=== PATIENT | female | born 1995 | race Caucasian/White ===

== ENCOUNTER 2023-06-06 19:43 | Outpatient (REF) | payer OTHER, SELFPAY ==
[2023-06-12 10:20] LABS: Age Gdln ACOG Testing Note (.); IGP, rfx Aptima HPV ASCU Note (.)
== END 2023-06-06 19:44 | disposition home or self-care (01) ==
LOC: LAB 19:43
PROVIDERS: Visit Provider Obstetrics & Gynecology
DX: Z12.4 Encounter for screening for malignant neoplasm of cervix (principal); Z11.51 Encounter for screening for human papillomavirus (HPV)
CPT/HCPCS: G0145

== ENCOUNTER 2023-11-27 07:38 | Outpatient (OUT) | payer OTHER, SELFPAY ==
--- NOTE | 2023-11-27 07:41 | US_ITS ---
The [address] [address] Patient Name: SELENE SHERMAN MRN: [id number] date: 1995 Sex: F Assigned Patient Location: US Current Patient Location: US Accession/Order Number: [id number] Exam Date: 11/27/2023 07:48 Report Date: 11/27/2023 08:25 At the request of: CLIFTON CHOE Procedure: US pelvis w/ transvaginal EXAM: Pelvic ultrasound HISTORY: . 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 COMPARISON: None. TECHNIQUE: Transabdominal and transvaginal scanning was performed FINDINGS: Scanning of the pelvis demonstrates an anteverted uterus measuring 8 x 4.9 x 3.8 cm. Endometrial complex measures 8 mm. Right ovary measures 4.6 x 2.1 x 3.1 cm. Color-flow is noted. There is a 1.9 x 1.5 cm simple cyst in the right ovary. Left ovary measures 2.7 x 2.8 x 2.9 cm. Color-flow is noted. There is a 1.9 x 1.4 cm simple cyst within the left ovary. No fluid is noted within the cul-de-sac. US/US pelvis w/ transvaginal IMPRESSION: 1. Normal-appearing uterus and endometrial complex. 2. 2 cm simple cyst in the right ovary. 3. 1.9 cm simple cyst in the left ovary. Electronically authenticated by: ISRAEL RODRIGUEZ Date: 11/27/2023 08:25
== END 2023-11-27 07:39 | disposition home or self-care (01) ==
LOC: US 07:38
PROVIDERS: Visit Provider Obstetrics & Gynecology
DX: E28.2 Polycystic ovarian syndrome (principal); N83.291 Other ovarian cyst, right side; N83.292 Other ovarian cyst, left side
CPT/HCPCS: 76830; 76856

== ENCOUNTER 2024-04-18 10:05 | Outpatient (OUT) | payer OTHER, SELFPAY ==
--- NOTE | 2024-04-18 | US_ITS ---
[address] [address] Patient Name: SELENE SHERMAN MRN: [id number] date: 1995 Sex: F Assigned Patient Location: [facility] Current Patient Location: [facility] Accession/Order Number: [id number] Exam Date: 04/18/2024 10:11 Report Date: 04/18/2024 12:03 At the request of: CLIFTON CHOE Procedure: US OB transvaginal EXAMINATION: US OB transvaginal HISTORY: MISSED MENSES COMPARISON: No relevant comparison available. FINDINGS: GESTATIONAL SAC: Present and normal appearing. YOLK SAC: Present and normal appearing. POLE: Present and normal appearing. CARDIAC: Present. UTERUS: Normal size and appearance. OVARIES: Right: Complex 3.5 cm cyst versus corpus lutein cyst. Left: Normal. CERVIX: 3.6 cm in length and closed. CUL-DE-SAC: Normal. OTHER: None. AGE BY LMP: 8 weeks 4 days EDGAR BY LMP: 11/24/2024 AGE BY US CRL: 8 weeks 5 days EDGAR BY US CRL: 11/23/2024 US/US OB transvaginal IMPRESSION: 1. Single live intrauterine . 2. Large septated cyst within right ovary; complex cyst versus corpus lutein cyst. Electronically authenticated by: VERENICE AYOUB Date: 04/18/2024 12:03
--- OUTSIDE RECORDS SUMMARY | 2024-04-18 10:22 | XMS_ITS ---
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 Name Role Phone VILLALOBOS, DINKAR Unavailable Unavailable VILLALOBOS, DINKAR Unavailable Unavailable PHYSICIAN, DEFAULT Admitting Unavailable PHYSICIAN, DEFAULT Attending Unavailable ROHITH, PA R Admitting Unavailable ROHITH, PA R Attending Unavailable SELF, REFERRED Referring Unavailable SELF, REFERRED Primary Care Unavailable DAIJA, DR LAZO Attending Unavailable DAIJA, DR LAZO Consulting Unavailable DAIJA, DR LAZO Admitting Unavailable Jesica Jamison Primary Care Physician NHUNG RIVERO Attending Unavailable DAIJA, CLIFTON Attending Unavailable Jeffery Doyle Attending Unavailable DAIJA, Clifton R Admitting Unavailable DAIJA, Clifton R Attending Unavailable DAIJA, Clifton R Admitting Unavailable DAIJA, Clifton R Attending Unavailable DAIJA, Clifton R Admitting Unavailable DAIJA, Clifton R Attending Unavailable DAIJA, Clifton R Admitting Unavailable DAIJA, Clifton R Attending Unavailable Encounters Encounter Date Encounter Type Care Provider Facility Start: 03-17-2024 End: 03-18-2024 ambulatory Clifton R DAIJA [place] Start: 03-17-2024 End: 03-17-2024 Patient encounter procedure Clifton R DAIJA [facility] Start: 12-19-2023 End: 12-19-2023 ambulatory NHUNG RIVERO Not Available Start: 12-07-2023 ambulatory Clifton R DAIJA Facility: [facility] Start: 11-13-2023 End: 11-14-2023 ambulatory Clifton R DAIJA Facility:[facility] Start: 11-13-2023 End: 11-13-2023 Patient encounter procedure Clifton R DAIJA [facility] Start: 10-24-2023 End: 10-24-2023 ambulatory CLIFTON CHOE Not Available Start: 08-14-2023 End: 11-13-2023 ambulatory Jeffery Doyle Facility:[facility] Start: 04-11-2023 ambulatory Clifton CHOE Facility: [facility] Start: 04-11-2023 End: 07-17-2023 Recurring Clifton Johnie CHOE [facility] Start: 01-25-2022 End: 01-25-[address] CLIFTON CHOE Facility: Start: 12-10-2018 End: 12-11-2018 Patient encounter procedure PA NEWBERRY Facility:[facility] Start: 12-05-2018 End: 12-06-2018 Patient encounter procedure DEFAULT PHYSICIAN Facility:[facility] Start: 03-25-2018 Ambulatory [facility] Immunizations Immunization Date Immunization Notes Care Provider Fa cility 09-06-2023 influenza virus vaccine, unspecified formulation Clifton DAIJA [facility] Comment on above: Reason for Medicatio n: Prophylaxis 09-12-2022 influenza virus vaccine, unspecified formulation Clifton DAIJA [facility] Comment on above: Reason for Medicatio n: Prophylaxis 09-12-2022 influenza, injectabl e, quadrivalent, preservative free Clifton DAIJA [facility] 04-28-2021 COVID-19, mRNA, LNP- S, PF, 30 mcg/0.3 mL dose Clifton DAIJA [facility] Comment on above: Reason for Medicatio n: Prophylaxis 04-06-2021 COVID-19, mRNA, LNP- S, PF, 30 mcg/0.3 mL dose Clifton DAIJA [facility] Comment on above: Reason for Medicatio n: Prophylaxis Payers Date Payer Category Payer Unknown 2022 Medicare [id number] 1995 Unknown [id number] 2.16.8 [id number] 1995 Unknown [id number] 2.16.8 [id number] 1995 Unknown [id number] 2.16.84 [id number] 1995 Unknown [id number] 2.16.84 [id number] 1995 Unknown [id number] 2.16.840 .[id number] 1995 Unknown [id number] 2.16.8 [id number] 1995 Unknown [id number] 2.16.8 [id number] 1995 Unknown [id number] 2.16.8 [id number] 1995 Unknown [id number] 2.16.8 [id number] 1995 Unknown [id number] 2.16.8 [id number] 1960 Unknown [id number] Unknown [id number] Problems Problem Classification Problem Date Documented Date Episodic/Chronic Immunizations and screening for infectious disease (1 source) Encounter for screening for human papillomavirus (HPV); Translations: [ENC SCREENING HUMAN PAPILLOMAVIRUS] Onset: 01-26-2022 Episodic Other screening for suspected conditions (not mental disorders or infectious disease) (4 sources) Encounter for screening for malignant neoplasm of cervix; Translations: [ENC SCREENING MALIG NEOPLASM CERV] Onset: 01-25-2022 Episodic Spontaneous (1 source) Complete inevitable miscarriage without complication; Translations: [Complete or unspecified spontaneous without complication] Episodic Unclassified (1 source) Unknown / UNK(Unknown) Onset: 03-25-2018 Unclassified (2 sources) DX Onset: 12-10-2018 Results Test Name Value Interpretation Reference Range Facility [facility] 03-19-2024 HCG.beta subunit Qn 488 m[IU]/mL [facility] 1-3 [facility] Comment on above: Result Comment: 'F N ON < 1 - 3' ' 0.2 - 1 WEEK = 5 TO 50' ' 1 - 2 WEEKS = 50 - 500' ' 2 - 3 WEEKS = 100 - 5000' ' 3 - 4 WEEKS = 500 - 67418' ' 4 - 5 WEEKS = 1000 - 20330' ' 5 - 6 WEEKS = 71435 - 457702' ' 6 - 8 WEEKS = 54320 - 599444' ' 8 - 12 WEEKS = 03077 - 955075' Performed By: #### 2 [id number] #### [facility] [address] [place] [address] Progesteroneon 03-19-2024 Progesterone Lvl 69.95 ng/mL Invalid Interpretation Code [facility] Comment on above: Result Comment: 'F N ON FOLLICULAR = 0.10 - 0.60' 'LUTEAL = 3.00 - 17.5' 'MIDLUTEAL = 3.30 - 18.6' 'POST-MENOPAUSE = 0.10 - 0.40' '-FIRST TRIMESTER = 8.30 - 66.5' 'SECOND TRIMESTER = 18.9 - 66.1' 'THIRD TRIMESTER = 35.8 - 312.4' 'MALES = 0.14 - 2.06' Result Verified by Dilution Performed By: #### 2 [id number] #### [facility] [address] [place] [address] [facility] Quant 03-17-2024 HCG.beta subunit Qn 185 m[IU]/mL High 1-3 [facility] Comment on above: Result Comment: 'F N ON < 1 - 3' ' 0.2 - 1 WEEK = 5 TO 50' ' 1 - 2 WEEKS = 50 - 500' ' 2 - 3 WEEKS = 100 - 5000' ' 3 - 4 WEEKS = 500 - 71205' ' 4 - 5 WEEKS = 1000 - 85497' ' 5 - 6 WEEKS = 87236 - 581097' ' 6 - 8 WEEKS = 36522 - 858261' ' 8 - 12 WEEKS = 29364 - 850626' Performed By: #### 2 [id number] #### [facility] [address] [place] [address] CHEMISTRYOrdered By: SYSTEM SYSTEM on 03-17-2024 HCG.beta subunit Qn 185 m[IU]/mL High 1 - 3 mIU/mL R emisol Chem Comment on above: Result Comment: 'F N ON < 1 - 3' ' 0.2 - 1 WEEK = 5 TO 50' ' 1 - 2 WEEKS = 50 - 500' ' 2 - 3 WEEKS = 100 - 5000' ' 3 - 4 WEEKS = 500 - 74360' ' 4 - 5 WEEKS = 1000 - 17269' ' 5 - 6 WEEKS = 72689 - 567333' ' 6 - 8 WEEKS = 52096 - 659311' ' 8 - 12 WEEKS = 98068 - 697260' Consent for Treatmenton 02-18 Consent for Treatment [id number]#1.00TIF F Normal [facility] Physician Orderon 03-17-2024 Physician Order [id number]#1.00TI FF Normal [facility] Progesteroneon 03-17-2024 Progesterone Lvl 51.75 ng/mL Invalid Interpretation Code [facility] Comment on above: Result Comment: 'F N ON FOLLICULAR = 0.10 - 0.60' 'LUTEAL = 3.00 - 17.5' 'MIDLUTEAL = 3.30 - 18.6' 'POST-MENOPAUSE = 0.10 - 0.40' '-FIRST TRIMESTER = 8.30 - 66.5' 'SECOND TRIMESTER = 18.9 - 66.1' 'THIRD TRIMESTER = 35.8 - 312.4' 'MALES = 0.14 - 2.06' Performed By: #### 2 [id number] #### [facility] [address] [place] [address] Physician Orderon 03-12-2024 Physician Order [id number]#1.00T IFF Normal [facility] Progesteroneon 03-07-2024 Progesterone Lvl 20.59 ng/mL Invalid Interpretation Code [facility] Comment on above: Result Comment: 'F N ON FOLLICULAR = 0.10 - 0.60' 'LUTEAL = 3.00 - 17.5' 'MIDLUTEAL = 3.30 - 18.6' 'POST-MENOPAUSE = 0.10 - 0.40' '-FIRST TRIMESTER = 8.30 - 66.5' 'SECOND TRIMESTER = 18.9 - 66.1' 'THIRD TRIMESTER = 35.8 - 312.4' 'MALES = 0.14 - 2.06' Performed By: #### 2 [id number] #### [facility] [address] [place] [address] Progesteroneon 02-05-2024 Progesterone Lvl 20.64 ng/mL Invalid Interpretation Code [facility] Comment on above: Result Comment: 'F N ON FOLLICULAR = 0.10 - 0.60' 'LUTEAL = 3.00 - 17.5' 'MIDLUTEAL = 3.30 - 18.6' 'POST-MENOPAUSE = 0.10 - 0.40' '-FIRST TRIMESTER = 8.30 - 66.5' 'SECOND TRIMESTER = 18.9 - 66.1' 'THIRD TRIMESTER = 35.8 - 312.4' 'MALES = 0.14 - 2.06' Performed By: #### 2 [id number] #### [facility] [address] [place] [address] Progesteroneon 01-08-2024 Progesterone Lvl 18.23 ng/mL Invalid Interpretation Code [facility] Comment on above: Result Comment: 'F N ON FOLLICULAR = 0.10 - 0.60' 'LUTEAL = 3.00 - 17.5' 'MIDLUTEAL = 3.30 - 18.6' 'POST-MENOPAUSE = 0.10 - 0.40' '-FIRST TRIMESTER = 8.30 - 66.5' 'SECOND TRIMESTER = 18.9 - 66.1' 'THIRD TRIMESTER = 35.8 - 312.4' 'MALES = 0.14 - 2.06' Performed By: #### 2 [id number] #### [facility] [address] [place] [address] Consent for Treatmenton 11-19 Consent for Treatment [id number]#1.00TIF F Normal [facility] Physician Orderon 12-07-2023 Physician Order [id number]#1.00TI FF Normal [facility] Progesteroneon 12-07-2023 Progesterone Lvl 13.36 ng/mL Invalid Interpretation Code [facility] Comment on above: Result Comment: 'F N ON FOLLICULAR = 0.10 - 0.60' 'LUTEAL = 3.00 - 17.5' 'MIDLUTEAL = 3.30 - 18.6' 'POST-MENOPAUSE = 0.10 - 0.40' '-FIRST TRIMESTER = 8.30 - 66.5' 'SECOND TRIMESTER = 18.9 - 66.1' 'THIRD TRIMESTER = 35.8 - 312.4' 'MALES = 0.14 - 2.06' Performed By: #### 2 [id number] #### [facility] [address] [place] [address] DHEASon 11-14-2023 DHEA-S [Mass/Vol] 281.0 microgram/dL Invalid Interpretation Code 84.8-378.0 [facility] Comment on above: Result Comment: Perf ormed at: [facility] [id number] PhD Padma Gleason Performed By: #### 2 [id number] #### [facility] [address] [place] [address] [facility] 11-14-2023 Follitropin Qn 2.8 m[IU]/mL Invalid Interpretation Code [facility] Comment on above: Result Comment: Adul t Female Range Follicular phase 3.5 - 12.5 Ovulation phase 4.7 - 21.5 Luteal phase 1.7 - 7.7 Postmenopausal 25.8 - 134.8 Performed at: [facility] [id number] PhD Padma Gleason Performed By: #### 2 [id number] #### [facility] [address] [place] [address] Lutropin Qn 2.9 m[IU]/mL Invalid Interpretation Code [facility] Comment on above: Result Comment: Adul t Female Range Follicular phase 2.4 - 12.6 Ovulation phase 14.0 - 95.6 Luteal phase 1.0 - 11.4 Postmenopausal 7.7 - 58.5 Performed By: #### 2 [id number] #### [facility] [address] [place] [address] Auto Diffon 11-13-2023 Basophils/100 WBC (Bld) 0.2 % Normal 0.0-2.0 [facility] Comment on above: Order Comment: Order Added by Discern Expert. Performed By: #### 2 [id number] #### [facility] [address] [place] [address] Basophils/Leukocytes Auto (Bld) [Pure # fraction] 0.0 E9/L Normal 0.0-0.2 [facility] Comment on above: Order Comment: Order Added by Discern Expert. Performed By: #### 2 [id number] #### [facility] [address] [place] [address]2019 Eosinophils/100 WBC (Bld) 1.0 % Normal 0.0-8.0 [facility] Comment on above: Order Comment: Order Added by Discern Expert. Performed By: #### 2 [id number] #### [facility] [address] [place] [address] Eosinophils/Leukocyt es Auto (Bld) [Pure # fraction] 0.1 E9/L Normal 0.0-0.5 [facility] Comment on above: Order Comment: Order Added by Discern Expert. Performed By: #### 2 [id number] #### [facility] [address] [place] [address]35[address] Lymphocytes/100 WBC (Bld) 24.1 % Normal 14.0-50.0 [facility] Comment on above: Order Comment: Order Added by Discern Expert. Performed By: #### 2 [id number] #### [facility] [address] [place] [address] 02251 Lymphocytes/Leukocyt es Auto (Bld) [Pure # fraction] 1.7 E9/L Normal 1.0-4.0 [facility] Comment on above: Order Comment: Order Added by Discern Expert. Performed By: #### 2 [id number] #### [facility] [address] [place] [address]9795 Monocytes/100 WBC (Bld) 8.6 % Normal 4.0-14.0 [facility] Comment on above: Order Comment: Order Added by Discern Expert. Performed By: #### 2 [id number] #### [facility] [address] [place] [address] Monocytes/Leukocytes Auto (Bld) [Pure # fraction] 0.6 E9/L Normal 0.2-1.0 [facility] Comment on above: Order Comment: Order Added by Farhan Expert. Performed By: #### 2 [id number] #### [facility] [address] [place] [address] 84018 Neutrophils/100 WBC (Bld) 66.1 % Normal 36.0-75.0 [facility] Comment on above: Order Comment: Order Added by Farhan Expert. Performed By: #### 2 485134 #### [facility] [address] [place] [address]252 Neutrophils/Leukocyt es Auto (Bld) [Pure # fraction] 4.5 E9/L Normal 2.0-7.5 [facility] Comment on above: Order Comment: Order Added by Discern Expert. Performed By: #### 2 [id number] #### [facility] [address] [place] [address] 6[address] BhCG Quanton 11-13-2023 Beta hCG Qnt <1 Normal 1-3 [facility] Comment on above: Result Comment: 'F N ON < 1 - 3' ' 0.2 - 1 WEEK = 5 TO 50' ' 1 - 2 WEEKS = 50 - 500' ' 2 - 3 WEEKS = 100 - 5000' ' 3 - 4 WEEKS = 500 - 56820' ' 4 - 5 WEEKS = 1000 - 06495' ' 5 - 6 WEEKS = 52937 - 306724' ' 6 - 8 WEEKS = 34970 - 360009' ' 8 - 12 WEEKS = 29640 - 092297' Performed By: #### 2 [id number] #### [facility] [address] [place] [address] CBC w/ Auto Diffon Erythrocyte distribution width (RBC) [Ratio] 13.8 % Normal 10.9-14.2 [facility] Comment on above: Performed By: #### 2 [id number] #### [facility] [address] [place] [address] Hematocrit (Bld) [Volume fraction] 39.9 % Normal 34.0-46.0 [facility] Comment on above: Performed By: #### 2 [id number] #### [facility] [address] [place] [address] Hemoglobin (Bld) [Mass/Vol] 13.1 g/dL Normal 12.0-16.0 [facility] Comment on above: Performed By: #### 2 [id number] #### [facility] [address] [place] [address] MCH (RBC) [Entitic mass] 27.5 pg Normal 27.0-34.0 [facility] Comment on above: Performed By: #### 2 [id number] #### [facility] [address] [place] [address] MCHC (RBC) [Mass/Vol] 32.9 g/dL Normal 31.4-36.0 [facility] Comment on above: Performed By: #### 2 839058 #### [facility] [address] [place] [address] MCV (RBC) [Entitic vol] 83.5 fL Normal 80.0-100.0 [facility] Comment on above: Performed By: #### 2 [id number] #### [facility] [address] [place] [address] Platelet mean volume (Bld) [Entitic vol] 9.3 fL Normal 6.4-10.8 [facility] Comment on above: Performed By: #### 2 [id number] #### [facility] [address] [place] [address] Platelets (Bld) [#/Vol] 249.0 E9/L Normal 150.0-500.0 [facility] Comment on above: Performed By: #### 2 [id number] #### [facility] [address] [place] [address] RBC (Bld) [#/Vol] 4.8 E12/L Normal 4.3-5.9 [facility] Comment on above: Performed By: #### 2 350287 #### [facility] [address] [place] [address] WBC corrected for nucl RBC Auto (Bld) [#/Vol] 6.8 E9/L Normal 4.0-11.0 [facility] Comment on above: Performed By: #### 2 [id number] #### [facility] [address] [place] [address] CHEMISTRYOrdered By: SYSTEM SYSTEM on 11-13-2023 Beta hCG Qnt mIU/mL Normal 1 - 3 mIU/mL [facility] Comment on above: Result Comment: 'F N ON < 1 - 3' ' 0.2 - 1 WEEK = 5 TO 50' ' 1 - 2 WEEKS = 50 - 500' ' 2 - 3 WEEKS = 100 - 5000' ' 3 - 4 WEEKS = 500 - 08030' ' 4 - 5 WEEKS = 1000 - 40214' ' 5 - 6 WEEKS = 59115 - 324465' ' 6 - 8 WEEKS = 60322 - 148977' ' 8 - 12 WEEKS = 09932 - 278911' Free T4 [Mass/Vol] 0.96 ng/dL Normal 0.58 - 1. 64 ng/dL Remisol Chem TSH Qn 1.38 m[IU]/L Normal 0.34 - 5.60 mcIU/mL Remisol Chem CHEMISTRYOrdered By: Adolph Mcnair on 11-13-2023 HbA1c (Bld) [Mass fraction] 5.0 % Normal <=5.9% [facility] ChemAutoSS Consent for Treatmenton 10-20 Consent for Treatment [id number]#1.00TIF F Normal [facility] Free T4on 11-13-2023 Free T4 [Mass/Vol] 0.96 ng/dL Normal 0.58-1.64 [facility] Comment on above: Performed By: #### 2 [id number] #### [facility] [address] [place] [address] HEMATOLOGYOrdered By: SYSTEM SYSTEM on 11-13-2023 Basophils/100 WBC (Bld) 0.2 % Normal 0.0 - 2.0 % [facility] Basophils/Leukocytes Auto (Bld) [Pure # fraction] 0.0 E9/L Normal 0.0 - 0.2 E9/L [facility] Eosinophils/100 WBC (Bld) 1.0 % Normal 0.0 - 8.0 % [facility] Eosinophils/Leukocyt es Auto (Bld) [Pure # fraction] 0.1 E9/L Normal 0.0 - 0.5 E9/L [facility] Lymphocytes/100 WBC (Bld) 24.1 % Normal 14.0 - 50.0 % [facility] Lymphocytes/Leukocyt es Auto (Bld) [Pure # fraction] 1.7 E9/L Normal 1.0 - 4.0 E9/L [facility] Monocytes/100 WBC (Bld) 8.6 % Normal 4.0 - 14.0 % [facility] Monocytes/Leukocytes Auto (Bld) [Pure # fraction] 0.6 E9/L Normal 0.2 - 1.0 E9/L [facility] Neutrophils/100 WBC (Bld) 66.1 % Normal 36.0 - 75.0 % [facility] Neutrophils/Leukocyt es Auto (Bld) [Pure # fraction] 4.5 E9/L Normal 2.0 - 7.5 E9/L [facility] HEMATOLOGYOrdered By: Nena Amor on 11-13-2023 Erythrocyte distribution width (RBC) [Ratio] 13.8 % Normal 10.9 - 14.2 % [facility] Hematocrit (Bld) [Volume fraction] 39.9 % Normal 34.0 - 46.0 % [facility] Hemoglobin (Bld) [Mass/Vol] 13.1 g/dL Normal 12.0 - 16.0 gm/dL [facility] MCH (RBC) [Entitic mass] 27.5 pg Normal 27.0 - 34.0 pg [facility] MCHC (RBC) [Mass/Vol] 32.9 g/dL Normal 31.4 - 36.0 gm/dL [facility] MCV (RBC) [Entitic vol] 83.5 fL Normal 80.0 - 100.0 fL [facility] Platelet mean volume (Bld) [Entitic vol] 9.3 fL Normal 6.4 - 10.8 fL [facility] Platelets (Bld) [#/Vol] 249.0 E9/L Normal 150.0 - 500.0 E9/L [facility] RBC (Bld) [#/Vol] 4.8 E12/L Normal 4.3 - 5.9 E12/L [facility] WBC corrected for nucl RBC Auto (Bld) [#/Vol] 6.8 E9/L Normal 4.0 - 11.0 E9/L [facility] OtwE0kta 11-13-2023 HbA1c (Bld) [Mass fraction] 5.0 % Normal <=5.9 [facility] Comment on above: Performed By: #### 2 [id number] #### [facility] [address] [place] [address] TSHon 11-13-2023 TSH Qn 1.38 m[IU]/L Normal 0.34-5.60 [facility] Comment on above: Performed By: #### 2 [id number] #### [facility] [address] [place] [address] BhCG Quanton 04-18-2023 HCG.beta subunit Qn 1 m[IU]/mL Normal 1-3 [facility] Comment on above: Result Comment: GEST ATIONAL AGE HCG RANGE (mIU/mL) NON- <1-3 0.2-1 WEEKS 5-50 1-2 WEEKS 50-500 2-3 WEEKS 100-5,000 3-4 WEEKS 500-10,000 4-5 WEEKS 1,000-50,000 5-6 WEEKS 10,000-100,000 6-8 WEEKS 15,000-200,000 8-12 WEEKS 10,000-100,000 Performed By: #### 2 [id number] #### [facility] [address] [place] [address] CHEMISTRYOrdered By: SYSTEM SYSTEM on 04-18-2023 HCG.beta subunit Qn 1 m[IU]/mL Normal 1 - 3 mIU/mL FTM C Remisol BhCG Quanton 04-11-2023 HCG.beta subunit Qn 9 m[IU]/mL High 1-3 [facility] Comment on above: Result Comment: GEST ATIONAL AGE HCG RANGE (mIU/mL) NON- <1-3 0.2-1 WEEKS 5-50 1-2 WEEKS 50-500 2-3 WEEKS 100-5,000 3-4 WEEKS 500-10,000 4-5 WEEKS 1,000-50,000 5-6 WEEKS 10,000-100,000 6-8 WEEKS 15,000-200,000 8-12 WEEKS 10,000-100,000 Performed By: #### 2 [id number] #### [facility] [address] [place] [address] CHEMISTRYOrdered By: SYSTEM SYSTEM on 04-11-2023 HCG.beta subunit Qn 9 m[IU]/mL High 1 - 3 mIU/mL FTM C Remisol Consent for Treatmenton 03-20 Consent for Treatment [id number]#1.00CD: 127 Normal [facility] Physician Orderon 04-11-2023 Physician Order [id number]#1.00CD :127 Normal [facility] PAP ACOG PANEL 2: 20 to 28on 01-31-[address] [facility] Comment on above: Performed By: #### 4 [id number] #### [facility] [address] [place] [address] Dr. Tobi Phelps Age Gdln ACOG Testing [address] [facility] Comment on above: Performed By: #### 4 [id number] #### [facility] [address] [place] [address] Dr. Tobi Phelps DIAGNOSIS: Comment Normal [facility] Comment on above: Result Comment: NEGA TIVE FOR INTRAEPITHELIAL LESION OR MALIGNANCY. Performed By: #### 4 [id number] #### [facility] [address] [place] [address] Dr. Tobi Phelps Methodology: Comment Normal [facility] Comment on above: Result Comment: This liquid based ThinPrep(R) pap test was screened with the use of an image guided system. Performed By: #### 4 [id number] #### [facility] [address] [place] [address] Dr. Tobi Phelps Note: Comment Normal [facility] Comment on above: Result Comment: The Pap smear is a screening test designed to aid in the detection of premalignant and malignant conditions of the uterine cervix. It is not a diagnostic procedure and should not be used as the sole means of detecting cervical cancer. Both false-positive and false-negative reports do occur. . Performed By: #### 4 [id number] #### [facility] [address] [place] [address] Dr. Tobi Phelps Performed by: Comment Normal [facility] Comment on above: Result Comment: Elvis Gutierrez, Board Finisher (ASCP) Performed By: #### 4 [id number] #### [facility] [address] [place] [address] Dr. Tobi Phelps Reflex Criteria: Comment Normal [facility] Comment on above: Result Comment: The HPV DNA reflex criteria were not met with this specimen result therefore, no HPV testing was performed. . Performed By: #### 4 [id number] #### [facility] [address] [place] [address] Dr. Tobi Phelps Specimen adequacy: Comment Normal [facility] Comment on above: Result Comment: Sati sfactory for evaluation. Endocervical and/or squamous metaplastic cells (endocervical component) are present. Performed By: #### 4 [id number] #### [facility] [address] [place] [address] Dr. Tobi Phelps Release of Informationon Release of Information [id number] TIFF [facility] Coding Summaryon 08-04-2021 Coding Summary HTMLBase 64 OpttmkoiPIl0wDn+PGhlYWQ+ PY8XQLLxN57rqICjvX4SH0iO SB5GYBKWDVJGCI0IND7sdWS2 WKdrC7RirnIk JyyyfNRxKK19JEv3IHB7iQny ATkvfG0inXEoP4d2IxOrYP34 lY91DTboHVWvTqE7DkPhtpwz bWFy V9wzVbMweZSkLwz+PHRhYmxl IHdpZHRoPScxMDAlJyBzdHls VF2xWu3lIRVyJWWwvVjriGBm OiBj t4tjMSPdRGsgYM0exMfhH3Kh mIT0WULig1i7Mx26xVP+PHRk XCJ0mUszDXhde155XgXla8fc IDM3 vFHtYTzmTIW5F35zf5G7RVNr DJDeJFF9aYF0hX0epHojvpfx Z2ZevWGlRiH6IPE6jECovS9a bGln mccuvK7vZxj+Q30GBO9JLNSQ HG7AOix7N6QxRcsjpLU+PC90 TYJePH90iSNkzWUtn6idjTg6 JzEw UTAjKBF8kNhtTInnh3PcJARq K32pmSAfa7F7KPVnoJdgtLTp OkLjtYH6uM8mKQrrmpelx7nw dzsn Hfbko0mhou83yZ59W60qZQcb RQGyTGY7MISsCNFnvTexep0y aL6rLg2+AKqrc4klk8dcrJo7 IjIw USKbyqOojNurIVC2v9VoKe22 H7ZlvBbeq5MfEql3ak86oAUo n4P8aYJ7ESvfWEKmeN8tDOxd ZnQ6 QZRoHnFzzG16nNJuNAfmLz6h nEndeWocZD1zYTXyqocrWESi qB1vBRFcxXLkkCnoPF2vXWSj bjtm t903DdJxHGB0QYLpcQCxD9Cu lF3tQqKwAGPsXSKaH8BklGNe AIepY030LDhmZwI7QIZtekYa Y2Fs QYApiAdqVrL3u0V4Ml0Ii2Io pufvSUP4JEtaYMS8NgY3DeMx PaE6T4UfHxw9WXEwnYpzKL7b J3Bh JVGsvaubngyilSF3XAUdXQUm kK23qMHeODcdJn2yi5Q2l219 WIXkLFSvkO25Uq4tnQzdLPKu dCBU gF2lmkwem0vvzyaoDnJnYEBp RSp0SEc4GKYzjKyzMpJbDAI0 AoQ7GYH6aEFlkD0pnWkptoxm dG9w Oyc+X26ecU6cKBY8LVF4veue YORnjuLrFC84RK39U8UkNpjs dGFibGU+NPUxypPxuKlkSU3x YmFj s5drj2YkDThnB4PaOZFnLRek Adj5FVZsKRS5kVP0fQ3lAVJd GVgjz8E2lNX5Q7CiltRksc6d b2xs PYGhQHrvP55aiLByy9T1ADIn qXB8HSHteJbsZxTbfB53Svb+ IIRrdXzfe0BpIwlyg4wny3dm dGg9 GoIvHIQshuTmlXmyMGW9z1Ce Vs41Q91vQTzkZVJkHDVnXCBb AUYikFsksh4enL9sVr6+PGNv bCB3 yQD8iB6rWXVeSyB5VMpuB637 WmKdjYQxBpblx1ufm5opaKw1 ZiXaRKRvsuYchFryTPR1z0Px Lz48 H32oYDynUUSbWGEtNFMhBSZl xOdljr7mhJ6oWa6+NQ7lc0ry yt88vN73iOQ+SRAqBQV3qPox PSdw OIWyqR7fZOorTqI0RCJiMnSf dH78aBUaSVsrMj9onTojjOpz TN3jCYWgsuraq156VfSip1ps IDEw nCAbMPbiTJG7T70zr5H8UFIt ZEFiXTZ0yHC6xD8tbDikbcsa bGVmdDsgdmVydGljYWwtYWxp Z246 IHRvcDsnPlBhdGllbnQgTmFt BCu8G0MwTei3EPRinMxgJS8t oTXfECbsXh8atHlxwTewKA3a NTBp zrsrx685TrZab0bdIGWdrKPa NSrvHSW5O37fk0Z4ZYYiUOAi VJL0gNA3fP7rxWwibucxhLSe dDsg hzWpsCbiCQbnEKtiR650BSEo oOkrZfCfiaAoOCVkvFJ8MP03 PF43fYLib4R6yUL2N2MzKFGx bmct eaxmdPZ6BAKpIWNqkR62Gt7d qXrsQb6xVTGmBCV7VGTgdLNv Z6CeiN4eAbClBVBjZQWiN6Dl eHQt HFhnO563DQhgMeZ4GJRelrRp L6BsLLRfhWpgGkD1b5D5Zm5J H4I7OR83KE23eGOck4L2iGF3 J3Bh SVDwtggqlpayaUN6ZLNyYNFo tY55Tq7fnEzgSe0vHKDzLGW6 BFBpyQDxD8QedE2nXxDtUGCm MDAw X5NghSAvJFznL468SQmbRaN9 GLWyhvVhX5UbEVRllSyqPhP9 o6A1Hd5GRXw9IW17EI72fNCt c3R5 hOS3Y3XkVDMqxuonnybwhFZ8 AWMhPVPmsY81Vg2mvJixIk7v JDMcCNX6JBFptSRkC9OsqA0r OiAj ANNcZFRwY4LvlINmOVfxI318 TUglHxN7YYNstnWbF1KgNRXp sKtaBxN7f9C5Kc1RJBYfEK16 IFR5 fVA6EY09OO46Z6QrIsqfoOXb bGU+PHRhYmxlIHdpZHRoPScx GELqCfYqoIwiPZ2lAj8eENRk LWNv zKensTOsYeRvg2nyQBLqIAqc NI9iiSqhZ8SpqBT3VXGip8j4 Jy27G45uP8YfiUW+PGNvbCB3 aWR0 vL6jGhVkDfV3SUccP345EiGr eXKkBbohb7rwu2lmiEh9RqK1 SKHvxcXsjCkrGBW5h8XpGv40 Y29s IHdpZHRoPSIxNSUiIHZhbGln eg0ahZ9kVc8+EEIaoJK3uNQ7 gB7iSrNhRmC1CDgpS018ZpXc cCIv Cnmin1xym9wivDr1GjWgBYOa tcDduWciISV9c8VoWh57E7Pz yXpju7DvUov5yo98iDNtz6I7 bGU9 H3UvIEEifvhjiYUxdLkfZJ5i JLJrduydUDWfjW7gLILrX7y1 RpOzBfU6IZxsQ8PaasT4CDBs cHQg XVuyMBJ9O31la9G6ZUDqSVYd IAH4zDU9tC5dhYehrtmbzUKm uMraveBddJfeQDwrQGijU003 IHRv kZcxSTSqdV7fTXIoaYQcqNdk QC3lROUrevtzIjrBZG7OMUYY YZKWM7GFTTGRYQO0O7YmTvr4 ZCBz pZhrDM5oiCWeVCthMg2khSwl dZhqZY6jMCUohnyyMBBxfK2u RWUlqODlwUqmQO3rFFYhfrrk b250 MeEaHBQ6YTEefLPtJ9ItwB2r SkEeRMGbYZNxL0LnrGAbUNbw Y489YKctOfE7NNDkcePaR1Rg LWFs bQdrLfZ6u4W1Mi3hZV4sXS9m ZXx3PY25EQ26sCKig2A7fHL1 G6MvJQVpozozgcnxdCN6MPMe MDUw tQ69fXMaGVxhQm9sv7R8d967 UXPjKHZrlQ02Ta3cmXcfUTTs uSMYzR1wjxfkt5dojtmzXmNq MDAw YMu9UZm1DMXpdTccCiEiKLP3 SbC4CPZ4nDSefY4qvAmxyxlh tO9mKfw+VrPmDZHcagP7Y5Nj Pjx0 QODfdFawFH1hqHPsTKxzYr2v vPzgbVnrFE0xGHXxzvfwILCk bR3fOPXmaECngJexII9gKUOg bjtm r237ZtIeQWA5AKBtsAGsP0Jf nN8qGvVeBLIrSGPoI7ZcoAVw EScfE392ERmnGiT7IOJltwSp Y2Fs QPVbyDxzQcF5h4Y1Jt8BZG4B HPL2G7UaGfq1NOVhdPxuYN7k uJVxMPwuTr8wlHzejUbqPR3l NTBp yennPJDowQ9mNQLrqCIgtZjv CQ5xZUBrbmopo697SpAqHIN8 ZVYcgJWqS5AfgP1lSuPoKDUs MDAw O7TbeAXbCKohB555IHqkEaB6 RMQkckOiR0HvGUSgdNsnFxC3 c8J0Hr0KOBxekOM+NY29iu12 L3Rh DpdbAby6ZJTxUJB6jUV9zC4r JMJuVEgwr1W7tQC0I0OgbsBr po4gj2teOGQqSZcfD18oqIOk c2U7 ZBUgxRE2GVWveQlmTkFldS58 Oyc+FXKcnKurt2CsLkgtz0oi b2owcRt0XeWuLSCybqNxhPsu PSJ0 o3LeDa25K01iXJngYCRiDXCm FSIcHEKpoMaviw8mwL7fGa9+ NSZtrTM6vJG4kQ5cZkNdSmM2 YWxp V125VdRqxUZmFfsbn1lzy1zm vLl9LgVqITGhtgAqyFigDYW3 t7DwCg73A7XsiZkfx0KbWfj1 cj48 oGFmm7J7vNU1D9TtSZDvrwde oMClyXdtCX0hCTGoswxyCTQm kT9cTWUyE0k4GnPdQwF8ZZyg O2Zv xuP3ERHljHUfITMwxGAUqR5x mmvpf9aqwxvhIhHjEFIdISk0 QIz0AZAyhFvoAoWzSJZ5ZsF6 ZXJ0 qFUvsU9uxKfntuyuwI9mXan+ GCr8t7lroVEeCA9gvDV8WM57 VM80rPGbn2P9xBL6L5PgDQZk bmct iautkPQ5FYFpSTXfjW93Ho9f pYcmXm8tGELrKQG6YOJjsZQs J7WonL0zFxDjRTYlCBXcP7Kn eHQt LLvzR061FZdrLtM8MOBpysJi W8BfMPVkeJhvWaR6m3S7So5W VD80DB99RW95jJDhf4U0lCI6 J3Bh XFBhojgbexjwuYW5BVQzKMRz uL86Wu1lmMxiDf5yUSMrXGI0 ZUPktEHcW9MazZ4fHsWdZGGf MDAw W3RowPHaYRipE820NOxgYbQ5 VUAupkGhU7BjVOAdoWczHnV9 o6R8Cu2KTv16BS85IU44oZIn c3R5 lME6D0UaMQVpbbikvmxuxVF4 CICnHVEfrB10Sz7dqVndEj1h MUJqFKB4TTXamOLoU4EfkO9x OiAj XOUpDHVhB6EdkJMiSQjzX091 SWzzRrY5VSKqsqVkU8VxAKKh qSsrGvQ3o1R5Mx5MSSjtiqr1 L3Rk PjwvdHI+TT51GBYdCB54aFYb mQWlk6wrrEj1TvPaVORpNAC6 aIaoHMuwc7VoXOJiH47xlNHm c2U6 IGN (more content not included)... [facility] Consent Formson 08-03-2021 Consent Forms [id number] TIFF [facility] ED Clinical Summaryon 2020 ED Clinical Summary [facility] ? Urgent Care [address] [place] [address] Clinical Summary PERSON INFORMATION Name: SELENE PERSAUD Age: 25 Years Sex: FEMALE : 1995 MRN: Acct#: Visit Reason: UC - Skin Problem: simple; BODY RASH Arrival: 08/02/2021 10:14:21 Discharge: 08/02/2021 10:44:00 LOS: 000 00:30 Check In: 08/02/2021 10:14:21 Checkout: 08/02/2021 10:44:00 Address: [address] [place] [address] PCP: Provider, None PROVIDER INFORMATION Provider Role Assigned Unassigned Lance Thakkar ED PA 08/02/2021 10:18:20 08/02/2021 10:24:26 Rachael David RN ED Nurse 08/02/2021 10:18:38 Yayo Salas PA-C ED PA 08/02/2021 10:19:17 VITALS INFORMATION Vital Sign Triage Latest Temperature Tympanic Temperature Temporal Artery Pulse Rate O2 Sat 99 % 99 % Respiratory Rate Blood Pressure /94 mmHg /94 mmHg MEDICAL INFORMATION Medications Given: Allergy Information: No Known Medication Allergies PHYSICIAN DOCUMENTATION DISCHARGE INFORMATION: Discharge Disposition: Home Discharge Location: Home PATIENT EDUCATION INFORMATION Instructions: Poison Claudia Dermatitis, Jvyo-yd-Qsgq Follow-Up: With: Address: When: Follow up with primary care provider Within 3 to 5 days Comments: OR see DERMATOLOGY as needed DIAGNOSIS: Contact dermatitis Patient Understands: Yes - Patient/family/caregiver verbalizes understanding of instructions given Comment: Normal [facility] ED Patient Summaryon 021 ED Patient Summary [facility] ? Urgent Care [address] [id number] PATIENT DISCHARGE INSTRUCTIONS Patient Information Name: SELENE PERSAUD Age: 25 Years Date of : 1995 Reason For Visit: UC - Skin Problem: simple; BODY RASH Arrival Time: 08/02/2021 10:14:21 Primary Care Physician: Provider, None Attending Physician: Lance Thakkar Comment: Patient Education With: Address: When: Follow up with primary care provider Within 3 to 5 days Comments: OR see DERMATOLOGY as needed Poison Claudia Dermatitis Poison claudia dermatitis is redness and soreness of the skin caused by chemicals in the leaves of the poison claudia plant. You may have very bad itching, swelling, a rash, and blisters. What are the causes? ? Touching a poison claudia plant. ? Touching something that has the chemical on it. This may include animals or objects that have come in contact with the plant. What increases the risk? ? Going outdoors often in wooded or marshy areas. ? Going outdoors without wearing protective clothing, such as closed shoes, long pants, and a long-sleeved shirt. What are the signs or symptoms? ? Skin redness. ? Very bad itching. ? A rash that often includes bumps and blisters. ? The rash usually appears 48 hours after exposure, if you have been exposed before. ? If this is the first time you have been exposed, the rash may not appear until a week after exposure. ? Swelling. This may occur if the reaction is very bad. Symptoms usually last for 1?2 weeks. The first time you develop this condition, symptoms may last 3?4 weeks. How is this treated? This condition may be treated with: ? Hydrocortisone cream or calamine lotion to relieve itching. ? Oatmeal baths to soothe the skin. ? Medicines, such as lpul-qjo-otojymd antihistamine tablets. ? Oral steroid medicine for more severe reactions. Follow these instructions at home: Medicines ? Take or apply sged-jds-djtgblm and prescription medicines only as told by your doctor. ? Use hydrocortisone cream or calamine lotion as needed to help with itching. General instructions ? Do not scratch or rub your skin. ? Put a cold, wet cloth (cold compress) on the affected areas or take baths in cool water. This will help with itching. ? Avoid hot baths and showers. ? Take oatmeal baths as needed. Use colloidal oatmeal. You can get this at a pharmacy or grocery store. Follow the instructions on the package. ? While you have the rash, wash your clothes right after you wear them. ? Keep all follow-up visits as told by your health care provider. This is important. How is this prevented? ? Know what poison claudia looks like, so you can avoid it. ? This plant has three leaves with flowering branches on a single stem. ? The leaves are glossy. ? The leaves have uneven edges that come to a point at the front. ? If you touch poison claudia, wash your skin with soap and water right away. Be sure to wash under your fingernails. ? When hiking or camping, wear long pants, a long-sleeved shirt, tall socks, and hiking boots. You can also use a lotion on your skin that helps to prevent contact with poison claudia. ? If you think that your clothes or outdoor gear came in contact with poison claudia, rinse them off with a garden hose before you bring them inside your house. ? When doing yard work or gardening, wear gloves, long sleeves, long pants, and boots. Wash your garden tools and gloves if they come in contact with poison claudia. ? If you think that your pet has come into contact with poison claudia, wash him or her with pet shampoo and water. Make sure to wear gloves while washing your pet. Contact a doctor if: ? You have open sores in the rash area. ? You have more redness, swelling, or pain in the rash area. ? You have redness that spreads beyond the rash area. ? You have fluid, blood, or pus coming from the rash area. ? You have a fever. ? You have a rash over a large area of your body. ? You have a rash on your eyes, mouth, or genitals. ? Your rash does not get better after a few weeks. Get help right away if: ? Your face swells or your eyes swell shut. ? You have trouble breathing. ? You have trouble swallowing. These symptoms may be an emergency. Do not wait to see if the symptoms will go away. Get medical help right away. Call your local emergency services (911 in the [place] Do not drive yourself to the hospital. Summary ? Poison claudia dermatitis is redness and soreness of the skin caused by chemicals in the leaves of the poison claudia plant. ? You may have skin redness, very bad itching, swelling, and a rash. ? Do not scratch or rub your skin. ? Take or apply redv-nry-tdpmjvf and prescription medicines only as told by your doctor. This information is not intended to replace advice given to you by your health care pr (more content not included)... Normal [facility] Urgent Care Note- Provideron 08-02-2021 Urgent Care Note- Provider Patient: SELENE PERSAUD Age: 25 years Sex: FEMALE : 1995 Associated Diagnoses: Contact dermatitis Author: Yayo Salas PA-C History of Present Illness This is a 25 year old here today with concerns of an itchy, red rash to both legs since working out by a [employer] where they were clearing brush. Her has something similar, but his improved and hers has not. She has been using an old Rx of triamcinolone without good relief. No fevers, chills or malaise. No facial swelling or difficulty breathing. No chest pains, SOB or cough. No other skin rashes or lesions. There are no other associated symptoms. Nothing else makes the symptoms better or worse. Symptoms are described as gradual onset, moderate in nature and persisting. Exposure was 3 weeks ago. Health Status Allergies: Allergic Reactions (Selected) No Known Medication Allergies. Medications: (Selected) Documented Medications Documented Nexplanon 68 mg subcutaneous implant: 68 mg = 1 EA, SubQ, Once, 0 Refill(s) estradiol 0.5 mg oral tablet: 0.5 mg = 1 tab(s), PO, Daily, 30 tab(s), 0 Refill(s) sulfacetamide sodium-sulfur 9%-4.5% topical liquid: 1 nader, TOP, BID, 454 gm, 0 Refill(s). Past Medical/ Family/ Social History Medical history: No active or resolved past medical history items have been selected or recorded.. Surgical history: Tooth extraction ([id number]) on 02/27/2012 at 16 Years. Comments: 04/25/2019 9:32 EDT - March Christal SÁNCHEZ wisdom teeth. Family history: Dementia Grandparent Thyroid disease Grandparent High blood pressure Mother Arthritis Mother Grandparent Cancer Grandparent High cholesterol Mother Father . 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 Problem list: No qualifying data available . Physical Examination Vital Signs Vital Signs 08/02/2021 10:20 EDT Peripheral Pulse Rate 76 bpm Respiratory Rate 18 br/min Systolic Blood Pressure 144 mmHg HI Diastolic Blood Pressure 94 mmHg HI SpO2 99 % Oxygen Therapy Room air . GENERAL: Awake, alert and oriented to person, place and situation. Well nourished, well developed, non toxic, NAD. EXTREMITIES: No cyanosis, clubbing or edema. Good muscle tone, moves all extremities. SKIN: Erythematous maculopapular rash to the left lower leg and down the back of the right leg, with otherwise normal inspection, no visualized rash. NEUROLOGIC: Normal mentation. No focal neurological deficits appreciated. PSYCHIATRIC: Mood and affect appropriate. Medical Decision Making Contact dermatitis likely due to poison claudia based on history. Steroid taper, start Lidex steroid cream as directed. Return with new, or worsening symptoms, or symptoms failing to improve as expected and the patient voiced their understanding. Questions answered. Follow-up with their family doctor as directed, return here sooner as needed. See derm as needed. Impression and Plan Diagnosis Contact dermatitis ([id number] L25.9, Discharge, Medical) Plan Condition: Stable. Disposition: Discharged: Time 08/02/2021 10:34:00, to home. Prescriptions: [facility] prescriptions Pharmacy: Lidex 0.05% topical cream (Prescribe): 1 nader, TOP, TID, for 7 day(s), 30 gm, 0 Refill(s) predniSONE 10 mg oral tablet (Prescribe): See Instructions, Take 6 tabs PO daily for 3 days, 4 tabs PO daily for 3 days, 2 tabs daily for 3 days, 1 tab daily for 3 days, 39 tab(s), 0 Refill(s). Patient was given the following educational materials: Poison Claudia Dermatitis, Ykwf-pa-Talf, Poison Claudia Dermatitis, Jkxk-wq-Pcdt. Follow up with: ; Follow up with primary care provider Within 3 to 5 days OR see DERMATOLOGY as needed. Counseled: Patient, Regarding diagnosis, Regarding treatment plan, Regarding prescription, Patient indicated understanding of instructions. Normal [facility] Recordon 021 Urgent Care Record [facility] ? Urgent Care [address] [place] [address] PATIENT DISCHARGE INSTRUCTIONS Patient Information Name: SELENE PERSAUD Age: 25 Years Date of : 1995 Reason For Visit: BODY RASH Arrival Time: 08/02/2021 10:14:21 Primary Care Physician: Provider, None Attending Physician: Lance Thakkar Comment: Visit Diagnosis: Diagnoses This Visit Contact dermatitis (L25.9) If you received any narcotics, sedation, or any other medication that causes drowsiness for the next 24 hours, unless otherwise directed: ? Do not drive a car. ? Do not operate machinery such as power tools, lawn mowers, drills, sewing machines, or stoves ? Avoid alcoholic beverages and drugs for allergies, nerves, or sleep ? Do not make important personal or business decisions or sign any legal documents With: Address: When: Follow up with primary care provider Within 3 to 5 days Comments: OR see DERMATOLOGY as needed Medication Information: The exam and treatment you received today in the [facility] were for an urgent problem and are not intended as complete care. It is important for you to follow up with a doctor, nurse practitioner, or physician?s assistant press operator offset for ongoing care. If your symptoms become worse or you do not improve as expected and you are unable to reach your usual health care provider, you should return to the Emergency Department, we are available 24 hours a day. For those patients who have received Radiology results, the interpretation of your X-ray as given to you by our Urgent Care physician is only a preliminary report. The Radiologist will review your films and if there is a change in the diagnosis you will be notified by phone. Please make sure you have provided a working phone number so we can reach you if necessary. In the event that you had a lab culture while you were a patient in the Urgent Care, you will be notified by phone if there is a need to change your antibiotic. Please make sure you have provided a working phone number so we can reach you if necessary. [facility] has provided you with a complete list of medications post discharge. Please inform your central supply tech/provider of your visit and for further instruction on these medications. Any specific questions regarding your chronic medications and dosages should be discussed with your primary care physician(s) and/or pharmacist. New Medications [id number], [address], [place] [id number], [phone] fluocinonide topical (Lidex 0.05% topical cream) 1 nader Topical 3 times a day for 7 Days. Refills: 0. predniSONE (predniSONE 10 mg oral tablet) Take 6 tabs PO daily for 3 days, 4 tabs PO daily for 3 days, 2 tabs daily for 3 days, 1 tab daily for 3 days. Refills: 0. Medications to Continue That Have Not Changed Other Medications estradiol (estradiol 0.5 mg oral tablet) 1 tab(s) Oral every day. etonogestrel (Nexplanon 68 mg subcutaneous implant) 1 Each Subcutaneous once. sulfacetamide sodium-sulfur topical (sulfacetamide sodium-sulfur 9%-4.5% topical liquid) 1 nader Topical 2 times a day. Visit Information Allergies: Substance Reaction Symptoms Type Comments No Known Medication Allergies Drug Vital Signs: Vitals and Measurements this Visit (last charted value for your 08/02/2021 visit) No vitals and measurements documented Problems List: Problem Onset Comments No Problems found Patient Education Poison Claudia Dermatitis Poison claudia dermatitis is redness and soreness of the skin caused by chemicals in the leaves of the poison claudia plant. You may have very bad itching, swelling, a rash, and blisters. What are the causes? ? Touching a poison claudia plant. ? Touching something that has the chemical on it. This may include animals or objects that have come in contact with the plant. What increases the risk? ? Going outdoors often in wooded or marshy areas. ? Going outdoors without wearing protective clothing, such as closed shoes, long pants, and a long-sleeved shirt. What are the signs or symptoms? ? Skin redness. ? Very bad itching. ? A rash that often includes bumps and blisters. ? The rash usually appears 48 hours after exposure, if you have been exposed before. ? If this is the first time you have been exposed, the rash may not appear until a week after exposure. ? Swelling. This may occur if the reaction is very bad. Symptoms usually last for 1?2 weeks. The first time you develop this condition, symptoms may last 3?4 weeks. How is this treated? This condition may be treated with: ? Hydrocortisone cream or calamine lotion to relieve itching. ? Oatmeal baths to soothe the skin. ? Medicines, such as fwod-jhk-wonsfrj antihistamine tablets. ? Oral steroid medicine for more severe reactions. Follow these instructions at home: Medicines ? Take or nader (more content not included)... Normal [facility] [email or web address] LTon 03-25 [email or web address] * * *Final Report* * *DATE OF EXAM: Mar 25 2018 2:21PM HCW 0593 - [email or web address] LT / REASON: Benign breast lumps * * * * Physician Interpretation * * * *RESULT: #[id number] - [email or web address] LTULTRASOUND OF LEFT BREAST: 03/25/2018HISTORY: Benign Breast LumpsPatient presented with a lump in her left breast in 2012 at which time short interval follow up was recommended for a possible fibroadenoma. Patient did not have any further imaging. SHe presents today for reevaluation of the lump.Per Dr. Villalobos's order, there is a palpable lump at the 2:00 position. Patient identified the lump today in the 1:00 position, and states it has not changed from 2013.RESULT:Comparison is made to exam dated: 10/29/2013 ultrasound - [facility].Real-time ultrasound of the left breast was performed.There is a benign 1.1 cm x 0.7 cm x 0.8 cm lobulated mass in the left breast at 1 o'clock middle depth 3 cm from the nipple. This lobulated mass is hypoechoic. This correlates as palpated. This is similar in appearance to the probable fibroadenoma previously identified at the 2:00 position, 4 cmfn on the 2013 ultrasound. There is no suspicious finding at the 2:00 position on today's imaging.IMPRESSION: BENIGN FINDINGThere is no sonographic evidence of malignancy.The 1.1 cm x 0.7 cm x 0.8 cm lobulated mass in the left breast resembles a fibroadenoma and is benign. Considering the patient states there has been no change in the palpable finding in the upper outer left breast, and the finding is sonographically stable since 2012, no further imaging is necessary. I did advise the patient to follow up with Dr. Villalobos should she notice any change in the future.Patient also had a right ultrasound today which will be dictated separately.Follow-up with ACR/NCCN guidelines.Kj Winkler/crispin:03/25/2018 14:31:28Imaging Technologist: Mirta MERAZ (R)), [facility] Center[facility] BI[facility]ADS: 2 Benign findingTranscribed Using Voice RecognitionTranscribe Date/Time: Mar 25 2018 2:21PDictated by: KJ LANCASTER MDThis examination was interpreted and the report reviewed and electronically signed by: KJ LANCASTER MD on Mar 25 2018 2:31PM [id number] Normal [facility] [employer] [facility] [employer] RTon 03-25 [facility] [employer] [facility] * * *Final Report* * *DATE OF EXAM: Mar 25 2018 2:21PM HCW 0594 - [facility] [employer] [facility] / REASON: Benign breast lumps * * * * Physician Interpretation * * * *RESULT: #[id number] - [facility] US BREAST LTD RTULTRASOUND OF RIGHT BREAST: 03/25/2018HISTORY: Benign Breast LumpsPer Dr. Villalobos's order, palpable lump at the 9:00 position. Patient cannot identify today.RESULT:No prior exams were available for comparison.Real-time ultrasound of the right breast was performed.IMPRESSION: NEGATIVEThere is no sonographic evidence of malignancy.There is no abnormality seen in the right breast to correspond with the area of clinical concern in the outer aspect which is consistent with normal fibroglandular tissue.Follow-up with ACR/NCCN guidelines.SUMMARY:Opal mckeon also had a left ultrasound today. Please see that report for full detail.Kj Lancaster M.D.ls/penrad:03/25/2018 14:34:44Imaging Technologist: Mirat MERAZ (R)), [facility] CenterUl[facility] BI-RADS: 1 NegativeTranscribed Using Voice RecognitionTranscribe Date/Time: Mar 25 2018 2:21PDictated by: KJ LANCASTER MDThis examination was interpreted and the report reviewed and electronically signed by: KJ LANCASTER MD on Mar 25 2018 2:34PM [id number] N Normal [facility] Social History Date Type Detail Facility Start: 07-21-2021 Tobacco smoking status Never s moked tobacco (finding) [facility] Tobacco smoking status Never [facility] [facility] Evaluation + Plan note 11-13-2023 Note Date & Type Note Facility 11-13-2023 [facility] + [facility] 11[facility] [facility] Clinical Note 08-02-2021 Note Date & Type Note Facility 08-02-2021 Note Patient Education Ma terials Follows: Poison Claudia Dermatitis Poison claudia dermatitis is redness and soreness of the skin caused by chemicals in the leaves of the poison claudia plant. You may have very bad itching, swelling, a rash, and blisters. What are the causes? ? Touching a poison claudia plant. ? Touching something that has the chemical on it. This may include animals or objects that have come in contact with the plant. What increases the risk? ? Going outdoors often in wooded or marshy areas. ? Going outdoors without wearing protective clothing, such as closed shoes, long pants, and a long-sleeved shirt. What are the signs or symptoms? ? Skin redness. ? Very bad itching. ? A rash that often includes bumps and blisters. ? The rash usually appears 48 hours after exposure, if you have been exposed before. ? If this is the first time you have been exposed, the rash may not appear until a week after exposure. ? Swelling. This may occur if the reaction is very bad. Symptoms usually last for 1?2 weeks. The first time you develop this condition, symptoms may last 3?4 weeks. How is this treated? This condition may be treated with: ? Hydrocortisone cream or calamine lotion to relieve itching. ? Oatmeal baths to soothe the skin. ? Medicines, such as jtbu-kog-bahtqsr antihistamine tablets. ? Oral steroid medicine for more severe reactions. Follow these instructions at home: Medicines ? Take or apply [id number]-[id number] and prescription medicines only as told by your doctor. ? Use hydrocortisone cream or calamine lotion as needed to help with itching. General instructions ? Do not scratch or rub your skin. ? Put a cold, wet cloth (cold compress) on the affected areas or take baths in cool water. This will help with itching. ? Avoid hot baths and showers. ? Take oatmeal baths as needed. Use colloidal oatmeal. You can get this at a pharmacy or grocery store. Follow the instructions on the package. ? While you have the rash, wash your clothes right after you wear them. ? Keep all follow-up visits as told by your health care provider. This is important. How is this prevented? ? Know what poison claudia looks like, so you can avoid it. ? This plant has three leaves with flowering branches on a single stem. ? The leaves are glossy. ? The leaves have uneven edges that come to a point at the front. ? If you touch poison claudia, wash your skin with soap and water right away. Be sure to wash under your fingernails. ? When hiking or camping, wear long pants, a long-sleeved shirt, tall socks, and hiking boots. You can also use a lotion on your skin that helps to prevent contact with poison claudia. ? If you think that your clothes or outdoor gear came in contact with poison claudia, rinse them off with a garden hose before you bring them inside your house. ? When doing yard work or gardening, wear gloves, long sleeves, long pants, and boots. Wash your garden tools and gloves if they come in contact with poison claudia. ? If you think that your pet has come into contact with poison claudia, wash him or her with pet shampoo and water. Make sure to wear gloves while washing your pet. Contact a doctor if: ? You have open sores in the rash area. ? You have more redness, swelling, or pain in the rash area. ? You have redness that spreads beyond the rash area. ? You have fluid, blood, or pus coming from the rash area. ? You have a fever. ? You have a rash over a large area of your body. ? You have a rash on your eyes, mouth, or genitals. ? Your rash does not get better after a few weeks. Get help right away if: ? Your face swells or your eyes swell shut. ? You have trouble breathing. ? You have trouble swallowing. These symptoms may be an emergency. Do not wait to see if the symptoms will go away. Get medical help right away. Call your local emergency services (911 in the [place] Do not drive yourself to the hospital. Summary ? Poison claudia dermatitis is redness and soreness of the skin caused by chemicals in the leaves of the poison caludia plant. ? You may have skin redness, very bad itching, swelling, and a rash. ? Do not scratch or rub your skin. ? Take or apply ygfv-nhm-zilljov and prescription medicines only as told by your doctor. This information is not intended to replace advice given to you by your health care provider. Make sure you discuss any questions you have with your health care provider. Document Revised: 02/27/2020 Document Reviewed: 10/31/2019 [employer] Patient Education ? 2019 [employer]. [facility] Evaluation + Plan note Note Date & Type Note Facility Evaluation + Plan note No data available for this section [facility] Hospital Discharge instructions Note Date & Type Note Facility Hospital Discharge instructions No data available for this section [facility] Progress note Note Date & Type Note Facility Progress note No data available for this section [facility] Summary Purpose Family History No Family History Records FoundNo Family History Records FoundNo Family History Records FoundNo Family History Records Found No data available for this section No Family History Records Found No data available for this section No Family History Records Found Advance Directives No Advanced Directives Records FoundNo Advanced Directives Records FoundNo Advanced Directives Records FoundNo Advanced Directives Records FoundNo Advanced Directives Records FoundNo Advanced Directives Records Found Additional Source Comments INFORMATION SOURCE (unrecogn ized section and content) DATE CREATED AUTHOR 05/09/2018 [facility] DATE CREATED AUTHOR AUTHOR'S ORGANIZ ATION 12/13/2018 [facility] DATE CREATED AUTHOR AUTHOR'S ORGANIZ ATION 09/17/2021 [facility] DATE CREATED AUTHOR AUTHOR'S ORGANIZ ATION 02/01/2022 [facility] DATE CREATED AUTHOR AUTHOR'S ORGANIZ ATION 12/20/2023 [facility] EPIC DATE CREATED AUTHOR AUTHOR'S ORGANIZ ATION 03/20/2024 [facility] Patient Care team informatio n (unrecognized section and content) Personnel Name: Jesica Jamison CNP Address: Address: [address] [place] [address] Personnel Name: Jesica Jamison CNP Address: Address: [address] [place] [address] Personnel Name: Jesica Jamison CNP Address: Address: [address] [place] [address] FOR RECORDS PERTAINING TO PATIENTS WHO ARE OR HAVE BEEN ENROLLED IN A CHEMICAL DEPENDENCY/SUBSTANCEABUSE PROGRAM, SOME INFORMATION MAY BE OMITTED. This clinical summary was aggregated from multiple sources. Caution should be exercised in using it in the provision of clinical care. This summary normalizes information from multiple sources, and as a consequence, information in this document may materially change the coding, format and clinical context of patient data. In addition, data may be omitted in some cases. CLINICAL DECISIONS SHOULD BE BASED ON THE PRIMARY CLINICAL RECORDS. [facility] [email or web address] [facility]. provides no warranty or guarantee of the accuracy or completeness of information in this document.
== END 2024-04-18 10:06 | disposition home or self-care (01) ==
LOC: NOMS 10:05
PROVIDERS: Visit Provider Obstetrics & Gynecology
DX: Z34.91 Encounter for supervision of normal pregnancy, unspecified, first trimester (principal); Z3A.08 8 weeks gestation of pregnancy; N92.6 Irregular menstruation, unspecified
CPT/HCPCS: 76817

== ENCOUNTER 2024-04-29 08:13 | Outpatient (OUT) | payer OTHER, SELFPAY ==
--- OUTSIDE RECORDS SUMMARY | 2024-04-29 08:22 | XMS_ITS | CCD ---
Author Organization [facility] Care Team Providers Care Algorithm Developer Name Role Phone VILLALOBOS, DINKAR Unavailable Unavailable VILLALOBOS, DINKAR Unavailable Unavailable PHYSICIAN, DEFAULT Admitting Unavailable PHYSICIAN, DEFAULT Attending Unavailable ROHITH, PA R Admitting Unavailable ROHITH, PA Jett Attending Unavailable SELF, REFERRED Referring Unavailable SELF, REFERRED Primary Care Unavailable DAIJA, DR LAZO Attending Unavailable DAIJA, DR LAZO Consulting Unavailable DAIJA, DR LAZO Admitting Unavailable Jesica Jamison Primary Care Physician Jeffery Doyle Attending Unavailable DAIJA, Clifton R Admitting Unavailable DAIJA, Clifton R Attending Unavailable DAIJA, Clifton R Admitting Unavailable DAIJA, Clifton R Attending Unavailable DAIJA, Clifton R Admitting Unavailable DAIJA, Clifton R Attending Unavailable DAIJA, Clifton R Admitting Unavailable DAIJA, Clifton R Attending Unavailable NHUNG RIVERO Attending Unavailable DAIJA, CLIFTON Attending Unavailable Problems Problem Classification Problem Date Documented Date [...] Test Name Value Interpretation Reference Range Facility [facility] 03-19-2024 HCG.beta subunit Qn 488 m[IU]/mL High 1-3 [facility] Comment on above: Result Comment: 'F N ON < 1 - 3' ' 0.2 - 1 WEEK = 5 TO 50' ' 1 - 2 WEEKS = 50 - 500' ' 2 - 3 WEEKS = 100 - 5000' ' 3 - 4 WEEKS = 500 - 55359' ' 4 - 5 WEEKS = 1000 - 35025' ' 5 - 6 WEEKS = 54078 - 517591' ' 6 - 8 WEEKS = 63000 - 952592' ' 8 - 12 WEEKS = 76773 - 114712' Performed By: #### 2 [id number] #### [facility] [address] [place] [address] Progesteroneon 03-19-2024 Progesterone Lvl 69.95 ng/mL Invalid Interpretation Code [facility] Comment on above: Result Comment: 'F N ON FOLLICULAR = 0.10 - 0.60' 'LUTEAL = 3.00 - 17.5' 'MIDLUTEAL = 3.30 - 18.6' 'POST-MENOPAUSE = 0.10 - 0.40' '-FIRST TRIMESTER = 8.30 - 66.5' 'SECOND TRIMESTER = 18.9 - 66.1' 'THIRD TRIMESTER = 35.8 - 312.4' 'MALES = 0.14 - 2.06' Result Verified by Dilution Performed By: #### 2 [id number] #### [facility] [address] [place] [address] BhCG Quanton 03-17-2024 HCG.beta subunit Qn 185 m[IU]/mL [facility] 1-3 [facility] Comment on above: Result Comment: 'F N ON < 1 - 3' ' 0.2 - 1 WEEK = 5 TO 50' ' 1 - 2 WEEKS = 50 - 500' ' 2 - 3 WEEKS = 100 - 5000' ' 3 - 4 WEEKS = 500 - 38301' ' 4 - 5 WEEKS = 1000 - 97280' ' 5 - 6 WEEKS = 98245 - 675329' ' 6 - 8 WEEKS = 05242 - 655615' ' 8 - 12 WEEKS = 80796 - 937874' Performed By: #### 2 [id number] #### [facility] [address] [place] [address] CHEMISTRYOrdered By: SYSTEM SYSTEM on 03-17-2024 HCG.beta [...] 3 - 4 WEEKS = 500 - 79142' ' 4 - 5 WEEKS = 1000 - 14723' ' 5 - 6 WEEKS = 60082 - 532944' ' 6 - 8 WEEKS = 25615 - 851554' ' 8 - 12 WEEKS = 69966 - 171094' Consent for Treatmenton 02-18 Consent for Treatment [id number]#1.00TIF F Normal [facility] Physician Orderon 03-17-2024 Physician Order [id number]#1.00TI FF [facility] Progesteroneon 03-17-2024 Progesterone Lvl 51.75 ng/mL Invalid Interpretation Code [facility] Comment on above: Result Comment: 'F N ON FOLLICULAR = 0.10 - 0.60' 'LUTEAL = 3.00 - 17.5' 'MIDLUTEAL = 3.30 - 18.6' 'POST-MENOPAUSE = 0.10 - 0.40' '-FIRST TRIMESTER = 8.30 - 66.5' 'SECOND TRIMESTER = 18.9 - 66.1' 'THIRD TRIMESTER = 35.8 - 312.4' 'MALES = 0.14 - 2.06' Performed By: #### 2 [id number] #### [facility] [address] [place] [address] Physician Orderon 03-12-2024 Physician Order [id number]#1.00T IFF Normal [facility] Progesteroneon 03-07-2024 Progesterone Lvl 20.59 ng/mL Invalid Interpretation Code [facility] Comment on above: Result Comment: 'F N ON FOLLICULAR = 0.10 - 0.60' 'LUTEAL = 3.00 - 17.5' 'MIDLUTEAL = 3.30 - 18.6' 'POST-MENOPAUSE = 0.10 - 0.40' '-FIRST TRIMESTER = 8.30 - 66.5' 'SECOND TRIMESTER = 18.9 - 66.1' 'THIRD TRIMESTER = 35.8 - 312.4' 'MALES = 0.14 - 2.06' Performed By: #### 2 [id number] #### [facility] [address] [place] [address] Progesteroneon 02-05-2024 Progesterone Lvl 20.64 ng/mL Invalid Interpretation Code [facility] Comment on above: Result Comment: 'F N ON FOLLICULAR = 0.10 - 0.60' 'LUTEAL = 3.00 - 17.5' 'MIDLUTEAL = 3.30 - 18.6' 'POST-MENOPAUSE = 0.10 - 0.40' '-FIRST TRIMESTER = 8.30 - 66.5' 'SECOND TRIMESTER = 18.9 - 66.1' 'THIRD TRIMESTER = 35.8 - 312.4' 'MALES = 0.14 - 2.06' Performed By: #### 2 [id number] #### [facility] [address] [place] [address] Progesteroneon 01-08-2024 Progesterone Lvl 18.23 ng/mL Invalid Interpretation Code [facility] Comment on above: Result Comment: 'F N ON FOLLICULAR = 0.10 - 0.60' 'LUTEAL = 3.00 - 17.5' 'MIDLUTEAL = 3.30 - 18.6' 'POST-MENOPAUSE = 0.10 - 0.40' '-FIRST TRIMESTER = 8.30 - 66.5' 'SECOND TRIMESTER = 18.9 - 66.1' 'THIRD TRIMESTER = 35.8 - 312.4' 'MALES = 0.14 - 2.06' Performed By: #### 2 [id number] #### [facility] [address] [place] [address] Consent for Treatmenton 11-19 Consent for Treatment [id number]#1.00TIF F Normal [facility] Physician Orderon 12-07-2023 Physician Order [id number]#1.00TI FF Normal [facility] Progesteroneon 12-07-2023 Progesterone Lvl 13.36 ng/mL Invalid Interpretation Code [facility] Comment on above: Result Comment: 'F N ON FOLLICULAR = 0.10 - 0.60' 'LUTEAL = 3.00 - 17.5' 'MIDLUTEAL = 3.30 - 18.6' 'POST-MENOPAUSE = 0.10 - 0.40' '-FIRST TRIMESTER = 8.30 - 66.5' 'SECOND TRIMESTER = 18.9 - 66.1' 'THIRD TRIMESTER = 35.8 - 312.4' 'MALES = 0.14 - 2.06' Performed By: #### 2 725459 #### [facility] [address] [place] [address] DHEASon 11-14-2023 DHEA-S [Mass/Vol] 281.0 microgram/dL Invalid Interpretation Code 84.8-378.0 [facility] Comment on above: Result Comment: Perf ormed at: [facility] [address] [id number] PhD Padma Gleason Performed By: #### 2 [id number] #### [facility] [address] [place] [address] [facility] 11-14-2023 Follitropin Qn 2.8 m[IU]/mL Invalid Interpretation Code [facility] Comment on above: Result Comment: Adul t Female Range Follicular phase 3.5 - 12.5 Ovulation phase 4.7 - 21.5 Luteal phase 1.7 - 7.7 Postmenopausal 25.8 - 134.8 Performed at: [facility] [address] [id number] PhD Padma Gleason Performed By: #### 2 [id number] #### [facility] [address] [place] [address] Lutropin Qn 2.9 m[IU]/mL Invalid Interpretation Code [facility] Comment on above: Result Comment: Adul t Female Range Follicular phase 2.4 - 12.6 Ovulation phase 14.0 - 95.6 Luteal phase 1.0 - 11.4 Postmenopausal 7.7 - 58.5 Performed By: #### 2 [id number] #### [facility] [address] [place] [address] Auto Diffon 11-13-2023 Basophils/100 WBC (Bld) 0.2 % Normal 0.0-2.0 [facility] Comment on above: Order Comment: Order Added by Discern Expert. Performed By: #### 2 [id number] #### [facility] [address] [place] [address] Basophils/Leukocytes Auto (Bld) [Pure # fraction] 0.0 E9/L Normal 0.0-0.2 [facility] Comment on above: Order Comment: Order Added by Discern Expert. Performed By: #### 2 [id number] #### [facility] [address] [place] [address] Eosinophils/100 WBC (Bld) 1.0 % Normal 0.0-8.0 [facility] Comment on above: Order Comment: Order Added by Discern Expert. Performed By: #### 2 679894 #### [facility] [address] [place] [address] Eosinophils/Leukocyt es Auto (Bld) [Pure # fraction] 0.1 E9/L Normal 0.0-0.5 [facility] Comment on above: Order Comment: Order Added by Discern Expert. Performed By: #### 2 490678 #### [facility] [address] [place] [address] Lymphocytes/100 WBC (Bld) 24.1 % Normal 14.0-50.0 [facility] Comment on above: Order Comment: Order Added by Discern Expert. Performed By: #### 2 961197 #### [facility] [address] [place] [address] Lymphocytes/Leukocyt es Auto (Bld) [Pure # fraction] 1.7 E9/L Normal 1.0-4.0 [facility] Comment on above: Order Comment: Order Added by Discern Expert. Performed By: #### 2 157324 #### [facility] [address] [place] [address] Monocytes/100 WBC (Bld) 8.6 % Normal 4.0-14.0 [facility] Comment on above: Order Comment: Order Added by Discern Expert. Performed By: #### 2 473648 #### [facility] [address] [place] [address] Monocytes/Leukocytes Auto (Bld) [Pure # fraction] 0.6 E9/L Normal 0.2-1.0 [facility] Comment on above: Order Comment: Order Added by Discern Expert. Performed By: #### 2 [id number] #### [facility] [address] [place] [address] Neutrophils/100 WBC (Bld) 66.1 % Normal 36.0-75.0 [facility] Comment on above: Order Comment: Order Added by Discern Expert. Performed By: #### 2 474381 #### [facility] [address] [place] [address] Neutrophils/Leukocyt es Auto (Bld) [Pure # fraction] 4.5 E9/L Normal 2.0-7.5 [facility] Comment on above: Order Comment: Order Added by Discern Expert. Performed By: #### 2 872354 #### [facility] [address] [place] [address] BhCG Quanton 11-13-2023 Beta hCG Qnt <1 Normal 1-3 [facility] Comment on above: Result Comment: 'F N ON < 1 - 3' ' 0.2 - 1 WEEK = 5 TO 50' ' 1 - 2 WEEKS = 50 - 500' ' 2 - 3 WEEKS = 100 - 5000' ' 3 - 4 WEEKS = 500 - 16612' ' 4 - 5 WEEKS = 1000 - 46301' ' 5 - 6 WEEKS = 67998 - 562024' ' 6 - 8 WEEKS = 69191 - 132654' ' 8 - 12 WEEKS = 45495 - 975618' Performed By: #### 2 497653 #### [facility] [address] [place] [address] CBC w/ Auto Diffon Erythrocyte distribution width (RBC) [Ratio] 13.8 % Normal 10.9-14.2 [facility] Comment on above: Performed By: #### 2 649513 #### [facility] [address] [place] [address] Hematocrit (Bld) [Volume fraction] 39.9 % Normal 34.0-46.0 [facility] Comment on above: Performed By: #### 2 061801 #### [facility] [address] [place] [address]52 Hemoglobin (Bld) [Mass/Vol] 13.1 g/dL Normal 12.0-16.0 [facility] Comment on above: Performed By: #### 2 339285 #### [facility] [address] [place] [address] 64819 MCH (RBC) [Entitic mass] 27.5 pg Normal 27.0-34.0 [facility] Comment on above: Performed By: #### 2 251382 #### [facility] [address] [place] [address]89[address] MCHC (RBC) [Mass/Vol] 32.9 g/dL Normal 31.4-36.0 [facility] Comment on above: Performed By: #### 2 800488 #### [facility] [address] [place] [address]871 MCV (RBC) [Entitic vol] 83.5 fL Normal 80.0-100.0 [facility] Comment on above: Performed By: #### 2 821931 #### [facility] [address] [place] [address] Platelet mean volume (Bld) [Entitic vol] 9.3 fL Normal 6.4-10.8 [facility] Comment on above: Performed By: #### 2 869832 #### [facility] [address] [place] [address] Platelets (Bld) [#/Vol] 249.0 E9/L Normal 150.0-500.0 [facility] Comment on above: Performed By: #### 2 486158 #### [facility] [address] [place] [address] RBC (Bld) [#/Vol] 4.8 E12/L Normal 4.3-5.9 [facility] Comment on above: Performed By: #### 2 774505 #### [facility] [address] [place] [address] WBC corrected for nucl RBC Auto (Bld) [#/Vol] 6.8 E9/L Normal 4.0-11.0 [facility] Comment on above: Performed By: #### 2 876816 #### [facility] [address] [place] [address] CHEMISTRYOrdered By: SYSTEM SYSTEM on 11-13-2023 Beta [...] 3 - 4 WEEKS = 500 - 51984' ' 4 - 5 WEEKS = 1000 - 16589' ' 5 - 6 WEEKS = 25820 - 094351' ' 6 - 8 WEEKS = 15589 - 602208' ' 8 - 12 WEEKS = 16394 - 865447' Free T4 [Mass/Vol] 0.96 ng/dL Normal 0.58 - 1. 64 ng/dL Remisol Chem TSH Qn 1.38 m[IU]/L Normal 0.34 - 5.60 mcIU/mL Remisol Chem CHEMISTRYOrdered By: Adolph Mcnair on 11-13-2023 HbA1c (Bld) [Mass fraction] 5.0 % Normal <=5.9% [facility] ChemAutoSS Consent for Treatmenton 10-20 Consent for Treatment [id number]#1.00TIF F Normal [facility] Free T4on 11-13-2023 Free T4 [Mass/Vol] 0.96 ng/dL Normal 0.58-1.64 [facility] Comment on above: Performed By: #### 2 [id number] #### [facility] [address] [place] [address] HEMATOLOGYOrdered By: SYSTEM SYSTEM on 11-13-2023 Basophils/100 [...] Normal 4.0 - 11.0 E9/L [facility] HemeAutoSS MfsY1sdy 11-13-2023 HbA1c (Bld) [Mass fraction] 5.0 % Normal <=5.9 [facility] Comment on above: Performed By: #### 2 [id number] #### [facility] [address] [place] [address] TSHon 11-13-2023 TSH Qn 1.38 m[IU]/L Normal 0.34-5.60 [facility] Comment on above: Performed By: #### 2 373765 #### [facility] [address] [place] [address] BhCG Quanton 04-18-2023 HCG.beta subunit Qn 1 m[IU]/mL Normal 1-3 [facility] Comment on above: Result Comment: GEST ATIONAL AGE HCG RANGE (mIU/mL) NON- <1-3 0.2-1 WEEKS 5-50 1-2 WEEKS 50-500 2-3 WEEKS 100-5,000 3-4 WEEKS 500-10,000 4-5 WEEKS 1,000-50,000 5-6 WEEKS 10,000-100,000 6-8 WEEKS 15,000-200,000 8-12 WEEKS 10,000-100,000 Performed By: #### 2 751007 #### [facility] [address] [place] [address] CHEMISTRYOrdered By: SYSTEM SYSTEM on 04-18-2023 HCG.beta subunit Qn 1 m[IU]/mL Normal 1 - 3 mIU/mL FTM C Remisol BhCG Quanton 04-11-2023 HCG.beta subunit Qn 9 m[IU]/mL High 1-3 [facility] Comment on above: Result Comment: GEST ATIONAL AGE HCG RANGE (mIU/mL) NON- <1-3 0.2-1 WEEKS 5-50 1-2 WEEKS 50-500 2-3 WEEKS 100-5,000 3-4 WEEKS 500-10,000 4-5 WEEKS 1,000-50,000 5-6 WEEKS 10,000-100,000 6-8 WEEKS 15,000-200,000 8-12 WEEKS 10,000-100,000 Performed By: #### 2 254154 #### [facility] [address] [place] [address] CHEMISTRYOrdered By: SYSTEM SYSTEM on 04-11-2023 HCG.beta subunit Qn 9 m[IU]/mL High 1 - 3 mIU/mL FTM C Remisol Consent for Treatmenton 03-20 Consent for Treatment [id number]#1.00CD: 127 Normal [facility] Physician Orderon 04-11-2023 Physician Order [id number]#1.00CD :127 Normal [facility] PAP ACOG PANEL 2: 21 to 28on 01-31-2022 . . [facility] Comment on above: Performed By: #### 4 [id number] #### [facility] [address] [place] [address] Dr. Tobi Phelps Age Gdln ACOG Testing 21-29 [facility] Comment on above: Performed By: #### 4 [id number] #### [facility] [address] [place] [address] Dr. Tobi Phelps DIAGNOSIS: Comment Normal [facility] Comment on above: Result Comment: NEGA TIVE FOR INTRAEPITHELIAL LESION OR MALIGNANCY. Performed By: #### 4 [id number] #### [facility] [address] [place] [address] Dr. Tobi Phelps Methodology: Comment Normal [facility] Comment on above: Result Comment: This liquid based ThinPrep(R) pap test was screened with the use of an image guided system. Performed By: #### 4 [id number] #### [facility] [address] [place] [address] Dr. Tobi Phelps Note: Comment Normal [facility] Comment on above: Result Comment: The Pap smear is a screening test designed to aid in the detection of premalignant and malignant conditions of the uterine cervix. It is not a diagnostic procedure and should not be used as the sole means of detecting cervical cancer. Both false-positive and false-negative reports do occur. . Performed By: #### 4 [id number] #### [facility] [address] [place] [address] Dr. Tobi Phelps Performed by: Comment Normal [facility] Comment on above: Result Comment: Elvis Gutierrez, High School Science Teacher (ASCP) Performed By: #### 4 [id number] #### [facility] [address] [place] [address] Dr. Tobi Phelps Reflex Criteria: Comment Normal [facility] Comment on above: Result Comment: The HPV DNA reflex criteria were not met with this specimen result therefore, no HPV testing was performed. . Performed By: #### 4 [id number] #### [facility] [address] [place] [address] Dr. Tobi Phelps Specimen adequacy: Comment Normal [facility] Comment on above: Result Comment: Sati sfactory for evaluation. Endocervical and/or squamous metaplastic cells (endocervical component) are present. Performed By: #### 4 [id number] #### [facility] [address] [place] [address] Dr. Tobi Phelps Release of Informationon Release of Information [id number]#1.00OTG TIFF [facility] Coding Summaryon 08-04-2021 Coding Summary HTMLBase 64 MnhphsvqKPo1gJl+PGhlYWQ+ XL0ENVAeM44pxIMohV1LE8uJ JB2ZMGAAQYLHVQ2TJR5zyDB9 BPkgH4GcnaKu FrrozBPoHA14HMi1OMF7vBma LJxbuA2rrYOcY0z6JkEzBW83 mS03UEcnHXZgHhC0NzOhiwgo bWFy D5fdLdJybUApPzt+PHRhYmxl IHdpZHRoPScxMDAlJyBzdHls YG9fHe4uVCTeXTXgrUgpcUGo OiBj r5ebMZTnJKryOZ6nvAelW6Qf fRP2UPWwg2d1Hk17jWX+PHRk FVV2zPcdWDspz898MyChh8sc IDM3 uKEtGGwkDKH4K10tt3F4ICWx TGSlWVF3xIC7hO8khDxuixft T3MveGUgBnB5ODO7pDVvtE7f bGln dnchrH5cEvy+C02UTY8BLYEZ BN6OOuv1Z2LpJkvigTL+PC90 VRUrMU40gIGoiCIab6layZn5 JzEw KUZjMNZ5mAjrQSsbb7VcUBFo J91szJMov8Q9NLQbkZpwuPVn BcIwoXJ0uX8sLQvlokhlz5pg dzsn Frcoi1clyo60qY13S35iEYsa WVVfMQX9GLUkNUYgzYwuwh2r pA7vDa6+INfiz5cfz2preGx4 IjIw AUNctvSdcTlxPRR1k7XfMr42 M0VqwDuek0TiJeu0gp97wNMr a2X2tHW5DDpzZGDkdD9qYDqe ZnQ6 ZLOqVgOsrQ79eUMqWLtrDp1e rWeapBihWB0wLLHkqpebMREv yJ9aUCNlfIJgsMacXB8bOLRx bjtm l821PxVyTZU3ZZHjfKTbQ0Xu iZ4hAxDsHIMtFYHeO4RhxIJn URpaZ208GNdxCuU2ESJnwqFn Y2Fs GQBidRpoWnA3r5F4Qa7Lo1Oc huuiKKA2ICsnJKT9EgP7CdHs RgI0U8MjSpu5INFghCbnNZ5k J3Bh TOEtbgnzwcanqZE5JRAkCJMk iQ68iVLsSQjfUm2fp9F4z525 VRNmMQYteV51Ay4kdIhjYIFf dCBU fU5tcdkxa1dqkwfrNmPyYSZl OLq3WEe9GWVktVehFwTiHFM4 LqS5NLL0mQRzjL6zeGwyapqa dG9w Oyc+Z57ouW4qXIS4UOK5mjrf CGOcviHeBZ87DL89Q7StUseq dGFibGU+OQRrzfInxNxzJL4m YmFj d7jht3FhLElmZ3OxLTXtREfc Ghw7MQStGFI3xZK9aV8kQUUx JRmty9Y2jJN5L8RddcVsvl5x b2xs EBSjKXlpE71ywHHnw7R6XYSi zJF6PGStjTioEcQxeQ12Ifj+ BOUsqSltr5BzChlft2iho0bd dGg9 EhWpUCUdvsJebFafCHK1j5Jj Qk47D26hNUxsXTTzRMYuQXUz XJKqdDmcvg0ryW1dBg6+PGNv bCB3 jNA4tG0aCMWeXnB8NJtnE221 RfHswTOeBmtvx3vrz4jvuXd6 XhVvDZVjgcQgbDziNEX0d7Xs Lz48 T96nEFweUATgVPPnKBJkPPEs tKdreu4rpY5uSd9+FJ9uj8cn ms87gS36mHH+KOEdRJL5gLys PSdw NVExuY3tVEnjCeI9ZYLbNxIw sO51bPQkKBbpDm3wqLvstByw IE3iSRXvtgyqi963QkVxh6as IDEw oWCsATgmTOL9L20zr6A0ZMOn CMHnANT1bXJ4jK8iyXzsvuqp bGVmdDsgdmVydGljYWwtYWxp Z246 IHRvcDsnPlBhdGllbnQgTmFt NLu1F3RxThj4ITEufRogWB8g wTNfAHukHb1amMbwwWxeTM8x NTBp miybm280GwVfa5qyQAZxnRUg JHigQLC7V60ed3G8ZIVlJHVa KTI2pBF3tL5ssJqyhypcrCKe dDsg mtCmeFdcPHmiSEjvP206NICs lTjcPsFzmuEpMNBfkCI2RL07 EA16uIXnq2C0fLY3D0SiLXGs bmct cazhaAP9IPTqIALkcJ29Um6e uRbaHo9oUSKyLKB2BYQghXQs Q9YxiX9hPvTjOFEqBGRoO1Wj eHQt IHveN834GBuuSeP0DDWxidRc V6FwDLUhfYwqTeS8s7M7Kc4W D6I7LS49UL75aMHzf5B1nJO2 J3Bh UXPnctmsxzlqpCM0FDZyUBJe xV16Gv1kqZctCv4fBHLmLDH9 MPKavLVaT6DqzN9oOjYyOUYe MDAw J2GtzRFvPWnkC825FBgrGdD5 MKMeawCkT1PlUMOssEmhHkH4 p0J5Wp0PLJx0CD86DW54oELx c3R5 sDC4M3CqCDOisujshxitsIF8 NJUdGAKhoZ39Il7gkHhlLb8w SCQbWWT5WYRrbDJwE4ZmgK7k OiAj DKIlYQQqW7GxnVPcFXfzK604 QHzaPdT9NWAonoNuM2AdJQXx aCsgGwZ1e5Q6Vj1KLWTuYP27 IFR5 rPO8RZ36EM30X7PjQajeiBFl bGU+PHRhYmxlIHdpZHRoPScx YGRzEyKohYpoXZ1mAm5tWBHo LWNv xPtbxICeKqKrx5kyOZArLXzc EG3ooOhbN8MroQY5DZOvn5v3 Xd67F84eU7ExmGI+PGNvbCB3 aWR0 wT2pDyNrBhH4NCxlU766GtZx bIWzQrxcg9rho3ezkRm4CoF8 CADvyaXwjFdcESX1r2IoXx28 Y29s IHdpZHRoPSIxNSUiIHZhbGln ed6hjB3eNw7+OJQduOI1tSH9 gW6zYpLbZbK3DGkfD726DlEv cCIv Lzhxn7cwd4jkvUh6HlYuDXQf ipZzqBmcGHF3m2IcNv28Z7Cl uXohm4PlYkt1ez68iILbe4O2 bGU9 Q2DtRIJzrhkthTQsjVemYN6h MJWztbsuUEFsnN2lDACxT3s7 GgGbJcV0JOgtS2PayfZ5YCHt cHQg UVqeAEO4X50za5G3IDEvUUPf VQQ2jAT0iX1sgMkpnyoutTVf lChchmDbqXsuAGwuCYlfT084 IHRv dFqbCALilP6rKZHpoGNeqNvh IZ6oDKPtegsoHliXMH9FJXHA IISHA3GKIJSBIWV5Z3CaAbz5 ZCBz uLbvQM6dyIPqXUbgRj8bdYsv kQkkJT6nOCKlhewzIGAowN7l DVFxdXUlsBxfKL6nWGQavsxh b250 NuEyJRC6HKYarKMiC4RvrT1h OyTcUQMgBRRtB5WzwZQrCHyv N450FEhvUvE1KFPeayCtY6Xo LWFs oTwmUjK6x1Q2Cn2jUP1eOT1m XYk0MZ25YY31cOFvf9V1hEW2 O3LiYXLgbvkzbqczhJF9HHEp MDUw hV38nLBiJMljTd1us4O8t215 SPOiZRRsyK43Pk4aiGfqIKCo zSQHsF3svmvkc3otizaxWqEm MDAw VRz8DMd3JHFlwYxwDeTdRZJ7 JsL7SFH4kRYhxP5ikIawyujg mY8nHor+VtUjDCAllzT8L1Tb Pjx0 SVGlnHrtHO5jtAKkDLdvAz9a aWgdmLbdQI2mRMJewhftOKBi iH0gRXBciPXkmQyhRJ2wBIOr bjtm q494QjLuTSV4VPRvhARuZ4Rj hY5vMpTlIXSlLLMpS9JpyBQa IWzbU832HZajYaI1ZETltuXf Y2Fs ADLviIusCnM5u4T4Wp4JND0F GTC1L0RmCky6QZDrfCitCD7j tZOxAMxzYx5jqDvwvNrfHG3y NTBp vvhcHYLccE6xYJBksBUyiBxx HQ4lDWCdazhpi621UrCjXFY8 KHPdhKAwB0FjgP0yAsInOLNx MDAw G0QusXVqLKiwR392BJjlNsN1 KHUmpqOkV1IhFZPllVytKlO5 c7E2Vw6AHWkbiTU+SB61tc96 L3Rh OfgqUtu7TGTkXOC9nQH7xN6n QTWrCLezf5L3rQL0J7EgkaMr yk7xq2omZJFlTGrpT48kiGSa c2U7 BFBolMV9GTWctUqtJqAgdD02 Oyc+DAPlqGvdb1YcXzncd0if l6fozFc4HxTqWMKqssZmhFtz PSJ0 r4XiTw02A49bDOjzQVLwYSCt GTPvCVLfsLwdkc9xeC8uAc9+ GQXkwRB3dUK1nK1oIoOtXqP7 YWxp H860KrImfOUrPupys4tbc7xl rPy6JaHxHCNfnhFuxStsJBA6 t6CvUy85X0QkmJijz6OtEyu0 cj48 hGBtf5L1xDE7K5VnXDIjobxd hRLpoQhgNZ7zAQNllbsyOAGn tZ7xAUEcG7g0EfNpYsX8VZpd O2Zv ymR9AWSwsTVuRULoaZOSlH1f eyvmu7ljekujUiAsBQDgCBw5 WGb3XAAjiOzbDfDtVDT5ZbF4 ZXJ0 aGWlwD7wkJcdrzupvW2xMzd+ WJt9n2vmfZLkPN1msEU6SB15 ZK52eJTvl0G6mZD7B3IuCHEs bmct ccsgwFW3OBXpWSVspZ50Ft0x zCngVx6gZEVlVAF1CIFkuWOh O1CxkS0kIlVzHYJjJHKwJ8Yr eHQt SMxnD917WHsrIfN8EOFxmkGm D2VuAEWaeYvwLyO8y7C7Pp6C NZ04BF08RB18gMBfo8S5fEP8 J3Bh KHXwwykdlueesGO9HZWaWKDi yF66Mb1ryYpwGf1zJRWcYSZ3 RWCqwQKnX0NgmH0zHmBwEZKp MDAw C3WbdSIzUXacW727ERlsIrI8 RSXpayZtH3ZwYMUnqFueVbK1 s4Z3Nf8SKf30BC87OK15eCVm c3R5 vWH7H6HoCYCqclrfjkjrjSN1 WADwFMWkwJ22Ug9dyOgpPt5i MJJaMTN9CIOyxAYdC0GsfH8r OiAj GAQnZTQfC6KfhWRkXFihL666 NPjhXpL1SVNukrGmI2BvQAHv hDxhQcX1v7Z4Yk3CXRahrgp2 L3Rk PjwvdHI+MV98GDXoFJ11lWOl pHBiq8whjGu8GfVsNXEtTZW2 fRwgPYktj1MtFJSxY12jdIUc c2U6 IGN (more content not included)... [facility] Consent Formson 08-03-2021 Consent Forms [id number] TIFF [facility] ED Clinical Summaryon 2020 ED Clinical Summary [facility] ? Urgent Care [address] [place] [address] Clinical Summary PERSON INFORMATION Name: SELENE PERSAUD Age: 25 Years Sex: FEMALE : 1995 MRN: Acct#: Visit Reason: UC - Skin Problem: simple; BODY RASH Arrival: 08/02/2021 10:14:21 Discharge: 08/02/2021 10:44:00 LOS: 000 00:30 Check In: 08/02/2021 10:14:21 Checkout: 08/02/2021 10:44:00 Address: [address] [place], [place] [id number] PCP: Provider, None PROVIDER INFORMATION Provider Role [...] PATIENT EDUCATION INFORMATION Instructions: Poison Claudia Dermatitis, Ulav-ef-Srob Follow-Up: With: Address: When: Follow up with primary care provider Within 3 to 5 days Comments: OR see DERMATOLOGY as needed DIAGNOSIS: Contact dermatitis Patient Understands: Yes - Patient/family/caregiver verbalizes understanding of instructions given Comment: Normal [facility] ED Patient Summaryon 021 ED Patient Summary [facility] ? Urgent Care [address] [place] [address] PATIENT DISCHARGE INSTRUCTIONS Patient Information Name: SELENE [...] soothe the skin. ? Medicines, such as yuee-wlo-kzogohi antihistamine tablets. ? Oral steroid medicine for more severe reactions. Follow these instructions at home: Medicines ? Take or apply qdbc-pix-rcfddrf and prescription medicines only as told by [...] rub your skin. ? Take or apply jhag-kzu-cxylobr and prescription medicines only as told by your doctor. This information is not intended to replace advice given to you by your health care pr (more content not included)... Normal [facility] Urgent Care Note- Provideron 08-02-2021 Urgent Care Note- Provider Patient: SELENE PERSAUD Age: 25 years Sex: FEMALE : 1995 Associated Diagnoses: Contact dermatitis Author: Yayo Salas PA-C History of Present Illness This is a 25 year old here today with concerns of an itchy, red rash to both legs since working out by a [employer] stand where they were clearing brush. Her has [...] selected or recorded.. Surgical history: Tooth extraction ([id number]) on 02/27/2012 at 16 Years. Comments: 04/25/2019 9:32 EDT - March Christal SÁNCHEZ wisdom teeth. Family history: Dementia Grandparent Thyroid disease Grandparent High blood pressure Mother Arthritis Mother Grandparent Cancer Grandparent High cholesterol Mother Father . 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 Impression and Plan Diagnosis Contact dermatitis ([id number] L25.9, Discharge, Medical) Plan Condition: Stable. Disposition: [...] the following educational materials: Poison Claudia Dermatitis, Npiy-wn-Kznf, Poison Claudia Dermatitis, Jnqy-ue-Dhyb. Follow up with: ; Follow up with primary care provider Within 3 to 5 days OR see DERMATOLOGY as needed. Counseled: Patient, Regarding diagnosis, Regarding treatment plan, Regarding prescription, Patient indicated understanding of instructions. Normal [facility] Recordon 021 Urgent Care Record [facility] ? Urgent Care [address] [place], [place] [id number] PATIENT DISCHARGE INSTRUCTIONS Patient Information Name: SELENE PERSAUD Age: 25 Years Date of : 1995 Reason For Visit: BODY RASH Arrival Time: 08/02/2021 10:14:21 Primary Care Physician: Provider, Marianela Attending Physician: Lance Thakkar Comment: Visit Diagnosis: [...] and treatment you received today in the [facility] were for an urgent problem and are not intended as complete care. It is important for you to follow up with a doctor, nurse practitioner, or physician?s assistant professor nurse education for ongoing care. If your symptoms become [...] so we can reach you if necessary. [facility] has provided you with a complete list of medications post discharge. Please inform your rabies inspector/provider of your visit and for further instruction on these medications. Any specific questions regarding your chronic medications and dosages should be discussed with your primary care physician(s) and/or pharmacist. New Medications [id number], [address] [place], [place] [id number], [phone] fluocinonide topical (Lidex 0.05% topical cream) 1 [...] soothe the skin. ? Medicines, such as nvzc-lzq-vqevzof antihistamine tablets. ? Oral steroid medicine for more severe reactions. Follow these instructions at home: Medicines ? Take or nader (more content not included)... Normal [facility] Tiger Pistol LTon 03-25 [facility] Tiger Pistol LT * * *Final Report* * *DATE OF EXAM: Mar 25 2018 2:21PM HCW 0593 - [employer] LT / REASON: Benign breast lumps * * * * Physician Interpretation * * * *RESULT: #[id number] - [employer] LTULTRASOUND OF LEFT BREAST: 03/25/2018HISTORY: Benign Breast [...] made to exam dated: 10/29/2013 ultrasound - [facility].Real-time ultrasound of the left breast [...] the 2:00 position, 4 cmfn on the 2012 ultrasound. There is no suspicious finding at [...] guidelines.Kj Winkler/crispin:03/25/2018 14:31:28Imaging Technologist: Mirta MERAZ (R)), [facility] BI[facility]ADS: 2 Benign findingTranscribed Using Voice RecognitionTranscribe Date/Time: Mar 25 2018 2:21PDictated by: KJ LANCASTER MDThis examination was interpreted and the report reviewed and electronically signed by: KJ LANCASTER MD on Mar 25 2018 2:31PM [id number] Normal [facility] US BREAST LTD RTon 03-25 [facility] US BREAST LTD RT * * *Final Report* * *DATE OF EXAM: Mar 25 2018 2:21PM HCW 0594 - [facility] [employer] BREAST [employer] RT / REASON: Benign breast lumps * * * * Physician Interpretation * * * *RESULT: #[id number] - [facility] [employer] BREAST [employer] RTULTRASOUND OF RIGHT BREAST: 03/25/2018HISTORY: Benign Breast [...] Please see that report for full detail.Kj Winkler/crispin:03/25/2018 14:34:44Imaging Technologist: Mirta MERAZ (R)), [facility] CenterUl[facility] BI-RADS: 1 NegativeTranscribed Using Voice RecognitionTranscribe Date/Time: Mar 25 2018 2:21PDictated by: KJ LANCASTER MDThinicole examination was interpreted and the report reviewed and electronically signed by: KJ LANCASTER MD on Mar 25 2018 2:34PM [id number] Normal [facility] Encounters Encounter Date Encounter Type Care Provider Facility Start: 04-18-2024 End: 04-18-2024 ambulatory NHUNG RIVERO Not Available Start: 03-17-2024 End: 03-18-2024 ambulatory Clifton R DAIJA Facility:[facility] Start: 03-17-2024 End: 03-17-2024 Patient encounter procedure Clifton R DAIJA [facility] Start: 12-19-2023 End: 12-19-2023 ambulatory NHUNG RIVERO Not Available Start: 12-07-2023 ambulatory Clifton R DAIJA Facility: [facility] Start: 11-13-2023 End: 11-14-2023 ambulatory Clifton R DAIJA Facility:[facility] Start: 11-13-2023 End: 11-13-2023 Patient encounter procedure Clifton R DAIJA [facility] Start: 10-24-2023 End: 10-24-2023 ambulatory CLIFTON DAIJA Not Available Start: 08-14-2023 End: 11-13-2023 ambulatory Jeffery Doyle Facility:[facility] Start: 04-11-2023 ambulatory Clifton CHOE Facility: [facility] Start: 04-11-2023 End: 07-17-2023 Recurring Clifton Jett DAIJA [facility] Start: 01-25-2022 End: 01-25-[address] CLIFTON CHOE Facility: Start: 12-10-2018 End: 12-11-2018 Patient encounter procedure PA NEWBERRY Facility:[facility] Start: 12-05-2018 End: 12-06-2018 Patient encounter procedure DEFAULT PHYSICIAN Facility:[facility] Start: 03-25-2018 Ambulatory [facility] Immunizations Immunization Date Immunization Notes Care Provider Fa cility 09-06-2023 influenza virus vaccine, unspecified formulation Clifton DAIJA [facility] Comment on above: Reason for Medicatio n: Prophylaxis 09-12-2022 influenza virus vaccine, unspecified formulation Clifton DAIJA [facility] Comment on above: Reason for Medicatio n: Prophylaxis 09-12-2022 influenza, injectabl e, quadrivalent, preservative free Clifton DAIJA [facility] 04-28-2021 COVID-19, mRNA, LNP- S, PF, 30 mcg/0.3 mL dose Clifton DAIJA [facility] Comment on above: Reason for Medicatio n: Prophylaxis 04-06-2021 COVID-19, mRNA, LNP- S, PF, 30 mcg/0.3 mL dose Clifton DAIJA [facility] Comment on above: Reason for Medicatio n: Prophylaxis Payers Date Payer Category Payer Unknown 2022 Unknown [id number] 1995 Unknown [id number] 2.16.8 [id number] 1995 Unknown [id number] 2.16.8 [id number] 1995 Unknown [id number] 2.16.84 [id number] 1995 Unknown [id number] 2.16.8 [id number] 1995 Unknown [id number] 2.16.8 [id number] 1995 Unknown [id number] 2.16.8 [id number] 1994 Unknown [id number] 2.16.8 [id number] 1994 Unknown [id number] 2.16.8 [id number] 1994 Unknown [id number] 2.16.84 [id number] 1994 Unknown [id number] 2.16.84 [id number] 1994 Unknown [id number] 2.16.840 .[id number] 1959 Unknown [id number] Unknown [id number] Social History Date Type Detail Facility Start: 07-21-2021 Tobacco smoking status Never s moked tobacco (finding) [facility] Tobacco smoking status [facility] Sex Assigned At Female [facility] Evaluation + Plan note 11-13-2023 Note Date & Type Note Facility 11-13-2023 Evaluation + Plan note [facility] 11/13/23[facility] 11/13/23 [facility] Clinical Note 08-02-2021 Note Date & [...] soothe the skin. ? Medicines, such as wuyq-bds-bgukwld antihistamine tablets. ? Oral steroid medicine for more severe reactions. Follow these instructions at home: Medicines ? Take or apply xqxa-pfu-ogxsdrv and prescription medicines only as told by [...] rub your skin. ? Take or apply rmbe-yty-fkxxdlr and prescription medicines only as told by your doctor. This information is not intended to replace advice given to you by your health care provider. Make sure you discuss any questions you have with your health care provider. Document Revised: 02/27/2020 Document Reviewed: 10/31/2019 Elsevier Patient Education ? 2019 [employer] [facility] Evaluation + Plan note Note Date & Type Note Facility Evaluation + Plan note No data available for this section [facility] Hospital Discharge instructions Note Date & Type Note Facility Hospital Discharge instructions No data available for this section [facility] Progress note Note Date & Type Note Facility Progress note No data available for this section [facility] Summary Purpose Family History No Family History Records FoundNo Family History Records FoundNo Family History Records FoundNo Family History Records Found No data available for this section No data available for this section No Family History Records FoundNo Family History Records Found Advance Directives No Advanced Directives Records FoundNo Advanced Directives Records FoundNo Advanced Directives Records FoundNo Advanced Directives Records FoundNo Advanced Directives Records FoundNo Advanced Directives Records Found Additional Source Comments INFORMATION SOURCE (unrecogn ized section and content) DATE CREATED AUTHOR 05/09/2018 [facility] DATE CREATED AUTHOR AUTHOR'S ORGANIZ ATION 12/13/2018 [facility] DATE CREATED AUTHOR AUTHOR'S ORGANIZ ATION 09/17/2021 [facility] DATE CREATED AUTHOR AUTHOR'S ORGANIZ ATION 02/01/2022 [facility] DATE CREATED AUTHOR AUTHOR'S ORGANIZ ATION 03/20/2024 [facility] DATE CREATED AUTHOR AUTHOR'S ORGANIZ ATION 04/19/2024 [facility] EPIC Patient Care team informatio n (unrecognized section and content) Personnel Name: Jesica Jamison CNP Address: Address: [address] [place] [address] Personnel Name: Jesica Jamison CNP Address: Address: [address] [place] [address] Personnel Name: Jesica Jamison CNP Address: Address: [address] [place] [address] FOR RECORDS PERTAINING TO PATIENTS WHO ARE [...] BE BASED ON THE PRIMARY CLINICAL RECORDS. [facility]. provides no warranty or guarantee of the accuracy or completeness of information in this document.
[2024-04-29 08:55] LABS: Basophils Percent Auto 0.3 % (0.2-2.0); Eosinophils Absolute Auto 0.1 10^3/uL (0.0-0.7); Eosinophils Percent Auto 0.8 % (0.9-7.0); Hematocrit 33.9 % (36.0-48.0); Hemoglobin 11.4 g/dL (12.0-16.0); Immature Granulocytes Abs Auto 0.05 10^3/uL (0.00-0.03); Immature Granulocytes Pct Auto 0.4 % (0.0-0.5); Lymphocytes Absolute Auto 1.6 10^3/uL (1.2-3.8); Lymphocytes Percent Auto 14.4 % (20.5-60.0); Mean Corpuscular HGB Conc 33.6 g/dL (29.9-35.2); Mean Corpuscular Hemoglobin 27.7 pg (26.7-34.0); Mean Corpuscular Volume 82.5 fL (81.0-99.0); Mean Platelet Volume 10.5 fL (9.5-13.5); Monocytes Absolute Auto 0.9 10^3/uL (0.3-0.8); Monocytes Percent Auto 7.6 % (1.7-12.0); Neutrophils Absolute Auto 8.6 10^3/uL (1.4-6.5); Neutrophils Percent Auto 76.5 % (43.0-75.0); Platelet Count 285 10^3/uL (150-450); Red Blood Count 4.11 10^6/uL (4.20-5.40); Red Cell Distribution Width 12.9 % (11.0-15.0); White Blood Count 11.3 10^3/uL (4.0-11.0)
[2024-04-29 12:28] LABS: Estimated Average Glucose 105 mg/dL; Glycohemoglobin A1C 5.3 % (4.5-6.2)
[2024-04-30 08:12] LABS: HBsAg Screen Negative (Negative); HCV Ab Non Reactive (Non Reactive); HIV Ab/p24 Ag Screen Non Reactive (Non Reactive); Rubella Antibodies, IgG 1.23 index (Immune >0.99)
[2024-04-30 11:09] LABS: Rapid Plasma Reagin, Quant Non Reactive titer (NonRea<1:1)
== END 2024-04-29 08:14 | disposition home or self-care (01) ==
LOC: LAB 08:13
PROVIDERS: Visit Provider Obstetrics & Gynecology
DX: N92.6 Irregular menstruation, unspecified (principal); Z36.0 Encounter for antenatal screening for chromosomal anomalies
CPT/HCPCS: 36415; 83036; 85025; 86592; 86762; 86803; 86850; 86900; 86901; 87086; 87340; 87389

== ENCOUNTER 2024-07-02 13:20 | Outpatient (OUT) | payer OTHER, SELFPAY ==
--- OUTSIDE RECORDS SUMMARY | 2024-07-02 13:37 | XMS_ITS | CCD ---
Author Organization [facility] Care Team Providers Care Linux Kernel Engineer Name Role Phone VILLALOBOS, DINKAR Unavailable Unavailable VILLALOBOS, DINKAR Unavailable Unavailable PHYSICIAN, DEFAULT Admitting Unavailable PHYSICIAN, DEFAULT Attending Unavailable ROHITH, PA R Admitting Unavailable ROHITH, PA Jett Attending Unavailable SELF, REFERRED Referring Unavailable SELF, REFERRED Primary Care Unavailable DAIJA, DR LAZO Attending Unavailable DAIJA, DR LAZO Consulting Unavailable DAIJA, DR LAZO Admitting Unavailable Jesica Jamison Primary Care Physician Clifton CHOE R Attending Unavailable DAIJA, Clifton R Admitting Unavailable DAIJA, Clifton R Admitting Unavailable DAIJAClifton CHOI R Attending Unavailable DAIJA, Clifton R Attending Unavailable DAIJA, Clifton R Admitting Unavailable DO Jeffery Doyle Attending Unavailable NHUNG RIVERO Attending Unavailable CLIFTON CHOE Attending Unavailable DAIJA, CLIFTON Attending Unavailable KASSIDY PERALES Attending Unavailable Problems Problem Classification Problem Date Documented Date Episodic/Chronic Female infertility (1 source) Female infertility; Translations: [Female infertility, unspecified] Chronic Immunizations and screening for infectious disease (1 source) Encounter for screening for human papillomavirus (HPV); Translations: [ENC SCREENING HUMAN PAPILLOMAVIRUS] Onset: 01-26-2022 Episodic Other screening for suspected conditions (not mental disorders or infectious disease) (4 sources) Encounter for screening for malignant neoplasm of cervix; Translations: [ENC SCREENING MALIG NEOPLASM CERV] Onset: 01-25-2022 Episodic Spontaneous (2 sources) 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 Comment on above: Result Comment: 'F N ON < 1 - 3' ' 0.2 - 1 WEEK = 5 TO 50' ' 1 - 2 WEEKS = 50 - 500' ' 2 - 3 WEEKS = 100 - 5000' ' 3 - 4 WEEKS = 500 - 33767' ' 4 - 5 WEEKS = 1000 - 78435' ' 5 - 6 WEEKS = 53095 - 122088' ' 6 - 8 WEEKS = 21092 - 857229' ' 8 - 12 WEEKS = 89802 - 044438' Performed By: #### 2 [id number] #### [facility] [address] [place] [address] CHEMISTRYOrdered By: SYSTEM SYSTEM on 03-19-2024 HCG.beta subunit Qn 488 m[IU]/mL High 1 - 3 mIU/mL R emisol Chem Comment on above: Result Comment: 'F N ON < 1 - 3' ' 0.2 - 1 WEEK = 5 TO 50' ' 1 - 2 WEEKS = 50 - 500' ' 2 - 3 WEEKS = 100 - 5000' ' 3 - 4 WEEKS = 500 - 81839' ' 4 - 5 WEEKS = 1000 - 10983' ' 5 - 6 WEEKS = 91156 - 893899' ' 6 - 8 WEEKS = 51997 - 361738' ' 8 - 12 WEEKS = 13926 - 555141' Progesterone Lvl 69.95 ng/mL Invalid Interpretation Code Remisol Chem Comment on above: Result Comment: 'F N ON FOLLICULAR = 0.10 - 0.60' 'LUTEAL = 3.00 - 17.5' 'MIDLUTEAL = 3.30 - 18.6' 'POST-MENOPAUSE = 0.10 - 0.40' '-FIRST TRIMESTER = 8.30 - 66.5' 'SECOND TRIMESTER = 18.9 - 66.1' 'THIRD TRIMESTER = 35.8 - 312.4' 'MALES = 0.14 - 2.06' Result Verified by Dilution Progesteroneon 03-19-2024 Progesterone Lvl 69.95 ng/mL Invalid Interpretation Code [facility] Comment on above: Result Comment: 'F N ON FOLLICULAR = 0.10 - 0.60' 'LUTEAL = 3.00 - 17.5' 'MIDLUTEAL = 3.30 - 18.6' 'POST-MENOPAUSE = 0.10 - 0.40' '-FIRST TRIMESTER = 8.30 - 66.5' 'SECOND TRIMESTER = 18.9 - 66.1' 'THIRD TRIMESTER = 35.8 - 312.4' 'MALES = 0.14 - 2.06' Result Verified by Dilution Performed By: #### 2 [id number] #### [facility] [address] [place] [address] [facility] 03-17-2024 HCG.beta subunit Qn 185 m[IU]/mL High 1-3 Fis her [facility] Comment on above: Result Comment: 'F N ON < 1 - 3' ' 0.2 - 1 WEEK = 5 TO 50' ' 1 - 2 WEEKS = 50 - 500' ' 2 - 3 WEEKS = 100 - 5000' ' 3 - 4 WEEKS = 500 - 81036' ' 4 - 5 WEEKS = 1000 - 28791' ' 5 - 6 WEEKS = 23535 - 129481' ' 6 - 8 WEEKS = 91381 - 769877' ' 8 - 12 WEEKS = 32506 - 276541' Performed By: #### 2 [id number] #### [facility] [address] [place] [address] CHEMISTRYOrdered By: SYSTEM SYSTEM on 03-17-2024 HCG.beta [...] 3 - 4 WEEKS = 500 - 16149' ' 4 - 5 WEEKS = 1000 - 83422' ' 5 - 6 WEEKS = 45641 - 306846' ' 6 - 8 WEEKS = 06803 - 532467' ' 8 - 12 WEEKS = 43738 - 806011' Progesterone Lvl 51.75 ng/mL Invalid Interpretation Code Remisol Chem Comment on above: Result Comment: 'F N ON FOLLICULAR = 0.10 - 0.60' 'LUTEAL = 3.00 - 17.5' 'MIDLUTEAL = 3.30 - 18.6' 'POST-MENOPAUSE = 0.10 - 0.40' '-FIRST TRIMESTER = 8.30 - 66.5' 'SECOND TRIMESTER = 18.9 - 66.1' 'THIRD TRIMESTER = 35.8 - 312.4' 'MALES = 0.14 - 2.06' Consent for Treatmenton 02-18 Consent for Treatment [id number]#1.00TIF F Normal [facility] Physician Orderon 03-17-2024 Physician Order [id number]#1.00TI FF Normal [facility] Progesteroneon 03-17-2024 Progesterone Lvl 51.75 ng/mL Invalid Interpretation Code [facility] Comment on above: Result Comment: 'F N ON FOLLICULAR = 0.10 - 0.60' 'LUTEAL = 3.00 - 17.5' 'MIDLUTEAL = 3.30 - 18.6' 'POST-MENOPAUSE = 0.10 - 0.40' '-FIRST TRIMESTER = 8.30 - 66.5' 'SECOND TRIMESTER = 18.9 - 66.1' 'THIRD TRIMESTER = 35.8 - 312.4' 'MALES = 0.14 - 2.06' Performed By: #### 2 [id number] #### [facility] [address] [place] [address] Physician Orderon 03-12-2024 Physician Order [id number]#1.00T IFF Normal [facility] CHEMISTRYOrdered By: SYSTEM SYSTEM on 03-07-2024 Progesterone Lvl 20.59 ng/mL Invalid Interpretation Code Remisol Chem Comment on above: Result Comment: 'F N ON FOLLICULAR = 0.10 - 0.60' 'LUTEAL = 3.00 - 17.5' 'MIDLUTEAL = 3.30 - 18.6' 'POST-MENOPAUSE = 0.10 - 0.40' '-FIRST TRIMESTER = 8.30 - 66.5' 'SECOND TRIMESTER = 18.9 - 66.1' 'THIRD TRIMESTER = 35.8 - 312.4' 'MALES = 0.14 - 2.06' Progesteroneon 03-07-2024 Progesterone Lvl 20.59 ng/mL Invalid Interpretation Code [facility] Comment on above: Result Comment: 'F N ON FOLLICULAR = 0.10 - 0.60' 'LUTEAL = 3.00 - 17.5' 'MIDLUTEAL = 3.30 - 18.6' 'POST-MENOPAUSE = 0.10 - 0.40' '-FIRST TRIMESTER = 8.30 - 66.5' 'SECOND TRIMESTER = 18.9 - 66.1' 'THIRD TRIMESTER = 35.8 - 312.4' 'MALES = 0.14 - 2.06' Performed By: #### 2 [id number] #### [facility] [address] [place] [address] Progesteroneon 02-05-2024 Progesterone Lvl 20.64 ng/mL Invalid Interpretation Code [facility] Comment on above: Result Comment: 'F N ON FOLLICULAR = 0.10 - 0.60' 'LUTEAL = 3.00 - 17.5' 'MIDLUTEAL = 3.30 - 18.6' 'POST-MENOPAUSE = 0.10 - 0.40' '-FIRST TRIMESTER = 8.30 - 66.5' 'SECOND TRIMESTER = 18.9 - 66.1' 'THIRD TRIMESTER = 35.8 - 312.4' 'MALES = 0.14 - 2.06' Performed By: #### 2 [id number] #### [facility] [address] [place] [address] Progesteroneon 01-08-2024 Progesterone Lvl 18.23 ng/mL Invalid Interpretation Code [facility] Comment on above: Result Comment: 'F N ON FOLLICULAR = 0.10 - 0.60' 'LUTEAL = 3.00 - 17.5' 'MIDLUTEAL = 3.30 - 18.6' 'POST-MENOPAUSE = 0.10 - 0.40' '-FIRST TRIMESTER = 8.30 - 66.5' 'SECOND TRIMESTER = 18.9 - 66.1' 'THIRD TRIMESTER = 35.8 - 312.4' 'MALES = 0.14 - 2.06' Performed By: #### 2 [id number] #### [facility] [address] [place] [address] Consent for Treatmenton 11-19 Consent for Treatment [id number]#1.00TIF F Normal [facility] Physician Orderon 12-07-2023 Physician Order [id number]#1.00TI FF Normal [facility] Progesteroneon 12-07-2023 Progesterone Lvl 13.36 ng/mL Invalid Interpretation Code [facility] Comment on above: Result Comment: 'F N ON FOLLICULAR = 0.10 - 0.60' 'LUTEAL = 3.00 - 17.5' 'MIDLUTEAL = 3.30 - 18.6' 'POST-MENOPAUSE = 0.10 - 0.40' '-FIRST TRIMESTER = 8.30 - 66.5' 'SECOND TRIMESTER = 18.9 - 66.1' 'THIRD TRIMESTER = 35.8 - 312.4' 'MALES = 0.14 - 2.06' Performed By: #### 2 [id number] #### [facility] [address] [place] [address] DHEASon 11-14-2023 DHEA-S [Mass/Vol] 281.0 microgram/dL Invalid Interpretation Code 84.8-378.0 [facility] Comment on above: Result Comment: Perf ormed at: [facility] [address] [id number] PhD Padma Gleason Performed By: #### 2 [id number] #### [facility] [address] [place] [address] [facility] 11-14-2023 Follitropin Qn 2.8 m[IU]/mL Invalid Interpretation Code [facility] Comment on above: Result Comment: Adul t Female Range Follicular phase 3.5 - 12.5 Ovulation phase 4.7 - 21.5 Luteal phase 1.7 - 7.7 Postmenopausal 25.8 - 134.8 Performed at: [employer] [address] [id number] PhD Padma Gleason Performed By: #### 2 [id number] #### [facility] [address] [place] [address] Lutropin Qn 2.9 m[IU]/mL Invalid Interpretation Code [facility] Comment on above: Result Comment: Adul t Female Range Follicular phase 2.4 - 12.6 Ovulation phase 14.0 - 95.6 Luteal phase 1.0 - 11.4 Postmenopausal 7.7 - 58.5 Performed By: #### 2 [id number] #### [facility] [address] [place] [address] Auto Diffon 11-13-2023 Basophils/100 WBC (Bld) 0.2 % Normal 0.0-2.0 [facility] Comment on above: Order Comment: Order Added by Discern Expert. Performed By: #### 7 [id number], 93201144, 8327523, 0673637, 04907098, 2009114, 8057629 #### [facility] [address] [place] [address] Basophils/Leukocytes Auto (Bld) [Pure # fraction] 0.0 E9/L Normal 0.0-0.2 [facility] Comment on above: Order Comment: Order Added by Discern Expert. Performed By: #### 7 [id number], 35562120, 5041488, 3749719, 31252476, 9590100, 7434482 #### [facility] [address] [place] [address] Eosinophils/100 WBC (Bld) 1.0 % Normal 0.0-8.0 [facility] Comment on above: Order Comment: Order Added by Discern Expert. Performed By: #### 7 [id number], 76220430, 1715185, 4579301, 66939828, 2118630, 1703701 #### [facility] [address] [place] [address] Eosinophils/Leukocyt es Auto (Bld) [Pure # fraction] 0.1 E9/L Normal 0.0-0.5 [facility] Comment on above: Order Comment: Order Added by Discern Expert. Performed By: #### 7 [id number], 58836482, 1021437, 4432310, 13257934, 5767049, 5991817 #### [facility] [address] [place] [address] Lymphocytes/100 WBC (Bld) 24.1 % Normal 14.0-50.0 [facility] Comment on above: Order Comment: Order Added by Discern Expert. Performed By: #### 7 [id number], 37921603, 7627315, 2368493, 38963617, 5560397, 8628012 #### [facility] [address] [place] [address] Lymphocytes/Leukocyt es Auto (Bld) [Pure # fraction] 1.7 E9/L Normal 1.0-4.0 [facility] Comment on above: Order Comment: Order Added by Farhan Expert. Performed By: #### 7 [id number], 45865655, 1072706, 0525456, 54826845, 4898922, 2576905 #### [facility] [address] [place] [address] Monocytes/100 WBC (Bld) 8.6 % Normal 4.0-14.0 [facility] Comment on above: Order Comment: Order Added by Farhan Expert. Performed By: #### 7 [id number], 97437595, 3216469, 3154517, 56434676, 3876137, 4493007 #### [facility] [address] [place] [address] Monocytes/Leukocytes Auto (Bld) [Pure # fraction] 0.6 E9/L Normal 0.2-1.0 [facility] Comment on above: Order Comment: Order Added by Farhan Expert. Performed By: #### 7 [id number], 35814131, 7311664, 4351164, 58778672, 4424276, 3467613 #### [facility] [address] [place] [address] Neutrophils/100 WBC (Bld) 66.1 % Normal 36.0-75.0 [facility] Comment on above: Order Comment: Order Added by Discern Expert. Performed By: #### 7 [id number], 86991795, 6480565, 5027980, 58141873, 7161025, 8118843 #### [facility] [address] [place] [address] Neutrophils/Leukocyt es Auto (Bld) [Pure # fraction] 4.5 E9/L Normal 2.0-7.5 [facility] Comment on above: Order Comment: Order Added by Discern Expert. Performed By: #### 7 [id number], 19947675, 0796515, 2465620, 77177240, 2247845, 3193529 #### [facility] [address] [place] [address] BhCG Quanton 11-13-2023 Beta hCG Qnt <1 Normal 1-3 [facility] Comment on above: Result Comment: 'F N ON < 1 - 3' ' 0.2 - 1 WEEK = 5 TO 50' ' 1 - 2 WEEKS = 50 - 500' ' 2 - 3 WEEKS = 100 - 5000' ' 3 - 4 WEEKS = 500 - 10633' ' 4 - 5 WEEKS = 1000 - 84794' ' 5 - 6 WEEKS = 87369 - 252381' ' 6 - 8 WEEKS = 16876 - 322197' ' 8 - 12 WEEKS = 35917 - 963428' Performed By: #### 2 692592 #### [facility] [address] [place] [address] CBC w/ Auto Diffon Erythrocyte distribution width (RBC) [Ratio] 13.8 % Normal 10.9-14.2 [facility] Comment on above: Performed By: #### 7 [id number], 44661777, 2775015, 5330892, 05379657, 5819040, 8985215 #### [facility] [address] [place] [address] Hematocrit (Bld) [Volume fraction] 39.9 % Normal 34.0-46.0 [facility] Comment on above: Performed By: #### 7 20271377, 84448597, 2083388, 2212869, 29304037, 5532784, 1298613 #### [facility] [address] [place] [address] Hemoglobin (Bld) [Mass/Vol] 13.1 g/dL Normal 12.0-16.0 [facility] Comment on above: Performed By: #### 7 72067524, 66039080, 8308298, 0509254, 37701880, 7466404, 1193929 #### [facility] [address] [place] [address] MCH (RBC) [Entitic mass] 27.5 pg Normal 27.0-34.0 [facility] Comment on above: Performed By: #### 7 54363295, 17918200, 6632544, 2491524, 51972522, 4699582, 6663036 #### [facility] [address] [place] [address] MCHC (RBC) [Mass/Vol] 32.9 g/dL Normal 31.4-36.0 [facility] Comment on above: Performed By: #### 7 68936511, 25837955, 8258324, 9607547, 51524041, 6221664, 8871934 #### [facility] [address] [place] [address] MCV (RBC) [Entitic vol] 83.5 fL Normal 80.0-100.0 [facility] Comment on above: Performed By: #### 7 10604947, 43801103, 9379683, 7934891, 02608066, 8825422, 5977036 #### [facility] [address] [place] [address] Platelet mean volume (Bld) [Entitic vol] 9.3 fL Normal 6.4-10.8 [facility] Comment on above: Performed By: #### 7 13523180, 36615900, 2135755, 2967829, 02808541, 9615633, 7930331 #### [facility] [address] [place] [address] Platelets (Bld) [#/Vol] 249.0 E9/L Normal 150.0-500.0 [facility] Comment on above: Performed By: #### 7 18885376, 84172018, 6690853, 3278326, 40492577, 8632127, 8613931 #### [facility] [address] [place] [address] RBC (Bld) [#/Vol] 4.8 E12/L Normal 4.3-5.9 [facility] Comment on above: Performed By: #### 7 57670805, 03978999, 2608372, 8308776, 01143084, 6551808, 6896054 #### [facility] [address] [place] [address] WBC corrected for nucl RBC Auto (Bld) [#/Vol] 6.8 E9/L Normal 4.0-11.0 [facility] Comment on above: Performed By: #### 7 43473915, 79677678, 2301153, 5016176, 07559522, 2461981, 3231589 #### [facility] [address] [place] [address] CHEMISTRYOrdered By: SYSTEM SYSTEM on 11-13-2023 Beta [...] 3 - 4 WEEKS = 500 - 21031' ' 4 - 5 WEEKS = 1000 - 26206' ' 5 - 6 WEEKS = 90314 - 887017' ' 6 - 8 WEEKS = 43862 - 498843' ' 8 - 12 WEEKS = 77081 - 637887' Free T4 [Mass/Vol] 0.96 ng/dL Normal 0.58 - 1. 64 ng/dL Remisol Chem TSH Qn 1.38 m[IU]/L Normal 0.34 - 5.60 mcIU/mL Remisol Chem CHEMISTRYOrdered By: Adolph Mcnair on 11-13-2023 HbA1c (Bld) [Mass fraction] 5.0 % Normal <=5.9% [facility] ChemAutoSS Consent for Treatmenton 10-20 Consent for Treatment [id number]#1.00TIF F Normal [facility] Free T4on 11-13-2023 Free T4 [Mass/Vol] 0.96 ng/dL Normal 0.58-1.64 [facility] Comment on above: Performed By: #### 7 [id number], 81692697, 9734240, 5595369, 79444344, 6487514, 3400093 #### [facility] [address] [place] [address] HEMATOLOGYOrdered By: SYSTEM SYSTEM on 11-13-2023 Basophils/100 [...] Normal 4.0 - 11.0 E9/L [facility] HemeAutoSS GcjW9rjh 11-13-2023 HbA1c (Bld) [Mass fraction] 5.0 % Normal <=5.9 [facility] Comment on above: Performed By: #### 7 [id number], 76121676, 1983030, 5755645, 19434215, 3294088, 3235044 #### [facility] [address] [place] [address] TSHon 11-13-2023 TSH Qn 1.38 m[IU]/L Normal 0.34-5.60 [facility] Comment on above: Performed By: #### 7 59297866, 25366895, 8326989, 5371786, 19927453, 8209300, 4846108 #### [facility] [address] [place] [address] Laboratory - Chemistry and C hemistry - challengeOrdered By: SYSTEM SYSTEM on 04-18-2023 HCG.beta subunit Qn 1 m[IU]/mL Normal 1 - 3 mIU/mL F[facility] C Remisol Comment on above: Interpretive Data: G ESTATIONAL AGE HCG RANGE (mIU/mL) NON- <1-3 0.2-1 WEEKS 5-50 1-2 WEEKS 50-500 2-3 WEEKS 100-5,000 3-4 WEEKS 500-10,000 4-5 WEEKS 1,000-50,000 5-6 WEEKS 10,000-100,000 6-8 WEEKS 15,000-200,000 8-12 WEEKS 10,000-100,000 Laboratory - Chemistry and C hemistry - challengeOrdered By: SYSTEM SYSTEM on 04-11-2023 HCG.beta subunit Qn 9 m[IU]/mL High 1 - 3 mIU/mL FTM C Remisol Comment on above: Interpretive Data: G ESTATIONAL AGE HCG RANGE (mIU/mL) NON- <1-3 0.2-1 WEEKS 5-50 1-2 WEEKS 50-500 2-3 WEEKS 100-5,000 3-4 WEEKS 500-10,000 4-5 WEEKS 1,000-50,000 5-6 WEEKS 10,000-100,000 6-8 WEEKS 15,000-200,000 8-12 WEEKS 10,000-100,000 PAP ACOG PANEL 2: 21 to 28on 01-31-2022 . . Normal [facility] Comment on above: Performed By: #### 4 [id number] #### [facility] [address] [address] [address] Tobi Phelps Age Gdln ACOG Testing - Normal [facility] Comment on above: Performed By: #### 4 [id number] #### [facility] [address] [address] [address] Tobi Phelps DIAGNOSIS: Comment [facility] Comment on above: Result Comment: NEGA TIVE FOR INTRAEPITHELIAL LESION OR MALIGNANCY. Performed By: #### 4 358826 #### [facility] [address] [place] [address] Dr. Tobi Phelps Methodology: Comment Normal [facility] Comment on above: Result Comment: This liquid based ThinPrep(R) pap test was screened with the use of an image guided system. Performed By: #### 4 [id number] #### [facility] [address] [place] [address] Dr. Tobi Phelps Note: Comment Normal [facility] Comment on above: Result Comment: The Pap smear is a screening test designed to aid in the detection of premalignant and malignant conditions of the uterine cervix. It is not a diagnostic procedure and should not be used as the sole means of detecting cervical cancer. Both false-positive and false-negative reports do occur. . Performed By: #### 4 [id number] #### [facility] [address] [place] [address] Dr. Tobi Phelps Performed by: Comment Normal [facility] Comment on above: Result Comment: Elvis Gutierrez, Mud Plant Operator (ASCP) Performed By: #### 4 657915 #### [facility] [address] [place] [address] Dr. Tobi Phelps Reflex Criteria: Comment Normal [facility] Comment on above: Result Comment: The HPV DNA reflex criteria were not met with this specimen result therefore, no HPV testing was performed. . Performed By: #### 4 [id number] #### [facility] [address] [place] [address] Dr. Tobi Phelps Specimen adequacy: Comment Normal [facility] Comment on above: Result Comment: Sati sfactory for evaluation. Endocervical and/or squamous metaplastic cells (endocervical component) are present. Performed By: #### 4 362578 #### [facility] [address] [place] [address] Dr. Tobi Phelps Release of Informationon Release of Information [id number]#1.00OTG TIFF [facility] Coding Summaryon 08-04-2021 Coding Summary HTMLBase 64 IdnsbhcaQVx0cBn+PGhlYWQ+ RD5JLCJnF21tjXQipK3VP2wD KW9ZIXYMWUWDIT6UYI5piWH2 PXuhD4GoodYy WomkgPXrIH96IIl8KJF6dTeg NGxisA5txSQrE0f6PhHoNI36 mG66LEgxPGRwPpN5MrMnnwtc bWFy W5uyAuGjlBNxMiz+PHRhYmxl IHdpZHRoPScxMDAlJyBzdHls IY7gHa8uHYInRSRjyBnnoSPq OiBj l8hqOXLrAZakGX8nrDtpM6Rr uOO0CWEru1n6Ho68pPT+PHRk OFH4oTypQSfka967FpBuv0hr IDM3 wUTiLLcwPRL9M34oe0S0SWZf SVZdJUV8pCZ0sK4ygKfiiuxq L0AtpKYjIpX0BZV3nJLyyA6l bGln voxpvN1jWvq+F77SDI2DZOLM ER5BHlz1B3BrImoxkEW+PC90 TJYnXP28mGOhrPOdy3vnwIf3 JzEw GSPuKOP1dRwqCLghq8ImQLJk D17rmIOky5T1ZUWjdXyabSOg JqUloOK2vU6iHLibspaoo7tt dzsn Mexeh0ckad14nT07Z46xYYii VBAwLLU4NRLySRKcrBelwm7s eV0hGl8+PJgnd6jrw9ahiQl1 IjIw OYRlmlMnbXgnEBX5i9IaFg38 H4JepJarg7JsKyy3oz98kXOi w4Q0pIP8YMgkFMSjgK5pWAhv ZnQ6 DOUuPzOrmY33oEUzCXonRj8c dIjchBezDE2gUSHvpangBYCl fX7gFYTmaPFylGdyCH6eFJLp bjtm s271OcYrIXN1RUDifXBcC6Cb rO8bSgEmALGoWWHrU3TbnGId UYfwZ545PLieRnA9LGMvseYo Y2Fs FWRtsKsuFcU0b0K5Rs7Ey6Md hrdySOZ1OJdcWBJ3JiL7RyUv XdL1H8JiYmw8AAVriGwgIP6a J3Bh OSDdzdmlgaiedVI7TCWcDWJp fJ24zMZuBMktFd3rf9F1b684 QBIbKMAsbK22Im4xjFgaUFJx dCBU wC5qyyosq0afcwcjRzRlOFFz HJx8HZv8BXEbtTodSuJmVTO5 HzY3SMB5uYDebE6wjXjjmdqn dG9w Oyc+Q99fsH0jNBA7UEI6fyqm IGRcccWbQR91CN71U0FyBmke dGFibGU+OGLjvtCakNruFS0d YmFj n9zxu1KeLBsvL1NhOVLzUKej Wjo5SZEtTOU3fFJ8eJ0cIMTm SPgxn6M4zTY9X7RtosWecw9e b2xs VMKzVGqfY73cwLJzt9Q2UEQh jRQ7RMYjzJojEaJtiQ76Pmx+ IWPoeMzmf2SlYmehd5rad4xv dGg9 RaVuREFtacPyuEncNAH3a3Gb Le27N53lZFvhNBPhDDBoFFNe LXOfxXfvfq2ijU1eRs4+PGNv bCB3 qKS3nR1uKJIcRhM3HMjsC985 QhUvdLYdXvyse8ule9emnPm1 VtCxSCCtzsRpfMzhFKM8u1Uu Lz48 V32yMXhmRSAvKOHtXGViMJXc uMgvxl6gpO7rIu6+MD1xc2bv iu94nI05uQK+KOXcJIN4mCic PSdw GQWstQ6hHOafMzA9MIMoYbMe gJ90jMYvKKhjKv2blKumgZzq DA9lDIUjovpsk472TwTvc2mq IDEw uPAoSYaeFEE2U30yi6O1LZTx RYIoYWB0wRL3rS6nlZwkiwiz bGVmdDsgdmVydGljYWwtYWxp Z246 IHRvcDsnPlBhdGllbnQgTmFt BXe6M9MqSza6RCLyvNhaHM5n kRNmEOpoMw1hwTqjyLaiOG2p NTBp mjztv985CzInx0pgMNRxiBWk DVcvCAF4H58al2H5UUSqINXl QZY5iZQ3mE4zjMfptwohgKTg dDsg vcMseJqvBUgtRIsxO310MHVv oRndEcFhvpIhWBMwqAX8TQ51 WC24eDQat1I6jLQ8P9HyQCTi bmct wofdpSK5SQPnYYPiqG82Hf0g nZgtNp0qVRJpZMI4HFTjxZGu T6KdsM3uQuYcQGXjENEfC3Us eHQt CQfyH243MWhwQmD9QDYtayMr B0XgTGBfnSnlGvA1p0V4Hd6T L0F3PU85JX27gAAgl0E8dRF8 J3Bh FFEopvtzvokqtTH2KYOkXHGo xR90Cq9esNwdQi9uSKKjWVS0 XNMwtSYmF7XdnZ2fTmSsPUWv MDAw T6BmlTNbBXsiO026IRfcVpS3 RGBdygJmT2QkNTZcoYpwHiS4 q6L0Ej4IOGb4SA60OJ23oMKu c3R5 nGR8R6ZaPJXcymwfgzfizEU3 DGFrOKRenJ33Wt0jpRgwOq7r FOZmYYU8PBCerXZkU8GnaS0c OiAj JQZkAYWrE2UlmPCzXDjiV640 DPwmDgG7CTGzzrMtI8HeRTPe bQozEwW5y0H2Uk1KQZCcRK23 IFR5 nYL7LV75OQ73M7FyRcffaZQg bGU+PHRhYmxlIHdpZHRoPScx WQAhVxDhgWqrUC6gYr1rOKZe LWNv oRadzVHjLrVnj4jzCFApDJrh ZV6keLiyI1BtfFA0LPGwa2a1 Mz71S27xE5MseCG+PGNvbCB3 aWR0 tD0rNxOnTmJ2JNwnA568MtEg fUOhCxelu7nvo9nskOw7EzA9 VLUyhnQcrNhcXCZ3o9WwQf96 Y29s IHdpZHRoPSIxNSUiIHZhbGln hv7mnO1sSz2+NOGhrTM4tZZ4 cQ0hTdUuYsK9ZNfpP457JcPt cCIv Kqbko7lgt2kmzEb7VrUfDMPu ddTnyYqsFQX3t7IfQp16V5Gy nFonr7VjAmb0jn75bZYma8S1 bGU9 W4JcREXvjwkawFSbbLvgAY8o LEHroorbKTZxuP2wTIRxL2z1 KxCfNwW1GSaaP8BgrrF9LTEk cHQg JOdzIZO1J03en1X0RTBrWUOw MVD5jUT7vM9fvFcltzedyZHv iWeizbEskVyiMRikGGpoY632 IHRv iXduZXKcyJ5kXWEmxSMmrDlr IV6yCXUfjfkwXngZQR5IAMJA LVCJL4HYVOKHOMQ4P6PiCtk0 ZCBz cRzmYL9okKKvAWbdHk3mzYpl eHkoSY4qUILvzpwpOHUlcW7x TEOcaGOteFecTB0kHPBhltca b250 XeEqUDZ8CPPpfJSsT0DkxY3g CzXoXWLrCNIzY1YkpYHqJJqk Y319EPulThJ1JEVjhiFwY0Oh LWFs hPivUmL9m3W9Rc0wLF4fRC3q QJt8EJ40IY43bMRbh5I8pUC4 W5RaTUWhzyewyxfmiLT9HBXv MDUw yV99mLAtWXvyHm9vs4W7h138 UISqNKEauQ10Ur9jgSnlBYIz qJYEcP5vmxekg7bwcqqjAtDt MDAw WPf5XLy3PKHjwOrqPvRpKSV9 AiI2RLH3qAZmvW7nwFjyipee iC6nXgl+MeLbEQBgckG1E8Fk Pjx0 FHHesByeWO8fvFKxQErdXt7v xZxzeQzzKW5hIZWkzqtkBVBd eM3lOSLvnXBszEpzBE0sJXKe bjtm i887CcVsNDS4AVJykBRmZ7Lc uZ1tYdFgNMTgWLRtU5IaxTHt FHzwC741FLlkFvA8BYAalqPh Y2Fs WRQuiXsdMfM0f7I5Qi3STW9U CXQ9A9OeJha3WKHjyVeuOY5y fOTmGBorSd3vkVqpkZzxJM3z NTBp rksnEUVqbT5uELFrcYWqkQok AX6oUHRqdkhci921XeDzMUE5 QJNkvXOkZ8HweL3oDrCxISLe MDAw R2VcvCFnOCjfQ646VCjdZwK6 QCYlenOkI0PpEDEmpGbkEaG2 q5B8Bc9BEIrrcQX+CT00sr68 L3Rh LordDgt7ANPhEND7lZT2gL9j LKJfCIjvu2D7bRB4S0WnjtYi yg4lf0ppCCJoXHekJ01xkQUp c2U7 BEBptFI8MDDbhBqfMfSjcY46 Oyc+YFIjsHruo4BkXgnyo0rk d7vxnEy2CtEsPUTgvgHzuUyp PSJ0 l6SyTw86E21mZCywLNOeTNHh QWZvWWFuwTfyne6nqQ7fIj8+ RJMwdSO2iWV6vW0gAjMpNgQ5 YWxp U194VfBifRPnDkire5kkd3ln vXd2CgJrIVDqrxDtdQpdYOD6 d9FbGl04H7YxyIazg8SqKqr2 cj48 iDItu4H0qIH4L3NzPHPtdaah zEOzbVpcAX4sKXIwqgbnCHSl xH0oKNOnU1d1NeSqFmB1MFpd O2Zv uwB7XELkkHLpZYPjkPAZjJ3t luopk5noxpnwEyLiRQOpYQq5 CMi3HLHtcPcwYkReHPJ5QiQ6 ZXJ0 fPJbxL1tyWzdfqqucI7xYgk+ ETb7s7afkZXwTU4mjRB8BQ45 RB14yAQhj6G3dCM0B8WpPSUd bmct wcwefPV3CLFeDLIxoV92Ne5r yTxeFa5nRQFgGHW4OMOvhRVb U6NyrP6vEvNfJHJqKVIpZ5Sy eHQt TXmxF158EEetWcC2LGGypeCp W3HlSCQdtGodXaL8w2A0Jh3D KS23PT14GJ41wTWrt4R9fXN7 J3Bh KXEiylbdfanuzYK6IODyNFFt tE60Fb5aiMysJt8uNHWuCKC0 RFZukRYsY4RvjB8jInUlLPUc MDAw J6PshQDkXJmmB153SIlbAgR0 XLVgnbHxF8IvVHHhiYjzBiS1 y7Z4Zl8JFq17AB79CL22uSYj c3R5 vON9S9PeEBKstdlbzaavlWF1 RDWtGXSdwP53Ll2tsMuaWw1e KWTrKYA3QMEpgQRrP0YvvF5h OiAj HOLvESBvN2IhiEOiPZgjE832 MHgxMpN6JOMfjdZhI2KqLTUv hXleRmZ3c5I2Uk5YGLzcyli6 L3Rk PjwvdHI+ZJ05EGUuUR18lZAq tMVru7yytHh9MwTtXLQqNRB8 iFqsEOewc2SfIXRvX39pqVVc c2U6 IGN (more content not included)... [facility] Consent Formson 08-03-2021 Consent Forms [id number] TIFF [facility] ED Clinical Summaryon 2020 ED Clinical Summary [facility] ? Urgent Care [address] [place], [place] [id number] Clinical Summary PERSON INFORMATION Name: SELENE PERSAUD Age: 25 Years Sex: FEMALE : 1995 MRN: Acct#: Visit Reason: UC - Skin Problem: simple; BODY RASH Arrival: 08/02/2021 10:14:21 Discharge: 08/02/2021 10:44:00 LOS: 000 00:30 Check In: 08/02/2021 10:14:21 Checkout: 08/02/2021 10:44:00 Address: [address] [place] [address] PCP: Provider, None PROVIDER INFORMATION Provider Role Assigned Unassigned Lance Thakkar ED PA 08/02/2021 10:18:20 08/02/2021 10:24:26 Joann LEON, aRchael Thrasher ED Nurse 08/02/2021 10:18:38 Yayo Salas PA-C [...] PATIENT EDUCATION INFORMATION Instructions: Poison Claudia Dermatitis, Vcoy-zr-Czpt Follow-Up: With: Address: When: Follow up with primary care provider Within 3 to 5 days Comments: OR see DERMATOLOGY as needed DIAGNOSIS: Contact dermatitis Patient Understands: Yes - Patient/family/caregiver verbalizes understanding of instructions given Comment: [facility] ED Patient Summaryon 021 ED Patient Summary [facility] ? Urgent Care [address] [place] [address] PATIENT DISCHARGE INSTRUCTIONS Patient Information Name: SELENE [...] soothe the skin. ? Medicines, such as ynlo-crg-brvkjvp antihistamine tablets. ? Oral steroid medicine for more severe reactions. Follow these instructions at home: Medicines ? Take or apply avan-pyb-jekvoin and prescription medicines only as told by [...] rub your skin. ? Take or apply zfjs-gko-itablqc and prescription medicines only as told by your doctor. This information is not intended to replace advice given to you by your health care pr (more content not included)... [facility] Urgent Care Note- Provideron 08-02-2021 Urgent Care Note- Provider Patient: SELENE PERSAUD Age: 25 years Sex: FEMALE : 1995 Associated Diagnoses: Contact dermatitis Author: Yayo Salas PA-C History of Present Illness This is a 25 year old here today with concerns of an itchy, red rash to both legs since working out by a [employer] stand where they were clearing brush. Her [...] selected or recorded.. Surgical history: Tooth extraction ([id number]) on 02/27/2012 at 16 Years. Comments: 04/25/2019 9:32 EDT - March PRINCESSChristal wisdom teeth. Family history: Dementia Grandparent Thyroid disease Grandparent High blood pressure Mother Arthritis Mother Grandparent Cancer Grandparent High cholesterol Mother Father . 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 Impression and Plan Diagnosis Contact dermatitis ([id number]-RG L25.9, Discharge, Medical) Plan Condition: Stable. Disposition: [...] the following educational materials: Poison Claudia Dermatitis, Kevt-vp-Cnmz, Poison Claudia Dermatitis, Wzye-yt-Jumw. Follow up with: ; Follow up with primary care provider Within 3 to 5 days OR see DERMATOLOGY as needed. Counseled: Patient, Regarding diagnosis, Regarding treatment plan, Regarding prescription, Patient indicated understanding of instructions. Normal [facility] Recordon 021 Urgent Care Record [facility] ? Urgent Care [address] [place] [address] PATIENT DISCHARGE INSTRUCTIONS Patient Information Name: SELENE [...] and treatment you received today in the [facility] were for an urgent problem and are not intended as complete care. It is important for you to follow up with a doctor, nurse practitioner, or physician?s compliance assistant for ongoing care. If your symptoms become [...] so we can reach you if necessary. [facility] has provided you with a complete list of medications post discharge. Please inform your box maker/provider of your visit and for further instruction on these medications. Any specific questions regarding your chronic medications and dosages should be discussed with your primary care physician(s) and/or pharmacist. New Medications [facility], [address] [place] [address], [place] [id number], [phone] fluocinonide topical (Lidex 0.05% topical cream) 1 [...] soothe the skin. ? Medicines, such as tzoq-qfk-olfzdvn antihistamine tablets. ? Oral steroid medicine for more severe reactions. Follow these instructions at home: Medicines ? Take or nader (more content not included)... Normal [facility] [employer] LTon 03-25 [facility] [employer] * * *Final Report* * *DATE OF EXAM: Mar 25 2018 2:21PM HCW 0593 - [facility] LT / REASON: Benign breast lumps * * * * Physician Interpretation * * * *RESULT: #[id number] - Reward[facility] LTULTRASOUND OF LEFT BREAST: 03/25/2018HISTORY: Benign Breast [...] made to exam dated: 10/29/2013 ultrasound - [facility].Real-time ultrasound of the left breast was performed.There [...] and the finding is sonographically stable since 2013, no further imaging is necessary. I did advise the patient to follow up with Dr. Villalobos should she notice any change in the future.Patient also had a right ultrasound today which will be dictated separately.Follow-up with ACR/NCCN guidelines.Kj Lancaster M.D.ls/penrad:03/25/2018 14:31:28Imaging Technologist: Mirta SCHRADER)(Cris), [facility]ADS: 2 Benign findingTranscribed Using Voice RecognitionTranscribe Date/Time: Mar 25 2018 2:21PDictated by: KJ LANCASTER MDThis examination was interpreted and the report reviewed and electronically signed by: KJ LANCASTER MD on Mar 25 2018 2:31PM [id number] Normal [facility] [employer] RTon 03-25 [facility] [employer] RT * * *Final Report* * *DATE OF EXAM: Mar 25 2018 2:21PM HCW 0594 - [facility] [employer] RT / REASON: Benign breast lumps * * * * Physician Interpretation * * * *RESULT: #[id number] - [facility] [employer] RTULTRASOUND OF RIGHT BREAST: 03/25/2018HISTORY: Benign Breast [...] Please see that report for full detail.Kj Winkler/penrad:03/25/2018 14:34:44Imaging Technologist: Mirta SCHRADER)Jennifer), [facility] BI-RADS: 1 NegativeTranscribed Using Voice RecognitionTranscribe Date/Time: Mar 25 2018 2:21PDictated by: KJ LANCASTER MDThis examination was interpreted and the report reviewed and electronically signed by: KJ LANCASTER MD on Mar 25 2018 2:34PM [id number] Normal [facility] Encounters Encounter Date Encounter Type Care Provider Facility Start: 06-18-2024 End: 06-18-2024 ambulatory KASSIDY PERALES Not Available Start: 05-21-2024 End: 05-21-2024 ambulatory CLIFTON DAIJA Not Available Start: 04-18-2024 End: 04-18-2024 ambulatory NHUNG RIVERO Not Available Start: 03-17-2024 End: 03-17-2024 ambulatory Clifton R DAIJA Facility:[facility] Start: 03-17-2024 End: 03-17-2024 Patient encounter procedure Clifton R DAIJA [facility] Start: 12-19-2023 End: 12-19-2023 ambulatory NHUNG RIVERO Not Available Start: 12-07-2023 End: 06-17-2024 ambulatory Clifton R DAIJA Facility:[facility] Start: 12-07-2023 End: 06-17-2024 Recurring Clifton R DAIJA [facility] Start: 11-13-2023 End: 11-13-2023 ambulatory Clifton R DAIJA Facility:[facility] Start: 11-13-2023 End: 11-13-2023 Patient encounter procedure Clifton R DAIJA [facility] Start: 10-24-2023 End: 10-24-2023 ambulatory CLIFTON DAIJA Not Available Start: 08-14-2023 End: 11-12-2023 ambulatory DO Jeffery Doyle Facility:[facility] Start: 04-11-2023 End: 06-17-2024 Recurring Clifton MALINO [facility] Start: 01-25-2022 End: 01-25-[address] CLIFTON CHOE Facility: Start: 12-10-2018 End: 12-11-2018 Patient encounter procedure PA NEWBERRY Facility:[facility] Start: 12-05-2018 End: 12-06-2018 Patient encounter procedure DEFAULT PHYSICIAN Facility:[facility] Start: 03-25-2018 Ambulatory [facility] Immunizations Immunization Date Immunization Notes Care Provider Fa cility 09-06-2023 influenza virus vaccine, unspecified formulation Clifton DAIJA [facility] Comment on above: Reason for Medicatio n: Prophylaxis 09-12-2022 influenza virus vaccine, unspecified formulation Clifton DAIJA [facility] Comment on above: Reason for Medicatio n: Prophylaxis 09-12-2022 influenza, injectabl e, quadrivalent, preservative free Clifton DAIJA [facility] 04-28-2021 COVID-19, mRNA, LNP- S, PF, 30 mcg/0.3 mL dose Clifton DAIJA [facility] Comment on above: Reason for Medicatio n: Prophylaxis 04-06-2021 COVID-19, mRNA, LNP- S, PF, 30 mcg/0.3 mL dose Clifton DAIJA [facility] Comment on above: Reason for Medicatio n: Prophylaxis Payers Date Payer Category Payer Unknown 2022 Unknown [id number] 1995 Unknown [id number] 2.16.8 [id number] 1995 Unknown [id number] 2.16.8 [id number] 1995 Unknown [id number] 2.16.84 [id number] 1995 Unknown [id number] 2.16.8 [id number] 1995 Unknown [id number] 2.16.8 [id number] 1995 Unknown [id number] 2.16.8 [id number] 1995 Unknown [id number] 2.16.8 [id number] 1995 Unknown [id number] 2.16.84 0.1.256466.3.579.2.1259 1995 Unknown [id number] 2.16.84 [id number] 1995 Unknown [id number] 2.16.84 0.1.042924.3.579.2.1259 1995 Unknown [id number] 2.16.84 0.1.931288.3.579.2.1259 1995 Unknown [id number] 2.16.840 .[id number] 1960 Unknown [id number] Unknown [id number] Social History Date Type Detail Facility Start: 07-21-2021 Tobacco smoking status Never s moked tobacco (finding) [facility] Tobacco smoking status Never [facility] Sex Assigned At Female [facility] Evaluation + Plan note 11-13-2023 Note Date & Type Note Facility 11-13-2023 Evaluation + [facility] 11/13/23[facility] 11/13/23 [facility] Clinical Note 08-02-2021 Note Date & Type Note Facility 08-02-2021 Note Patient Education Ma kelly Follows: Poison Claudia Dermatitis Poison claudia dermatitis [...] soothe the skin. ? Medicines, such as nnyk-oor-ebixmeu antihistamine tablets. ? Oral steroid medicine for more severe reactions. Follow these instructions at home: Medicines ? Take or apply bscq-ohf-fnvhzjm and prescription medicines only as told by [...] rub your skin. ? Take or apply foae-nyh-emaexgh and prescription medicines only as told by your doctor. This information is not intended to replace advice given to you by your health care provider. Make sure you discuss any questions you have with your health care provider. Document Revised: 02/27/2020 Document Reviewed: 10/31/2019 [employer] Patient Education ? 2019 [employer] [facility]. [facility] Evaluation + Plan note Note Date & Type Note Facility Evaluation + Plan note No data available for this section [facility] Hospital Discharge instructions Note Date & Type Note Facility Hospital Discharge instructions No data available for this section [facility] Progress note Note Date & Type Note Facility Progress note No data available for this section [facility] Summary Purpose Family History No Family [...] section and content) DATE CREATED AUTHOR 05/09/2018 [facility] DATE CREATED AUTHOR AUTHOR'S ORGANIZ ATION 12/13/2018 [facility] DATE CREATED AUTHOR AUTHOR'S ORGANIZ ATION 09/17/2021 [facility] DATE CREATED AUTHOR AUTHOR'S ORGANIZ ATION 02/01/2022 [facility] DATE CREATED AUTHOR AUTHOR'S ORGANIZ ATION 06/20/2024 [facility] DATE CREATED AUTHOR AUTHOR'S ORGANIZ ATION 06/20/2024 [facility] EPIC Patient Care team informatio n (unrecognized section and content) Personnel Name: Jesica Jamiosn CNP Address: Address: [address] [place] [address], [address] Personnel Name: Jesica Jamison CNP Address: Address: [address] [place] [address], [address] Personnel Name: Jesica Jamison CNP Address: Address: [address] [place] [address], [address] Personnel Name: Jesica Jamison CNP Address: Address: [address] [place] [address], [address] Personnel Name: Jesica Jamison CNP Address: Address: [address] [place] [address], [address] FOR RECORDS PERTAINING TO PATIENTS WHO ARE [...] BE BASED ON THE PRIMARY CLINICAL RECORDS. [facility] [employer] [facility]. provides no warranty or guarantee of the accuracy or completeness of information in this document.
[2024-07-04 01:07] LABS: AFP Value 57.7 ng/mL (.); Gest. Age on Collection Date 19.3 weeks (.); Insulin Dep Diabetes No (.); Maternal Age At EDD 30.3 yr (.); OSBR Risk 1 IN 7850 (.); Results Report (.)
== END 2024-07-02 13:21 | disposition home or self-care (01) ==
LOC: LAB 13:20
PROVIDERS: Visit Provider Obstetrics & Gynecology
DX: Z34.92 Encounter for supervision of normal pregnancy, unspecified, second trimester (principal)
CPT/HCPCS: 36415; 82105

== ENCOUNTER 2024-07-09 14:40 | Outpatient (OUT) | payer OTHER, SELFPAY ==
--- NOTE | 2024-07-09 14:44 | US_ITS ---
[address] [address] Patient Name: SELENE SHERMAN MRN: [id number] date: 1995 Sex: F Assigned Patient Location: [facility] Current Patient Location: Accession/Order Number: [id number] Exam Date: 07/09/2024 14:44 Report Date: 07/10/2024 05:28 At the request of: CLIFTON CHOE Procedure: US OB anatomy EXAMINATION: US OB anatomy, US OB cervical length HISTORY: ANATOMY COMPARISON: Ultrasound OB transvaginal 06/18/2024 TECHNIQUE: Transabdominal sonographic examination was performed for obstetrical and evaluation. FINDINGS: Number: 1 Heart Rate: 147 bpm H.B. /min Amniotic Fluid Volume: Subjectively normal Placental Location: ANTERIOR with lower margin 2.4 cm from os. Cervix Length: 3.89 cm , closed. ANATOMY: Normal Structures -cerebellum, choroid plexus, cisterna magna, lateral cerebral ventricles, orbits, midline falx, hard palate, four-chamber heart, RVOT, LVOT, stomach, kidneys, bladder, umbilical cord insertion into abdomen, three-vessel cord, cervical spine, thoracic spine, lumbar spine, sacral spine, right upper extremity, left upper extremity, right lower extremity, left lower extremity. SUBOPTIMALLY SEEN: None ABNORMALITIES: None BIOMETRY: BPD: 4.91 cm; 20 weeks 6 days; 72.80 % HC: 18.01 cm; 20 weeks 3 days; 48.90 % AC: 15.78 cm; 20 weeks 6 days 65.30 % FL: 3.63 cm; 21 weeks 4 days; 82.20 % EFW:386.13 g; 87.10 % FL/AC: 23 FL/BPD: 73.93 HC/AC: 1.14 GESTATIONAL AGE: Age by EDC: 20 weeks 2 days Age by current US: 21 weeks 0 days EDGAR by current US: 2024-11-19 EDGAR by EDC: 2024-11-24 US/US OB anatomy IMPRESSION: 1. Single live intrauterine with growth detailed above. 2. Low-lying anterior placenta. Electronically authenticated by: VERENICE AYOUB Date: 07/10/2024 05:28
--- NOTE | 2024-07-09 14:44 | US_ITS ---
[address] [address] Patient Name: SELENE SHERMAN MRN: [id number] date: 1995 Sex: F Assigned Patient Location: [facility] Current Patient Location: Accession/Order Number: [id number] Exam Date: 07/09/2024 14:44 Report Date: 07/10/2024 05:28 At the request of: CLIFTON CHOE Procedure: US OB cervical length EXAMINATION: US OB anatomy, US OB cervical length HISTORY: ANATOMY COMPARISON: Ultrasound OB transvaginal 06/18/2024 TECHNIQUE: Transabdominal sonographic examination was performed for obstetrical and evaluation. FINDINGS: Number: 1 Heart Rate: 147 bpm H.B. /min Amniotic Fluid Volume: Subjectively normal Placental Location: ANTERIOR with lower margin 2.4 cm from os. Cervix Length: 3.89 cm , closed. ANATOMY: Normal Structures -cerebellum, choroid plexus, cisterna magna, lateral cerebral ventricles, orbits, midline falx, hard palate, four-chamber heart, RVOT, LVOT, stomach, kidneys, bladder, umbilical cord insertion into abdomen, three-vessel cord, cervical spine, thoracic spine, lumbar spine, sacral spine, right upper extremity, left upper extremity, right lower extremity, left lower extremity. SUBOPTIMALLY SEEN: None ABNORMALITIES: None BIOMETRY: BPD: 4.91 cm; 20 weeks 6 days; 72.80 % HC: 18.01 cm; 20 weeks 3 days; 48.90 % AC: 15.78 cm; 20 weeks 6 days 65.30 % FL: 3.63 cm; 21 weeks 4 days; 82.20 % EFW:386.13 g; 87.10 % FL/AC: 23 FL/BPD: 73.93 HC/AC: 1.14 GESTATIONAL AGE: Age by EDC: 20 weeks 2 days Age by current US: 21 weeks 0 days EDGAR by current US: 2024-11-19 EDGAR by EDC: 2024-11-24 US/US OB cervical length IMPRESSION: 1. Single live intrauterine with growth detailed above. 2. Low-lying anterior placenta. Electronically authenticated by: VERENICE AYOUB Date: 07/10/2024 05:28
--- OUTSIDE RECORDS SUMMARY | 2024-07-09 14:56 | XMS_ITS | CCD ---
Author Organization [facility] Care Team Providers Care Muck Farmer Name Role Phone VILLALOBOS, DINKAR Unavailable Unavailable [...] Test Name Value Interpretation Reference Range Facility [facility] 03-19-2024 HCG.beta subunit Qn 488 m[IU]/mL High 1-3 Fis her [facility] Comment on above: Result Comment: 'F N ON < 1 - 3' ' 0.2 - 1 WEEK = 5 TO 50' ' 1 - 2 WEEKS = 50 - 500' ' 2 - 3 WEEKS = 100 - 5000' ' 3 - 4 WEEKS = 500 - 63726' ' 4 - 5 WEEKS = 1000 - 79681' ' 5 - 6 WEEKS = 61155 - 761627' ' 6 - 8 WEEKS = 30425 - 792123' ' 8 - 12 WEEKS = 80085 - 655899' Performed By: #### 2 [id number] #### [facility] [address] [place] [address] CHEMISTRYOrdered By: SYSTEM SYSTEM on 03-19-2024 HCG.beta [...] 3 - 4 WEEKS = 500 - 74239' ' 4 - 5 WEEKS = 1000 - 12329' ' 5 - 6 WEEKS = 47093 - 055513' ' 6 - 8 WEEKS = 76947 - 392851' ' 8 - 12 WEEKS = 86763 - 022517' Progesterone Lvl 69.95 ng/mL Invalid Interpretation Code [...] Progesterone Lvl 69.95 ng/mL Invalid Interpretation Code [facility] Comment on above: Result Comment: 'F N ON FOLLICULAR = 0.10 - 0.60' 'LUTEAL = 3.00 - 17.5' 'MIDLUTEAL = 3.30 - 18.6' 'POST-MENOPAUSE = 0.10 - 0.40' '-FIRST TRIMESTER = 8.30 - 66.5' 'SECOND TRIMESTER = 18.9 - 66.1' 'THIRD TRIMESTER = 35.8 - 312.4' 'MALES = 0.14 - 2.06' Result Verified by Dilution Performed By: #### 2 [id number] #### Pete [facility] [address] [place] [address] [facility] Quanton 03-17-2024 HCG.beta subunit Qn 185 m[IU]/mL High 1-3 Fis her [facility] Comment on above: Result Comment: 'F N ON < 1 - 3' ' 0.2 - 1 WEEK = 5 TO 50' ' 1 - 2 WEEKS = 50 - 500' ' 2 - 3 WEEKS = 100 - 5000' ' 3 - 4 WEEKS = 500 - 06733' ' 4 - 5 WEEKS = 1000 - 55026' ' 5 - 6 WEEKS = 92646 - 555314' ' 6 - 8 WEEKS = 06335 - 971521' ' 8 - 12 WEEKS = 72343 - 458440' Performed By: #### 2 [id number] #### Pete [facility] [address] [place] [address] CHEMISTRYOrdered By: SYSTEM SYSTEM on 03-17-2024 HCG.beta [...] 3 - 4 WEEKS = 500 - 06960' ' 4 - 5 WEEKS = 1000 - 03367' ' 5 - 6 WEEKS = 81876 - 902926' ' 6 - 8 WEEKS = 19481 - 285563' ' 8 - 12 WEEKS = 30499 - 631505' Progesterone Lvl 51.75 ng/mL Invalid Interpretation Code [...] Consent for Treatmenton 02-18 Consent for Treatment [id number]#1.00TIF F Normal [facility] Physician Orderon 03-17-2024 Physician Order [id number]#1.00TI FF Normal [facility] Progesteroneon 03-17-2024 Progesterone Lvl 51.75 ng/mL Invalid Interpretation Code [facility] Comment on above: Result Comment: 'F N ON FOLLICULAR = 0.10 - 0.60' 'LUTEAL = 3.00 - 17.5' 'MIDLUTEAL = 3.30 - 18.6' 'POST-MENOPAUSE = 0.10 - 0.40' '-FIRST TRIMESTER = 8.30 - 66.5' 'SECOND TRIMESTER = 18.9 - 66.1' 'THIRD TRIMESTER = 35.8 - 312.4' 'MALES = 0.14 - 2.06' Performed By: #### 2 [id number] #### [facility] [address] [place] [address] Physician Orderon 03-12-2024 Physician Order [id number]#1.00T IFF Normal [facility] CHEMISTRYOrdered By: SYSTEM SYSTEM on 03-07-2024 Progesterone [...] Progesterone Lvl 20.59 ng/mL Invalid Interpretation Code [facility] Comment on above: Result Comment: 'F N ON FOLLICULAR = 0.10 - 0.60' 'LUTEAL = 3.00 - 17.5' 'MIDLUTEAL = 3.30 - 18.6' 'POST-MENOPAUSE = 0.10 - 0.40' '-FIRST TRIMESTER = 8.30 - 66.5' 'SECOND TRIMESTER = 18.9 - 66.1' 'THIRD TRIMESTER = 35.8 - 312.4' 'MALES = 0.14 - 2.06' Performed By: #### 2 [id number] #### [facility] [address] [place] [address] Progesteroneon 02-05-2024 Progesterone Lvl 20.64 ng/mL Invalid Interpretation Code [facility] Comment on above: Result Comment: 'F N ON FOLLICULAR = 0.10 - 0.60' 'LUTEAL = 3.00 - 17.5' 'MIDLUTEAL = 3.30 - 18.6' 'POST-MENOPAUSE = 0.10 - 0.40' '-FIRST TRIMESTER = 8.30 - 66.5' 'SECOND TRIMESTER = 18.9 - 66.1' 'THIRD TRIMESTER = 35.8 - 312.4' 'MALES = 0.14 - 2.06' Performed By: #### 2 [id number] #### [facility] [address] [place] [address] Progesteroneon 01-08-2024 Progesterone Lvl 18.23 ng/mL Invalid Interpretation Code [facility] Comment on above: Result Comment: 'F N ON FOLLICULAR = 0.10 - 0.60' 'LUTEAL = 3.00 - 17.5' 'MIDLUTEAL = 3.30 - 18.6' 'POST-MENOPAUSE = 0.10 - 0.40' '-FIRST TRIMESTER = 8.30 - 66.5' 'SECOND TRIMESTER = 18.9 - 66.1' 'THIRD TRIMESTER = 35.8 - 312.4' 'MALES = 0.14 - 2.06' Performed By: #### 2 [id number] #### [facility] [address] [place] [address] Consent for Treatmenton 11-19 Consent for Treatment [id number]#1.00TIF F Normal [facility] Physician Orderon 12-07-2023 Physician Order [id number]#1.00TI FF Normal [facility] Progesteroneon 12-07-2023 Progesterone Lvl 13.36 ng/mL Invalid Interpretation Code [facility] Comment on above: Result Comment: 'F N ON FOLLICULAR = 0.10 - 0.60' 'LUTEAL = 3.00 - 17.5' 'MIDLUTEAL = 3.30 - 18.6' 'POST-MENOPAUSE = 0.10 - 0.40' '-FIRST TRIMESTER = 8.30 - 66.5' 'SECOND TRIMESTER = 18.9 - 66.1' 'THIRD TRIMESTER = 35.8 - 312.4' 'MALES = 0.14 - 2.06' Performed By: #### 2 [id number] #### [facility] [address] [place] [address] DHEASon 11-14-2023 DHEA-S [Mass/Vol] 281.0 microgram/dL Invalid Interpretation Code 84.8-378.0 [facility] Comment on above: Result Comment: Perf ormed at: [employer] [address] [id number] PhD Padma Gleason Performed By: #### 2 [id number] #### [facility] [address] [place] [address] FSH and LHon 11-14-2023 Follitropin Qn 2.8 m[IU]/mL Invalid Interpretation Code [facility] Comment on above: Result Comment: Adul t Female Range Follicular phase 3.5 - 12.5 Ovulation phase 4.7 - 21.5 Luteal phase 1.7 - 7.7 Postmenopausal 25.8 - 134.8 Performed at: [facility] [address] [id number] PhD Padma Gleason Performed By: #### 2 [id number] #### [facility] [address] [place] [address] Lutropin Qn 2.9 m[IU]/mL Invalid Interpretation Code [facility] Comment on above: Result Comment: Adul t Female Range Follicular phase 2.4 - 12.6 Ovulation phase 14.0 - 95.6 Luteal phase 1.0 - 11.4 Postmenopausal 7.7 - 58.5 Performed By: #### 2 [id number] #### [facility] [address] [place] [address] Auto Diffon 11-13-2023 Basophils/100 WBC (Bld) 0.2 % Normal 0.0-2.0 [facility] Comment on above: Order Comment: Order Added by Discern Expert. Performed By: #### 7 [id number], 35227071, 2441433, 8098268, 27724368, 5671788, 9184349 #### [facility] [address] [place] [address] Basophils/Leukocytes Auto (Bld) [Pure # fraction] 0.0 E9/L Normal 0.0-0.2 [facility] Comment on above: Order Comment: Order Added by Discern Expert. Performed By: #### 7 [id number], 97250018, 8219890, 9792127, 54750169, 4591053, 9880114 #### [facility] [address] [place] [address] Eosinophils/100 WBC (Bld) 1.0 % Normal 0.0-8.0 [facility] Comment on above: Order Comment: Order Added by Discern Expert. Performed By: #### 7 [id number], 10917822, 3126537, 4858520, 58065581, 6059464, 1330016 #### [facility] [address] [place] [address] Eosinophils/Leukocyt es Auto (Bld) [Pure # fraction] 0.1 E9/L Normal 0.0-0.5 [facility] Comment on above: Order Comment: Order Added by Discern Expert. Performed By: #### 7 [id number], 74689999, 6180369, 8143663, 46223371, 9013063, 1046756 #### [facility] [address] [place] [address] Lymphocytes/100 WBC (Bld) 24.1 % Normal 14.0-50.0 [facility] Comment on above: Order Comment: Order Added by Discern Expert. Performed By: #### 7 [id number], 98814799, 1700817, 8984234, 77417599, 3061345, 8502944 #### [facility] [address] [place] [address] Lymphocytes/Leukocyt es Auto (Bld) [Pure # fraction] 1.7 E9/L Normal 1.0-4.0 [facility] Comment on above: Order Comment: Order Added by Farhan Expert. Performed By: #### 7 [id number], 19164914, 1584148, 4687765, 86550131, 1974559, 1191171 #### [facility] [address] [place] [address] Monocytes/100 WBC (Bld) 8.6 % Normal 4.0-14.0 [facility] Comment on above: Order Comment: Order Added by Farhan Expert. Performed By: #### 7 [id number], 11466553, 2552459, 9644219, 24090352, 3086288, 1114538 #### [facility] [address] [place] [address] Monocytes/Leukocytes Auto (Bld) [Pure # fraction] 0.6 E9/L Normal 0.2-1.0 [facility] Comment on above: Order Comment: Order Added by Farhan Expert. Performed By: #### 7 [id number], 35414856, 6308750, 5527518, 80711329, 7061143, 7099472 #### [facility] [address] [place] [address] Neutrophils/100 WBC (Bld) 66.1 % Normal 36.0-75.0 [facility] Comment on above: Order Comment: Order Added by Discern Expert. Performed By: #### 7 [id number], 57633885, 6805388, 3907244, 60224919, 9817687, 9138826 #### [facility] [address] [place] [address] Neutrophils/Leukocyt es Auto (Bld) [Pure # fraction] 4.5 E9/L Normal 2.0-7.5 [facility] Comment on above: Order Comment: Order Added by Discern Expert. Performed By: #### 7 [id number], 36868462, 9056281, 5803381, 05217519, 8765565, 4743412 #### [facility] [address] [place] [address] BhCG Quanton 11-13-2023 Beta hCG Qnt <1 Normal 1-3 [facility] Comment on above: Result Comment: 'F N ON < 1 - 3' ' 0.2 - 1 WEEK = 5 TO 50' ' 1 - 2 WEEKS = 50 - 500' ' 2 - 3 WEEKS = 100 - 5000' ' 3 - 4 WEEKS = 500 - 38199' ' 4 - 5 WEEKS = 1000 - 52109' ' 5 - 6 WEEKS = 40110 - 992172' ' 6 - 8 WEEKS = 48484 - 426502' ' 8 - 12 WEEKS = 46638 - 614295' Performed By: #### 2 [id number] #### [facility] [address] [place] [address] CBC w/ Auto Diffon Erythrocyte distribution width (RBC) [Ratio] 13.8 % Normal 10.9-14.2 [facility] Comment on above: Performed By: #### 7 [id number], 01124191, 0292987, 6438007, 07374029, 9758218, 0637717 #### [facility] [address] [place] [address] Hematocrit (Bld) [Volume fraction] 39.9 % Normal 34.0-46.0 [facility] Comment on above: Performed By: #### 7 59414856, 39966077, 2450983, 3244064, 31419106, 0025522, 6211841 #### [facility] [address] [place] [address] Hemoglobin (Bld) [Mass/Vol] 13.1 g/dL Normal 12.0-16.0 [facility] Comment on above: Performed By: #### 7 75652259, 95523609, 9397008, 4536745, 54512825, 5874699, 2164653 #### [facility] [address] [place] [address] MCH (RBC) [Entitic mass] 27.5 pg Normal 27.0-34.0 [facility] Comment on above: Performed By: #### 7 [id number], 47173385, 7923757, 5913837, 02590438, 2798179, 0797896 #### [facility] [address] [place] [address] MCHC (RBC) [Mass/Vol] 32.9 g/dL Normal 31.4-36.0 [facility] Comment on above: Performed By: #### 7 40322325, 44002180, 5042836, 8747191, 49645569, 9639913, 7722669 #### [facility] [address] [place] [address] MCV (RBC) [Entitic vol] 83.5 fL Normal 80.0-100.0 [facility] Comment on above: Performed By: #### 7 48260532, 46110183, 0969073, 1388260, 49430033, 3294674, 5997009 #### [facility] [address] [place] [address] Platelet mean volume (Bld) [Entitic vol] 9.3 fL Normal 6.4-10.8 [facility] Comment on above: Performed By: #### 7 64069901, 97718818, 7530109, 6984451, 76689133, 0822353, 4054789 #### [facility] [address] [place] [address] Platelets (Bld) [#/Vol] 249.0 E9/L Normal 150.0-500.0 [facility] Comment on above: Performed By: #### 7 57943652, 36724343, 7258702, 4589612, 31309254, 7061917, 0676690 #### [facility] [address] [place] [address] RBC (Bld) [#/Vol] 4.8 E12/L Normal 4.3-5.9 [facility] Comment on above: Performed By: #### 7 90282776, 38009166, 8045281, 8066095, 28299128, 1720890, 1258728 #### [facility] [address] [place] [address] WBC corrected for nucl RBC Auto (Bld) [#/Vol] 6.8 E9/L Normal 4.0-11.0 [facility] Comment on above: Performed By: #### 7 [id number], 88602676, 4834740, 2426521, 60499100, 3988096, 4842756 #### [facility] [address] [place] [address] CHEMISTRYOrdered By: SYSTEM SYSTEM on 11-13-2023 Beta [...] 3 - 4 WEEKS = 500 - 28170' ' 4 - 5 WEEKS = 1000 - 05045' ' 5 - 6 WEEKS = 12432 - 260889' ' 6 - 8 WEEKS = 25218 - 625229' ' 8 - 12 WEEKS = 49605 - 185847' Free T4 [Mass/Vol] 0.96 ng/dL Normal 0.58 - 1. 64 ng/dL Remisol Chem TSH Qn 1.38 m[IU]/L Normal 0.34 - 5.60 mcIU/mL Remisol Chem CHEMISTRYOrdered By: Adolph Mcnair on 11-13-2023 HbA1c (Bld) [Mass fraction] 5.0 % Normal <=5.9% [facility] ChemAutoSS Consent for Treatmenton 10-20 Consent for Treatment [id number]#1.00TIF F Normal [facility] Free T4on 11-13-2023 Free T4 [Mass/Vol] 0.96 ng/dL Normal 0.58-1.64 [facility] Comment on above: Performed By: #### 7 [id number], 98960876, 4949388, 6941753, 08298350, 8903619, 0912100 #### [facility] [address] [place] [address] HEMATOLOGYOrdered By: SYSTEM SYSTEM on 11-13-2023 Basophils/100 [...] Normal 4.0 - 11.0 E9/L [facility] HemeAutoSS [id number] 11-13-2023 HbA1c (Bld) [Mass fraction] 5.0 % Normal <=5.9 [facility] Comment on above: Performed By: #### 7 [id number], 75230896, 0833288, 9501220, 24161620, 9011582, 2313293 #### [facility] [address] [place] [address] TSHon 11-13-2023 TSH Qn 1.38 m[IU]/L Normal 0.34-5.60 [facility] Comment on above: Performed By: #### 7 [id number], 17922243, 0979891, 4074370, 52843307, 5323892, 0368331 #### [facility] [address] [place] [address] Laboratory - Chemistry and C hemistry - [...] 21 to 28on 01-31-2022 . . Normal [facility] Comment on above: Performed By: #### 4 611001 #### [facility] [address] [address] [address] Tobi Phelps Age Gdln ACOG Testing - Normal [facility] Comment on above: Performed By: #### 4 640039 #### [facility] [address] [address] [address] Tobi Phelps DIAGNOSIS: Comment [facility] Comment on above: Result Comment: NEGA TIVE FOR INTRAEPITHELIAL LESION OR MALIGNANCY. Performed By: #### 4 045461 #### [facility] [address] [place] [address] Dr. Tobi Phelps Methodology: Comment Normal [facility] Comment on above: Result Comment: This liquid based ThinPrep(R) pap test was screened with the use of an image guided system. Performed By: #### 4 813445 #### [facility] [address] [place] [address] Dr. Tobi Phelps Note: Comment Normal [facility] Comment on above: Result Comment: The Pap smear is a screening test designed to aid in the detection of premalignant and malignant conditions of the uterine cervix. It is not a diagnostic procedure and should not be used as the sole means of detecting cervical cancer. Both false-positive and false-negative reports do occur. . Performed By: #### 4 [id number] #### [facility] [address] [place] [address] Dr. Tobi Phelps Performed by: Comment Normal [facility] Comment on above: Result Comment: Elvis Gutierrez, Marketing Traffic Coordinator (ASCP) Performed By: #### 4 714995 #### [facility] [address] [place] [address] Dr. Tobi Phelps Reflex Criteria: Comment Normal [facility] Comment on above: Result Comment: The HPV DNA reflex criteria were not met with this specimen result therefore, no HPV testing was performed. . Performed By: #### 4 161595 #### [facility] [address] [place] [address] Dr. Tobi Phelps Specimen adequacy: Comment Normal [facility] Comment on above: Result Comment: Sati sfactory for evaluation. Endocervical and/or squamous metaplastic cells (endocervical component) are present. Performed By: #### 4 151442 #### [facility] [address] [place] [address] Dr. Tobi Phelps Release of Informationon Release of Information [id number] TIFF [facility] Coding Summaryon 08-04-2021 Coding Summary HTMLBase 64 StnpvrotEHl7mXf+PGhlYWQ+ IB4MREOcC43znTAprI3II7pJ LQ0ELXWTXXXCPL6BXM8zgOU6 QXiuP1SporYo KxnprTWqST90YNe4SQL3jZsf SNztdE5ksNGlF1q7ZpQrTR49 qR16DYklYIVuWsM7RtJczmwx bWFy L2yuEnKikUPdNug+PHRhYmxl IHdpZHRoPScxMDAlJyBzdHls XJ3aPd1gPYPwBQRnnXoyqJPu OiBj o0rdPOTqMJszUY1dzTdwV1Sg ySA1OCStz8x9Ee76wUT+PHRk LBX7cAgxVGsld973IfMss2vg IDM3 sSHrLIpcLWE4G77dn1L2NGNt CWFwVYM9cYQ1eM4sbKzfzoqa Q9DraKNvXeV4GQS2dBNldD1w bGln flruaP6xEud+V60DFU9BRMTS GE8KOlu8N1PmDgpexJZ+PC90 JDLpHH48mOPltWZfc0adzJo3 JzEw CVXrFRN3wQlcTFgud7FhTIDi G20xcWWee9C7QOFvsCuxlLTn MgTkdAR3hJ1fZQkposqkf4wo dzsn Jcvyg8fbxq93tC11V58oUDry EDOvNUA3YUIsMKTgxKjvmq7z gE9fEq7+MKlvz4ljp4qshTh9 IjIw PBTkubRivKklRGH9a3GyXi51 F3LlcQysf7PmTro3dy86wZVu f5U0tII1GIijMVLpsQ2hPWhi ZnQ6 ZZCqSxWjeZ17jJAxOCfmVz5g tYpsiWssFV2zGLWyxyhzHZHc lM2rXCByjHJtzZnqYC2tAUHp bjtm t410NnHsJSD2SPFpsITqL8Vs tZ1hSmYuYXIeYMNlZ2GceUEw VZcwH875JTofZvV5WEXnsyTo Y2Fs IARwgLxeKjZ4q5S2Yx8Ku7Pw unxvHKL9DSkfUZE3GwY6RwEz JoS2E1ZbXqg9XVVawJihGB5f J3Bh SQKjibgjcnfxjSE4FDMdEOMl uA91xCQfXGroXg6ik6K3z785 MRJsRDDakT08Tk4wfEwrZBVl dCBU fL4dxpgvg5dtcgzwIrQlHWVj QKt7LJl3SPHbhWwzOvLgPQW2 UeJ3VRD1bFWxpE0ugOstaoem dG9w Oyc+C76giW2wIZC6KHO5zqxa COBxypEfEG61RV54G4LoQzqd dGFibGU+YJRqgqXdoMmqQG6h YmFj q3for6CpNOocY2HqXSYuUBhv Jyx3FELwMMZ8fSC1nQ7oGRWx ABnyw3T8iFP6S4DmbsAblb1n b2xs EZKdAUhgF19bvPSwn7F0ZFJq eCN8YZSdzMktCrXhqK95Gar+ SIUvkXhmu7HkBsddh8asj2at dGg9 PwLjNXSkgcBcpRegZUW6k2Qu Xb60S20jPKmhCRCsEEAiJSOv MPQowYgxpn6qsE0eCi7+PGNv bCB3 oGH7bP3tKVMeIoN4TKeuG627 BgYnoBXoBnukk7jby6rljOs1 BkNkJTXvehYeaRanLZM8f7Mz Lz48 X68eANowOTXwPHSeRMXrKUVi xNxyqu8qpE0iJx9+VL3lt0rb ne18jX16qWA+GYUaCQL9fGlj PSdw MYPghU8gSHegCoZ8AXYrEaXr sZ22kCJzTYawEa9kzIrtlEvc ZZ2aYGKiqxxgw806JxFku7gb IDEw hVTaWAfoVKA3R24kr1S1ZWLz CQQgSVC4nRV4xJ4ofLqzgzqc bGVmdDsgdmVydGljYWwtYWxp Z246 IHRvcDsnPlBhdGllbnQgTmFt IFh7F6RdRgd2NTKmkMsdBO1q dSMnSQqvXl4lyVgqjOrbMQ5y NTBp usyqs974OjSyv6gwLFAicAKd JQahMUB8P53we0A0CTQoKKOn AKT7oAY3qJ6ctKlfkoqvyABh dDsg cgUebMgnEWcaLRgeC449WYRr hXziHyByusLpNLFwwWI8BI31 ST79mEFfi7T7bIK1Y2NnJPRn bmct cxyesOE6LPIfCXCgiA05Uk2a wEtkIg7fCKOmCKG1SZHggPLf U8KjbB3eGhFaZUJiQDRyO6Lg eHQt GBohX307ZSrrAhW8COFbbhFp N6SxPGVlvXjoObN2r5A9Rg5I H6Z7HS60EJ35nYIcs4L6aCZ0 J3Bh EJYrqwvjmmkbcGA0RWTsMYDm dK05En0qgRleLk4eMRZnRUH0 DJGefDQiS7OgoZ9pFmFqMEDc MDAw Q3DayIGyYTizW258YAroOzQ2 LYKmfsQbO8EaRAIekFrnPzP0 l5B5Mr2VQEl5LX90KJ06hVTx c3R5 tIK1X2ZmEGNyailqwmiejFH6 DCGrJRSjvM80Jl3ahAvsJd9p FNAtTPY4QJMjaLDpT1JhaG2d OiAj GWLbRXLyH6FedTLkFGisT050 KVyyVeU5FRAvexKeI9BwWVTh kPlqRwG7p3D1Ql4LUJOyRM45 IFR5 xRK6JN48AI83Y4QkQmzyqIUn bGU+PHRhYmxlIHdpZHRoPScx ZHWmIdXvlSunHY5rYd2vKWQw LWNv iQomnVYuZsEqt1djJZZkJAxu FE9ttYlgQ8MjoCM8FWHho2g0 Qa60J34hF8MmhDV+PGNvbCB3 aWR0 bJ4bHnUdMhV6MGqaJ004QaOg xTLkQmcox2vvt6jutFr6YaT7 MCZtwaDrhBotHHI0x0YoEr96 Y29s IHdpZHRoPSIxNSUiIHZhbGln tg9jvQ9mZa8+RZDrsYN9dTE6 cO9bGqBgEuH5EYbzF928CvQl cCIv Lgnbc6ktj3kikWd2DiYqGOCl fkGzeEnyIXQ3w5GeVq81N6Nl jBhxy4HzCax8rz76pWSin2Y6 bGU9 B1FiBJBpzievmFTqwIacMS3u WJPgodslMYOyiS1dQXRjN2m4 LxAlFdR1MAjbK4FnigZ9XABj cHQg ZLgqINH8L45hd5I3BMPoBXSf XJI0rFC7eL3qpPfpimwqaFGw pHvwzkFfpJoyAWrbFJvaW238 IHRv eWxhDXSmmT3eGNCvmIIxfPzr DG1yLEOwewogBeuFCH5DDASV KNHWN2ZBYAEYSMG4N1HwJed2 ZCBz sVpfDG3opMXsNEcsPx5qgOks fLvqLW0oKWPkpvbzFHHldP9j IJZtbYNciHyjIY1hBPUmatdx b250 SyDvTNQ3ZECkmDHwA4LanR0v ZgShIWRyIOPlR3EbzXYfHJlk W905MJouCfO0GWBtzbOhZ5Uv LWFs qZvoZhY3t9N9Hm6hOS6qRW3f QIx8XG84UB73vMIlf2K2qUV0 T9XfVPOpbggjwxbvaVB9DWTk MDUw pV82mKGmHLrtFt6iu7B9g145 OKZvEEZntC37Df0rdVxkXZUs bFPHlG0fownle8ngmafsKhPu MDAw TJy7XSg8FJQccYihRyNpVQA2 RkZ2BAI1fNQrnF6zjRztgyhi mN2lYuv+CsQdTUCbvyG2M1Ev Pjx0 SQYatShzUD3osYDfBHknJk7z pXwylBrwAE8aSHHascvyTNMr wV9cGIZwnOHvbSshAA0mBEJg bjtm b108DjCsICL4YYBzmTBsU1Hd sE0aCkIxAADxWSQmN8YyuINo UYhmQ941TBuaCkL4MTTsrcAp Y2Fs MEViiGsdOyV6l9Z3El5GTB0S NQI0Y4LlOkd2MKWenZslRN1x fUFrUBuaVj5mmDzubIhmGZ6x NTBp grdpTWUtyE9hDHNviPLgzAvw ET0aUGOyjvisc947MmKmHOC1 JDLkyFZaS3OihA8kEcHgVIKp MDAw C5HabTDqZGclS380PXarHiG2 XCRrsxTuO5UeHUAteDfaNcO3 w2C4Oa5GPGquzTO+XJ77sc30 L3Rh FsmjWrj7WNQcXIS6bNG3wV0s LLWrLAcqu6Z9sLE5I5ZaxkIn rh3qz1jaSFSzRDihC31omLFz c2U7 SJImkGU8QJNdnEyrZmYcyC89 Oyc+PLXibPuql4JeMmysl6mx s0pudVf8YjAuRINcycDkiInx PSJ0 r1JdPb63M30aIOvkRGIlFNFr ZHSyQPNojQsrpu8okR2wIe9+ NDVodWP4tXT2eU3rClJtRdF7 YWxp F298VvTqcQFaWijbn1fed9rj pId7BaQiZMRqrsKcnObwNSM3 q1OqPn54N8DsiXtcy6QdMmg5 cj48 kWCxh5R5tXV6N7EeDECjeetc sKXthQfmEK6oHLEfqzzjNMNs mD9zKBExH8b7NnCjEaG4JXrn O2Zv vxG4RVCwmTDvPERmsMZRyZ6u quawh7ywsvivLgCyPPOwGMe8 JCo8CAIwmXnnCmJjCSP0UuK2 ZXJ0 gDCzpX8ehExfjnpfkG7jVel+ GPn6b5eluSPbMX6tdGS5MD16 MD59jIMqz8U2fZD3M9SvAEGk bmct tgpuvLB1PKZpSSHdxM44Md7l fUpnEp9aWMLkGIK9TAJuxKGy A6SpdU2sNlAtXLCxCQUkJ0Ru eHQt BAnjE852UUkcFkN7DQYrbgXy D4JxWGVwsYgqEqP3v8H7Nf4S BQ17LX43WO06fGStq0Z6kUG4 J3Bh YPFovbwiqjocfDA8WZZoFIOy hD07Qg5mdYubQp8qWEBcLKC8 VIIkkGObG9AjqY2aZeUyTGMr MDAw M4TrkVScXVtbD101MBymAnS4 BTUqibYnV3EbZRAwxIopVjY3 v6W6Xn7HEj90YE90PK91kKKx c3R5 hTS7B9BsUPXszmxhwcmdlJE9 LALlGLDfuO68Dq6pzMyhYd2h AMBgWII1NNHtmUAeQ5RdfM5r OiAj CZDcSRFyR9UypMKrTHgtO485 XMkgMgJ0DLRbalYgM3WsPKYx xQwjYlQ7x2I7Ue8LOZaicca9 L3Rk PjwvdHI+VI09XEQtMV68nNRk wPJij7lzwXf5UbDyXKFnBFJ5 dAthNDvfn8XjRTGyR51peGRa c2U6 IGN (more content not included)... [facility] Consent Formson 08-03-2021 Consent Forms [id number] TIFF [facility] ED Clinical Summaryon 2020 ED Clinical Summary [facility] ? [facility] [address] [place], [place] [id number] Clinical Summary PERSON INFORMATION Name: SELENE PERSAUD Age: 25 Years Sex: FEMALE : 1995 MRN: Acct#: Visit Reason: UC - Skin Problem: simple; BODY RASH Arrival: 08/02/2021 10:14:21 Discharge: 08/02/2021 10:44:00 LOS: 000 00:30 Check In: 08/02/2021 10:14:21 Checkout: 08/02/2021 10:44:00 Address: [address] [place] [address] PCP: Provider, None PROVIDER INFORMATION Provider Role Assigned Unassigned Lance Thakkar ED PA 08/02/2021 10:18:20 08/02/2021 10:24:26 Joann LEON, Rachael Thrasher ED Nurse 08/02/2021 10:18:38 Yayo Salas [...] PATIENT EDUCATION INFORMATION Instructions: Poison Claudia Dermatitis, Boaj-js-Ueab Follow-Up: With: Address: When: Follow up with primary care provider Within 3 to 5 days Comments: OR see DERMATOLOGY as needed DIAGNOSIS: Contact dermatitis Patient Understands: Yes - Patient/family/caregiver verbalizes understanding of instructions given Comment: [facility] ED Patient Summaryon 021 ED Patient Summary [facility] ? Urgent Care [address] [place] [address] PATIENT DISCHARGE INSTRUCTIONS Patient Information Name: SELENE [...] soothe the skin. ? Medicines, such as ecgw-mnx-naihtag antihistamine tablets. ? Oral steroid medicine for more severe reactions. Follow these instructions at home: Medicines ? Take or apply hnts-imo-xwowtth and prescription medicines only as told by [...] rub your skin. ? Take or apply tjwc-ovd-ukaztcn and prescription medicines only as told by your doctor. This information is not intended to replace advice given to you by your health care pr (more content not included)... [facility] Urgent Care Note- Provideron 08-02-2021 Urgent Care Note- Provider Patient: SELENE PERSAUD Age: 25 years Sex: FEMALE : 1995 Associated Diagnoses: Contact dermatitis Author: Yayo Salas PA-C History of Present Illness This is a 25 year old here today with concerns of an itchy, red rash to both legs since working out by a [employer] stand where they were clearing brush. Her [...] selected or recorded.. Surgical history: Tooth extraction ([id number]) on 02/27/2012 at 16 Years. Comments: 04/25/2019 9:32 EDT - March PRINCESSChristal wisdom teeth. Family history: Dementia Grandparent Thyroid disease Grandparent High blood pressure Mother Arthritis Mother Grandparent Cancer Grandparent High cholesterol Mother Father . 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 Impression and Plan Diagnosis Contact dermatitis ([id number] L25.9, Discharge, Medical) Plan Condition: Stable. Disposition: [...] was given the following educational materials: Poison Claudai Dermatitis, Itaf-iv-Gmop, Poison Claudia Dermatitis, Nssz-th-Nybk. Follow up with: ; Follow up with primary care provider Within 3 to 5 days OR see DERMATOLOGY as needed. Counseled: Patient, Regarding diagnosis, Regarding treatment plan, Regarding prescription, Patient indicated understanding of instructions. Normal [facility] 021 Urgent Care Record [facility] ? Urgent Care [address] [place] [address] PATIENT DISCHARGE INSTRUCTIONS Patient Information Name: SELENE [...] and treatment you received today in the [facility] were for an urgent problem and are not intended as complete care. It is important for you to follow up with a doctor, nurse practitioner, or physician?s engineer first assistant for ongoing care. If your symptoms [...] so we can reach you if necessary. [facility] has provided you with a complete list of medications post discharge. Please inform your glory hole tender/provider of your visit and for further instruction on these medications. Any specific questions regarding your chronic medications and dosages should be discussed with your primary care physician(s) and/or pharmacist. New Medications [facility], [address], [place] [id number], [phone] fluocinonide topical (Lidex 0.05% topical cream) 1 [...] soothe the skin. ? Medicines, such as byhq-bmv-acshvtk antihistamine tablets. ? Oral steroid medicine for more severe reactions. Follow these instructions at home: Medicines ? Take or nader (more content not included)... Normal [facility] [employer] LTon 03-25 [facility] [employer] [facility] * * *Final Report* * *DATE OF EXAM: Mar 25 2018 2:21PM HCW 0593 - [employer] LT / REASON: Benign breast lumps * * * * Physician Interpretation * * * *RESULT: #[id number] - [employer] LTULTRASOUND OF LEFT BREAST: 03/25/2018HISTORY: Benign Breast LumpsPatient presented with a lump in her left breast in 2012 at which time short interval follow up was recommended for a possible fibroadenoma. Patient did not have any further imaging. SHe presents today for reevaluation of the lump.Per Dr. Villalobso's order, there is a palpable lump at the 2:00 position. Patient identified the lump today in the 1:00 position, and states it has not changed from 2013.RESULT:Comparison is made to exam dated: 10/29/2013 ultrasound - [facility].Real-time ultrasound of the left breast was [...] guidelines.Kj Lancaster M.D.ls/penrad:03/25/2018 14:31:28Imaging Technologist: Mirta SCHRADER)(Cris), [facility]: 2 Benign findingTranscribed Using Voice RecognitionTranscribe Date/Time: Mar 25 2018 2:21PDictated by: KJ LANCASTER MDThis examination was interpreted and the report reviewed and electronically signed by: KJ LANCASTER MD on Mar 25 2018 2:31PM [id number] N Normal [facility] [employer] BREAST US [employer] RTon 03-25 [facility] [employer] BREAST US [employer] RT * * *Final Report* * *DATE OF EXAM: Mar 25 2018 2:21PM HCW 0594 - [facility] [employer] BREAST US [employer] RT / REASON: Benign breast lumps * * * * Physician Interpretation * * * *RESULT: #[id number] - [facility] [employer] RTULTRASOUND OF RIGHT BREAST: 03/25/2018HISTORY: Benign Breast [...] full detail.Kj Winkler/penrad:03/25/2018 14:34:44Imaging Technologist: Mirta SCHRADER)Jennifer), [facility] BI-RADS: 1 NegativeTranscribed Using Voice RecognitionTranscribe Date/Time: Mar 25 2018 2:21PDictated by: KJ LANCASTER MDThis examination was interpreted and the report reviewed and electronically signed by: KJ LANCASTER MD on Mar 25 2018 2:34PM [id number] N Normal [facility] Encounters Encounter Date Encounter Type Care Provider Facility Start: 06-18-2024 End: 06-18-2024 ambulatory KASSIDY PERALES Not Available Start: 05-21-2024 End: 05-21-2024 ambulatory CLIFTON DAIJA Not Available Start: 04-18-2024 End: 04-18-2024 ambulatory NHUNG RIVERO Not Available Start: 03-17-2024 End: 03-17-2024 ambulatory Clifton R DAIJA Facility:[facility] Start: 03-17-2024 End: 03-17-2024 Patient encounter procedure Clifton R DAIJA [facility] Start: 12-19-2023 End: 12-19-2023 ambulatory NHUNG RIVERO Not Available Start: 12-07-2023 End: 06-17-2024 ambulatory Clifton R DAIJA Facility:[facility] Start: 12-07-2023 End: 06-17-2024 Recurring Clifton R DAIJA [facility] Start: 11-13-2023 End: 11-13-2023 ambulatory Clifton R DAIJA Facility:[facility] Start: 11-13-2023 End: 11-13-2023 Patient encounter procedure Clifton R DAIJA [facility] Start: 10-24-2023 End: 10-24-2023 ambulatory CLIFTON DAIJA Not Available Start: 08-14-2023 End: 11-12-2023 ambulatory DO Jeffery Doyle Facility:[facility] Start: 04-11-2023 End: 06-17-2024 Recurring Clifton MALINO [facility] Start: 01-25-2022 End: 01-25-[address] CLIFTON CHOE Facility: Start: 12-10-2018 End: 12-11-2018 Patient encounter procedure PA NEWBERRY Facility:[facility] Start: 12-05-2018 End: 12-06-2018 Patient encounter procedure DEFAULT PHYSICIAN Facility:[facility] Start: 03-25-2018 Ambulatory [facility] Immunizations Immunization Date Immunization Notes Care Provider Fa cility 09-06-2023 influenza virus vaccine, unspecified formulation Clifton DAIJA [facility] Comment on above: Reason for Medicatio n: Prophylaxis 09-12-2022 influenza virus vaccine, unspecified formulation Clifton DAIJA [facility] Comment on above: Reason for Medicatio n: Prophylaxis 09-12-2022 influenza, injectabl e, quadrivalent, preservative free Clifton DAIJA [facility] 04-28-2021 COVID-19, mRNA, LNP- S, PF, 30 mcg/0.3 mL dose Clifton DAIJA [facility] Comment on above: Reason for Medicatio n: Prophylaxis 04-06-2021 COVID-19, mRNA, LNP- S, PF, 30 mcg/0.3 mL dose Clifton DAIJA [facility] Comment on above: Reason for Medicatio n: Prophylaxis Payers Date Payer Category Payer Unknown 2022 Unknown [id number] 1995 Unknown [id number] 2.16.8 [id number] 1995 Unknown [id number] 2.16.8 [id number] 1995 Unknown [id number] 2.16.84 [id number] 1995 Unknown [id number] 2.16.8 [id number] 1995 Unknown [id number] 2.16.8 [id number] 1995 Unknown [id number] 2.16.8 [id number] 1995 Unknown [id number] 2.16.8 [id number] 1995 Unknown [id number] 2.16.84 [id number] 1995 Unknown [id number] 2.16.84 [id number] 1995 Unknown [id number] 2.16.84 [id number] 1995 Unknown [id number] 2.16.84 [id number] 1994 Unknown [id number] 2.16.840 .[id number] 1959 Unknown [id number] Unknown [id number] Social History Date Type Detail Facility Start: 07-21-2021 Tobacco smoking status Never s moked tobacco (finding) [facility] Tobacco smoking status Never [facility] Sex Assigned At Female [facility] Evaluation + Plan note 11-13-2023 Note Date & Type Note Facility 11-13-2023 Evaluation + Plan note [facility] 11/13/23D[facility] 11/13/23 [facility] Clinical Note 08-02-2021 Note Date & Type [...] soothe the skin. ? Medicines, such as uhzz-kvk-rcetmhy antihistamine tablets. ? Oral steroid medicine for more severe reactions. Follow these instructions at home: Medicines ? Take or apply iizw-wgr-ylukgdw and prescription medicines only as told by [...] rub your skin. ? Take or apply cqaq-stz-pgcolws and prescription medicines only as told by your doctor. This information is not intended to replace advice given to you by your health care provider. Make sure you discuss any questions you have with your health care provider. Document Revised: 02/27/2020 Document Reviewed: 10/31/2019 [employer] Private Patient Education ? 2019 [facility]. [facility] Evaluation + Plan note Note Date & Type Note Facility Evaluation + Plan note No data available for this section [facility] Hospital Discharge instructions Note Date & Type Note Facility Hospital Discharge instructions No data available for this section [facility] Progress note Note Date & Type Note Facility Progress note No data available for this section [facility] Summary Purpose Family History No Family History [...] section and content) DATE CREATED AUTHOR 05/09/2018 [facility] DATE CREATED AUTHOR AUTHOR'S ORGANIZ ATION 12/13/2018 [facility] DATE CREATED AUTHOR AUTHOR'S ORGANIZ ATION 09/17/2021 [facility] DATE CREATED AUTHOR AUTHOR'S ORGANIZ ATION 02/01/2022 [facility] DATE CREATED AUTHOR AUTHOR'S ORGANIZ ATION 06/20/2024 [facility] DATE CREATED AUTHOR AUTHOR'S ORGANIZ ATION 06/20/2024 [facility] EPIC Patient Care team informatio n (unrecognized section and content) Personnel Name: Jesica Jamison CNP Address: Address: [address] [place] [address], [address] Personnel Name: Jesica Jamison CNP Address: Address: [address] [place] [address], [address] Personnel Name: Jesica Jamison CNP Address: Address: [address] [place] [address], [address] Personnel Name: Jesica Jamison CNP Address: Address: [address] [place] [address], [address] Personnel Name: Jesica Jamison CNP Address: Address: [address] [place] [address], [address] FOR RECORDS PERTAINING TO PATIENTS WHO [...] BE BASED ON THE PRIMARY CLINICAL RECORDS. [facility]. provides no warranty or guarantee of the accuracy or completeness of information in this document.
== END 2024-07-09 14:41 | disposition home or self-care (01) ==
LOC: NOMS 14:41
PROVIDERS: Visit Provider Obstetrics & Gynecology
DX: Z36.89 Encounter for other specified antenatal screening (principal); Z3A.21 21 weeks gestation of pregnancy; O44.42 Low lying placenta NOS or without hemorrhage, second trimester
CPT/HCPCS: 76805; 76817

== ENCOUNTER 2024-08-06 08:28 | Outpatient (OUT) | payer OTHER, SELFPAY ==
--- NOTE | 2024-08-06 08:31 | US_ITS ---
The [address] [address] Patient Name: SELENE SHERMAN MRN: [id number] date: 1995 Sex: F Assigned Patient Location: [facility] Current Patient Location: [facility] Accession/Order Number: [id number] Exam Date: 08/06/2024 08:32 Report Date: 08/06/2024 10:32 At the request of: CLIFTON CHOE Procedure: US OB placenta EXAM: US OB placenta, US OB cervical length HISTORY: LOW LYING PLACENTA COMPARISON: None. TECHNIQUE: Transabdominal and transvaginal images FINDINGS: The cervix measures 4.2 cm in length. Small amount of fluid identified within the endocervical canal up to 1.3 mm. Cephalic presentation, longitudinal lie Placenta: Anterior. The placental edge is 6.2 cm from the internal cervical os. No intraplacental or retroplacental echogenic abnormality. Heart rate: 161 bpm US/US OB placenta IMPRESSION: The placental edge is 6.2 cm from the internal os Cervix measures 4.2 cm in length with a small amount of fluid in the endocervical canal Electronically authenticated by: ISRAEL HERNANDEZ Date: 08/06/2024 10:32
--- NOTE | 2024-08-06 08:31 | US_ITS ---
The [address] [address] Patient Name: SELENE SHERMAN MRN: [id number] date: 1995 Sex: F Assigned Patient Location: [facility] Current Patient Location: [facility] Accession/Order Number: [id number] Exam Date: 08/06/2024 08:32 Report Date: 08/06/2024 10:32 At the request of: CLIFTON CHOE Procedure: US OB cervical length EXAM: US OB placenta, US OB cervical length HISTORY: LOW LYING PLACENTA COMPARISON: None. TECHNIQUE: Transabdominal and transvaginal images FINDINGS: The cervix measures 4.2 cm in length. Small amount of fluid identified within the endocervical canal up to 1.3 mm. Cephalic presentation, longitudinal lie Placenta: Anterior. The placental edge is 6.2 cm from the internal cervical os. No intraplacental or retroplacental echogenic abnormality. Heart rate: 161 bpm US/US OB cervical length IMPRESSION: The placental edge is 6.2 cm from the internal os Cervix measures 4.2 cm in length with a small amount of fluid in the endocervical canal Electronically authenticated by: ISRAEL HERNANDEZ Date: 08/06/2024 10:32
--- OUTSIDE RECORDS SUMMARY | 2024-08-06 08:45 | XMS_ITS | CCD ---
Author Organization [facility] Care Team Providers Care Clinical Documentation Developer Name Role Phone VILLALOBOS, DINKAR Unavailable Unavailable VILLALOBOS, DINKAR Unavailable Unavailable PHYSICIAN, DEFAULT Admitting Unavailable PHYSICIAN, DEFAULT Attending Unavailable ROHITH, PA R Admitting Unavailable ROHITH, PA R Attending Unavailable SELF, REFERRED Referring Unavailable SELF, REFERRED Primary Care Unavailable DAIJA, DR LAZO Attending Unavailable DAIJA, DR LAZO Consulting Unavailable DAIJA, DR LAZO Admitting Unavailable Jesica Jamison Primary Care Physician DAIAJ, Clifton R Attending Unavailable DAIJA, Clifton R Admitting Unavailable DAIJA, Clifton R Admitting Unavailable DAIJA, Clifton R Attending Unavailable DAIJA, Clifton R Attending Unavailable DAIJA, Clifton R Admitting Unavailable DO Jeffery Doyle Attending Unavailable NHUNG RIVERO Attending Unavailable DAIJA, CLIFTON Attending Unavailable DAIJA, CLIFTON Attending Unavailable KASSIDY PERALES Attending Unavailable DAIJA, CLIFTON Attending Unavailable DAIJA, CLIFTON Attending Unavailable Problems [...] Test Name Value Interpretation Reference Range Facility [facility] 03-19-2024 HCG.beta subunit Qn 488 m[IU]/mL High 1-3 Fis her [facility] Comment on above: Result Comment: 'F N ON < 1 - 3' ' 0.2 - 1 WEEK = 5 TO 50' ' 1 - 2 WEEKS = 50 - 500' ' 2 - 3 WEEKS = 100 - 5000' ' 3 - 4 WEEKS = 500 - 71653' ' 4 - 5 WEEKS = 1000 - 74584' ' 5 - 6 WEEKS = 18733 - 341807' ' 6 - 8 WEEKS = 76901 - 560042' ' 8 - 12 WEEKS = 21966 - 465787' Performed By: #### 2 [id number] #### [facility] [address] [place] [address] CHEMISTRYOrdered By: SYSTEM SYSTEM on 03-19-2024 HCG.beta [...] 3 - 4 WEEKS = 500 - 69558' ' 4 - 5 WEEKS = 1000 - 78379' ' 5 - 6 WEEKS = 58924 - 183055' ' 6 - 8 WEEKS = 39969 - 636173' ' 8 - 12 WEEKS = 66981 - 743516' Progesterone Lvl 69.95 ng/mL Invalid Interpretation Code [...] Progesterone Lvl 69.95 ng/mL Invalid Interpretation Code [facility] Comment on above: Result Comment: 'F N ON FOLLICULAR = 0.10 - 0.60' 'LUTEAL = 3.00 - 17.5' 'MIDLUTEAL = 3.30 - 18.6' 'POST-MENOPAUSE = 0.10 - 0.40' '-FIRST TRIMESTER = 8.30 - 66.5' 'SECOND TRIMESTER = 18.9 - 66.1' 'THIRD TRIMESTER = 35.8 - 312.4' 'MALES = 0.14 - 2.06' Result Verified by Dilution Performed By: #### 2 [id number] #### [facility] [address] [place] [address] [facility] 03-17-2024 HCG.beta subunit Qn 185 m[IU]/mL High 1-3 Fis her [facility] Comment on above: Result Comment: 'F N ON < 1 - 3' ' 0.2 - 1 WEEK = 5 TO 50' ' 1 - 2 WEEKS = 50 - 500' ' 2 - 3 WEEKS = 100 - 5000' ' 3 - 4 WEEKS = 500 - 74022' ' 4 - 5 WEEKS = 1000 - 86549' ' 5 - 6 WEEKS = 58856 - 650431' ' 6 - 8 WEEKS = 28727 - 077385' ' 8 - 12 WEEKS = 79992 - 515377' Performed By: #### 2 [id number] #### [facility] [address] [place] [address] CHEMISTRYOrdered By: SYSTEM SYSTEM on 03-17-2024 HCG.beta [...] 3 - 4 WEEKS = 500 - 02838' ' 4 - 5 WEEKS = 1000 - 27057' ' 5 - 6 WEEKS = 26703 - 802865' ' 6 - 8 WEEKS = 31327 - 858132' ' 8 - 12 WEEKS = 33489 - 807203' Progesterone Lvl 51.75 ng/mL Invalid Interpretation Code [...] Consent for Treatmenton 02-18 Consent for Treatment [id number]#1.00TIF F Normal [facility] Physician Orderon 03-17-2024 Physician Order [id number]#1.00TI FF [facility] Progesteroneon 03-17-2024 Progesterone Lvl 51.75 ng/mL Invalid Interpretation Code [facility] Comment on above: Result Comment: 'F N ON FOLLICULAR = 0.10 - 0.60' 'LUTEAL = 3.00 - 17.5' 'MIDLUTEAL = 3.30 - 18.6' 'POST-MENOPAUSE = 0.10 - 0.40' '-FIRST TRIMESTER = 8.30 - 66.5' 'SECOND TRIMESTER = 18.9 - 66.1' 'THIRD TRIMESTER = 35.8 - 312.4' 'MALES = 0.14 - 2.06' Performed By: #### 2 [id number] #### [facility] [address] [place] [address] Physician Orderon 03-12-2024 Physician Order [id number]#1.00T IFF [facility] CHEMISTRYOrdered By: SYSTEM SYSTEM on 03-07-2024 [...] Progesterone Lvl 20.59 ng/mL Invalid Interpretation Code [facility] Comment on above: Result Comment: 'F N ON FOLLICULAR = 0.10 - 0.60' 'LUTEAL = 3.00 - 17.5' 'MIDLUTEAL = 3.30 - 18.6' 'POST-MENOPAUSE = 0.10 - 0.40' '-FIRST TRIMESTER = 8.30 - 66.5' 'SECOND TRIMESTER = 18.9 - 66.1' 'THIRD TRIMESTER = 35.8 - 312.4' 'MALES = 0.14 - 2.06' Performed By: #### 2 [id number] #### [facility] [address] [place] [address] Progesteroneon 02-05-2024 Progesterone Lvl 20.64 ng/mL Invalid Interpretation Code [facility] Comment on above: Result Comment: 'F N ON FOLLICULAR = 0.10 - 0.60' 'LUTEAL = 3.00 - 17.5' 'MIDLUTEAL = 3.30 - 18.6' 'POST-MENOPAUSE = 0.10 - 0.40' '-FIRST TRIMESTER = 8.30 - 66.5' 'SECOND TRIMESTER = 18.9 - 66.1' 'THIRD TRIMESTER = 35.8 - 312.4' 'MALES = 0.14 - 2.06' Performed By: #### 2 [id number] #### [facility] [address] [place] [address] Progesteroneon 01-08-2024 Progesterone Lvl 18.23 ng/mL Invalid Interpretation Code [facility] Comment on above: Result Comment: 'F N ON FOLLICULAR = 0.10 - 0.60' 'LUTEAL = 3.00 - 17.5' 'MIDLUTEAL = 3.30 - 18.6' 'POST-MENOPAUSE = 0.10 - 0.40' '-FIRST TRIMESTER = 8.30 - 66.5' 'SECOND TRIMESTER = 18.9 - 66.1' 'THIRD TRIMESTER = 35.8 - 312.4' 'MALES = 0.14 - 2.06' Performed By: #### 2 168500 #### [facility] [address] [place] [address] Consent for Treatmenton 11-19 Consent for Treatment [id number]#1.00TIF F Normal [facility] Physician Orderon 12-07-2023 Physician Order [id number]#1.00TI FF Normal [facility] Progesteroneon 12-07-2023 Progesterone Lvl 13.36 ng/mL Invalid Interpretation Code [facility] Comment on above: Result Comment: 'F N ON FOLLICULAR = 0.10 - 0.60' 'LUTEAL = 3.00 - 17.5' 'MIDLUTEAL = 3.30 - 18.6' 'POST-MENOPAUSE = 0.10 - 0.40' '-FIRST TRIMESTER = 8.30 - 66.5' 'SECOND TRIMESTER = 18.9 - 66.1' 'THIRD TRIMESTER = 35.8 - 312.4' 'MALES = 0.14 - 2.06' Performed By: #### 2 [id number] #### [facility] [address] [place] [address] DHEASon 11-14-2023 DHEA-S [Mass/Vol] 281.0 microgram/dL Invalid Interpretation Code 84.8-378.0 [facility] Comment on above: Result Comment: Perf ormed at: [facility] [id number] PhD Padma Gleason Performed By: #### 2 [id number] #### [facility] [address] [place] [address] FSH and LHon 11-14-2023 Follitropin Qn 2.8 m[IU]/mL Invalid Interpretation Code [facility] Comment on above: Result Comment: Adul t Female Range Follicular phase 3.5 - 12.5 Ovulation phase 4.7 - 21.5 Luteal phase 1.7 - 7.7 Postmenopausal 25.8 - 134.8 Performed at: [facility] [address] [place], [place] [id number] PhD Padma Gleason Performed By: #### 2 [id number] #### [facility] [address] [place] [address] Lutropin Qn 2.9 m[IU]/mL Invalid Interpretation Code [facility] Comment on above: Result Comment: Adul t Female Range Follicular phase 2.4 - 12.6 Ovulation phase 14.0 - 95.6 Luteal phase 1.0 - 11.4 Postmenopausal 7.7 - 58.5 Performed By: #### 2 [id number] #### [facility] [address] [place] [address] Auto Diffon 11-13-2023 Basophils/100 WBC (Bld) 0.2 % Normal 0.0-2.0 [facility] Comment on above: Order Comment: Order Added by Discern Expert. Performed By: #### 7 [id number], 04576742, 6602288, 9925226, 04488102, 2130452, 6338691 #### [facility] [address] [place] [address] Basophils/Leukocytes Auto (Bld) [Pure # fraction] 0.0 E9/L Normal 0.0-0.2 [facility] Comment on above: Order Comment: Order Added by Discern Expert. Performed By: #### 7 [id number], 08661645, 5388965, 1868762, 46580535, 1546278, 5422355 #### [facility] [address] [place] [address] Eosinophils/100 WBC (Bld) 1.0 % Normal 0.0-8.0 [facility] Comment on above: Order Comment: Order Added by Discern Expert. Performed By: #### 7 [id number], 84835193, 7433960, 9101226, 98345351, 4848884, 8832169 #### [facility] [address] [place] [address] Eosinophils/Leukocyt es Auto (Bld) [Pure # fraction] 0.1 E9/L Normal 0.0-0.5 [facility] Comment on above: Order Comment: Order Added by Farhan Expert. Performed By: #### 7 [id number], 06314951, 4122033, 0814789, 06445815, 3995536, 6920050 #### [facility] [address] [place] [address] Lymphocytes/100 WBC (Bld) 24.1 % Normal 14.0-50.0 [facility] Comment on above: Order Comment: Order Added by Discern Expert. Performed By: #### 7 [id number], 11785266, 8596897, 3424456, 27869398, 5356973, 1589332 #### [facility] [address] [place] [address] Lymphocytes/Leukocyt es Auto (Bld) [Pure # fraction] 1.7 E9/L Normal 1.0-4.0 [facility] Comment on above: Order Comment: Order Added by Farhan Expert. Performed By: #### 7 [id number], 70290056, 2750213, 9172784, 72898042, 7321724, 9527211 #### [facility] [address] [place] [address] Monocytes/100 WBC (Bld) 8.6 % Normal 4.0-14.0 [facility] Comment on above: Order Comment: Order Added by Farhan Expert. Performed By: #### 7 [id number], 98604815, 3366630, 1762039, 44652608, 0025767, 4016650 #### [facility] [address] [place] [address] Monocytes/Leukocytes Auto (Bld) [Pure # fraction] 0.6 E9/L Normal 0.2-1.0 [facility] Comment on above: Order Comment: Order Added by Farhan Expert. Performed By: #### 7 21046708, 16728648, 1425042, 3444886, 62485778, 9372841, 6602831 #### [facility] [address] [place] [address] Neutrophils/100 WBC (Bld) 66.1 % Normal 36.0-75.0 [facility] Comment on above: Order Comment: Order Added by Discern Expert. Performed By: #### 7 48519601, 96972681, 0172700, 9786839, 38800798, 4784701, 8421360 #### [facility] [address] [place] [address] Neutrophils/Leukocyt es Auto (Bld) [Pure # fraction] 4.5 E9/L Normal 2.0-7.5 [facility] Comment on above: Order Comment: Order Added by Discern Expert. Performed By: #### 7 [id number], 57804201, 6038190, 6024807, 93372371, 4979717, 1536362 #### [facility] [address] [place] [address] BhCG Quanton 11-13-2023 Beta hCG Qnt <1 Normal 1-3 [facility] Comment on above: Result Comment: 'F N ON < 1 - 3' ' 0.2 - 1 WEEK = 5 TO 50' ' 1 - 2 WEEKS = 50 - 500' ' 2 - 3 WEEKS = 100 - 5000' ' 3 - 4 WEEKS = 500 - 67897' ' 4 - 5 WEEKS = 1000 - 59697' ' 5 - 6 WEEKS = 17935 - 767646' ' 6 - 8 WEEKS = 00035 - 013106' ' 8 - 12 WEEKS = 47449 - 950040' Performed By: #### 2 128120 #### [facility] [address] [place] [address] CBC w/ Auto Diffon Erythrocyte distribution width (RBC) [Ratio] 13.8 % Normal 10.9-14.2 [facility] Comment on above: Performed By: #### 7 [id number], 61420013, 3294476, 1463801, 82607640, 4455112, 9208231 #### [facility] [address] [place] [address] Hematocrit (Bld) [Volume fraction] 39.9 % Normal 34.0-46.0 [facility] Comment on above: Performed By: #### 7 89828472, 45029875, 5173048, 6303063, 29351714, 0592348, 2634706 #### [facility] [address] [place] [address] Hemoglobin (Bld) [Mass/Vol] 13.1 g/dL Normal 12.0-16.0 [facility] Comment on above: Performed By: #### 7 73730816, 11585897, 5746903, 1392510, 69796570, 9903749, 4979404 #### [facility] [address] [place] [address] MCH (RBC) [Entitic mass] 27.5 pg Normal 27.0-34.0 [facility] Comment on above: Performed By: #### 7 75516794, 71890375, 2493693, 6664699, 13101189, 5992280, 7035652 #### [facility] [address] [place] [address] MCHC (RBC) [Mass/Vol] 32.9 g/dL Normal 31.4-36.0 [facility] Comment on above: Performed By: #### 7 87580919, 56451805, 5297553, 4605737, 79595460, 5515717, 6870431 #### [facility] [address] [place] [address] MCV (RBC) [Entitic vol] 83.5 fL Normal 80.0-100.0 [facility] Comment on above: Performed By: #### 7 47111757, 12849533, 1895277, 7096507, 44907078, 8868185, 4350648 #### [facility] [address] [place] [address] Platelet mean volume (Bld) [Entitic vol] 9.3 fL Normal 6.4-10.8 [facility] Comment on above: Performed By: #### 7 50774755, 27966208, 7403721, 4198233, 18886660, 2361811, 8729628 #### [facility] [address] [place] [address] Platelets (Bld) [#/Vol] 249.0 E9/L Normal 150.0-500.0 [facility] Comment on above: Performed By: #### 7 16284506, 61044688, 1964620, 7811320, 48270434, 9159289, 9485304 #### [facility] [address] [place] [address] RBC (Bld) [#/Vol] 4.8 E12/L Normal 4.3-5.9 [facility] Comment on above: Performed By: #### 7 16606810, 18501828, 7261038, 7614141, 50301953, 8305738, 1444718 #### [facility] [address] [place] [address] WBC corrected for nucl RBC Auto (Bld) [#/Vol] 6.8 E9/L Normal 4.0-11.0 [facility] Comment on above: Performed By: #### 7 41896259, 08876458, 0765273, 2313978, 09375849, 5578249, 6513005 #### [facility] [address] [place] [address] CHEMISTRYOrdered By: SYSTEM SYSTEM on 11-13-2023 Beta [...] 3 - 4 WEEKS = 500 - 09896' ' 4 - 5 WEEKS = 1000 - 96708' ' 5 - 6 WEEKS = 29775 - 415512' ' 6 - 8 WEEKS = 61214 - 146824' ' 8 - 12 WEEKS = 63446 - 168855' Free T4 [Mass/Vol] 0.96 ng/dL Normal 0.58 - 1. 64 ng/dL Remisol Chem TSH Qn 1.38 m[IU]/L Normal 0.34 - 5.60 mcIU/mL Remisol Chem CHEMISTRYOrdered By: Adolph Mcnair on 11-13-2023 HbA1c (Bld) [Mass fraction] 5.0 % Normal <=5.9% [facility] ChemAutoSS Consent for Treatmenton 10-20 Consent for Treatment [id number]#1.00TIF F Normal [facility] Free T4on 11-13-2023 Free T4 [Mass/Vol] 0.96 ng/dL Normal 0.58-1.64 [facility] Comment on above: Performed By: #### 7 [id number], 12958830, 9235161, 0785620, 47830851, 6427162, 4191927 #### [facility] [address] [place] [address] HEMATOLOGYOrdered By: SYSTEM SYSTEM on 11-13-2023 Basophils/100 [...] Normal 4.0 - 11.0 E9/L [facility] HemeAutoSS GosF5tsz 11-13-2023 HbA1c (Bld) [Mass fraction] 5.0 % Normal <=5.9 [facility] Comment on above: Performed By: #### 7 44585970, 21696975, 1179899, 2100408, 82021883, 6376653, 7103942 #### [facility] [address] [place] [address] TSHon 11-13-2023 TSH Qn 1.38 m[IU]/L Normal 0.34-5.60 [facility] Comment on above: Performed By: #### 7 87761666, 71482424, 6697017, 4845103, 93620820, 8000926, 3381671 #### [facility] [address] [place] [address] Laboratory - Chemistry and C hemistry - [...] 21 to 28on 01-31-2022 . . Normal [facility] Comment on above: Performed By: #### 4 382134 #### [facility] [address] [address] [address] Tobi Phelps Age Gdln ACOG Testing - Normal [facility] Comment on above: Performed By: #### 4 358781 #### [facility] [address] [place], [place] [address] Dr. Tobi Phelps DIAGNOSIS: Comment Normal [facility] Comment on above: Result Comment: NEGA TIVE FOR INTRAEPITHELIAL LESION OR MALIGNANCY. Performed By: #### 4 [id number] #### [facility] [address] [place] [address] Dr. Tobi Phelps Methodology: Comment [facility] Comment on above: Result Comment: This liquid based ThinPrep(R) pap test was screened with the use of an image guided system. Performed By: #### 4 289290 #### [facility] [address] [place] [address] Dr. Tobi Phelps Note: Comment [facility] Comment on above: Result Comment: The Pap smear is a screening test designed to aid in the detection of premalignant and malignant conditions of the uterine cervix. It is not a diagnostic procedure and should not be used as the sole means of detecting cervical cancer. Both false-positive and false-negative reports do occur. . Performed By: #### 4 543407 #### [facility] [address] [place] [address] Dr. Tobi Phelps Performed by: Comment Normal [facility] Comment on above: Result Comment: Elvis Gutierrez, Patient Advocate (ASCP) Performed By: #### 4 131036 #### [facility] [address] [place] [address] Dr. Tobi Phelps Reflex Criteria: Comment [facility] Comment on above: Result Comment: The HPV DNA reflex criteria were not met with this specimen result therefore, no HPV testing was performed. . Performed By: #### 4 763705 #### [facility] [address] [place] [address] Dr. Tobi Phelps Specimen adequacy: Comment Normal [facility] Comment on above: Result Comment: Sati sfactory for evaluation. Endocervical and/or squamous metaplastic cells (endocervical component) are present. Performed By: #### 4 854272 #### [facility] [address] [place] [address] Dr. Tobi Phelps Release of Informationon Release of Information [id number]#1.00OTG TIFF [facility] Coding Summaryon 08-04-2021 Coding Summary HTMLBase 64 IzhkgjokGSw2vDk+PGhlYWQ+ BA4CTOGsP73czEBayN6FW5bB JT7QGBBFFYFUUM4YJZ1hyZM1 NInbX3SdgvKc GnyzeOBmUR65CTt3AGL6eXsw UEroyG4shHLlB7k8AjUzFT32 lK05VCxtXHRoZgY4EaNvvyzj bWFy O7ueLzEidQHpGre+PHRhYmxl IHdpZHRoPScxMDAlJyBzdHls ZE1eCs9dAPGjSTAzbHryzSYg OiBj i5uhYXTyTRaaVC4xvXdtO5Lb jYZ4ZZPcm6c1Ut64gVD+PHRk ORR3nOoeQHkyy820WyJqk4ck IDM3 tIXkHBoaYML0X74ui5W9LAUb PLEpIXX2rWQ8sL0ceNsucovy W3XnuXUsSnW8PTI0mCCgjS4k bGln lflefF3iKsj+S09BVR2KIUUK FN3WZnp3M3GiFrcuuZD+PC90 SHYbRE79oMRohIRvt3xwtId3 JzEw JUErAIO5hXmpHVggu2BuOGQc J63fnHYws8J5ABEnaCuhtBQr DvBnvRC0pZ6uLVjmikero1uf dzsn Hnybj6pljr12fG33D94iOXse FSSmGCS5PPKcRMButDdtzj3o fK9vQw3+ZVgpt8upi4qkcJw1 IjIw BSZpunKryXzvVTY2k4ZiWe03 V6UpiThnp3KeFfn9py05gJIt d7K6kNV6TYvxNWHxgV2rYPas ZnQ6 FLCjBmBhhN91fVNwYYewIk7l zEcdqUhdQE9tORYhtlzhHMNb oM7yWGXauBZxwZaaCZ3qURGt bjtm p800WdDqWCO5LWAmmLVyL0Ve jT6uVuXmCRCtHPIfD5EliVEf RIcbE896NRvcKxT2FGSgqwCl Y2Fs XOZnhCerDwY1a0B5Vg6Ty9Lm tsveJQG9GPsvGHT4ZwS8YbEo GzT4M1IfMvw7FHLlzEenDN0l J3Bh QZJlruhpabujiTU2QKBeNEUr aI24zWPbLAaiXr7is1K6r790 JRWtDUIbhJ17Qp8tmGxeODSk dCBU tK9nlhovw0hsatocPsJjMWBp SWx0UZf5XSOcpAkpElFtMKC8 UyN3OCV6cZGfyK4nwLwxpwvh dG9w Oyc+B93khL3mDNW6NYQ2bdtd KZLlosXeJK08JB47T8KyErvx dGFibGU+NXJschSzsZmvXY0l YmFj f8doh3VbCMybE7GmHKPoNPuf Ylp9MCZjDGE3lII6lU5pFYXd HIedw0K1wUJ9X2XtlxTvuu7h b2xs FQYqVBfjB06paHNyu3Z8EIEf tBQ5KAGrqTbvOzBamW86Fkt+ BTNhfBpeo6TzCorei2gkk8wm dGg9 LzCqBVOefhQhuXftQPR4s8Pg Vd60U57aOMnxLIEjSKVcRFJp QZDfxBmrms2qzB0eEu9+PGNv bCB3 aAM0uE5sBFPeDsB8ELijH462 XfZnjIPkNjdfs5vbh3vzgJs3 FeRpBMPhuwKkyRjeXHM1r0Dw Lz48 T25hJNqqVZUnPBGrSGFiFWHz bOakwi2thN6cXp9+KE9ha0yk ih48jV57aDK+ECAdXGV9qZny PSdw HWVthE3aNIoiZsE7OQDkUaAr mR56iYPeHWkcLy5xfEebiRia MU8pLCKywslev227ZfEha9yt IDEw oJTmASqcLNR7M21ll5Y7HBPp BYSzGQU6vDZ8bY2hoQlxqaen bGVmdDsgdmVydGljYWwtYWxp Z246 IHRvcDsnPlBhdGllbnQgTmFt IUi9S4DsCbt2GNGzfYlyKL2o vSIgRYfiXv5rqXqhwHgvFO7e NTBp huprg691EjZth0roUDCsyTLj UDabXFC8X54bw0X1YKJuSCDf AIB5uYV3mO6fhRozvmomwOHg dDsg kyVkhQdnHYsuYOcaT698WBOp rTzvZyQmefWqDERbwWH2HO92 AS15oTHmb6T8pIT1Z6FpNKHn bmct vvnduYH2MVBxASGmzX09Uw4f bEfhBe9cUVZrUYX4RJLfgQSu U0VnvR4gAzNeNEKvAVLuA4Dz eHQt ZPovV354SWyeYxB7YYGrwgHd U7XxETHacXaxFwC3q4P9Po0B G6N8ZD00DX88yCXjl0N0yTU8 J3Bh NSRbzuiyyzzmdIX3QBRbOWHc yT85Ba6snHzkKq2eLUIxGGV8 GHJqdLCsC0WyxG5bSpGqCALl MDAw I6BtgGXyLCyoG847PXewUfH3 JPKukjRbN6ZdQZVykNnhLyR1 a1Z8Qm2RBEx3OB37ZY99kYGw c3R5 nEV9O1UfOBBkyzqfgsatrFJ1 RJXhNLEvgZ61Lr4wjFcrAq9z PQNxGWK4AIQsyWYbX9EimN3k OiAj UHOcHBUiZ7LhlZJeFSocG519 WGxyNsN1AFSnrxUoJ8MtCYKh rHaaUvK5p3V7Nf7PSTSeHN75 IFR5 vZY3XT69AS66C8RuXifkrGDh bGU+PHRhYmxlIHdpZHRoPScx UFHiOfKeaWiyOK1yGg9mLWMm LWNv lFdriGEiOdJhj4yoASOnUAmj RW6fjHeoL0GwrFT4DNXhb5d6 Hp57R52fX3IwjUO+PGNvbCB3 aWR0 uO8hNiQnJuW7AIdoB815KmPd hKZgHqalk7qjk5arpOj0WaS7 FAKhfbLegOfyHOH9n9WcFn18 Y29s IHdpZHRoPSIxNSUiIHZhbGln kb2smK3oWg0+UOGkzRS6yHR2 kF9nJlDfJkY0DGznC869UaVi cCIv Xmjht9zpx0dwgJm9LbCjQPSb gfVszFngIHN1b0TpGu87L7Kw mYtgs2SwKcy6qd57rCWsx8J8 bGU9 K7RaKNMvpeeqeXXcwXpoZM7f ARIkicpvAZIqiL8mFUVtG3n5 SiMkLfY7NWuwQ6NjloZ6MFZp cHQg CGqwQDU7T60ml0B0YACpOHCp YKM0cML9wM4lqQeuieexwNBc fWjzkkAbgGtbCYeuVSzkO792 IHRv fIbmFPHiwK6bKUGrsPBzxRcg EE4nCYZvbrxiBugNFQ6PEHKY PWTGY8RTCYCJJWZ6T4UrQwv0 ZCBz pKzzXV7ecLCdARylYn0zkSfi vNefAE3bROEmvtwdACAudY6e VCQiaUTmtQjfDF2fKRRhipbs b250 YyPyKYD7NTKyhRQkW5XduD6g NmCnUXMkDSWhA4NgjEHtUOyq J917AQnyYrN1YTExhsHuI2Ho LWFs xOslAwU4g2A5Si3sJY7lTF9s BEt0BU05BI85uSNlq8W7jGP3 E8FfQAOrvhdnnrrdqDQ8NTBc MDUw wV46yUVpBMzmYd9dx3I7d402 KYXyNTWenL08Es0shVxxPWQx lGGWiE6zyukki6saaserIyZm MDAw SFw9VSn5YEYajWtqUaSbMGC0 JwJ2VMS0yCAicK0zrOrhvpli qA2pAcc+ElCoYPQfslP6D2Bc Pjx0 LXOogQaiEN6vtAAlKSzgKc7i cXdhoYgtRY5vCIQllnllKQBd dO1eCWMjrMMppRttLR2jBNTs bjtm n246GiMkLDF8DDUwyFGkY2Mc oJ6cWbOiMWVoEWRsX0KbsIGh VFopR091COygNlA5CVHaeqBb Y2Fs UQIsmNcpKkM1g4W4Fs3BJW7D LPP6L6HbPkr3KLXmuZluSW4s wJRnCRdySy6ulCqkxIjxPN7k NTBp bjtqKMJdqL4dGDXgeAGwkSvh SL3vBICjpukrt384RdVrKPP8 AUHoeBDbL3WgjS0jYsZoAAZo MDAw W6LwlIQsPVxxZ475ZRtrFvC2 FWPxelSoW6DgZAQbeEvhLmS2 h3O9Ll7BTIflrBO+DO43rz42 L3Rh XfmxWhk0HQKtBYJ9kJN0oI8t RNSiBUqpr4T5iMM4S9ZlmoDa tw4nh7mnZGUcQNxuU83joWGf c2U7 LIYluEH6IKDmmFowMbHkiQ59 Oyc+IJRgmHdba2DkBvuhc6db y9tzrBn2VhQrPKFsueXzuBgc PSJ0 w2AsFc68S11mEOmzEAQgNJWm TGDcIQPvsPolmn8heO7iCv6+ AMPuoAV8vWS3uK0gMoEcLhF7 YWxp N257YwDpcFNcCmgoy3vom1wr tKr7IdMqVFGomjSrwJagQTB4 y5DlKm72K7RldLmmy7RdXkc5 cj48 dTWrb3F8rLP6Z2JqKIXkanfq wVKppGdkMQ4nSQTmavphVGTg rE1xKZAoK7m5SbAxSpZ2OWsk O2Zv qqZ9LMNfeRUpIIWlnTOUaD3l oaofj2bmbcqvOuStHZYjZWd4 BFj3EZHsoNtkBrLrUTR0BiP2 ZXJ0 hUOtsA6arEasjfpbtU8bOkc+ MCw1c3legLZzVU3lcDX8WR94 UC35oUDpu5R8aTX3H9OgFWKk bmct xshxsUJ4GUUwSZCpyQ99Wi9u tGnqFi5uRLBhUJK1IZKioPOw B1ZpaX5rGqNlRSVjRBRyV3Vy eHQt FZurB003TVizGiM5EYVkexDu F6TpPZLfbKgpRtH7r4Z7Eo7D QA39XH98PV13kFGkz6R5yRX8 J3Bh IIKlqragswfkoNI2ZUVlCODq iZ33Dh9qhHdhUr5rNJYbFBX1 JSTnuJLbL1DslM4eNgPuNWOz MDAw M5SsgRFlJYezL860QMtxDqN9 JUPweeEdF7FeVZHqjTvwUxH1 t0B1Iq7PNg03XR66LF77wQWe c3R5 jWS3K8EqCQPlcqbcrrmyjCT9 TSAiNWEyxS68Kd8qhTvjPu1l XIPhASQ5YLYzrZGaE9MyqC7g OiAj EJUzCVXvM4ThkZXzFUwgM900 YBspDvZ0OEUcsqYfX6PaDHTz tRrnDzN0s5Q0Eg0JRYjoqzh8 L3Rk PjwvdHI+GF37ZIDrHR54nQHu cFMqf4dcbCm0JpUcYMLoHPL8 eCoqYHuos0FsTNOuM93aaQNk c2U6 IGN (more content not included)... [facility] Consent Formson 08-03-2021 Consent Forms [id number] TIFF [facility] ED Clinical Summaryon 2020 ED Clinical Summary [facility] ? Urgent Care [address] [place] [address] Clinical Summary PERSON INFORMATION Name: SELENE PERSAUD Age: 25 Years Sex: FEMALE : 1995 MRN: Acct#: Visit Reason: UC - Skin Problem: simple; BODY RASH Arrival: 08/02/2021 10:14:21 Discharge: 08/02/2021 10:44:00 LOS: 000 00:30 Check In: 08/02/2021 10:14:21 Checkout: 08/02/2021 10:44:00 Address: [address] [place] [address] PCP: Provider, None PROVIDER INFORMATION Provider Role [...] PATIENT EDUCATION INFORMATION Instructions: Poison Claudia Dermatitis, [id number] Follow-Up: With: Address: When: Follow up with primary care provider Within 3 to 5 days Comments: OR see DERMATOLOGY as needed DIAGNOSIS: Contact dermatitis Patient Understands: Yes - Patient/family/caregiver verbalizes understanding of instructions given Comment: [facility] ED Patient Summaryon 021 ED Patient Summary [facility] ? Urgent Care [address] [place] [address] PATIENT DISCHARGE INSTRUCTIONS Patient Information Name: SELENE [...] soothe the skin. ? Medicines, such as sjcw-mfh-vmuoyob antihistamine tablets. ? Oral steroid medicine for more severe reactions. Follow these instructions at home: Medicines ? Take or apply crju-ykc-jotoriv and prescription medicines only as told by [...] rub your skin. ? Take or apply sbmt-bjq-sqccmdm and prescription medicines only as told by your doctor. This information is not intended to replace advice given to you by your health care pr (more content not included)... [facility] Ur[facility] Care Note- Provideron 08-02-2021 Urgent Care Note- Provider Patient: SELENE PERSAUD Age: 25 years Sex: FEMALE : 1995 Associated Diagnoses: Contact dermatitis Author: Yayo Salas PA-C History of Present Illness This is a 25 year old here today with concerns of an itchy, red rash to both legs since working out by a [employer] where they were clearing brush. Her has [...] selected or recorded.. Surgical history: Tooth extraction ([id number]) on 02/27/2012 at 16 Years. Comments: 04/25/2019 9:32 EDT - March Christal SÁNCHEZ wisdom teeth. Family history: Dementia Grandparent Thyroid disease Grandparent High blood pressure Mother Arthritis Mother Grandparent Cancer Grandparent High cholesterol Mother Father . 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 Impression and Plan Diagnosis Contact dermatitis (RDF06-HO L25.9, Discharge, Medical) Plan Condition: Stable. Disposition: [...] the following educational materials: Poison Claudia Dermatitis, Eqhz-cc-Csqi, Poison Claudia Dermatitis, Dshj-ze-Jaje. Follow up with: ; Follow up with primary care provider Within 3 to 5 days OR see DERMATOLOGY as needed. Counseled: Patient, Regarding diagnosis, Regarding treatment plan, Regarding prescription, Patient indicated understanding of instructions. Normal [facility] [address]21 Urgent Care Record [facility] ? Urgent Care [address] [place] [address] PATIENT DISCHARGE INSTRUCTIONS Patient Information Name: SELENE [...] and treatment you received today in the [facility] were for an urgent problem and are not intended as complete care. It is important for you to follow up with a doctor, nurse practitioner, or physician?s product safety technical assistant for ongoing care. If your symptoms [...] so we can reach you if necessary. [facility] has provided you with a complete list of medications post discharge. Please inform your eligibility specialist/provider of your visit and for further instruction on these medications. Any specific questions regarding your chronic medications and dosages should be discussed with your primary care physician(s) and/or pharmacist. New Medications [id number], [address], [place] [id number], [phone] fluocinonide topical (Lidex 0.05% topical cream) 1 [...] soothe the skin. ? Medicines, such as tlqy-osx-lsicwsr antihistamine tablets. ? Oral steroid medicine for more severe reactions. Follow these instructions at home: Medicines ? Take or nader (more content not included)... Normal [facility] [email or web address] LTon 03-25 [facility] [email or web address] LT * * *Final Report* * *DATE OF EXAM: Mar 25 2018 2:21PM HCW 0593 - [facility] / REASON: Benign breast lumps * * * * Physician Interpretation * * * *RESULT: #[id number] - [facility] LTULTRASOUND OF LEFT BREAST: 03/25/2018HISTORY: Benign Breast [...] made to exam dated: 10/29/2013 ultrasound - [facility].Real-time ultrasound of the left breast was [...] will be dictated separately.Follow-up with ACR/NCCN guidelines.Kj Winkler/penyifan:03/25/2018 14:31:28Imaging Technologist: Mirta SCHRADER)(Cris), [facility] 2 Benign findingTranscribed Using Voice RecognitionTranscribe Date/Time: Mar 25 2018 2:21PDictated by: KJ LANCASTER MDThis examination was interpreted and the report reviewed and electronically signed by: KJ LACNASTER MD on Mar 25 2018 2:31PM [id number] Normal [facility] [employer]AST [employer] RTon 03-25 [facility] [employer] BREAST [employer] RT * * *Final Report* * *DATE OF EXAM: Mar 25 2018 2:21PM HCW 0594 - [facility] [employer] BREAST [employer] RT / REASON: Benign breast lumps * * * * Physician Interpretation * * * *RESULT: #[id number] - [facility] [employer] BREAST [employer] RTULTRASOUND OF RIGHT BREAST: 03/25/2018HISTORY: Benign Breast [...] for full detail.Kj Lancaster M.D.ls/penrad:03/25/2018 14:34:44Imaging Technologist: Mirta MERAZ (R)), [facility]: 1 NegativeTranscribed Using Voice RecognitionTranscribe Date/Time: Mar 25 2018 2:21PDictated by: KJ LANCASTER MDThis examination was interpreted and the report reviewed and electronically signed by: KJ LANCASTER MD on Mar 25 2018 2:34PM [id number] Normal [facility] Encounters Encounter Date Encounter Type Care Provider Facility Start: 07-30-2024 End: 07-30-2024 ambulatory CLIFTON DAIJA Not Available Start: 07-02-2024 End: 07-02-2024 ambulatory CLIFTON DAIJA Not Available Start: 06-18-2024 End: 06-18-2024 ambulatory KASSIDY PERALES Not Available Start: 05-21-2024 End: 05-21-2024 ambulatory CLIFTON DAIJA Not Available Start: 04-18-2024 End: 04-18-2024 ambulatory NHUNG RIVERO Not Available Start: 03-17-2024 End: 03-17-2024 ambulatory Clifton R DAIJA Facility:[facility] Start: 03-17-2024 End: 03-17-2024 Patient encounter procedure Clifton R DAIJA [facility] Start: 12-19-2023 End: 12-19-2023 ambulatory NHUNG RIVERO Not Available Start: 12-07-2023 End: 06-17-2024 ambulatory Clifton R DAIJA Facility:[facility] Start: 12-07-2023 End: 06-17-2024 Recurring Clifton R DAIJA [facility] Start: 11-13-2023 End: 11-13-2023 ambulatory Clifton R DAIJA Facility:[facility] Start: 11-13-2023 End: 11-13-2023 Patient encounter procedure Clifton R DAIJA [facility] Start: 10-24-2023 End: 10-24-2023 ambulatory CLIFTON DAIJA Not Available Start: 08-14-2023 End: 11-12-2023 ambulatory DO Jeffery Doyle Facility:[facility] Start: 04-11-2023 End: 06-17-2024 Recurring Clifton R DAIJA [facility] Start: 01-25-2022 End: 01-25-[address] CLIFTON CHOE Facility: Start: 12-10-2018 End: 12-11-2018 Patient encounter procedure AP NEWBERRY Facility:[facility] Start: 12-05-2018 End: 12-06-2018 Patient encounter procedure DEFAULT PHYSICIAN Facility:[facility] Start: 03-25-2018 Ambulatory [facility] Immunizations Immunization Date Immunization Notes Care Provider Fa cility 09-06-2023 influenza virus vaccine, unspecified formulation Clifton DAIJA [facility] Comment on above: Reason for Medicatio n: Prophylaxis 09-12-2022 influenza virus vaccine, unspecified formulation Clifton DAIJA [facility] Comment on above: Reason for Medicatio n: Prophylaxis 09-12-2022 influenza, injectabl e, quadrivalent, preservative free Clifton DAIJA [facility] 04-28-2021 COVID-19, mRNA, LNP- S, PF, 30 mcg/0.3 mL dose Clifton DAIJA [facility] Comment on above: Reason for Medicatio n: Prophylaxis 04-06-2021 COVID-19, mRNA, LNP- S, PF, 30 mcg/0.3 mL dose Clifton CHOE [facility] Comment on above: Reason for Medicatio n: Prophylaxis Payers Date Payer Category Payer Unknown 2023 Unknown [id number] 2022 Unknown [id number] 1995 Unknown [id number] 2.16.8 [id number] 1995 Unknown [id number] 2.16.8 40.1.893895.3.579.2.647 1995 Unknown [id number] 2.16.84 0.1.324608.3.579.2.593 1995 Unknown [id number] 2.16.8 40.1.848374.3.579.2.727 1995 Unknown [id number] 2.16.8 40.1.531630.3.579.2.727 1995 Unknown [id number] 2.16.8 40.1.325662.3.579.2.727 1995 Unknown [id number] 2.16.8 40.1.839547.3.579.2.727 1995 Unknown [id number] 2.16.84 0.1.382248.3.579.2.1259 1995 Unknown [id number] 2.16.84 0.1.412632.3.579.2.1259 1995 Unknown [id number] 2.16.84 0.1.233035.3.579.2.1259 1995 Unknown [id number] 2.16.84 0.1.279734.3.579.2.1259 1995 Unknown [id number] 2.16.84 0.1.037613.3.579.2.1259 1995 Unknown [id number] 2.16.84 0.1.929060.3.579.2.1259 1995 Unknown [id number] 2.16.840 .1.861476.3.579.2.1259 1960 Unknown [id number] Unknown [id number] Social History Date Type Detail Facility Start: 07-21-2021 Tobacco smoking status Never s moked tobacco (finding) [facility] Tobacco smoking status Never [facility] Sex Assigned At Female [facility] Evaluation + Plan note 11-13-2023 Note Date & Type Note Facility 11-13-2023 Evaluation + Plan note [facility] 11/13/23[facility] 11/13/23 [facility] Clinical Note 08-02-2021 Note Date & [...] soothe the skin. ? Medicines, such as bhqn-fba-pqawjez antihistamine tablets. ? Oral steroid medicine for more severe reactions. Follow these instructions at home: Medicines ? Take or apply gowc-avp-eoeaasx and prescription medicines only as told by [...] if they come in contact with poison claudai. ? If you think that your pet [...] rub your skin. ? Take or apply oauy-rmq-xzkeddm and prescription medicines only as told by your doctor. This information is not intended to replace advice given to you by your health care provider. Make sure you discuss any questions you have with your health care provider. Document Revised: 02/27/2020 Document Reviewed: 10/31/2019 [employer] Patient Education ? 2019 [employer]. [facility] Evaluation + Plan note Note Date & Type Note Facility Evaluation + Plan note No data available for this section [facility] Hospital Discharge instructions Note Date & Type Note Facility Hospital Discharge instructions No data available for this section [facility] Progress note Note Date & Type Note Facility Progress note No data available for this section [facility] Summary Purpose Family History No Family [...] section and content) DATE CREATED AUTHOR 05/09/2018 [facility] DATE CREATED AUTHOR AUTHOR'S ORGANIZ ATION 12/13/2018 [facility] DATE CREATED AUTHOR AUTHOR'S ORGANIZ ATION 09/17/2021 [facility] DATE CREATED AUTHOR AUTHOR'S ORGANIZ ATION 02/01/2022 [facility] DATE CREATED AUTHOR AUTHOR'S ORGANIZ ATION 06/20/2024 Pete Mishra [facility] DATE CREATED AUTHOR AUTHOR'S ORGANIZ ATION 08/01/2024 [facility] Patient Care team informatio n (unrecognized section and content) Personnel Name: Jesica Jamison CNP Address: Address: [address] [place] [address] Personnel Name: Jesica Jamison CNP Address: Address: [address] [place] [address] Personnel Name: Jesica Jamison CNP Address: Address: [address] [place] [address] Personnel Name: Jesica Jamison CNP Address: Address: [address] [place] [address], [address] Personnel Name: Jesica Jamison CNP Address: Address: [address] [place] [address] FOR RECORDS PERTAINING TO PATIENTS WHO ARE [...] BE BASED ON THE PRIMARY CLINICAL RECORDS. [employer] provides no warranty or guarantee of the accuracy or completeness of information in this document.
== END 2024-08-06 08:29 | disposition home or self-care (01) ==
LOC: NOMS 08:28
PROVIDERS: Visit Provider Obstetrics & Gynecology
DX: O44.40 Low lying placenta NOS or without hemorrhage, unspecified trimester (principal); Z13.1 Encounter for screening for diabetes mellitus; Z3A.00 Weeks of gestation of pregnancy not specified
CPT/HCPCS: 36415; 76815; 76817; 82950; 85025

== ENCOUNTER 2024-08-06 09:14 | Outpatient (OUT) | payer OTHER, SELFPAY ==
--- OUTSIDE RECORDS SUMMARY | 2024-08-06 09:21 | XMS_ITS | CCD ---
Author Organization [facility] Care Team Providers Care Product Marketing Coordinator Name Role Phone VILLALOBOS, DINKAR Unavailable Unavailable VILLALOBOS, DINKAR Unavailable Unavailable PHYSICIAN, DEFAULT Admitting Unavailable PHYSICIAN, DEFAULT Attending Unavailable ROHITH, PA R Admitting Unavailable ROHITH, PA R Attending Unavailable SELF, REFERRED Referring Unavailable SELF, REFERRED Primary Care Unavailable DAIJA, DR LAZO Attending Unavailable DAIJA, DR LAZO Consulting Unavailable DAIJA, DR LAZO Admitting Unavailable Jesica Jamison Primary Care Physician DAIJA, Clifton R Attending Unavailable DAIJA, Clifton [...] Test Name Value Interpretation Reference Range [place] [facility] 03-19-2024 HCG.beta subunit Qn 488 m[IU]/mL High 1-3 Fis her [facility] Comment on above: Result Comment: 'F N ON < 1 - 3' ' 0.2 - 1 WEEK = 5 TO 50' ' 1 - 2 WEEKS = 50 - 500' ' 2 - 3 WEEKS = 100 - 5000' ' 3 - 4 WEEKS = 500 - 18370' ' 4 - 5 WEEKS = 1000 - 50613' ' 5 - 6 WEEKS = 18661 - 950305' ' 6 - 8 WEEKS = 03663 - 108832' ' 8 - 12 WEEKS = 98735 - 679833' Performed By: #### 2 [id number] #### [facility] [address] [place] [address] CHEMISTRYOrdered By: SYSTEM SYSTEM on 03-19-2024 HCG.beta [...] 3 - 4 WEEKS = 500 - 67876' ' 4 - 5 WEEKS = 1000 - 46691' ' 5 - 6 WEEKS = 21258 - 445818' ' 6 - 8 WEEKS = 78602 - 244134' ' 8 - 12 WEEKS = 26480 - 004178' Progesterone Lvl 69.95 ng/mL Invalid Interpretation Code [...] Progesterone Lvl 69.95 ng/mL Invalid Interpretation Code [facility] Comment on above: Result Comment: 'F N ON FOLLICULAR = 0.10 - 0.60' 'LUTEAL = 3.00 - 17.5' 'MIDLUTEAL = 3.30 - 18.6' 'POST-MENOPAUSE = 0.10 - 0.40' '-FIRST TRIMESTER = 8.30 - 66.5' 'SECOND TRIMESTER = 18.9 - 66.1' 'THIRD TRIMESTER = 35.8 - 312.4' 'MALES = 0.14 - 2.06' Result Verified by Dilution Performed By: #### 2 [id number] #### [facility] [address] [place] [address] [facility] 03-17-2024 HCG.beta subunit Qn 185 m[IU]/mL High 1-3 Fis her [facility] Comment on above: Result Comment: 'F N ON < 1 - 3' ' 0.2 - 1 WEEK = 5 TO 50' ' 1 - 2 WEEKS = 50 - 500' ' 2 - 3 WEEKS = 100 - 5000' ' 3 - 4 WEEKS = 500 - 18444' ' 4 - 5 WEEKS = 1000 - 95328' ' 5 - 6 WEEKS = 74337 - 745460' ' 6 - 8 WEEKS = 89207 - 300312' ' 8 - 12 WEEKS = 97847 - 407842' Performed By: #### 2 [id number] #### [facility] [address] [place] [address] CHEMISTRYOrdered By: SYSTEM SYSTEM on 03-17-2024 HCG.beta [...] 3 - 4 WEEKS = 500 - 84528' ' 4 - 5 WEEKS = 1000 - 61474' ' 5 - 6 WEEKS = 04732 - 318377' ' 6 - 8 WEEKS = 43972 - 579361' ' 8 - 12 WEEKS = 44697 - 572435' Progesterone Lvl 51.75 ng/mL Invalid Interpretation Code [...] Consent for Treatmenton 02-18 Consent for Treatment [id number]#1.00TIF F Normal [facility] Physician Orderon 03-17-2024 Physician Order [id number]#1.00TI FF [facility] Progesteroneon 03-17-2024 Progesterone Lvl 51.75 ng/mL Invalid Interpretation Code [facility] Comment on above: Result Comment: 'F N ON FOLLICULAR = 0.10 - 0.60' 'LUTEAL = 3.00 - 17.5' 'MIDLUTEAL = 3.30 - 18.6' 'POST-MENOPAUSE = 0.10 - 0.40' '-FIRST TRIMESTER = 8.30 - 66.5' 'SECOND TRIMESTER = 18.9 - 66.1' 'THIRD TRIMESTER = 35.8 - 312.4' 'MALES = 0.14 - 2.06' Performed By: #### 2 [id number] #### [facility] [address] [place] [address] Physician Orderon 03-12-2024 Physician Order [id number]#1.00T IFF [facility] CHEMISTRYOrdered By: SYSTEM SYSTEM on 03-07-2024 [...] Progesterone Lvl 20.59 ng/mL Invalid Interpretation Code [facility] Comment on above: Result Comment: 'F N ON FOLLICULAR = 0.10 - 0.60' 'LUTEAL = 3.00 - 17.5' 'MIDLUTEAL = 3.30 - 18.6' 'POST-MENOPAUSE = 0.10 - 0.40' '-FIRST TRIMESTER = 8.30 - 66.5' 'SECOND TRIMESTER = 18.9 - 66.1' 'THIRD TRIMESTER = 35.8 - 312.4' 'MALES = 0.14 - 2.06' Performed By: #### 2 [id number] #### [facility] [address] [place] [address] Progesteroneon 02-05-2024 Progesterone Lvl 20.64 ng/mL Invalid Interpretation Code [facility] Comment on above: Result Comment: 'F N ON FOLLICULAR = 0.10 - 0.60' 'LUTEAL = 3.00 - 17.5' 'MIDLUTEAL = 3.30 - 18.6' 'POST-MENOPAUSE = 0.10 - 0.40' '-FIRST TRIMESTER = 8.30 - 66.5' 'SECOND TRIMESTER = 18.9 - 66.1' 'THIRD TRIMESTER = 35.8 - 312.4' 'MALES = 0.14 - 2.06' Performed By: #### 2 [id number] #### [facility] [address] [place] [address] Progesteroneon 01-08-2024 Progesterone Lvl 18.23 ng/mL Invalid Interpretation Code [facility] Comment on above: Result Comment: 'F N ON FOLLICULAR = 0.10 - 0.60' 'LUTEAL = 3.00 - 17.5' 'MIDLUTEAL = 3.30 - 18.6' 'POST-MENOPAUSE = 0.10 - 0.40' '-FIRST TRIMESTER = 8.30 - 66.5' 'SECOND TRIMESTER = 18.9 - 66.1' 'THIRD TRIMESTER = 35.8 - 312.4' 'MALES = 0.14 - 2.06' Performed By: #### 2 [id number] #### [facility] [address] [place] [address] Consent for Treatmenton 11-19 Consent for Treatment [id number]#1.00TIF F Normal [facility] Physician Orderon 12-07-2023 Physician Order [id number]#1.00TI FF Normal [facility] Progesteroneon 12-07-2023 Progesterone Lvl 13.36 ng/mL Invalid Interpretation Code [facility] Comment on above: Result Comment: 'F N ON FOLLICULAR = 0.10 - 0.60' 'LUTEAL = 3.00 - 17.5' 'MIDLUTEAL = 3.30 - 18.6' 'POST-MENOPAUSE = 0.10 - 0.40' '-FIRST TRIMESTER = 8.30 - 66.5' 'SECOND TRIMESTER = 18.9 - 66.1' 'THIRD TRIMESTER = 35.8 - 312.4' 'MALES = 0.14 - 2.06' Performed By: #### 2 081126 #### [facility] [address] [place] [address] DHEASon 11-14-2023 DHEA-S [Mass/Vol] 281.0 microgram/dL Invalid Interpretation Code 84.8-378.0 [facility] Comment on above: Result Comment: Perf ormed at: [employer] [id number] PhD Padma Gleason Performed By: #### 2 [id number] #### [facility] [address] [place] [address] FSH and LHon 11-14-2023 Follitropin Qn 2.8 m[IU]/mL Invalid Interpretation Code [facility] Comment on above: Result Comment: Adul t Female Range Follicular phase 3.5 - 12.5 Ovulation phase 4.7 - 21.5 Luteal phase 1.7 - 7.7 Postmenopausal 25.8 - 134.8 Performed at: [facility] [address] [place], [place] [id number] [id number] PhD Padma Gleason Performed By: #### 2 [id number] #### [facility] [address] [place] [address] Lutropin Qn 2.9 m[IU]/mL Invalid Interpretation Code [facility] Comment on above: Result Comment: Adul t Female Range Follicular phase 2.4 - 12.6 Ovulation phase 14.0 - 95.6 Luteal phase 1.0 - 11.4 Postmenopausal 7.7 - 58.5 Performed By: #### 2 [id number] #### [facility] [address] [place] [address] Auto Diffon 11-13-2023 Basophils/100 WBC (Bld) 0.2 % Normal 0.0-2.0 [facility] Comment on above: Order Comment: Order Added by Discern Expert. Performed By: #### 7 [id number], [id number], 1148011, 0014071, 15438062, 7484366, 5777722 #### [facility] [address] [place] [address] Basophils/Leukocytes Auto (Bld) [Pure # fraction] 0.0 E9/L Normal 0.0-0.2 [facility] Comment on above: Order Comment: Order Added by Discern Expert. Performed By: #### 7 [id number], 00803888, 7995474, 0778382, 18128222, 5809607, 2562812 #### [facility] [address] [place] [address] Eosinophils/100 WBC (Bld) 1.0 % Normal 0.0-8.0 [facility] Comment on above: Order Comment: Order Added by Discern Expert. Performed By: #### 7 [id number], 08209534, 1525834, 1752092, 78202436, 1402348, 7263061 #### [facility] [address] [place] [address] Eosinophils/Leukocyt es Auto (Bld) [Pure # fraction] 0.1 E9/L Normal 0.0-0.5 [facility] Comment on above: Order Comment: Order Added by Farhan Expert. Performed By: #### 7 [id number], 35160292, 3024238, 1500213, 67327334, 9353485, 1014818 #### [facility] [address] [place] [address] Lymphocytes/100 WBC (Bld) 24.1 % Normal 14.0-50.0 [facility] Comment on above: Order Comment: Order Added by Discern Expert. Performed By: #### 7 [id number], 71980895, 6282900, 1213140, 01857765, 4805829, 7638918 #### [facility] [address] [place] [address] Lymphocytes/Leukocyt es Auto (Bld) [Pure # fraction] 1.7 E9/L Normal 1.0-4.0 [facility] Comment on above: Order Comment: Order Added by Farhan Expert. Performed By: #### 7 [id number], 20862188, 6184503, 4999545, 06469707, 8906941, 7647118 #### [facility] [address] [place] [address] Monocytes/100 WBC (Bld) 8.6 % Normal 4.0-14.0 [facility] Comment on above: Order Comment: Order Added by Farhan Expert. Performed By: #### 7 [id number], 57948873, 1071731, 1431515, 76357218, 5169486, 8877951 #### [facility] [address] [place] [address] Monocytes/Leukocytes Auto (Bld) [Pure # fraction] 0.6 E9/L Normal 0.2-1.0 [facility] Comment on above: Order Comment: Order Added by Farhan Expert. Performed By: #### 7 [id number], 67236897, 0569304, 8994348, 77068338, 6822147, 7825878 #### [facility] [address] [place] [address] Neutrophils/100 WBC (Bld) 66.1 % Normal 36.0-75.0 [facility] Comment on above: Order Comment: Order Added by Discern Expert. Performed By: #### 7 04128902, 26811048, 0229028, 9988176, 19055819, 1466693, 0431202 #### [facility] [address] [place] [address] Neutrophils/Leukocyt es Auto (Bld) [Pure # fraction] 4.5 E9/L Normal 2.0-7.5 [facility] Comment on above: Order Comment: Order Added by Discern Expert. Performed By: #### 7 [id number], 82747128, 5416025, 0714957, 88327552, 0153292, 5582119 #### [facility] [address] [place] [address] BhCG Quanton 11-13-2023 Beta hCG Qnt <1 Normal 1-3 [facility] Comment on above: Result Comment: 'F N ON < 1 - 3' ' 0.2 - 1 WEEK = 5 TO 50' ' 1 - 2 WEEKS = 50 - 500' ' 2 - 3 WEEKS = 100 - 5000' ' 3 - 4 WEEKS = 500 - 31700' ' 4 - 5 WEEKS = 1000 - 66903' ' 5 - 6 WEEKS = 43558 - 912614' ' 6 - 8 WEEKS = 30740 - 855374' ' 8 - 12 WEEKS = 93503 - 833482' Performed By: #### 2 989758 #### [facility] [address] [place] [address] CBC w/ Auto Diffon Erythrocyte distribution width (RBC) [Ratio] 13.8 % Normal 10.9-14.2 [facility] Comment on above: Performed By: #### 7 [id number], 45602179, 6012045, 1864403, 29569896, 2390433, 7742955 #### [facility] [address] [place] [address] Hematocrit (Bld) [Volume fraction] 39.9 % Normal 34.0-46.0 [facility] Comment on above: Performed By: #### 7 86466479, 80673153, 0658904, 2093949, 03569668, 6161415, 9595638 #### [facility] [address] [place] [address] Hemoglobin (Bld) [Mass/Vol] 13.1 g/dL Normal 12.0-16.0 [facility] Comment on above: Performed By: #### 7 75245348, 96698050, 3039440, 7014980, 49595901, 4417591, 9692070 #### [facility] [address] [place] [address] MCH (RBC) [Entitic mass] 27.5 pg Normal 27.0-34.0 [facility] Comment on above: Performed By: #### 7 30584576, 35531486, 0496707, 0254666, 63441632, 8807211, 6865738 #### [facility] [address] [place] [address] MCHC (RBC) [Mass/Vol] 32.9 g/dL Normal 31.4-36.0 [facility] Comment on above: Performed By: #### 7 96719128, 05878141, 7047909, 8104008, 33119291, 5376604, 9040666 #### [facility] [address] [place] [address] MCV (RBC) [Entitic vol] 83.5 fL Normal 80.0-100.0 [facility] Comment on above: Performed By: #### 7 88226927, 99933839, 3546441, 6530286, 77052366, 6009015, 5944365 #### [facility] [address] [place] [address] Platelet mean volume (Bld) [Entitic vol] 9.3 fL Normal 6.4-10.8 [facility] Comment on above: Performed By: #### 7 84282719, 48715096, 3571694, 1936773, 00438037, 2710946, 2650221 #### [facility] [address] [place] [address] Platelets (Bld) [#/Vol] 249.0 E9/L Normal 150.0-500.0 [facility] Comment on above: Performed By: #### 7 68473071, 53469189, 7776386, 4665606, 16659339, 4596810, 0765474 #### [facility] [address] [place] [address] RBC (Bld) [#/Vol] 4.8 E12/L Normal 4.3-5.9 [facility] Comment on above: Performed By: #### 7 64936129, 49070898, 0912710, 0913082, 48261907, 7805231, 4761834 #### [facility] [address] [place] [address] WBC corrected for nucl RBC Auto (Bld) [#/Vol] 6.8 E9/L Normal 4.0-11.0 [facility] Comment on above: Performed By: #### 7 10840750, 57035661, 4773151, 7374667, 77763876, 2095950, 3269475 #### [facility] [address] [place] [address] CHEMISTRYOrdered By: SYSTEM SYSTEM on 11-13-2023 Beta [...] 3 - 4 WEEKS = 500 - 80934' ' 4 - 5 WEEKS = 1000 - 30941' ' 5 - 6 WEEKS = 40591 - 913060' ' 6 - 8 WEEKS = 25532 - 489073' ' 8 - 12 WEEKS = 37558 - 697711' Free T4 [Mass/Vol] 0.96 ng/dL Normal 0.58 - 1. 64 ng/dL Remisol Chem TSH Qn 1.38 m[IU]/L Normal 0.34 - 5.60 mcIU/mL Remisol Chem CHEMISTRYOrdered By: Adolph Mcnair on 11-13-2023 HbA1c (Bld) [Mass fraction] 5.0 % Normal <=5.9% [facility] ChemAutoSS Consent for Treatmenton 10-20 Consent for Treatment [id number]#1.00TIF F Normal [facility] Free T4on 11-13-2023 Free T4 [Mass/Vol] 0.96 ng/dL Normal 0.58-1.64 [facility] Comment on above: Performed By: #### 7 [id number], 67331934, 1454987, 5073665, 09091152, 8479562, 7747339 #### [facility] [address] [place] [address] HEMATOLOGYOrdered By: SYSTEM SYSTEM on 11-13-2023 Basophils/100 [...] Normal 4.0 - 11.0 E9/L [facility] HemeAutoSS EfnF0fng 11-13-2023 HbA1c (Bld) [Mass fraction] 5.0 % Normal <=5.9 [facility] Comment on above: Performed By: #### 7 31691227, 45357170, 4983918, 5940169, 99335687, 8664840, 6190102 #### [facility] [address] [place] [address] TSHon 11-13-2023 TSH Qn 1.38 m[IU]/L Normal 0.34-5.60 [facility] Comment on above: Performed By: #### 7 04510638, 20413399, 1033282, 2515120, 10016485, 6126835, 4597802 #### [facility] [address] [place] [address] Laboratory - Chemistry and C hemistry - [...] 20 to 28on 01-31-2022 . . Normal [facility] Comment on above: Performed By: #### 4 429489 #### [facility] [address] [address] [address] Tobi Phelps Age Gdln ACOG Testing - Normal [facility] Comment on above: Performed By: #### 4 026770 #### [facility] [address] [place], [place] [address] Dr. Tobi Phelps DIAGNOSIS: Comment Normal [facility] Comment on above: Result Comment: NEGA TIVE FOR INTRAEPITHELIAL LESION OR MALIGNANCY. Performed By: #### 4 019706 #### [facility] [address] [place] [address] Dr. Tobi Phelps Methodology: Comment [facility] Comment on above: Result Comment: This liquid based ThinPrep(R) pap test was screened with the use of an image guided system. Performed By: #### 4 [id number] #### [facility] [address] [place] [address] Dr. Tobi Phelps Note: Comment [facility] Comment on above: Result Comment: The Pap smear is a screening test designed to aid in the detection of premalignant and malignant conditions of the uterine cervix. It is not a diagnostic procedure and should not be used as the sole means of detecting cervical cancer. Both false-positive and false-negative reports do occur. . Performed By: #### 4 097283 #### [facility] [address] [place] [address] Dr. Tobi Phelps Performed by: Comment Normal [facility] Comment on above: Result Comment: Elvis Gutierrez, Front Office Attendant (ASCP) Performed By: #### 4 096888 #### [facility] [address] [place] [address] Dr. Tobi Phelps Reflex Criteria: Comment [facility] Comment on above: Result Comment: The HPV DNA reflex criteria were not met with this specimen result therefore, no HPV testing was performed. . Performed By: #### 4 486116 #### [facility] [address] [place] [address] Dr. Tobi Phelps Specimen adequacy: Comment Normal [facility] Comment on above: Result Comment: Sati sfactory for evaluation. Endocervical and/or squamous metaplastic cells (endocervical component) are present. Performed By: #### 4 [id number] #### [facility] [address] [place] [address] Dr. Tobi Phelps Release of Informationon Release of Information [id number] TIFF [facility] Coding Summaryon 08-04-2021 Coding Summary HTMLBase 64 LeudpexhVHr7bRm+PGhlYWQ+ LR4ICCGrG89etNAulB2RB2eX GN6HYKJOQKSIWV5QMV4byCP7 JPgeG7SdejHp JwaykCSyNK58TIf1OQK1gGav BPgxwN5lwNJmP1c3VgZmMI78 qY48VGhkIEWiViP4FsNpdkkg bWFy V6zzQzMwlVCzRqm+PHRhYmxl IHdpZHRoPScxMDAlJyBzdHls KO9zLk8qGYHaTUKheDyowQZr OiBj f2obIHIpDUqoNL5eoLbyX6Wq rGQ7KKQtj8d2Jv23lRA+PHRk BEV0kZbuGLzkp941HiLcd4aq IDM3 cYPeKKchHCH3R66je9P7PLUq EJWdUME3iDT8zI1dnYnmdjhi Q5DazWVoIqA7XBU2sLRzmT0e bGln tgjtvE6yMvo+O52BNE5BGGYI MV3AXyn4M8OhAgbgkAS+PC90 KBHsZH73tOSwpZBer9uhvPm3 JzEw NVZpEJR8wQzhLVclb4QvAGSf B31qdTHuy5N6PZMonPhaxMCe PfCohJO6uI4aMUuytsgfz0fa dzsn Flmgm4mvww13aW61P93pFLqa KTQaCRA0XDUzFOZjyYmmzy4q cG7cYp4+ZOjyg0ldd0vewQr5 IjIw NJHwrcMenBikEOK3w6YgYf64 E1AhsHiko9PxAuw3jq52sWRi c0U8gMK9CTdcFKMcyQ7qADfb ZnQ6 ABVdFoCxsK97qMGzJQyvEj3f nTykgFbiOJ6wCOZazockPLGz aR0tADBtvDIsoTyzJZ4eATJj bjtm x871IiDyFMO2GJVvxZScF2Mo pG8mZjByNZLxLCZxO6PclEAf DQfgV446IYgbOqD5UGWccaFt Y2Fs DMSscAauSkQ2g3N2Rg9Hy7Ba ruajEQR5ZCpyJPZ4MzQ5NnYf ExJ8W4XnEwc3LYGdhOjrTZ0i J3Bh MOIhqjjyjkypfCD2LDLoEXVr lU79tATdCBczWa7fl9U1p768 HCFoACWczS82Gn3uzEnsZNCr dCBU mN4vjoakh6dcupzcMoMtELFe PQv7JBc5WREccMkqMaVjELU7 ZtL7BHE9cXSqlG9adGaozxgo dG9w Oyc+C44fqT3zDHJ2TSB7vtdh MFBifsLvDC37ZB95N6NeDfwa dGFibGU+OHJdfgAbdWzsUK3w YmFj v0rhj4ZzQYlgA4DrYGGdLSro Rsw8ZRLqHYU2kJB7eQ7fRSCh UBjat0M2lTZ3S9TrfrSohy9c b2xs UILlBCzhZ46ioMFqm0F8QEFg lJJ9LPRsoHafVhWvgK56Qbi+ YWEbfFuld1DiAltxe5zxh3mv dGg9 HiYcLGNuepJbxGwtPFC9u7Cx Jr44G04zZOkgJTVnTOGxFLDm OVOniDlfvu0rsJ4qXe8+PGNv bCB3 bXF3tC4yBKEmYyZ1ASoqU248 JiVuuTHkGctjk9nyq0sfoKa9 UbFdLXDpndNwnKbjBMZ7m5Io Lz48 V86pGXcwJNPfZAZaAHWyJZNb pSunsl0fmX4jRy7+UT1li2da dw89eF52pZJ+DNGvRGT9vHkn PSdw EICasN2aRCfaOfO3DZBoRaOh zZ66pJDlAJwaVp3gkAnxgRpu AW5aFHYdhznwl419WsSon4yl IDEw wLSfJXscDVA9W80hp3P9ZKYc QYJgZHS9yPU4aZ7ygWtzpskn bGVmdDsgdmVydGljYWwtYWxp Z246 IHRvcDsnPlBhdGllbnQgTmFt STu1L6MkBqy0TILldYicVE9e kMCyPMflDo8chJhpgGzaCB6v NTBp vzfjc054WgMjs8bqLCJkjZGh NYioNHL2S82th6D9WASwWCGm OPU6gLO1xD0cqUphbvbqmEBs dDsg oxPdjRnnXSyxHQspA367OIJn eXzlYaZqxbJdOWJqbTD4CC73 AE65bFBds0I9pZC5S6SjOGZn bmct lexziTF7FMBgQGEcoI18Ir6t dEjuRa0oMJFgCKP3IHSerWZj W5GovB1oTgIyCHPqATWhZ1Mc eHQt DRstM166YUspMyX4IPLiefXy Z1SeWZWnmKtiOiM4t4C9Mn3B G0J6AC36SE01kAImh3Y6tCB3 J3Bh DILqffnvindyjAD0WCTxTWBu lX36Ke4chZlqHf8gRZHcVIM6 XXRjiLVyE1BloJ4vBvHnKMPs MDAw Z6TgrOKrFRubR801GIbhXvT0 YHHlyoBtO7MjPIYnqRchWaJ0 v9Q3Hf8GCMk4LZ06VF94gCJa c3R5 dGW5I6MhANYzuloeuifhmFK6 GBVrOJStfT36Ef6mwHouCl4x XFLpJMD2AGTprRTaZ3RnkD6e OiAj EXQxLWJoT2OieNMoXJtgA925 QBasJiD9VQQdtpVuH1QhEMCt lTsnXdJ1e4B5Er9OBSTrDB12 IFR5 fSY0TK76AK97A3RcBkklgSXn bGU+PHRhYmxlIHdpZHRoPScx NTVvHjKhdEsjGI8eKg1tPHMl LWNv oMwzlQMrUcWed9muFCIrNTld NB0lyNriO9HeoUH6UPHze5n0 Ld24V27rA3JjqPU+PGNvbCB3 aWR0 tY9lCgMxXgQ6XAjnM122ZrBj aMJsBvxoa6yne0suzRp8EnX7 XGRfpwXnmVubQHR6e7LsNv15 Y29s IHdpZHRoPSIxNSUiIHZhbGln nd3dtD4yDx1+PCGamNS4tPO7 hC4vLnYoGpJ0QQplY411VoPl cCIv Ooftd5dej5gdyVs8KsAkKHOy pwYuuKqlQHB1a2CgXw51B0Bv bAlkx8BhFir7ih16gSIju7N4 bGU9 V6LsUKDhshrjqTMbdWitQP1y MCDrqbilYANxxI7xZNKzG7b6 UjEiKbU2ZLufF6UrepN4ZECn cHQg MVnfKKT6B74je2W3MXHkEDWw OTL9vXQ6fV8blSbvpxwvpMYh oKqgcdLitIfdWKwgCMcpX971 IHRv aLyoNLGamA8uKOCxuDAroBnw IE6kLXZvvkwfTffSVU1JAJZQ NOPGY6CXLVKCDGG7I2CdZmp9 ZCBz rHacUZ6dkUGiYEptJt5feYkt wZmoRD7gOMKhonxwQMFsoN5v ZYYlkPJonVroNC7mFFLlgvll b250 EuXrBDI7IVKfpZEwK1CzjQ3j LtXbOXKmXNCaF7TuiUAcKRpk X622TCkbZhT5WSPtdhVnM4Xb LWFs fOodZiC9r0D7Wh5tPT5zVV9t NBr2IG21RT57hFXgi7U3wXU8 D9WuBTUbhogjogbouGI6DVFv MDUw pW86vCZvVImeRe1ov7J3g017 ZQDsBHGwoA33Po0okHslYDKq gPCQyG2ueclcu6rsbcnaVlEd MDAw HEh2ARh9PRSntIobUsCdJJC4 ZfW8BWO4zSAnzT5jnDbvukuc sB2uTaw+YoIzVDTfhiV5E1Gw Pjx0 AJOrpWvkJM5byXQmFPmuHm1g qNxzoTvmAQ2iEBIimgzkBBFa zL9cZTXwrPWsoRboEH5bKALy bjtm k656EzEkSAE5TQKerEKuJ6Wi iT6vXlSwFBUcJFRvF7NpzNXs VEmwT931YLpbBtN0DUVkyaFg Y2Fs RHDwdNtrGeU8q1S5Kt0HVO0Q QXV7C2OjKah3WTNcsVcvYC5v dKCnBMfnYq5yyDdeyCkfMS0m NTBp vzglUUXyjZ5nDUUxpZZqhEic AR6eHEMvcevyw302FeRzQKB8 GMMqbPLlK5WxtQ3rRvBaSSCa MDAw M7QitPCySWooG395DHawGqN1 GIGjssJeL9YrFOUrsWuaLwV5 f8U8Oi5BEMfmfMN+WX66wj24 L3Rh GjvlSjb7ISIwXIJ5bRR0kD6s SHJfFGhux0S1aBT7X0GccpCv ej1hj7niDQQbDXtnU20moSAq c2U7 XTUijUQ8PSIphJgtSpAwgD59 Oyc+XUHzjCwpi0UqAckvx3ck a5osqRf7OqPpPCGdfqKclFdw PSJ0 u6ArUa08R25wQKsjYVYyOWWz SVPuBTErbXhkwz3jmU2nGg3+ EWXwmAT1cPU9lZ2tOyWzGtV3 YWxp X066KyIwiTZrUgvhb5ynf2ck xDt8VuBjGHCqunGryXjhJKO3 d4GhBj59R2WjnDfkk2EsUbc8 cj48 fQUtt9T0yHB4Z1NyMQTdkqxb tQScoYylKN6hCBOmqbrjUIYl bB7lJAGfL8l0GcLvTuB2GVsi O2Zv siW9WMFkeKYiUODpjDAMzP7z ucuvt9jwvxmeSpMzDOVeLSe5 DVt0TQKhaNkbBbEdRCN8GvT4 ZXJ0 eZQctY7xgOwupoeymP5yGvn+ VAj5o5dvdGKlHJ8fqPB1CP78 YT47kOCou5V2vIL7X9KvLRNt bmct nzlzhCX8RZSkORRmkY37Zx1p eUktFl1kRFPuECG4ZWBlqMRl T7YcqA2wPbUpHCYxRHYaD5Ap eHQt YKrjP913ELtrSkA8PWVtiaHi B6VpZMXssMtkIhL3p6Z0Bi6Y BK86NZ89UI53ePMzh2K1zRF6 J3Bh AVFbdnjcgfcfgEL4POUiSCGo zT71Qd0apBmgUb9dUMPkCDP4 IUHrjLWfS9TfoF7qThWdEOBr MDAw O3GvgPCaFTigY773CUroWnI7 KIJbcbHaV1WcVYEnsAvuSfL2 d2M2Qm7NAb60DX81NO32uSLc c3R5 xNM4L6EcTHIitpcjewvplKM4 EFGjMSRkaT00Oz3wyLbbUo8r OQItFDN8PTByrKTcA7FvzD1i OiAj QAZhMXPhS6GjxXWlJLgsE836 LGhzXoG1PTLmisYeW5ScERDa fQctFsC9q0G6Bz7KCGieype8 L3Rk PjwvdHI+WH51XDPpXN14tFQq bXCez9vglPn5WjSxBLMlXAQ6 gMmoEBrpb5EzYRIgD63ssFEj c2U6 IGN (more content not included)... [facility] Consent Formson 08-03-2021 Consent Forms [id number] TIFF [facility] ED Clinical Summaryon 2020 ED Clinical Summary ? Urgent Care [address] [place] [address] Clinical Summary PERSON INFORMATION Name: SELENE PERSAUD Age: 25 Years Sex: FEMALE : 1995 MRN: Acct#: Visit Reason: UC - Skin Problem: simple; BODY RASH Arrival: 08/02/2021 10:14:21 Discharge: 08/02/2021 10:44:00 LOS: 000 00:30 Check In: 08/02/2021 10:14:21 Checkout: 08/02/2021 10:44:00 Address: [address] [place] [address] PCP: Provider, None PROVIDER INFORMATION Provider Role [...] PATIENT EDUCATION INFORMATION Instructions: Poison Claudia Dermatitis, [id number] Follow-Up: With: Address: When: Follow up with primary care provider Within 3 to 5 days Comments: OR see DERMATOLOGY as needed DIAGNOSIS: Contact dermatitis Patient Understands: Yes - Patient/family/caregiver verbalizes understanding of instructions given Comment: [facility] ED Patient Summaryon 021 ED Patient Summary ? Urgent Care [address] [place] [address] PATIENT DISCHARGE INSTRUCTIONS Patient Information Name: SELENE [...] soothe the skin. ? Medicines, such as [id number] antihistamine tablets. ? Oral steroid medicine for more severe reactions. Follow these instructions at home: Medicines ? Take or apply gupy-gtt-eszcvmn and prescription medicines only as told by [...] rub your skin. ? Take or apply gcqw-pqt-hcypved and prescription medicines only as told by your doctor. This information is not intended to replace advice given to you by your health care pr (more content not included)... [facility] Urgent Care Note- Provideron 08-02-2021 Urgent Care Note- Provider Patient: SELENE PERSAUD Age: 25 years Sex: FEMALE : 1995 Associated Diagnoses: Contact dermatitis Author: Yayo Salas PA-C History of Present Illness This is a 25 year old here today with concerns of an itchy, red rash to both legs since working out by a [employer] where they were clearing brush. Her has [...] selected or recorded.. Surgical history: Tooth extraction ([id number]) on 02/27/2012 at 16 Years. Comments: 04/25/2019 9:32 EDT - March Christal SÁNCHEZ wisdom teeth. Family history: Dementia Grandparent Thyroid disease Grandparent High blood pressure Mother Arthritis Mother Grandparent Cancer Grandparent High cholesterol Mother Father . 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 Impression and Plan Diagnosis Contact dermatitis (GZO05-DZ L25.9, Discharge, Medical) Plan Condition: Stable. Disposition: [...] the following educational materials: Poison Claudia Dermatitis, Fzpz-mt-Etqd, Poison Claudia Dermatitis, Rrvx-pu-Kvsz. Follow up with: ; Follow up with primary care provider Within 3 to 5 days OR see DERMATOLOGY as needed. Counseled: Patient, Regarding diagnosis, Regarding treatment plan, Regarding prescription, Patient indicated understanding of instructions. [facility] Urgent Care Record ? Urgent Care [address] [place] [address] PATIENT DISCHARGE INSTRUCTIONS Patient Information Name: SELENE [...] and treatment you received today in the [facility] were for an urgent problem and are not intended as complete care. It is important for you to follow up with a doctor, nurse practitioner, or physician?s customer care assistant for ongoing care. If your symptoms [...] so we can reach you if necessary. Urgent Care has provided you with a complete list of medications post discharge. Please inform your pressure vessel inspector/provider of your visit and for further instruction on these medications. Any specific questions regarding your chronic medications and dosages should be discussed with your primary care physician(s) and/or pharmacist. New Medications [id number], [address], [place] [id number], [phone] fluocinonide topical (Lidex 0.05% topical cream) 1 [...] soothe the skin. ? Medicines, such as bqwt-laq-gskudzj antihistamine tablets. ? Oral steroid medicine for more severe reactions. Follow these instructions at home: Medicines ? Take or nader (more content not included)... Normal [facility] [employer] LTon 03-25 [facility] [employer] * * *Final Report* * *DATE OF EXAM: Mar 25 2018 2:21PM HCW 0593 - [facility] LT / REASON: Benign breast lumps * * * * Physician Interpretation * * * *RESULT: #[id number] - [facility] LTULTRASOUND OF LEFT BREAST: 03/25/2018HISTORY: Benign Breast [...] made to exam dated: 10/29/2013 ultrasound - [facility].Real-time ultrasound of the left breast was [...] ACR/NCCN guidelines.Kj Winkler/penyifan:03/25/2018 14:31:28Imaging Technologist: Mirta SCHRADER)(Cris), [facility] 2 Benign findingTranscribed Using Voice RecognitionTranscribe Date/Time: Mar 25 2018 2:21PDictated by: KJ LANCASTER MDThis examination was interpreted and the report reviewed and electronically signed by: KJ LANCASTER MD on Mar 25 2018 2:31PM [id number] Normal [facility] [employer] BREAST [employer] RTon 03-25 [facility] [employer] * * *Final Report* * *DATE OF EXAM: Mar 25 2018 2:21PM HCW 0594 - [facility] [employer] BRE[employer] / REASON: Benign breast lumps * * * * Physician Interpretation * * * *RESULT: #[id number] - [facility] [employer] BREAST [employer] RTULTRASOUND OF RIGHT BREAST: 03/25/2018HISTORY: Benign Breast [...] [place] M.D.ls/penrad:03/25/2018 14:34:44Imaging Technologist: Mirta MERAZ (R)), [facility]ADS: 1 NegativeTranscribed Using Voice RecognitionTranscribe Date/Time: Mar 25 2018 2:21PDictated by: KJ LANCASTER MDThis examination was interpreted and the report reviewed and electronically signed by: KJ LANCASTER MD on Mar 25 2018 2:34PM [id number] N Normal [facility] Encounters Encounter Date Encounter Type Care Provider Facility Start: 07-30-2024 End: 07-30-2024 ambulatory CLIFTON DAIJA Not Available Start: 07-02-2024 End: 07-02-2024 ambulatory CLIFTON DAIJA Not Available Start: 06-18-2024 End: 06-18-2024 ambulatory KASSIDY PERALES Not Available Start: 05-21-2024 End: 05-21-2024 ambulatory CLIFTON DAIJA Not Available Start: 04-18-2024 End: 04-18-2024 ambulatory NHUNG RIVERO Not Available Start: 03-17-2024 End: 03-17-2024 ambulatory Clifton R DAIJA [place] Start: 03-17-2024 End: 03-17-2024 Patient encounter procedure Clifton R DAIJA [facility] Start: 12-19-2023 End: 12-19-2023 ambulatory NHUNG RIVERO Not Available Start: 12-07-2023 End: 06-17-2024 ambulatory Clifton R DAIJA Facility:[facility] Start: 12-07-2023 End: 06-17-2024 Recurring Clifton R DAIJA [facility] Start: 11-13-2023 End: 11-13-2023 ambulatory Clifton R DAIJA Facility:[facility] Start: 11-13-2023 End: 11-13-2023 Patient encounter procedure Clifton R DAIJA [facility] Start: 10-24-2023 End: 10-24-2023 ambulatory CLITFON DAIJA Not Available Start: 08-14-2023 End: 11-12-2023 ambulatory DO Jeffery Doyle Facility:[facility] Start: 04-11-2023 End: 06-17-2024 Recurring Clifton R DAIJA [facility] Start: 01-25-2022 End: 01-25-[address] CLIFTON CHOE Facility: Start: 12-10-2018 End: 12-11-2018 Patient encounter procedure PA NEWBERRY Facility:[facility] Start: 12-05-2018 End: 12-06-2018 Patient encounter procedure DEFAULT PHYSICIAN Facility:[facility] Start: 03-25-2018 Ambulatory [facility] Immunizations Immunization Date Immunization Notes Care Provider Fa cility 09-06-2023 influenza virus vaccine, unspecified formulation Clifton DAIJA [facility] Comment on above: Reason for Medicatio n: Prophylaxis 09-12-2022 influenza virus vaccine, unspecified formulation Clifton DAIJA [facility] Comment on above: Reason for Medicatio n: Prophylaxis 09-12-2022 influenza, injectabl e, quadrivalent, preservative free Clifton DAIJA [facility] 04-28-2021 COVID-19, mRNA, LNP- S, PF, 30 mcg/0.3 mL dose Clifton DAIJA [facility] Comment on above: Reason for Medicatio n: Prophylaxis 04-06-2021 COVID-19, mRNA, LNP- S, PF, 30 mcg/0.3 mL dose Clifton CHOE [facility] Comment on above: Reason for Medicatio n: Prophylaxis Payers Date Payer Category Payer Unknown 2023 Unknown [id number] 2022 Unknown [id number] 1995 Unknown [id number] 2.16.8 [id number] 1995 Unknown [id number] 2.16.8 40.1.277269.3.579.2.647 1995 Unknown [id number] 2.16.84 0.1.659546.3.579.2.593 1995 Unknown [id number] 2.16.8 40.1.977742.3.579.2.727 1995 Unknown [id number] 2.16.8 40.1.903346.3.579.2.727 1995 Unknown [id number] 2.16.8 40.1.187896.3.579.2.727 1995 Unknown [id number] 2.16.8 40.1.200686.3.579.2.727 1995 Unknown [id number] 2.16.84 0.1.005815.3.579.2.1259 1995 Unknown [id number] 2.16.84 0.1.938493.3.579.2.1259 1995 Unknown [id number] 2.16.84 0.1.542708.3.579.2.1259 1995 Unknown [id number] 2.16.84 0.1.326584.3.579.2.1259 1994 Unknown [id number] 2.16.84 0.1.722098.3.579.2.1259 1994 Unknown [id number] 2.16.84 0.1.873240.3.579.2.1259 1995 Unknown [id number] 2.16.840 .1.502271.3.579.2.1259 1959 Unknown [id number] Unknown [id number] Social History Date Type Detail Facility Start: 07-21-2021 Tobacco smoking status Never s moked tobacco (finding) [facility] Tobacco smoking status Never [facility] Sex Assigned At Female [facility] Evaluation + Plan note 11-13-2023 Note Date & Type Note Facility 11-13-2023 Evaluation + [facility]/13[facility] 11/13/23 [facility] Clinical Note 08-02-2021 Note Date [...] soothe the skin. ? Medicines, such as zykx-adu-efmuocf antihistamine tablets. ? Oral steroid medicine for more severe reactions. Follow these instructions at home: Medicines ? Take or apply ipyi-qpi-eqdifzh and prescription medicines only as told by [...] rub your skin. ? Take or apply eopq-mka-pqcsrxm and prescription medicines only as told by your doctor. This information is not intended to replace advice given to you by your health care provider. Make sure you discuss any questions you have with your health care provider. Document Revised: 02/27/2020 Document Reviewed: 10/31/2019 [employer] Patient Education ? 2019 [employer] Evaluation + Plan note Note Date & Type Note Facility Evaluation + Plan note No data available for this section [facility] Hospital Discharge instructions Note Date & Type Note Facility Hospital Discharge instructions No data available for this section [facility] Progress note Note Date & Type Note Facility Progress note No data available for this section [facility] Summary Purpose Family History No [...] DATE CREATED AUTHOR AUTHOR'S ORGANIZ ATION 12/13/2018 [facility] DATE CREATED AUTHOR AUTHOR'S ORGANIZ ATION 09/17/2021 [facility] DATE CREATED AUTHOR AUTHOR'S ORGANIZ ATION 02/01/2022 [facility] DATE CREATED AUTHOR AUTHOR'S ORGANIZ ATION 06/20/2024 Pete Mishra [facility] DATE CREATED AUTHOR AUTHOR'S ORGANIZ ATION 08/01/2024 [facility] Patient Care team informatio n (unrecognized section and content) Personnel Name: Jesica Jamison CNP Address: Address: [address] [place] [address] Personnel Name: Jesica Jamison CNP Address: Address: [address] [place] [address] Personnel Name: Jesica Jamison CNP Address: Address: [address] [place] [address] Personnel Name: Jesica Jamison CNP Address: Address: [address] [place] [address], [address] Personnel Name: Jesica Jamison CNP Address: Address: [address] [place] [address] FOR RECORDS PERTAINING TO PATIENTS WHO ARE [...] BE BASED ON THE PRIMARY CLINICAL RECORDS. [employer] provides no warranty or guarantee of the accuracy or completeness of information in this document.
[2024-08-06 10:28] LABS: Basophils Percent Auto 0.2 % (0.2-2.0); Eosinophils Absolute Auto 0.1 10^3/uL (0.0-0.7); Eosinophils Percent Auto 0.6 % (0.9-7.0); Hematocrit 31.2 % (36.0-48.0); Hemoglobin 10.5 g/dL (12.0-16.0); Immature Granulocytes Abs Auto 0.03 10^3/uL (0.00-0.03); Immature Granulocytes Pct Auto 0.2 % (0.0-0.5); Lymphocytes Absolute Auto 1.4 10^3/uL (1.2-3.8); Lymphocytes Percent Auto 11.5 % (20.5-60.0); Mean Corpuscular HGB Conc 33.7 g/dL (29.9-35.2); Mean Corpuscular Volume 86.2 fL (81.0-99.0); Mean Platelet Volume 10.4 fL (9.5-13.5); Monocytes Absolute Auto 0.9 10^3/uL (0.3-0.8); Monocytes Percent Auto 7.1 % (1.7-12.0); Neutrophils Percent Auto 80.4 % (43.0-75.0); Platelet Count 221 10^3/uL (150-450); Red Blood Count 3.62 10^6/uL (4.20-5.40); Red Cell Distribution Width 13.3 % (11.0-15.0); White Blood Count 12.4 10^3/uL (4.0-11.0)
[2024-08-06 10:54] LABS: Glucose 1 Hour 118 mg/dL (<130)
== END 2024-08-06 09:15 | disposition home or self-care (01) ==
LOC: LAB 09:14
PROVIDERS: Visit Provider Obstetrics & Gynecology
DX: Z13.1 Encounter for screening for diabetes mellitus (principal)
CPT/HCPCS: 36415; 82950; 85025

== ENCOUNTER 2024-09-24 08:52 | Outpatient (OUT) | payer OTHER, SELFPAY ==
--- NOTE | 2024-09-24 08:56 | US_ITS ---
[address] [address] Patient Name: SELENE SHERMAN MRN: [id number] date: 1995 Sex: F Assigned Patient Location: [facility] Current Patient Location: [facility] Accession/Order Number: [id number] Exam Date: 09/24/2024 08:56 Report Date: 09/24/2024 09:28 At the request of: CLIFTON CHOE Procedure: US OB growth EXAMINATION: US OB growth HISTORY: LGA COMPARISON: No relevant comparison available. FINDINGS: Heart Rate: 157 bpm Amniotic Fluid Volume: 12.0 cm. Largest fluid pocket 4.1 cm Number: 1 Position: Cephalic presentation, longitudinal lie BIOMETRY: BPD: 7.93 cm; 31 weeks 6 days; 56.70 % HC: 29.22 cm; 32 weeks 2 days; 38.10 % AC: 29.32 cm; 33 weeks 2 days; 93.40 % FL: 6.43 cm; 33 weeks 1 day; 84.80 % EFW: 2204.25 g; 90 %, 4 lbs. 10 oz. FL/AC: 21.93 FL/BPD: 81.08 HC/AC: 1 GESTATIONAL AGE: Age by EDC: 31 weeks 2 days EDGAR by EDC: 2024-11-24 Age by US: 32 weeks 5 days EDGAR by US: 2024-11-14 US/US OB growth IMPRESSION: Normal interval growth Electronically authenticated by: ISRAEL HERNANDEZ Date: 09/24/2024 09:28
== END 2024-09-24 08:53 | disposition home or self-care (01) ==
LOC: NOMS 08:52
PROVIDERS: Visit Provider Obstetrics & Gynecology
DX: O36.63X0 Maternal care for excessive fetal growth, third trimester, not applicable or unspecified (principal)
CPT/HCPCS: 76816

== ENCOUNTER 2024-10-22 08:04 | Outpatient (OUT) | payer OTHER, SELFPAY ==
--- NOTE | 2024-10-22 | US_ITS ---
[address] [address] Patient Name: SELENE SHERMAN MRN: [id number] date: 1995 Sex: F Assigned Patient Location: [facility] Current Patient Location: [facility] Accession/Order Number: [id number] Exam Date: 10/22/2024 08:06 Report Date: 10/22/2024 10:28 At the request of: CLIFTON CHOE Procedure: US OB growth EXAMINATION: US OB growth HISTORY: LARGE FOR GESTATIONAL AGE COMPARISON: No relevant comparison available. FINDINGS: Heart Rate: 168 bpm Amniotic Fluid Volume: 19.6 cm, largest fluid pocket 6.7 cm position: Cephalic presentation, longitudinal lie Number: 1 BIOMETRY: BPD: 8.63 cm; 34 weeks 6 days; 39.80 % HC: 31.71 cm; 35 weeks 5 days; 25.40 % AC: 31.54 cm; 35 weeks 3 days; 63.30 % FL: 7.06 cm; 36 weeks 1 day; 67.50 % EFW: 2594.21 g; 57.50 % FL/AC: 22.38 FL/BPD: 81.81 HC/AC: 1.01 GESTATIONAL AGE: Age by EDC: 35 weeks 2 days EDGAR by EDC: 2024-11-24 Age by US: 35 weeks 4 days EDGAR by US: 2024-11-22 US/US OB growth IMPRESSION: Normal interval growth Electronically authenticated by: ISRAEL HERNANDEZ Date: 10/22/2024 10:28
--- OUTSIDE RECORDS SUMMARY | 2024-10-22 08:17 | XMS_ITS | CCD ---
Author Organization [facility] CliniSyid Care Team Providers Care Plant Cytologist Name Role Phone VILLALOBOS, DINKAR Unavailable Unavailable VILLALOBOS, DINKAR Unavailable Unavailable PHYSICIAN, DEFAULT Admitting Unavailable PHYSICIAN, DEFAULT Attending Unavailable ROHITH, PA R Admitting Unavailable ROHITH, PA R Attending Unavailable SELF, REFERRED Referring Unavailable SELF, REFERRED Primary Care Unavailable FRANCE, DR LAZO Attending Unavailable FRANCE, DR LAZO Consulting Unavailable FRANCE, DR LAZO Admitting Unavailable Jesica Jamison Primary Care Physician [phone] FRANCE, Clifton R Admitting Unavailable FRANCE, Clifton R Attending Unavailable FRANCE, Clifton R Admitting Unavailable FRANCE, Clifton R Attending Unavailable FRANCE, Clifton R Admitting Unavailable FRANCE, Clifton R Attending Unavailable Nadir MEDRANO Attending Unavailable Spasic PA, Lance Attending Unavailabl e Spasic PA, Lance Admitting Unavailabl e Provider, None Primary Care Unavailable Unallocated MD, Noms Provider Primary Care Provi rosa m NHUNG RIVERO Attending Unavailable FRANCE, CLIFTON Attending Unavailable FRANCE, CLIFTON Attending Unavailable VIANEY PERALES Attending Unavailable FRANCE, CLIFTON Attending Unavailable FRANCE, CLIFTON Attending Unavailable DIAZVIANEY GARCIA Attending Unavailable FRANCE, CLIFTON Attending Unavailable DIAZ VIANEY Attending Unavailable DIAZ, VIANEY Attending Unavailable Allergies Allergy Classification Reported Allergen(s) Allergy Type Date of Onset Reaction(s) Facility (1 source) No Known Medication Allergies; Translations: [No Known Medication Allergies] Propensity to adverse reactions to drug (disorder) [facility] Repository Medications Current Medications Medication Drug Class(es) Dates Sig (Normalized) Sig (Original) polysaccharide iron complex 391 mg oral capsule (13 sources) Start: 08-27-2024 End: 04-22-2025 take 1 capsule by mouth once daily iron polysaccharides (ProFe) 391.3 (180 Fe) MG capsule Indications: Iron deficiency anemia, unspecified iron deficiency anemia type Take 1 capsule (391.3 mg) by mouth Daily 30 capsule 6 09/24/2024 04/22/2025 Active Problems Active Problems Problem Classification Problem Date Documented Date Episodic/Chronic Deficiency and other anemia (4 sources) Iron deficiency anemia; Translations: [Iron deficiency anemia, unspecified] 08-27-2024 Episodic Female infertility (1 source) Female infertility; Translations: [Female infertility, unspecified] Chronic Immunizations and screening for infectious disease (1 source) Encounter for screening for human papillomavirus (HPV); Translations: [ENC SCREENING HUMAN PAPILLOMAVIRUS] Onset: 01-26-2022 Episodic Other complications of (2 sources) Excessive growth affecting management of mother; Translations: [Maternal care for excessive growth, unspecified trimester, not applicable or unspecified] 09-10-2024 Episodic Other and delivery including normal (8 sources) Second trimester ; Translations: [Encounter for supervision of normal , unspecified, second trimester] 08-27-2024 Episodic Other screening for suspected conditions (not mental disorders or infectious disease) (4 sources) Encounter for screening for malignant neoplasm of cervix; Translations: [ENC SCREENING MALIG NEOPLASM CERV] Onset: 01-25-2022 Episodic Residual codes; unclassified (2 sources) Gestation period, 27 weeks; Translations: [27 weeks gestation of ] 08-27-2024 Episodic Residual codes; unclassified (2 sources) Gestation period, 29 weeks; Translations: [29 weeks gestation of ] 09-10-2024 Episodic Residual codes; unclassified (2 sources) Gestation period, 31 weeks; Translations: [31 weeks gestation of ] 09-24-2024 Episodic Residual codes; unclassified (2 sources) Gestation period, 32 weeks; Translations: [32 weeks gestation of ] 10-08-2024 Episodic Spontaneous (2 sources) Complete inevitable miscarriage without complication; Translations: [Complete or unspecified spontaneous without complication] Episodic Unclassified (1 source) Unknown / UNK(Unknown) Onset: 03-25-2018 Unclassified (2 sources) DX Onset: 12-10-2018 Unclassified (12 sources) OB Reminders Onset: 04-30-2024 04-30-2024 Past or Other Problems Problem Classification Problem Date Documented Da te Episodic/Chronic NEGATED: Highlighted row has been ruled out!Unclassified (12 sources) No known active problems 09-12-2023 Results Test Name Value Interpretation Reference Range Facility Urinalysis macro (dipstick) panel (U)on 09-24-2024 Bilirubin, UA Negative Negative - 4(70) +++ mg/dL [facility] Blood, UA Negative Negative - 50 Quinton/mcL [facility] Clarity, UA Clear [facility] Color, UA Yellow [facility] Glucose, UA Negative Negative - 1999(110) ++++ mg/dL [facility] Interpretation and review of laboratory results Normal [facility] Ketones, UA Negative Negative - 160(16) ++++ mg/dL [facility] Leukocytes, UA Negative Negative - 500+++ Raquel/mcL [facility] Nitrite, UA Negative Negative - Positive [facility] pH, UA 6 5 - 9 [facility] Protein, UA Negative Negative - 1999(20) ++++ mg/dL [facility] Spec Grav, UA 1.02 1 - 1.03 [facility] Urobilinogen, UA 0.2 0.2 - 12 mg/dL [facility] Urinalysis macro (dipstick) panel (U)on 09-10-2024 Bilirubin, UA Negative Negative - 4(70) +++ mg/dL [facility] Blood, UA Negative Negative - 50 Quinton/mcL [facility] Clarity, UA Clear [facility] Color, UA Yellow [facility] Glucose, UA Negative Negative - 1999(110) ++++ mg/dL [facility] Interpretation and review of laboratory results Abnormal [facility] Ketones, UA Negative Negative - 160(16) ++++ mg/dL [facility] Leukocytes, UA Trace Negative - 500+++ Raquel/mcL [facility] Nitrite, UA Negative Negative - Positive [facility] pH, UA 7 5 - 9 [facility] Protein, UA Negative Negative - 1999(20) ++++ mg/dL [facility] Spec Grav, UA 1.02 1 - 1.03 [facility] Urobilinogen, UA 0.2 0.2 - 12 mg/dL [facility] Urinalysis macro (dipstick) panel (U)on 08-27-2024 Bilirubin, UA Negative Negative - 4(70) +++ mg/dL [facility] Blood, UA Negative Negative - 50 Quinton/mcL [facility] Clarity, UA Clear [facility] Color, UA Yellow [facility] Glucose, UA Negative Negative - 1999(110) ++++ mg/dL [facility] Interpretation and review of laboratory results Abnormal [facility] Ketones, UA Negative Negative - 160(16) ++++ mg/dL [facility] Leukocytes, UA Trace Negative - 500+++ Raquel/mcL [facility] Nitrite, UA Negative Negative - Positive [facility] pH, UA 6.5 5 - 9 [facility] Protein, UA Negative Negative - 1999(20) ++++ mg/dL [facility] Spec Grav, UA 1.020 1 - 1.03 [facility] Urobilinogen, UA 0.2 0.2 - 12 mg/dL [facility] BhCG Quanton 03-19-2024 HCG.beta subunit Qn 488 m[IU]/mL High 1-3 [facility] Comment on above: Result Comment: 'F N ON < 1 - 3' ' 0.2 - 1 WEEK = 5 TO 50' ' 1 - 2 WEEKS = 50 - 500' ' 2 - 3 WEEKS = 100 - 5000' ' 3 - 4 WEEKS = 500 - 68968' ' 4 - 5 WEEKS = 1000 - 73486' ' 5 - 6 WEEKS = 86064 - 495702' ' 6 - 8 WEEKS = 03910 - 877540' ' 8 - 12 WEEKS = 70712 - 872316' Performed By: #### 2 [id number] #### Freeman [facility] [address] [place] [address] CHEMISTRYOrdered By: SYSTEM SYSTEM on 03-19-2024 HCG.beta [...] 3 - 4 WEEKS = 500 - 24489' ' 4 - 5 WEEKS = 1000 - 66782' ' 5 - 6 WEEKS = 15007 - 186524' ' 6 - 8 WEEKS = 77861 - 610757' ' 8 - 12 WEEKS = 33647 - 523314' Progesterone Lvl 69.95 ng/mL Invalid Interpretation Code [...] Progesterone Lvl 69.95 ng/mL Invalid Interpretation Code [facility] Comment on above: Result Comment: 'F N ON FOLLICULAR = 0.10 - 0.60' 'LUTEAL = 3.00 - 17.5' 'MIDLUTEAL = 3.30 - 18.6' 'POST-MENOPAUSE = 0.10 - 0.40' '-FIRST TRIMESTER = 8.30 - 66.5' 'SECOND TRIMESTER = 18.9 - 66.1' 'THIRD TRIMESTER = 35.8 - 312.4' 'MALES = 0.14 - 2.06' Result Verified by Dilution Performed By: #### 2 [id number] #### Pete [facility] [address] [place] [address] [facility] Quanton 03-17-2024 HCG.beta subunit Qn 185 m[IU]/mL [facility] 1-3 [facility] Comment on above: Result Comment: 'F N ON < 1 - 3' ' 0.2 - 1 WEEK = 5 TO 50' ' 1 - 2 WEEKS = 50 - 500' ' 2 - 3 WEEKS = 100 - 5000' ' 3 - 4 WEEKS = 500 - 75593' ' 4 - 5 WEEKS = 1000 - 10560' ' 5 - 6 WEEKS = 96804 - 444013' ' 6 - 8 WEEKS = 05670 - 355038' ' 8 - 12 WEEKS = 69571 - 095197' Performed By: #### 2 [id number] #### Pete [facility] [address] [place] [address] CHEMISTRYOrdered By: SYSTEM SYSTEM on 03-17-2024 HCG.beta [...] 3 - 4 WEEKS = 500 - 92977' ' 4 - 5 WEEKS = 1000 - 05038' ' 5 - 6 WEEKS = 35716 - 669197' ' 6 - 8 WEEKS = 82863 - 763995' ' 8 - 12 WEEKS = 75895 - 623142' Progesterone Lvl 51.75 ng/mL Invalid Interpretation Code [...] Consent for Treatmenton 02-18 Consent for Treatment [id number]#1.00TIF F [facility] Physician Orderon 03-17-2024 Physician Order [id number]#1.00TI FF [facility] Progesteroneon 03-17-2024 Progesterone Lvl 51.75 ng/mL Invalid Interpretation Code [facility] Comment on above: Result Comment: 'F N ON FOLLICULAR = 0.10 - 0.60' 'LUTEAL = 3.00 - 17.5' 'MIDLUTEAL = 3.30 - 18.6' 'POST-MENOPAUSE = 0.10 - 0.40' '-FIRST TRIMESTER = 8.30 - 66.5' 'SECOND TRIMESTER = 18.9 - 66.1' 'THIRD TRIMESTER = 35.8 - 312.4' 'MALES = 0.14 - 2.06' Performed By: #### 2 [id number] #### [facility] [address] [place] [address] Physician Orderon 03-12-2024 Physician Order [id number]#1.00T IFF Normal [facility] CHEMISTRYOrdered By: SYSTEM SYSTEM on 03-07-2024 [...] Progesterone Lvl 20.59 ng/mL Invalid Interpretation Code [facility] Comment on above: Result Comment: 'F N ON FOLLICULAR = 0.10 - 0.60' 'LUTEAL = 3.00 - 17.5' 'MIDLUTEAL = 3.30 - 18.6' 'POST-MENOPAUSE = 0.10 - 0.40' '-FIRST TRIMESTER = 8.30 - 66.5' 'SECOND TRIMESTER = 18.9 - 66.1' 'THIRD TRIMESTER = 35.8 - 312.4' 'MALES = 0.14 - 2.06' Performed By: #### 2 [id number] #### [facility] [address] [place] [address] Progesteroneon 02-05-2024 Progesterone Lvl 20.64 ng/mL Invalid Interpretation Code [facility] Comment on above: Result Comment: 'F N ON FOLLICULAR = 0.10 - 0.60' 'LUTEAL = 3.00 - 17.5' 'MIDLUTEAL = 3.30 - 18.6' 'POST-MENOPAUSE = 0.10 - 0.40' '-FIRST TRIMESTER = 8.30 - 66.5' 'SECOND TRIMESTER = 18.9 - 66.1' 'THIRD TRIMESTER = 35.8 - 312.4' 'MALES = 0.14 - 2.06' Performed By: #### 2 [id number] #### [facility] [address] [place] [address] Progesteroneon 01-08-2024 Progesterone Lvl 18.23 ng/mL Invalid Interpretation Code [facility] Comment on above: Result Comment: 'F N ON FOLLICULAR = 0.10 - 0.60' 'LUTEAL = 3.00 - 17.5' 'MIDLUTEAL = 3.30 - 18.6' 'POST-MENOPAUSE = 0.10 - 0.40' '-FIRST TRIMESTER = 8.30 - 66.5' 'SECOND TRIMESTER = 18.9 - 66.1' 'THIRD TRIMESTER = 35.8 - 312.4' 'MALES = 0.14 - 2.06' Performed By: #### 2 [id number] #### [facility] [address] [place] [address] Consent for Treatmenton 11-19 Consent for Treatment [id number]#1.00TIF F Normal [facility] Physician Orderon 12-07-2023 Physician Order [id number]#1.00TI FF Normal [facility] Progesteroneon 12-07-2023 Progesterone Lvl 13.36 ng/mL Invalid Interpretation Code [facility] Comment on above: Result Comment: 'F N ON FOLLICULAR = 0.10 - 0.60' 'LUTEAL = 3.00 - 17.5' 'MIDLUTEAL = 3.30 - 18.6' 'POST-MENOPAUSE = 0.10 - 0.40' '-FIRST TRIMESTER = 8.30 - 66.5' 'SECOND TRIMESTER = 18.9 - 66.1' 'THIRD TRIMESTER = 35.8 - 312.4' 'MALES = 0.14 - 2.06' Performed By: #### 2 [id number] #### [facility] [address] [place] [address] DHEASon 11-14-2023 DHEA-S [Mass/Vol] 281.0 microgram/dL Invalid Interpretation Code 84.8-378.0 [facility] Comment on above: Result Comment: Perf ormed at: [address] [id number] PhD Padma Gleason Performed By: #### 2 [id number] #### [facility] [address] [place] [address] FSH and LHon 11-14-2023 Follitropin Qn 2.8 m[IU]/mL Invalid Interpretation Code [facility] Comment on above: Result Comment: Adul t Female Range Follicular phase 3.5 - 12.5 Ovulation phase 4.7 - 21.5 Luteal phase 1.7 - 7.7 Postmenopausal 25.8 - 134.8 Performed at: [address] [id number] PhD Padma Gleason Performed By: #### 2 [id number] #### [facility] [address] [place] [address] Lutropin Qn 2.9 m[IU]/mL Invalid Interpretation Code [facility] Comment on above: Result Comment: Adul t Female Range Follicular phase 2.4 - 12.6 Ovulation phase 14.0 - 95.6 Luteal phase 1.0 - 11.4 Postmenopausal 7.7 - 58.5 Performed By: #### 2 238898 #### [facility] [address] [place] [address] Auto Diffon 11-13-2023 Basophils/100 WBC (Bld) 0.2 % Normal 0.0-2.0 [facility] Comment on above: Order Comment: Order Added by Discern Expert. Performed By: #### 7 [id number], 05643665, 3103774, 8690840, 96128534, 8083983, 4514727 #### [facility] [address] [place] [address] Basophils/Leukocytes Auto (Bld) [Pure # fraction] 0.0 E9/L Normal 0.0-0.2 [facility] Comment on above: Order Comment: Order Added by Discern Expert. Performed By: #### 7 [id number], 64296355, 2632672, 0890672, 76508321, 3816614, 0554293 #### [facility] [address] [place] [address] Eosinophils/100 WBC (Bld) 1.0 % Normal 0.0-8.0 [facility] Comment on above: Order Comment: Order Added by Discern Expert. Performed By: #### 7 [id number], 31498364, 1525897, 9027587, 05333064, 7935327, 7992439 #### [facility] [address] [place] [address] Eosinophils/Leukocyt es Auto (Bld) [Pure # fraction] 0.1 E9/L Normal 0.0-0.5 [facility] Comment on above: Order Comment: Order Added by Farhan Expert. Performed By: #### 7 [id number], 14056585, 9466905, 3340633, 30634468, 0749291, 9310813 #### [facility] [address] [place] [address]99 Lymphocytes/100 WBC (Bld) 24.1 % Normal 14.0-50.0 [facility] Comment on above: Order Comment: Order Added by Farhan Expert. Performed By: #### 7 [id number], 31994900, 0988256, 7385325, 10977697, 4825820, 1441174 #### [facility] [address] [place] [address]2847 Lymphocytes/Leukocyt es Auto (Bld) [Pure # fraction] 1.7 E9/L Normal 1.0-4.0 [facility] Comment on above: Order Comment: Order Added by Farhan Expert. Performed By: #### 7 [id number], 68346243, 2991969, 1170453, 64995716, 7817568, 1852027 #### [facility] [address] [place] [address] 18136 Monocytes/100 WBC (Bld) 8.6 % Normal 4.0-14.0 [facility] Comment on above: Order Comment: Order Added by Discern Expert. Performed By: #### 7 15924615, 58420478, 9420335, 7986340, 21752756, 4980572, 8168664 #### [facility] [address] [place] [address] Monocytes/Leukocytes Auto (Bld) [Pure # fraction] 0.6 E9/L Normal 0.2-1.0 [facility] Comment on above: Order Comment: Order Added by Discern Expert. Performed By: #### 7 [id number], 25209190, 7677961, 6271769, 17601812, 6276023, 6098322 #### [facility] [address] [place] [address] Neutrophils/100 WBC (Bld) 66.1 % Normal 36.0-75.0 [facility] Comment on above: Order Comment: Order Added by Farhan Expert. Performed By: #### 7 [id number], 53412169, 6477286, 7376727, 55914083, 1367062, 5719945 #### [facility] [address] [place] [address] Neutrophils/Leukocyt es Auto (Bld) [Pure # fraction] 4.5 E9/L Normal 2.0-7.5 [facility] Comment on above: Order Comment: Order Added by Farhan Expert. Performed By: #### 7 [id number], 82819032, 8860771, 9875370, 05411503, 6792507, 1445345 #### [facility] [address] [place] [address] BhCG Quanton 11-13-2023 Beta hCG Qnt <1 Normal 1-3 [facility] Comment on above: Result Comment: 'F N ON < 1 - 3' ' 0.2 - 1 WEEK = 5 TO 50' ' 1 - 2 WEEKS = 50 - 500' ' 2 - 3 WEEKS = 100 - 5000' ' 3 - 4 WEEKS = 500 - 37015' ' 4 - 5 WEEKS = 1000 - 51298' ' 5 - 6 WEEKS = 50428 - 046767' ' 6 - 8 WEEKS = 02982 - ' ' 8 - 12 WEEKS = 63757 - 071024' Performed By: #### 2 727553 #### [facility] [address] [place] [address] CBC w/ Auto Diffon Erythrocyte distribution width (RBC) [Ratio] 13.8 % Normal 10.9-14.2 [facility] Comment on above: Performed By: #### 7 [id number], 45431688, 5473045, 0468673, 50955313, 5177430, 0297433 #### [facility] [address] [place] [address] Hematocrit (Bld) [Volume fraction] 39.9 % Normal 34.0-46.0 [facility] Comment on above: Performed By: #### 7 80312549, 45327627, 8828729, 8027630, 80957124, 9305784, 4550370 #### [facility] [address] [place] [address] 86[address] Hemoglobin (Bld) [Mass/Vol] 13.1 g/dL Normal 12.0-16.0 [facility] Comment on above: Performed By: #### 7 95273025, 50977152, 5501892, 2174382, 37288830, 2463775, 4637043 #### [facility] [address] [place] [address] 50543 MCH (RBC) [Entitic mass] 27.5 pg Normal 27.0-34.0 [facility] Comment on above: Performed By: #### 7 [id number], 64550252, 2249900, 7189275, 54268208, 6136998, 4262777 #### [facility] [address] [place] [address] 72910 MCHC (RBC) [Mass/Vol] 32.9 g/dL Normal 31.4-36.0 [facility] Comment on above: Performed By: #### 7 00630090, 06160448, 1192962, 6721981, 60748552, 4819103, 7599940 #### [facility] [address] [place] [address] MCV (RBC) [Entitic vol] 83.5 fL Normal 80.0-100.0 [facility] Comment on above: Performed By: #### 7 39008026, 72502160, 5507733, 3429606, 02886675, 6030233, 6045932 #### [facility] [address] [place] [address] Platelet mean volume (Bld) [Entitic vol] 9.3 fL Normal 6.4-10.8 [facility] Comment on above: Performed By: #### 7 71374478, 44534224, 5698690, 3129197, 58490722, 4056910, 2636416 #### [facility] [address] [place] [address] 93716 Platelets (Bld) [#/Vol] 249.0 E9/L Normal 150.0-500.0 [facility] Comment on above: Performed By: #### 7 38562327, 77996497, 7573408, 3061054, 78339184, 0965662, 0744686 #### [facility] [address] [place] [address] 60[address] RBC (Bld) [#/Vol] 4.8 E12/L Normal 4.3-5.9 [facility] Comment on above: Performed By: #### 7 89127930, 46525576, 8908639, 7745625, 62944676, 5476557, 7415449 #### [facility] [address] [place] [address] WBC corrected for nucl RBC Auto (Bld) [#/Vol] 6.8 E9/L Normal 4.0-11.0 [facility] Comment on above: Performed By: #### 7 26545697, 59607276, 1176743, 8215005, 35871817, 9464554, 2336521 #### [facility] [address] [place] [address] CHEMISTRYOrdered By: SYSTEM SYSTEM on 11-13-2023 Beta [...] 3 - 4 WEEKS = 500 - 53479' ' 4 - 5 WEEKS = 1000 - 09771' ' 5 - 6 WEEKS = 83502 - 634588' ' 6 - 8 WEEKS = 76209 - 851103' ' 8 - 12 WEEKS = 38477 - 415218' Free T4 [Mass/Vol] 0.96 ng/dL Normal 0.58 - 1. 64 ng/dL Remisol Chem TSH Qn 1.38 m[IU]/L Normal 0.34 - 5.60 mcIU/mL [facility] CHEMISTRYOrdered By: Adolph Mcnair on 11-13-2023 HbA1c (Bld) [Mass fraction] 5.0 % Normal <=5.9% [facility] ChemAutoSS Consent for Treatmenton 10-20 Consent for Treatment [id number] F Normal [facility] Free T4on 11-13-2023 Free T4 [Mass/Vol] 0.96 ng/dL Normal 0.58-1.64 [facility] Comment on above: Performed By: #### 7 [id number], 77296260, 6897842, 3120373, 13374672, 8008674, 0814358 #### [facility] [address] [place] [address] HEMATOLOGYOrdered By: SYSTEM SYSTEM on 11-13-2023 Basophils/100 [...] Normal 4.0 - 11.0 E9/L [facility] HemeAutoSS [id number] 11-13-2023 HbA1c (Bld) [Mass fraction] 5.0 % Normal <=5.9 [facility] Comment on above: Performed By: #### 7 [id number], 37608168, 4804411, 5260348, 06431518, 6482047, 4055350 #### [facility] [address] [place] [address] TSHon 11-13-2023 TSH Qn 1.38 m[IU]/L Normal 0.34-5.60 [facility] Comment on above: Performed By: #### 7 04225167, 76005938, 1024562, 0681478, 59831579, 0128475, 5058902 #### [facility] [address] [place] [address] Laboratory - Chemistry and C hemistry - [...] 21 to 28on 01-31-2022 . . Normal [facility] Comment on above: Performed By: #### 4 [id number] #### [facility] [address] [place] [address] Dr. Tobi Phelps Age Gdln ACOG Testing 20- [facility] Comment on above: Performed By: #### 4 912538 #### [facility] [address] [address] [address] Tobi Phelps DIAGNOSIS: Comment [facility] Comment on above: Result Comment: NEGA TIVE FOR INTRAEPITHELIAL LESION OR MALIGNANCY. Performed By: #### 4 329966 #### [facility] [address] [place] [address] Dr. Tobi Phelps Methodology: Comment [facility] Comment on above: Result Comment: This liquid based ThinPrep(R) pap test was screened with the use of an image guided system. Performed By: #### 4 [id number] #### [facility] [address] [place] [address] Dr. Tobi Phelps Note: Comment [facility] Comment on above: Result Comment: The Pap smear is a screening test designed to aid in the detection of premalignant and malignant conditions of the uterine cervix. It is not a diagnostic procedure and should not be used as the sole means of detecting cervical cancer. Both false-positive and false-negative reports do occur. . Performed By: #### 4 [id number] #### [facility] [address] [place] [address] Dr. Tobi Phelps Performed by: Comment Normal [facility] Comment on above: Result Comment: Elvis Gutierrez, Oleo Hasher And Renderer (ASCP) Performed By: #### 4 [id number] #### [facility] [address] [place] [address] Dr. Tobi Phelps Reflex Criteria: Comment [facility] Comment on above: Result Comment: The HPV DNA reflex criteria were not met with this specimen result therefore, no HPV testing was performed. . Performed By: #### 4 [id number] #### [facility] [address] [place], [place] [address] Dr. Tobi Phelps Specimen adequacy: Comment Normal [facility] Comment on above: Result Comment: Sati sfactory for evaluation. Endocervical and/or squamous metaplastic cells (endocervical component) are present. Performed By: #### 4 [id number] #### [facility] [address] [place], [place] [address] Dr. Tobi Phelps [employer] [facility] LT[facility] 03-25 [facility] * * *Final Report* * *DATE OF EXAM: Mar 25 2018 2:21PM [facility] [id number] - [employer] [facility] [employer] [facility] / REASON: Benign breast lumps * * * * Physician Interpretation * * * *RESULT: #[id number] - Datometry LTULTRASOUND OF LEFT BREAST: 03/25/2018HISTORY: Benign Breast [...] made to exam dated: 10/29/2013 ultrasound - [facility].Real-time ultrasound of the left breast was performed.There [...] guidelines.Kj Lancaster M.D.ls/penrad:03/25/2018 14:31:28Imaging Technologist: Mirta SCHRADER)(Cris), [facility] BI-RADS: 2 Benign findingTranscribed Using Voice RecognitionTranscribe Date/Time: Mar 25 2018 2:21PDictated by: KJ LANCASTER MDThis examination was interpreted and the report reviewed and electronically signed by: KJ LANCASTER MD on Mar 25 2018 2:31PM [id number] N Normal [facility] BREAST LTD RTon 03-25 [facility] Aginova BREAST CopyRightNow RT * * *Final Report* * *DATE OF EXAM: Mar 25 2018 2:21PM [id number] - [employer] BREAST CopyRightNow RT / REASON: Benign breast lumps * * * * Physician Interpretation * * * *RESULT: #[id number] - SALLY CommitChange RTULTRASOUND OF RIGHT BREAST: 03/25/2018HISTORY: Benign Breast [...] full detail.Kj Lancaster M.D.ls/penrad:03/25/2018 14:34:44Imaging Technologist: Mirta SCHRADER)(Cris), [facility] BI-RADS: 1 NegativeTranscribed Using Voice RecognitionTranscribe Date/Time: Mar 25 2018 2:21PDictated by: KJ LANCSATER MDThis examination was interpreted and the report reviewed and electronically signed by: KJ LANCASTER MD on Mar 25 2018 2:34PM [id number] [facility] Vital Signs Date Time Vital Sign Value Performing Clinician Faci lity 10-08-2024 08:52-0500 Body mass index (BMI) [Ratio] 28.04 kg/m2 Vianey Lovingston PA Work Phone: [facility] 10-08-2024 08:52-0500 Body weight 81.19 kg Vianey Lovingston PA Work Phone: [facility] 10-08-2024 08:52-0500 Diastolic blood pressure 70 mm[Hg] Vianey Lovingston PA Work Phone: [facility] 10-08-2024 08:52-0500 Systolic blood pressure 116 mm[Hg] Vianey Diaz PA Work Phone: [facility] 09-24-2024 09:36-0500 Body mass index (BMI) [Ratio] 27.72 kg/m2 Vianey Diaz PA Work Phone: [facility] 09-24-2024 09:36-0500 Body weight 80.29 kg Vianey Diaz PA Work Phone: [facility] 09-24-2024 09:36-0500 Diastolic blood pressure 64 mm[Hg] Vianey Lovingston PA Work Phone: [facility] 09-24-2024 09:36-0500 Systolic blood pressure 114 mm[Hg] Vianey Lovingston PA Work Phone: [facility] 09-10-2024 12:59-0400 Body mass index (BMI) [Ratio] 27.57 kg/m2 Clifton France DO Work Phone: [facility] 09-10-2024 12:59-0400 Body weight 79.83 kg Clifton France DO Work Phone: [facility] 09-10-2024 12:59-0400 Diastolic blood pressure 70 mm[Hg] Clifton France DO Work Phone: [facility] 09-10-2024 12:59-0400 Systolic blood pressure 120 mm[Hg] Clifton France DO Work Phone: [facility] 08-27-2024 08:44-0400 Body mass index (BMI) [Ratio] 27.13 kg/m2 Vianey SHIRLEY Work Phone: [facility] 08-27-2024 08:44-0400 Body weight 78.59 kg Vianey Perales PA Work Phone: [facility] 08-27-2024 08:44-0400 Diastolic blood pressure 78 mm[Hg] Vianey SHIRLEY Work Phone: [facility] 08-27-2024 08:44-0400 Systolic blood pressure 118 mm[Hg] Vianey SHIRLEY Work Phone: [facility] Encounters Encounter Date Encounter Type Care Provider Facility Start: 10-08-2024 End: 10-08-2024 Bamboo flowsheet Vianey SHIRLEY Work Phone: [facility] Start: 10-08-2024 End: 10-08-2024 Bamboo flowsheet Vianey SHIRLEY Work Phone: [facility] Start: 10-08-2024 End: 10-08-2024 flow sheet Vianey SHIRLEY Work Phone: [facility] Comment on above: 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; 32 weeks gestation of Start: 10-08-2024 End: 10-08-2024 ambulatory VIANEY PERALES Not Available Start: 09-24-2024 End: 09-24-2024 Bamboo flowsheet Vianey Perales PA Work Phone: [facility] Start: 09-24-2024 End: 09-24-2024 Bamboo flowsheet Vianey SHIRELY Work Phone: [facility] Start: 09-24-2024 End: 09-24-2024 flow sheet Vianey SHIRLEY Work Phone: [facility] Comment on above: 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; 31 weeks gestation of ; Iron deficiency anemia, unspecified iron deficiency anemia type Start: 09-24-2024 End: 09-24-2024 ambulatory VIANEY PERALES Not Available Start: 09-10-2024 End: 09-10-2024 Bamboo flowsheet Clifton France DO Work Phone: [facility] Start: 09-10-2024 End: 09-10-2024 Bamboo flowsheet Clifton France DO Work Phone: [facility] Start: 09-10-2024 End: 09-10-2024 flow sheet Clifton France DO Work Phone: [facility] Comment on above: 29 weeks gestation o f (Primary Dx); Third trimester ; Excessive growth affecting management of , antepartum, single or unspecified fetus Start: 09-10-2024 End: 09-10-2024 ambulatory CLIFTON FRANCE Not Available Start: 08-27-2024 End: 08-27-2024 Bamboo flowsheet Vianey SHIRLEY Work Phone: [facility] Start: 08-27-2024 End: 08-27-2024 Bamboo flowsheet Vianey SHIRLEY Work Phone: [facility] Start: 08-27-2024 End: 08-27-2024 flow sheet Vianey SHIRLEY Work Phone: [facility] Comment on above: 27 weeks gestation o f ; Second trimester ; Iron deficiency anemia, unspecified iron deficiency anemia type Start: 08-27-2024 End: 08-27-2024 ambulatory VIANEY PERALES Not Available Start: 08-15-2024 ambulatory Nadir Zhou y:[facility] Start: 07-30-2024 End: 07-30-2024 ambulatory CLIFTON FRANCE Not Available Start: 07-02-2024 End: 07-02-2024 ambulatory CLIFTON FRANCE Not Available Start: 06-18-2024 End: 06-18-2024 ambulatory VIANEY PERALES Not Available Start: 05-21-2024 End: 05-21-2024 ambulatory CLIFTON FRANCE Not Available Start: 04-18-2024 End: 04-18-2024 ambulatory NHUNG RIVERO Not Available Start: 03-17-2024 End: 03-17-2024 ambulatory Clifton R FRANCE Facility:[facility] Start: 03-17-2024 End: 03-17-2024 Patient encounter procedure Clifton R FRANCE [facility] Start: 12-19-2023 End: 12-19-2023 ambulatory NHUNG RIVERO Not Available Start: 12-07-2023 End: 06-17-2024 ambulatory Clifton R FRANCE Facility:[facility] Start: 12-07-2023 End: 06-17-2024 Recurring Clifton R FRANCE [facility] Start: 11-13-2023 End: 11-13-2023 ambulatory Clifton R FRANCE Facility:[facility] Start: 11-13-2023 End: 11-13-2023 Patient encounter procedure Clifton R FRANCE [facility] Start: 10-24-2023 End: 10-24-2023 ambulatory CLIFTON FRANCE Not Available Start: 04-11-2023 End: 06-17-2024 Recurring Clifton R FRANCE [facility] Start: 01-25-2022 End: 01-25-[address] CLIFTON HOUGH Facility: Start: 08-02-2021 End: 08-02-2021 ambulatory Lance SHIRLEY Facility:[facility] Start: 12-10-2018 End: 12-11-2018 Patient encounter procedure PA NEWBERRY Facility:[facility] Start: 12-05-2018 End: 12-06-2018 Patient encounter procedure DEFAULT PHYSICIAN Facility:[facility] Start: 03-25-2018 Ambulatory [facility] Procedures Date Procedure Procedure Detail Performing Clinician Start: 09-24-2024 Urnls dip stick/tabl et rgnt non-auto w/o micrscp Vianey SHIRLEY Work Phone: Start: 09-10-2024 Urnls dip stick/tabl et rgnt non-auto w/o micrscp Clifton oHugh DO Work Phone: Start: 08-27-2024 Urnls dip stick/tabl et rgnt non-auto w/o micrscp Vianey SHIRLEY Work Phone: Start: 07-11-2023 Microscopic observat ion [Identifier] in Cervix by Cyto stain Vianey SHIRLEY Work Phone: Plan of Treatment Date Care Activity Detail Author Start: 07-11-2028 Screening for malign ant neoplasm of cervix HPV/Cotest [facility] Start: 07-11-2026 Screening for malign ant neoplasm of cervix [facility] Start: 10-29-2024 End: 10-29-2024 Patient encounter procedure 10/29/2024 11:30 AM EST Routine [facility] [address] [place] [id number] Clifton Hough DO [address] [place] [address] [facility] Start: 10-22-2024 End: 10-22-2024 Patient encounter procedure 10/22/2024 8:50 AM EST Routine [facility] [address] [place] [id number] Vianey Perales PA [address] [place] [address] [facility] Start: 10-22-2024 End: 10-22-2024 Professional / ancillary services management 10/22/2024 8:00 AM EST Ancillary Procedure [facility] [address] [place] [phone] [facility] Start: 10-08-2024 End: 10-08-2024 Patient encounter procedure [facility] Comment on above: Arrived Start: 09-24-2024 End: 09-24-2024 Patient encounter procedure [facility] Comment on above: Arrived Start: 09-24-2024 End: 09-24-2024 Professional / ancillary services management 09/24/2024 9:00 AM EST Ancillary Procedure [facility] [address] [place] [phone] [facility] Start: 09-10-2024 End: 09-10-2025 US for US OB SCAN FOR GROWTH Imaging Routine Excessive growth affecting management of , antepartum, single or unspecified fetus Expected: 09/10/2024 (Approximate), Expires: 09/10/2025 [facility] Work Phone: Comment on above: Expected: 09/10/2024 (Approximate), Expires: 09/10/2025 Start: 09-10-2024 End: 09-10-2024 Patient encounter procedure [facility] Comment on above: Arrived Start: 08-27-2024 End: 08-27-2024 Patient encounter procedure 08/27/2024 8:30 AM EDT Routine [facility] [address] [facility] [place] [phone] Vianey Perales PA [address] [place] [address] Arrived [facility] Comment on above: Arrived Start: 07-20-2024 Influenza vaccination Influenza Vacc ine (#1) [facility] Immunizations Immunization Date Immunization Notes Care Provider Fa cility 09-02-2024 influenza virus vaccine, unspecified formulation Clifton France DO Work Phone: [facility] 09-06-2023 influenza virus vaccine, unspecified formulation Clifton FRANCE [facility] Comment on above: Reason for Medicatio n: Prophylaxis 09-12-2022 influenza virus vaccine, unspecified formulation Clifton FRANCE [facility] Comment on above: Reason for Medicatio n: Prophylaxis 09-12-2022 influenza, injectabl e, quadrivalent, preservative free Clifton FRANCE [facility] 04-28-2021 COVID-19, mRNA, LNP- S, PF, 30 mcg/0.3 mL dose Clifton FRANCE [facility] Comment on above: Reason for Medicatio n: Prophylaxis 04-06-2021 COVID-19, mRNA, LNP- S, PF, 30 mcg/0.3 mL dose Clifton FRANCE [facility] Comment on above: Reason for Medicatio n: Prophylaxis Payers Date Payer Category Payer Private Health Insurance [employer] [id number] 2023 Unknown [id number] 2022 Unknown [id number] 2021 Unknown 1994 Unknown [id number] 2.840.1.377089.3.579.2. 647 1994 Unknown [id number] 2.16840.1.575980.3.579.2. 647 1994 Unknown [id number] 2.16840.1.533970.3.579.2. 593 1994 Unknown [id number] 2.16840.1.775229.3.579.2. 727 1994 Unknown [id number] 2.840.1.851792.3.579.2. 727 1994 Unknown [id number] 2.16.840.1.275430.3.579.2. 727 1994 Unknown [id number] 2.16.840.1.819655.3.579.2. 727 1994 Unknown [id number] 2.16.840.1.265018.3.579.2. 718 1994 Unknown [id number] 2.16.840.1.382723.3.579.2. 1258 1994 Unknown [id number] 2.16.840.1.998485.3.579.2. 9 1994 Unknown [id number] 2.16.840.1.839940.3.579.2. 1258 1994 Unknown [id number] 2.16.840.1.797782.3.579.2. 1258 1994 Unknown [id number] 2.16.840.1.730205.3.579.2. 1258 1994 Unknown [id number] 2.16.840.1.709623.3.579.2. 1258 1994 Unknown [id number] 2.16.840.1.590472.3.579.2. 1258 1994 Unknown [id number] 2.16.840.1.248860.3.579.2. 9 1994 Unknown [id number] 2.16.840.1.598937.3.579.2. 1258 1994 Unknown [id number] 2.16.840.1.370030.3.579.2. 1258 1994 Unknown [id number] 2.16.840.1.119234.3.579.2. 9 1959 Unknown [id number] Unknown [id number] Social History Date Type Detail Facility Start: 07-21-2021 End: 04-11-2023 Tobacco smoking status Never smoked tobacco (finding) [facility] Tobacco smoking status Never [facility] Start: 09-12-2023 End: 10-24-2023 Sex Assigned At Female [facility] Start: 04-11-2023 Tobacco use and exposure Smokeless tobacco non-user [facility] Start: 07-30-2024 End: 09-10-2024 Alcoholic beverage intake Ex-drinker (finding) [facility] Start: 10-24-2023 End: 07-30-2024 Alcoholic beverage intake [facility] Start: 03-03-2024 [facility] Start: 1995 Sex assigned at Female [facility] Start: 04-10-2023 Gender identity Identifies as female gender (finding) [facility] Goals Date Patient Goal Desired Activity /State Personal health goal Clinical Notes 11-13-2023 to 10-08-2024 CASPER Weiss - 10/08/2024 8:30 AM CASPER Gil - 09/24/2024 9:30 AM Ant Wise LPN - 09/10/2024 1:00 PM CASPER Sheldon - 08/27/2024 8:30 AM EDT Note Date & Type Note Facility 10-08-2024 History of Present illness Narrative Reason for Appointment: Patient ID: Mary Salas is a 29 y.o. female who presents for Routine Visit Patient presents today for Return OB appointment. 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 HENT: Negative. Eyes: Negative. Respiratory: Negative. Cardiovascular: Negative. Gastrointestinal: Negative. Genitourinary: Negative. Musculoskeletal: Negative. Skin: Negative. Neurological: Negative. All other systems reviewed and are negative. Hematological: Negative. Endocrine: Negative. Allergic/Immunologic: Negative. OBJECTIVE Objective: Physical Exam Constitutional: Appearance: Normal appearance. She is normal weight. HENT: Head: Normocephalic. Cardiovascular: Rate and Rhythm: Normal rate. Pulses: Normal pulses. Pulmonary: Effort: Pulmonary effort is normal. Breath sounds: Normal breath sounds. Abdominal: Palpations: Abdomen is soft. Musculoskeletal: General: Normal range of motion. Neurological: General: No focal deficit present. Mental Status: She is alert and oriented to person, place, and time. Psychiatric: Mood and Affect: Mood normal. Behavior: Behavior normal. Thought Content: Thought content normal. Judgment: Judgment normal. Vitals and nursing note reviewed. Vitals: Estimated body mass index is 27.72 kg/m as calculated from the following: Height as of 06/06/23: 5' 7 . Weight as of 09/24/24: 177 lb. BP: Patient's last menstrual period was 02/18/2024. ASSESSMENT & PLAN ICD-10-CM 1. Third trimester Z34.93 2. 32 weeks gestation of Z3A.32 Return OB: Patient presents today for a routine obstetrics appointment. Patient is currently 33w2d . Patient states she is doing well but has complaints of being tired due to current . Patient has verbalizes frequent movement. labor precautions was discussed/given and patient was instructed to perform kick counts three times a day. No orders of the defined types were placed in this encounter. Follow Up: Patient is to return to office in 2 week for routine OB appointment. Documented by Danielle Henderson MA on behalf of: CASPER Weiss documented in this encounter [facility] 09-24-2024 History of Present illness Narrative Reason for Appointment: Patient ID: Mary Salas is a 29 y.o. female who presents for Routine Visit Patient presents today for Return OB appointment. 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 HENT: Negative. Eyes: Negative. Respiratory: Negative. Cardiovascular: Negative. Gastrointestinal: Negative. Genitourinary: Negative. Musculoskeletal: Negative. Skin: Negative. Neurological: Negative. All other systems reviewed and are negative. Hematological: Negative. Endocrine: Negative. Allergic/Immunologic: Negative. OBJECTIVE Objective: Physical Exam Constitutional: Appearance: Normal appearance. She is normal weight. HENT: Head: Normocephalic. Cardiovascular: Rate and Rhythm: Normal rate. Pulses: Normal pulses. Pulmonary: Effort: Pulmonary effort is normal. Breath sounds: Normal breath sounds. Abdominal: Palpations: Abdomen is soft. Musculoskeletal: General: Normal range of motion. Neurological: General: No focal deficit present. Mental Status: She is alert and oriented to person, place, and time. Psychiatric: Mood and Affect: Mood normal. Behavior: Behavior normal. Thought Content: Thought content normal. Judgment: Judgment normal. Vitals and nursing note reviewed. Vitals: Estimated body mass index is 27.72 kg/m as calculated from the following: Height as of 06/06/23: 5' 7 . Weight as of this encounter: 177 lb. BP: 114/64 Patient's last menstrual period was 02/18/2024. ASSESSMENT & PLAN ICD-10-CM 1. Third trimester Z34.93 POCT urinalysis dipstick manually resulted 2. 31 weeks gestation of Z3A.31 3. Iron deficiency anemia, unspecified iron deficiency anemia type D50.9 iron polysaccharides (ProFe) 391.3 (180 Fe) MG capsule Return OB: Patient presents today for a routine obstetrics appointment. Patient is currently 31w2d . Patient states she is doing well but has complaints of being tired due to current . Patient has verbalizes frequent movement. labor precautions was discussed/given and patient was instructed to perform kick counts three times a day. Orders Placed This Encounter Procedures POCT urinalysis dipstick manually resulted Follow Up: Patient is to return to office in 2 week for routine OB appointment. Documented by CASPER Weiss on behalf of: CASPER Weiss documented in this encounter [facility] 09-10-2024 History of Present illness Narrative Reason for Appointment: Patient ID: Mary Salas is a 29 y.o. female who presents for Routine Visit Patient presents today for Return OB appointment. 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 HENT: Negative. Eyes: Negative. Respiratory: Negative. Cardiovascular: Negative. Gastrointestinal: Negative. Genitourinary: Negative. Musculoskeletal: Negative. Skin: Negative. Neurological: Negative. All other systems reviewed and are negative. Hematological: Negative. Endocrine: Negative. Allergic/Immunologic: Negative. OBJECTIVE Objective: Physical Exam Constitutional: Appearance: Normal appearance. She is well-developed. Cardiovascular: Rate and Rhythm: Normal rate and regular rhythm. Pulmonary: Effort: Pulmonary effort is normal. Breath sounds: Normal breath sounds. Abdominal: General: Bowel sounds are normal. There is no distension. Palpations: Abdomen is soft. Tenderness: There is no abdominal tenderness. There is no guarding or rebound. Musculoskeletal: General: No swelling. Normal range of motion. Right lower leg: No edema. Left lower leg: No edema. Neurological: Mental Status: She is alert and oriented to person, place, and time. Skin: General: Skin is warm and dry. Psychiatric: Mood and Affect: Mood normal. Behavior: Behavior normal. Vitals and nursing note reviewed. Exam conducted with a channeling machine operator present. Vitals: Estimated body mass index is 27.57 kg/m as calculated from the following: Height as of 06/06/23: 5' 7 . Weight as of this encounter: 176 lb. BP: 120/70 Patient's last menstrual period was 02/18/2024. ASSESSMENT & PLAN ICD-10-CM 1. 29 weeks gestation of Z3A.29 2. Third trimester Z34.93 POCT urinalysis dipstick manually resulted Return OB: Patient presents today for a routine obstetrics appointment. Patient is currently 29w2d . Patient states she is doing well but has complaints of being tired due to current . Patient has verbalizes frequent movement. labor precautions was discussed/given and patient was instructed to perform kick counts three times a day. GIVEN GROWTH FOR TWO WEEKS. Orders Placed This Encounter Procedures POCT urinalysis dipstick manually resulted Follow Up: Patient is to return to office in 2 week for routine OB appointment. Documented by Karina Wise LPN on behalf of: Clifton Hough DO documented in this encounter [facility] 08-27-2024 History of Present illness Narrative Reason for Appointment: Patient ID: Mary Salas is a 29 y.o. female who presents for Routine Visit Patient presents today for Return OB appointment. 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 HENT: Negative. Eyes: Negative. Respiratory: Negative. Cardiovascular: Negative. Gastrointestinal: Negative. Genitourinary: Negative. Musculoskeletal: Negative. Skin: Negative. Neurological: Negative. All other systems reviewed and are negative. Hematological: Negative. Endocrine: Negative. Allergic/Immunologic: Negative. OBJECTIVE Objective: Physical Exam Constitutional: Appearance: Normal appearance. She is normal weight. HENT: Head: Normocephalic. Cardiovascular: Rate and Rhythm: Normal rate. Pulses: Normal pulses. Pulmonary: Effort: Pulmonary effort is normal. Breath sounds: Normal breath sounds. Abdominal: Palpations: Abdomen is soft. Musculoskeletal: General: Normal range of motion. Neurological: General: No focal deficit present. Mental Status: She is alert and oriented to person, place, and time. Psychiatric: Mood and Affect: Mood normal. Behavior: Behavior normal. Thought Content: Thought content normal. Judgment: Judgment normal. Vitals and nursing note reviewed. Vitals: Estimated body mass index is 27.13 kg/m as calculated from the following: Height as of 06/06/23: 5' 7 . Weight as of this encounter: 173 lb 4 oz. BP: Patient's last menstrual period was 02/18/2024. ASSESSMENT & PLAN ICD-10-CM 1. 27 weeks gestation of Z3A.27 POCT urinalysis dipstick manually resulted 2. Second trimester Z34.92 POCT urinalysis dipstick manually resulted Return OB: Patient presents today for a routine obstetrics appointment. Patient is currently 27w2d . Patient states she is doing well but has complaints of being tired due to current . Patient has verbalizes frequent movement. Orders Placed This Encounter Procedures POCT urinalysis dipstick manually resulted Follow Up: Patient is to return to office in 2 weeks for routine OB appointment. Documented by Christal Mishra on behalf of: CASPER Weiss documented in this encounter [facility] 11-13[facility]2023 Evaluation + [facility]23 [facility] Evaluation + Plan note No data available for this section [facility] Evaluation note Diagnosis 27 weeks gestation of Second trimester state, incidental Iron deficiency anemia, unspecified iron deficiency anemia type [facility] Diagnosis 29 weeks gestation of - Primary Third trimester state, incidental Excessive growth affecting management of , antepartum, single or unspecified fetus [facility] Diagnosis Third trimester state, incidental 31 weeks gestation of Iron deficiency anemia, unspecified iron deficiency anemia type [facility] Diagnosis Third trimester state, incidental 32 weeks gestation of [facility] No data available for this section [facility] available for this section [facility] Summary Purpose Family History No [...] section and content) DATE CREATED AUTHOR 05/09/2018 [facility] DATE CREATED AUTHOR AUTHOR'S ORGANIZ ATION 12/13/[address] [facility] DATE CREATED AUTHOR AUTHOR'S ORGANIZ ATION 02/01/2022 [facility] DATE CREATED AUTHOR AUTHOR'S ORGANIZ ATION 08/16/2024 [facility] DATE CREATED AUTHOR AUTHOR'S ORGANIZ ATION 08/30/2024 [facility] DATE CREATED AUTHOR AUTHOR'S ORGANIZ ATION 10/10/2024 [facility] EPIC Patient Care team informatio n (unrecognized section and content) Plant Cytologist Relationship Specialty Start Date End Date Unallocated, [place] [address] PCP - General 09/12/23 Plant Cytologist Relationship Specialty Start Date End Date Unallocated, MD Rogelio Kincaid [facility] [place] [address] PCP - General 09/12/23 Plant Cytologist Relationship Specialty Start Date End Date Unallocated, Darleen Mcclelland [place] [address] PCP - General 09/12/23 Plant Cytologist Relationship Specialty Start Date End Date Unallocated, Darleen Mcclelland MD Rogelio [address] [place] [address] PCP - General 09/12/23 Plant Cytologist Relationship Specialty Start Date End Date Unallocated, Darleen Mcclelland MD [place] [address] PCP - General 09/12/23 Reason for Visit (unrecogniz ed section and content) Reason Comments Routine Visit FOR RECORDS PERTAINING TO PATIENTS WHO ARE [...] BE BASED ON THE PRIMARY CLINICAL RECORDS. [facility] [employer] [facility]. provides no warranty or guarantee of the accuracy or completeness of information in this document.
== END 2024-10-22 08:05 | disposition home or self-care (01) ==
LOC: NOMS 08:04
PROVIDERS: Visit Provider Obstetrics & Gynecology
DX: O36.63X0 Maternal care for excessive fetal growth, third trimester, not applicable or unspecified (principal); Z3A.35 35 weeks gestation of pregnancy
CPT/HCPCS: 76816

== ENCOUNTER 2024-10-29 19:15 | Outpatient (REF) | payer OTHER, SELFPAY ==
--- OUTSIDE RECORDS SUMMARY | 2024-10-29 19:21 | XMS_ITS | CCD ---
Author Organization [facility] Care Team Providers Care Director [facility] Name Role Phone VILLALOBOS, DINKAR Unavailable Unavailable VILLALOBOS, DINKAR Unavailable Unavailable PHYSICIAN, DEFAULT Admitting Unavailable PHYSICIAN, DEFAULT Attending Unavailable ROHITH, PA R Admitting Unavailable ROHITH, PA R Attending Unavailable SELF, REFERRED Referring Unavailable SELF, REFERRED Primary Care Unavailable FRANCE, DR LAZO Attending Unavailable FRANCE, DR LAZO Consulting Unavailable FRANCE, DR LAZO Admitting Unavailable Jesica Jamison Primary Care Physician [phone] FRANCE, Clifton R Admitting Unavailable FRANCE, Clifton [...] CLIFTON Attending Unavailable FRANCE, CLIFTON Attending Unavailable DIAZ, VIANEY Attending Unavailable FRANCE, CLIFTON Attending Unavailable FRANCE, CLIFTON Attending Unavailable DIAZ, VIANEY Attending Unavailable FRANCE, CLIFTON Attending Unavailable DIAZ, VIANEY Attending Unavailable DIAZ, VIANEY Attending Unavailable DIAZ, VIANEY Attending Unavailable Allergies Allergy Classification Reported Allergen(s) Allergy Type Date of Onset Reaction(s) Facility (1 source) No Known Medication Allergies; Translations: [No Known Medication Allergies] Propensity to adverse reactions to drug (disorder) [facility] Repository Medications Current Medications Medication Drug Class(es) Dates Sig (Normalized) Sig (Original) polysaccharide iron complex 391 mg oral capsule (16 sources) Start: 08-27-2024 End: 04-22-2025 take 1 [...] 09-10-2024 Episodic Other and delivery including normal (10 sources) Second trimester ; Translations: [Encounter for [...] [32 weeks gestation of ] 10-08-2024 Episodic Residual codes; unclassified (2 sources) Gestation period, 35 weeks; Translations: [35 weeks gestation of ] 10-22-2024 Episodic Spontaneous (2 sources) Complete inevitable miscarriage without complication; Translations: [Complete or unspecified spontaneous without complication] Episodic Unclassified (1 source) Unknown / UNK(Unknown) Onset: 03-25-2018 Unclassified (2 sources) DX Onset: 12-10-2018 Unclassified (15 sources) OB Reminders Onset: 04-30-2024 04-30-2024 Past or Other Problems Problem Classification Problem Date Documented Da te Episodic/Chronic NEGATED: Highlighted row has been ruled out!Unclassified (15 sources) No known active problems 09-12-2023 Results Test Name Value Interpretation Reference Range Facility Urinalysis macro (dipstick) panel (U)on 10-22-2024 Bilirubin, UA Negative Negative - 4(70) +++ mg/dL [facility] Blood, UA Negative Negative - 50 Quinton/mcL [facility] Healthcare Clarity, UA Clear [facility] Color, UA Yellow [facility] Glucose, UA Negative Negative - 1999(110) ++++ mg/dL [facility] Interpretation and review of laboratory results Abnormal [facility] Ketones, UA Negative Negative - 160(16) ++++ mg/dL [facility] Leukocytes, UA Negative Negative - 500+++ Raquel/mcL [facility] Nitrite, UA Negative Negative - Positive [facility] pH, UA 6.5 5 - 9 [facility] Protein, UA Negative Negative - 1999(20) ++++ mg/dL [facility] Spec Grav, UA 1.015 1 - 1.03 [facility] Urobilinogen, UA 0.2 0.2 - 12 mg/dL [facility] Healthcare [facility] Urinalysis macro (dipstick) panel (U)on 09-24-2024 Bilirubin, UA Negative Negative - 4(70) +++ mg/dL [facility] Blood, UA Negative Negative - 50 Quinton/mcL [facility] Clarity, UA Clear [facility] Color, UA Yellow [facility] Glucose, UA Negative Negative - 1999(110) ++++ mg/dL [facility] Interpretation and review of laboratory results Normal [facility] Ketones, UA Negative Negative - 160(16) ++++ mg/dL [facility] Leukocytes, UA Negative Negative - 500+++ Raquel/mcL [facility] Nitrite, UA Negative Negative - Positive [facility] pH, UA 6 5 - 9 [facility] Protein, UA Negative Negative - 1999(20) ++++ mg/dL [facility] Spec Grav, UA 1.02 1 - 1.03 [facility] Urobilinogen, UA 0.2 0.2 - 12 mg/dL [facility] Urinalysis macro (dipstick) panel (U)on 09-10-2024 Bilirubin, UA Negative Negative - 4(70) +++ mg/dL [facility] Blood, UA Negative Negative - 50 Quinton/mcL [facility] Clarity, UA Clear [facility] Color, UA Yellow [facility] Glucose, UA Negative Negative - 1999(110) ++++ mg/dL [facility] Interpretation and review of laboratory results Abnormal [facility] Ketones, UA Negative Negative - 160(16) ++++ mg/dL [facility] Leukocytes, UA Trace Negative - 500+++ Raquel/mcL [facility] Nitrite, UA Negative Negative - Positive [facility] pH, UA 7 5 - 9 [facility] Protein, UA Negative Negative - 1999(20) ++++ mg/dL [facility] Spec Grav, UA 1.02 1 - 1.03 [facility] Urobilinogen, UA 0.2 0.2 - 12 mg/dL [facility] Urinalysis macro (dipstick) panel (U)on 08-27-2024 Bilirubin, UA Negative Negative - 4(70) +++ mg/dL [facility] Blood, UA Negative Negative - 50 Quinton/mcL [facility] Clarity, UA Clear [facility] Color, UA Yellow [facility] Glucose, UA Negative Negative - 1999(110) ++++ mg/dL [facility] Interpretation and review of laboratory results Abnormal [facility] Ketones, UA Negative Negative - 160(16) ++++ mg/dL [facility] Leukocytes, UA Trace Negative - 500+++ Raquel/mcL [facility] Nitrite, UA Negative Negative - Positive [facility] pH, UA 6.5 5 - 9 [facility] Protein, UA Negative Negative - 1999(20) ++++ mg/dL [facility] Spec Grav, UA 1.020 1 - 1.03 [facility] Urobilinogen, UA 0.2 0.2 - 12 mg/dL [facility] BhCG Quanton 03-19-2024 HCG.beta subunit Qn 488 m[IU]/mL High 1-3 Fis [facility] Comment on above: Result Comment: 'F N ON < 1 - 3' ' 0.2 - 1 WEEK = 5 TO 50' ' 1 - 2 WEEKS = 50 - 500' ' 2 - 3 WEEKS = 100 - 5000' ' 3 - 4 WEEKS = 500 - 29986' ' 4 - 5 WEEKS = 1000 - 13590' ' 5 - 6 WEEKS = 39703 - 968604' ' 6 - 8 WEEKS = 77054 - 730415' ' 8 - 12 WEEKS = 55484 - 606921' Performed By: #### 2 [id number] #### [facility] [address] [place] [address] CHEMISTRYOrdered By: SYSTEM SYSTEM on 03-19-2024 HCG.beta [...] 3 - 4 WEEKS = 500 - 47848' ' 4 - 5 WEEKS = 1000 - 72378' ' 5 - 6 WEEKS = 73012 - 522332' ' 6 - 8 WEEKS = 90835 - 526418' ' 8 - 12 WEEKS = 95185 - 723484' Progesterone Lvl 69.95 ng/mL Invalid Interpretation Code [...] Progesterone Lvl 69.95 ng/mL Invalid Interpretation Code [facility] Comment on above: Result Comment: 'F N ON FOLLICULAR = 0.10 - 0.60' 'LUTEAL = 3.00 - 17.5' 'MIDLUTEAL = 3.30 - 18.6' 'POST-MENOPAUSE = 0.10 - 0.40' '-FIRST TRIMESTER = 8.30 - 66.5' 'SECOND TRIMESTER = 18.9 - 66.1' 'THIRD TRIMESTER = 35.8 - 312.4' 'MALES = 0.14 - 2.06' Result Verified by Dilution Performed By: #### 2 [id number] #### [facility] [address] [place] [address] BhCG Quanton 03-17-2024 HCG.beta subunit Qn 185 m[IU]/mL High 1-3 Fis [facility] Comment on above: Result Comment: 'F N ON < 1 - 3' ' 0.2 - 1 WEEK = 5 TO 50' ' 1 - 2 WEEKS = 50 - 500' ' 2 - 3 WEEKS = 100 - 5000' ' 3 - 4 WEEKS = 500 - 79302' ' 4 - 5 WEEKS = 1000 - 26940' ' 5 - 6 WEEKS = 98982 - 875880' ' 6 - 8 WEEKS = 70370 - 867355' ' 8 - 12 WEEKS = 28702 - 928580' Performed By: #### 2 [id number] #### [facility] [address] [place] [address] CHEMISTRYOrdered By: SYSTEM SYSTEM on 03-17-2024 HCG.beta [...] 3 - 4 WEEKS = 500 - 09131' ' 4 - 5 WEEKS = 1000 - 46752' ' 5 - 6 WEEKS = 45407 - 687275' ' 6 - 8 WEEKS = 01996 - 901038' ' 8 - 12 WEEKS = 91813 - 275000' Progesterone Lvl 51.75 ng/mL Invalid Interpretation Code [...] Consent for Treatmenton 02-18 Consent for Treatment [id number]#1.00TIF F Normal [facility] Physician Orderon 03-17-2024 Physician Order [id number]#1.00TI FF Normal [facility] Progesteroneon 03-17-2024 Progesterone Lvl 51.75 ng/mL Invalid Interpretation Code [facility] Comment on above: Result Comment: 'F N ON FOLLICULAR = 0.10 - 0.60' 'LUTEAL = 3.00 - 17.5' 'MIDLUTEAL = 3.30 - 18.6' 'POST-MENOPAUSE = 0.10 - 0.40' '-FIRST TRIMESTER = 8.30 - 66.5' 'SECOND TRIMESTER = 18.9 - 66.1' 'THIRD TRIMESTER = 35.8 - 312.4' 'MALES = 0.14 - 2.06' Performed By: #### 2 [id number] #### [facility] [address] [place] [address] Physician Orderon 03-12-2024 Physician Order [id number]#1.00T IFF Normal [facility] CHEMISTRYOrdered By: SYSTEM SYSTEM on 03-07-2024 Progesterone [...] Progesterone Lvl 20.59 ng/mL Invalid Interpretation Code [facility] Comment on above: Result Comment: 'F N ON FOLLICULAR = 0.10 - 0.60' 'LUTEAL = 3.00 - 17.5' 'MIDLUTEAL = 3.30 - 18.6' 'POST-MENOPAUSE = 0.10 - 0.40' '-FIRST TRIMESTER = 8.30 - 66.5' 'SECOND TRIMESTER = 18.9 - 66.1' 'THIRD TRIMESTER = 35.8 - 312.4' 'MALES = 0.14 - 2.06' Performed By: #### 2 [id number] #### [facility] [address] [place] [address] Progesteroneon 02-05-2024 Progesterone Lvl 20.64 ng/mL Invalid Interpretation Code [facility] Comment on above: Result Comment: 'F N ON FOLLICULAR = 0.10 - 0.60' 'LUTEAL = 3.00 - 17.5' 'MIDLUTEAL = 3.30 - 18.6' 'POST-MENOPAUSE = 0.10 - 0.40' '-FIRST TRIMESTER = 8.30 - 66.5' 'SECOND TRIMESTER = 18.9 - 66.1' 'THIRD TRIMESTER = 35.8 - 312.4' 'MALES = 0.14 - 2.06' Performed By: #### 2 [id number] #### [facility] [address] [place] [address] Progesteroneon 01-08-2024 Progesterone Lvl 18.23 ng/mL Invalid Interpretation Code [facility] Comment on above: Result Comment: 'F N ON FOLLICULAR = 0.10 - 0.60' 'LUTEAL = 3.00 - 17.5' 'MIDLUTEAL = 3.30 - 18.6' 'POST-MENOPAUSE = 0.10 - 0.40' '-FIRST TRIMESTER = 8.30 - 66.5' 'SECOND TRIMESTER = 18.9 - 66.1' 'THIRD TRIMESTER = 35.8 - 312.4' 'MALES = 0.14 - 2.06' Performed By: #### 2 [id number] #### [facility] [address] [place] [address] Consent for Treatmenton 11-19 Consent for Treatment [id number]#1.00TIF F Normal [facility] Physician Orderon 12-07-2023 Physician Order [id number]#1.00TI FF Normal [facility] Progesteroneon 12-07-2023 Progesterone Lvl 13.36 ng/mL Invalid Interpretation Code [facility] Comment on above: Result Comment: 'F N ON FOLLICULAR = 0.10 - 0.60' 'LUTEAL = 3.00 - 17.5' 'MIDLUTEAL = 3.30 - 18.6' 'POST-MENOPAUSE = 0.10 - 0.40' '-FIRST TRIMESTER = 8.30 - 66.5' 'SECOND TRIMESTER = 18.9 - 66.1' 'THIRD TRIMESTER = 35.8 - 312.4' 'MALES = 0.14 - 2.06' Performed By: #### 2 [id number] #### [facility] [address] [place] [address] DHEASon 11-14-2023 DHEA-S [Mass/Vol] 281.0 microgram/dL Invalid Interpretation Code 84.8-378.0 [facility] Comment on above: Result Comment: Perf ormed at: [address] [id number] PhD Padma Gleason Performed By: #### 2 [id number] #### [facility] [address] [place] [address] FSH and LHon 11-14-2023 Follitropin Qn 2.8 m[IU]/mL Invalid Interpretation Code [facility] Comment on above: Result Comment: Adul t Female Range Follicular phase 3.5 - 12.5 Ovulation phase 4.7 - 21.5 Luteal phase 1.7 - 7.7 Postmenopausal 25.8 - 134.8 Performed at: [facility] [id number] PhD Padma Gleason Performed By: #### 2 [id number] #### [facility] [address] [place] [address] Lutropin Qn 2.9 m[IU]/mL Invalid Interpretation Code [facility] Comment on above: Result Comment: Adul t Female Range Follicular phase 2.4 - 12.6 Ovulation phase 14.0 - 95.6 Luteal phase 1.0 - 11.4 Postmenopausal 7.7 - 58.5 Performed By: #### 2 [id number] #### [facility] [address] [place] [address] 03196 Auto Diffon 11-13-2023 Basophils/100 WBC (Bld) 0.2 % Normal 0.0-2.0 [facility] Comment on above: Order Comment: Order Added by Discern Expert. Performed By: #### 7 [id number], 15821734, 9542861, 5056771, 15860823, 3337353, 2153687 #### [facility] [address] [place] [address] Basophils/Leukocytes Auto (Bld) [Pure # fraction] 0.0 E9/L Normal 0.0-0.2 [facility] Comment on above: Order Comment: Order Added by Discern Expert. Performed By: #### 7 [id number], 46960409, 2686684, 1757765, 90994302, 9485705, 0045365 #### [facility] [address] [place] [address] Eosinophils/100 WBC (Bld) 1.0 % Normal 0.0-8.0 [facility] Comment on above: Order Comment: Order Added by Discern Expert. Performed By: #### 7 [id number], 73818306, 1839389, 3370333, 40055387, 5971977, 9348431 #### [facility] [address] [place] [address] Eosinophils/Leukocyt es Auto (Bld) [Pure # fraction] 0.1 E9/L Normal 0.0-0.5 [facility] Comment on above: Order Comment: Order Added by Discern Expert. Performed By: #### 7 [id number], 23180155, 7172924, 2095506, 85813631, 4993310, 2740524 #### [facility] [address] [place] [address] 72529 Lymphocytes/100 WBC (Bld) 24.1 % Normal 14.0-50.0 [facility] Comment on above: Order Comment: Order Added by Discern Expert. Performed By: #### 7 [id number], 33424223, 0312514, 8833323, 75940432, 5548752, 5348911 #### [facility] [address] [place] [address] 54438 Lymphocytes/Leukocyt es Auto (Bld) [Pure # fraction] 1.7 E9/L Normal 1.0-4.0 [facility] Comment on above: Order Comment: Order Added by Discern Expert. Performed By: #### 7 [id number], 14870085, 2867682, 6479119, 76426351, 4939867, 1238507 #### [facility] [address] [place] [address] 27194 Monocytes/100 WBC (Bld) 8.6 % Normal 4.0-14.0 [facility] Comment on above: Order Comment: Order Added by Farhan Expert. Performed By: #### 7 [id number], 88967619, 4722431, 4088746, 87396233, 6887816, 2353044 #### [facility] [address] [place] [address] 01703 Monocytes/Leukocytes Auto (Bld) [Pure # fraction] 0.6 E9/L Normal 0.2-1.0 [facility] Comment on above: Order Comment: Order Added by Discern Expert. Performed By: #### 7 [id number], 97583732, 1777641, 7461030, 61865872, 1069403, 4920107 #### [facility] [address] [place] [address] 58751 Neutrophils/100 WBC (Bld) 66.1 % Normal 36.0-75.0 [facility] Comment on above: Order Comment: Order Added by Farhan Expert. Performed By: #### 7 [id number], 77102632, 0097325, 3555528, 05572600, 8605664, 6395106 #### [facility] [address] [place] [address] Neutrophils/Leukocyt es Auto (Bld) [Pure # fraction] 4.5 E9/L Normal 2.0-7.5 [facility] Comment on above: Order Comment: Order Added by Discern Expert. Performed By: #### 7 [id number], 06071372, 7548286, 2156996, 33028660, 9383469, 6382432 #### [facility] [address] [place] [address] BhCG Quanton 11-13-2023 Beta hCG Qnt <1 Normal 1-3 [facility] Comment on above: Result Comment: 'F N ON < 1 - 3' ' 0.2 - 1 WEEK = 5 TO 50' ' 1 - 2 WEEKS = 50 - 500' ' 2 - 3 WEEKS = 100 - 5000' ' 3 - 4 WEEKS = 500 - 30789' ' 4 - 5 WEEKS = 1000 - 53404' ' 5 - 6 WEEKS = 27447 - 185944' ' 6 - 8 WEEKS = 99012 - 173606' ' 8 - 12 WEEKS = 07296 - 755288' Performed By: #### 2 559515 #### [facility] [address] [place] [address] CBC w/ Auto Diffon Erythrocyte distribution width (RBC) [Ratio] 13.8 % Normal 10.9-14.2 [facility] Comment on above: Performed By: #### 7 [id number], 06341943, 7882571, 8507254, 08313942, 5453901, 9458253 #### [facility] [address] [place] [address] Hematocrit (Bld) [Volume fraction] 39.9 % Normal 34.0-46.0 [facility] Comment on above: Performed By: #### 7 90632612, 06230037, 8625799, 0055116, 02420144, 4163224, 0843050 #### [facility] [address] [place] [address] Hemoglobin (Bld) [Mass/Vol] 13.1 g/dL Normal 12.0-16.0 [facility] Comment on above: Performed By: #### 7 92911985, 89604054, 7443696, 1259019, 16867146, 8070298, 7102654 #### [facility] [address] [place] [address] MCH (RBC) [Entitic mass] 27.5 pg Normal 27.0-34.0 [facility] Comment on above: Performed By: #### 7 94454962, 90381663, 4769343, 8331874, 11207251, 0959152, 3208939 #### [facility] [address] [place] [address] MCHC (RBC) [Mass/Vol] 32.9 g/dL Normal 31.4-36.0 [facility] Comment on above: Performed By: #### 7 52851577, 00861839, 5992499, 9128631, 70839896, 4089931, 7691320 #### [facility] [address] [place] [address] MCV (RBC) [Entitic vol] 83.5 fL Normal 80.0-100.0 [facility] Comment on above: Performed By: #### 7 34384879, 52978261, 4565524, 0543752, 76589532, 9193824, 7881604 #### [facility] [address] [place] [address] Platelet mean volume (Bld) [Entitic vol] 9.3 fL Normal 6.4-10.8 [facility] Comment on above: Performed By: #### 7 70974724, 79268813, 5848793, 9411347, 19201553, 9500213, 7554301 #### [facility] [address] [place] [address] Platelets (Bld) [#/Vol] 249.0 E9/L Normal 150.0-500.0 [facility] Comment on above: Performed By: #### 7 47915631, 16674288, 9771993, 1342702, 37507315, 7946802, 5775682 #### [facility] [address] [place] [address] RBC (Bld) [#/Vol] 4.8 E12/L Normal 4.3-5.9 [facility] Comment on above: Performed By: #### 7 55688627, 05849664, 9415078, 3285679, 25913026, 7541906, 9858967 #### [facility] [address] [place] [address] WBC corrected for nucl RBC Auto (Bld) [#/Vol] 6.8 E9/L Normal 4.0-11.0 [facility] Comment on above: Performed By: #### 7 33139407, 01488969, 2129199, 6251410, 34212794, 8531189, 7755041 #### [facility] [address] [place] [address] CHEMISTRYOrdered By: SYSTEM SYSTEM on 11-13-2023 Beta [...] 3 - 4 WEEKS = 500 - 74870' ' 4 - 5 WEEKS = 1000 - 34993' ' 5 - 6 WEEKS = 87256 - 643366' ' 6 - 8 WEEKS = 08537 - 540659' ' 8 - 12 WEEKS = 72963 - 578024' Free T4 [Mass/Vol] 0.96 ng/dL Normal 0.58 - 1. 64 ng/dL Remisol Chem TSH Qn 1.38 m[IU]/L Normal 0.34 - 5.60 mcIU/mL Remisol Chem CHEMISTRYOrdered By: Adolph Mcnair on 11-13-2023 HbA1c (Bld) [Mass fraction] 5.0 % Normal <=5.9% [facility] ChemAutoSS Consent for Treatmenton 10-20 Consent for Treatment [id number]#1.00TIF F Normal [facility] Free T4on 11-13-2023 Free T4 [Mass/Vol] 0.96 ng/dL Normal 0.58-1.64 [facility] Comment on above: Performed By: #### 7 [id number], 28449131, 4372827, 5713042, 75138120, 1765262, 8117776 #### [facility] [address] [place] [address] HEMATOLOGYOrdered By: SYSTEM SYSTEM on 11-13-2023 Basophils/100 [...] Normal 4.0 - 11.0 E9/L [facility] HemeAutoSS [id number] 11-13-2023 HbA1c (Bld) [Mass fraction] 5.0 % Normal <=5.9 [facility] Comment on above: Performed By: #### 7 33232206, 75469155, 2439486, 3091359, 78358720, 0038272, 9309616 #### [facility] [address] [place] [address] TSHon 11-13-2023 TSH Qn 1.38 m[IU]/L Normal 0.34-5.60 [facility] Comment on above: Performed By: #### 7 60041785, 76870941, 2632259, 6160845, 62304962, 7145636, 0621205 #### [facility] [address] [place] [address] Laboratory - Chemistry and C hemistry - [...] 21 to 29on 01-31-2022 . . Normal [facility] Comment on above: Performed By: #### 4 390126 #### [facility] [address] [address] [address] Tobi Phelps Age Gdln ACOG Testing - Normal [facility] Comment on above: Performed By: #### 4 303393 #### [facility] [address] [address] [address] Tobi Phelps DIAGNOSIS: Comment [facility] Comment on above: Result Comment: NEGA TIVE FOR INTRAEPITHELIAL LESION OR MALIGNANCY. Performed By: #### 4 794247 #### [facility] [address] [address] [address] Tobi Phelps Methodology: Comment [facility] Comment on above: Result Comment: This liquid based ThinPrep(R) pap test was screened with the use of an image guided system. Performed By: #### 4 566533 #### [facility] [address] [place] [address] Dr. Tobi Phelps Note: Comment Normal [facility] Comment on above: Result Comment: The Pap smear is a screening test designed to aid in the detection of premalignant and malignant conditions of the uterine cervix. It is not a diagnostic procedure and should not be used as the sole means of detecting cervical cancer. Both false-positive and false-negative reports do occur. . Performed By: #### 4 966379 #### [facility] [address] [place] [address] Dr. Tboi Phelps Performed by: Comment Normal [facility] Comment on above: Result Comment: Elvis Gutierrez, Pulp Plant Supervisor (ASCP) Performed By: #### 4 091171 #### [facility] [address] [place] [address] Dr. Tobi Phelps Reflex Criteria: Comment Normal [facility] Comment on above: Result Comment: The HPV DNA reflex criteria were not met with this specimen result therefore, no HPV testing was performed. . Performed By: #### 4 890274 #### [facility] [address] [place] [address] Dr. Tobi Phelps Specimen adequacy: Comment Normal [facility] Comment on above: Result Comment: Sati sfactory for evaluation. Endocervical and/or squamous metaplastic cells (endocervical component) are present. Performed By: #### 4 [id number] #### [facility] [address] [place] [address] Dr. Tobi Phelps [employer] BREAST LTD LTon 03-25 [employer] [facility] * * *Final Report* * *DATE OF EXAM: Mar 25 2018 2:21PM HCW [id number] - [employer] [facility] / REASON: Benign breast lumps * * * * Physician Interpretation * * * *RESULT: #[id number] - [employer] BREAST Polyplex LTULTRASOUND OF LEFT BREAST: 03/25/2018HISTORY: Benign Breast [...] made to exam dated: 10/29/2013 ultrasound - [facility].Real-time ultrasound of the left breast was [...] with ACR/NCCN guidelines.Kj Winkler/crispin:03/25/2018 14:31:28Imaging Technologist: Mirta SCHRADER)(Cris), [facility] 2 Benign findingTranscribed Using Voice RecognitionTranscribe Date/Time: Mar 25 2018 2:21PDictated by: KJ LANCASTER MDThis examination was interpreted and the report reviewed and electronically signed by: KJ LANCASTER MD on Mar 25 2018 2:31PM [id number] Normal [facility] US BREAST LTD RTon 03-25 [facility] BREAST LTD RT * * *Final Report* * *DATE OF EXAM: Mar 25 2018 2:21PM HCW [id number] - [employer] RT / REASON: Benign breast lumps * * * * Physician Interpretation * * * *RESULT: #[id number] - [place] [employer] RTULTRASOUND OF RIGHT BREAST: 03/25/2018HISTORY: Benign Breast [...] Please see that report for full detail.Kj Winkler/penyifan:03/25/2018 14:34:44Imaging Technologist: Mirta SCHRADER)(Cris), [facility] 1 NegativeTranscribed Using Voice RecognitionTranscribe Date/Time: Mar 25 2018 2:21PDictated by: KJ LANCASTER MDThis examination was interpreted and the report reviewed and electronically signed by: KJ LANCASTER MD on Mar 25 2018 2:34PM [id number] Normal [facility] Vital Signs Date Time Vital Sign Value Performing Clinician Albinai luis angel 10-22-2024 08:56-0500 Body mass index (BMI) [Ratio] 29.04 kg/m2 Vianey SHIRLEY Work Phone: [facility] 10-22-2024 08:56-0500 Body weight 84.1 kg Vianey SHIRLEY Work Phone: [facility] 10-22-2024 08:56-0500 Diastolic blood pressure 70 mm[Hg] Vianey SHIRLEY Work Phone: [facility] 10-22-2024 08:56-0500 Systolic blood pressure 120 mm[Hg] Vianey SHIRLEY Work Phone: [facility] 10-08-2024 08:52-0500 Body mass index (BMI) [Ratio] 28.04 kg/m2 Vianey Diaz PA Work Phone: [facility] 10-08-2024 08:52-0500 Body weight 81.19 kg Vianey Sutherlin PA Work Phone: [facility] 10-08-2024 08:52-0500 Diastolic blood pressure 70 mm[Hg] Vianey Diaz PA Work Phone: [facility] 10-08-2024 08:52-0500 Systolic blood pressure 116 mm[Hg] Vianey Sutherlin PA Work Phone: [facility] 09-24-2024 09:36-0500 Body mass index (BMI) [Ratio] 27.72 kg/m2 Vianey Diaz PA Work Phone: [facility] 09-24-2024 09:36-0500 Body weight 80.29 kg Vianey Sutherlin PA Work Phone: [facility] 09-24-2024 09:36-0500 Diastolic blood pressure 64 mm[Hg] Vianey Sutherlin PA Work Phone: [facility] 09-24-2024 09:36-0500 Systolic blood pressure 114 mm[Hg] Vianey Diaz PA Work Phone: [facility] 09-10-2024 12:59-0400 Body mass index (BMI) [Ratio] 27.57 kg/m2 Clifton France DO Work Phone: [facility] 09-10-2024 12:59-0400 Body weight 79.83 kg Clifton France DO Work Phone: [facility] 09-10-2024 12:59-0400 Diastolic blood pressure 70 mm[Hg] Clifton France DO Work Phone: [facility] 09-10-2024 12:59-0400 Systolic blood pressure 120 mm[Hg] Clifton France DO Work Phone: [facility] 08-27-2024 08:44-0400 Body mass index (BMI) [Ratio] 27.13 kg/m2 Vianey Sutherlin PA Work Phone: [facility] 08-27-2024 08:44-0400 Body weight 78.59 kg Vianey Perales PA Work Phone: [facility] 08-27-2024 08:44-0400 Diastolic blood pressure 78 mm[Hg] Vianey Perales PA Work Phone: [facility] 08-27-2024 08:44-0400 Systolic blood pressure 118 mm[Hg] Vianey Perales PA Work Phone: [facility] Healthcare Encounters Encounter Date Encounter Type Care Provider Facility Start: 10-22-2024 End: 10-22-2024 Bamboo flowsheet Vianey Perales PA Work Phone: [facility] Start: 10-22-2024 End: 10-22-2024 Bamboo flowsheet Vianey Perales PA Work Phone: [facility] Start: 10-22-2024 End: 10-22-2024 flow sheet Vianey Perales PA Work Phone: [facility] Comment on above: 35 weeks gestation o f ; Third trimester Start: 10-22-2024 End: 10-22-2024 ambulatory VIANEY PERALES Not Available Start: 10-08-2024 End: 10-08-2024 Bamboo flowsheet Vianey Perales PA Work Phone: [facility] Start: 10-08-2024 End: 10-08-2024 Bamboo flowsheet Vianey Perales PA Work Phone: [facility] Start: 10-08-2024 End: 10-08-2024 flow sheet Vianey Perales PA Work Phone: [facility] Comment on above: 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; 32 weeks gestation of Start: 10-08-2024 End: 10-08-2024 ambulatory VIANEY PERALES Not Available Start: 09-24-2024 End: 09-24-2024 Bamboo flowsheet Vianey Perales PA Work Phone: [facility] Start: 09-24-2024 End: 09-24-2024 Bamboo flowsheet Vianey SHIRLEY Work Phone: [facility] Start: 09-24-2024 End: 09-24-2024 flow [...] Not Available Start: 08-15-2024 ambulatory Nadir Zhou y:[facility] Start: 07-30-2024 End: 07-30-2024 ambulatory CLIFTON FRANCE Not Available Start: 07-02-2024 End: 07-02-2024 ambulatory CLIFTON FRANCE Not Available Start: 06-18-2024 End: 06-18-2024 ambulatory VIANEY PERALES Not Available Start: 05-21-2024 End: 05-21-2024 ambulatory CLIFTON FRANCE Not Available Start: 04-18-2024 End: 04-18-2024 ambulatory NHUNG RIVERO Not Available Start: 03-17-2024 End: 03-17-2024 ambulatory Clifton R FRANCE Facility:[facility] Start: 03-17-2024 End: 03-17-2024 Patient encounter procedure Clifton R FRANCE [facility] Start: 12-19-2023 End: 12-19-2023 ambulatory NHUNG Marizol MAT Not Available Start: 12-07-2023 End: 06-17-2024 ambulatory Clifton R FRANCE Facility:[facility] [place] Start: 12-07-2023 End: 06-17-2024 Recurring Clifton R FRANCE [facility] Start: 11-13-2023 End: 11-13-2023 ambulatory Clifton R FRANCE Facility:[facility] Start: 11-13-2023 End: 11-13-2023 Patient encounter procedure Clifton R FRANCE [facility] Start: 10-24-2023 End: 10-24-2023 ambulatory CLIFTON FRANCE Not Available Start: 04-11-2023 End: 06-17-2024 Recurring Clifton R FRANCE [facility] Start: 01-25-2022 End: 01-25-[address] CLIFTON HOUGH Facility: Start: 08-02-2021 End: 08-02-2021 ambulatory Lance SHIRLEY Facility:[facility] Start: 12-10-2018 End: 12-11-2018 Patient encounter procedure PA NEWBERRY Facility:[facility] Start: 12-05-2018 End: 12-06-2018 Patient encounter procedure DEFAULT PHYSICIAN Facility:[facility] Start: 03-25-2018 Ambulatory [facility] Procedures Date Procedure Procedure Detail Performing Clinician Start: 10-22-2024 Urnls dip stick/tabl et rgnt non-auto w/o micrscp Vianey SHIRLEY Work Phone: Start: 09-24-2024 Urnls dip stick/tabl et rgnt non-auto w/o micrscp Vianey SHIRLEY Work Phone: Start: 09-10-2024 Urnls dip stick/tabl et rgnt non-auto w/o micrscp Clifton Hough DO Work Phone: Start: 08-27-2024 Urnls dip stick/tabl et rgnt non-auto w/o micrscp Vianey SHIRLEY Work Phone: Start: 07-11-2023 Microscopic observat ion [Identifier] in Cervix by Cyto stain Vianey SHIRLEY Work Phone: Plan of Treatment Date Care Activity Detail Author Start: 07-11-2028 Screening for malign ant neoplasm of cervix HPV/Cotest [facility] Start: 07-11-2026 Screening for malign ant neoplasm of cervix [facility] Start: 10-29-2024 End: 10-29-2024 Patient encounter procedure 10/29/2024 11:30 AM EST Routine [facility] [address] [place] [address] Clifton Hough, DO [address] [place] [address] [facility] Start: 10-22-2024 End: 10-22-2024 Patient encounter procedure [facility] Comment on above: Arrived Start: 10-22-2024 End: 10-22-2024 Professional / ancillary services management 10/22/2024 8:00 AM EST Ancillary Procedure [facility] [address] [place] [address] [facility] Start: 10-08-2024 End: 10-08-2024 Patient encounter procedure [facility] Comment on above: Arrived Start: 09-24-2024 End: 09-24-2024 Patient encounter procedure [facility] Comment on above: Arrived Start: 09-24-2024 End: 09-24-2024 Professional / ancillary services management 09/24/2024 9:00 AM EST Ancillary Procedure [facility] [address] [place] [id number] [facility] Start: 09-10-2024 End: 09-10-2025 US for US OB SCAN FOR GROWTH Imaging Routine Excessive growth affecting management of , antepartum, single or unspecified fetus Expected: 09/10/2024 (Approximate), Expires: 09/10/2025 [facility] Work Phone: Comment on above: Expected: 09/10/2024 (Approximate), Expires: 09/10/2025 Start: 09-10-2024 End: 09-10-2024 Patient encounter procedure [facility] Comment on above: Arrived Start: 08-27-2024 End: 08-27-2024 Patient encounter procedure 08/27/2024 8:30 AM EDT Routine [facility] [address] [place] [id number] Vianey Perales PA [address] [address] Arrived [facility] Comment on above: Arrived Start: 07-20-2024 Influenza vaccination Influenza Vacc ine (#1) [facility] Immunizations Immunization Date Immunization Notes Care Provider Fa cility 09-02-2024 influenza virus vaccine, unspecified formulation Clifton France DO Work Phone: [facility] 09-06-2023 influenza virus vaccine, unspecified formulation Clifton FRANCE [facility] Comment on above: Reason for Medicatio n: Prophylaxis 09-12-2022 influenza virus vaccine, unspecified formulation Clifton FRANCE [facility] Comment on above: Reason for Medicatio n: Prophylaxis 09-12-2022 influenza, injectabl e, quadrivalent, preservative free Clifton FRANCE [facility] 04-28-2021 COVID-19, mRNA, LNP- S, PF, 30 mcg/0.3 mL dose Clifton FRANCE [facility] Comment on above: Reason for Medicatio n: Prophylaxis 04-06-2021 COVID-19, mRNA, LNP- S, PF, 30 mcg/0.3 mL dose Clifton FRANCE [facility] Comment on above: Reason for Medicatio n: Prophylaxis Payers Date Payer Category Payer [facility] [id number] 2023 Unknown [id number] 2022 Unknown [id number] 2021 Unknown 1994 Unknown [id number] 2.16.840.1.828763.3.579.2. 647 1994 Unknown [id number] 2.16840.1.445355.3.579.2. 647 1994 Unknown [id number] 2.16.840.1.805384.3.579.2. 593 1994 Unknown [id number] 2..840.1.150219.3.579.2. 727 1994 Unknown [id number] 2.16.840.1.813072.3.579.2. 727 1994 Unknown [id number] 2.16.840.1.508574.3.579.2. 727 1994 Unknown [id number] 2.16.840.1.354962.3.579.2. 727 1994 Unknown [id number] 2.16.840.1.628098.3.579.2. 718 1994 Unknown [id number] 2.16.840.1.765980.3.579.2. 125 1994 Unknown [id number] 2.16.840.1.948757.3.579.2. 1258 1994 Unknown [id number] 2.16.840.1.423840.3.579.2. 1258 1994 Unknown [id number] 2.16.840.1.394304.3.579.2. 1258 1994 Unknown [id number] 2.16.840.1.242376.3.579.2. 1258 1994 Unknown [id number] 2.16.840.1.587026.3.579.2. 1258 1994 Unknown [id number] 2.16.840.1.881476.3.579.2. 1258 1994 Unknown [id number] 2.16.840.1.399819.3.579.2. 1258 1994 Unknown [id number] 2.16.840.1.201223.3.579.2. 125 1994 Unknown [id number] 2.16.840.1.498709.3.579.2. 1258 1994 Unknown [id number] 2.16.840.1.857837.3.579.2. 1258 1994 Unknown [id number] 2.16.840.1.246760.3.579.2. 1258 1959 Unknown [id number] Unknown [id number] Social History Date Type Detail Facility Start: 07-21-2021 End: 04-11-2023 Tobacco smoking status Never smoked tobacco (finding) [facility] Tobacco smoking status Never Yvonne [facility] Start: 09-12-2023 End: 10-24-2023 Sex Assigned At Female [facility] Start: 04-11-2023 Tobacco use and exposure Smokeless tobacco non-user [facility] Start: 07-30-2024 End: 10-22-2024 Alcoholic beverage intake Ex-drinker (finding) [facility] Start: 10-24-2023 End: 07-30-2024 Alcoholic beverage intake [facility] Start: 03-03-2024 [facility] Start: 1995 Sex assigned at Female [facility] Start: 04-10-2023 Gender identity Identifies as female gender (finding) [facility] Goals Date Patient Goal Desired Activity /State Personal health goal Clinical Notes 11-13-2023 to 10-22-2024 CASPER Weiss - 10/22/2024 8:50 AM CASPER Gil - 10/08/2024 8:30 AM CASPER Gil - 09/24/2024 9:30 AM Ant Wise LPN - 09/10/2024 1:00 PM CASPER Sheldon - 08/27/2024 8:30 AM EDT Note Date & Type Note Facility 10-22-2024 History of Present illness Narrative Reason for [...] reviewed. Vitals: Estimated body mass index is 29.04 kg/m as calculated from the following: Height as of 06/06/23: 5' 7 . Weight as of this encounter: 185 lb 6.4 oz. BP: 120/70 Patient's last menstrual period was 02/18/2024. ASSESSMENT & PLAN ICD-10-CM 1. 35 weeks gestation of Z3A.35 POCT urinalysis dipstick manually resulted 2. Third trimester Z34.93 POCT urinalysis dipstick manually resulted Return OB: Patient presents today for a routine obstetrics appointment. Patient is currently 35w2d . Patient states she is doing well but has complaints of being tired due to current . Patient has verbalizes frequent movement. labor precautions was discussed/given and patient was instructed to perform kick counts three times a day. Orders Placed This Encounter Procedures POCT urinalysis dipstick manually resulted Follow Up: Patient is to return to office in 1 week for routine OB appointment. Documented by CASPER Weiss on behalf of: CASPER Weiss documented in this encounter [facility] 10-08-2024 History of Present illness Narrative Reason [...] CASPER Weiss documented in this encounter [facility] 09-24-2024 History of Present illness Narrative Reason [...] CASPER Weiss documented in this encounter [facility] 09-10-2024 History of Present illness Narrative Reason [...] nursing note reviewed. Exam conducted with a steward/stewardess deck present. Vitals: Estimated body mass index is [...] Hough DO documented in this encounter [facility] 08-27-2024 History of Present illness Narrative Reason [...] CASPER Weiss documented in this encounter [facility] 11-13-2023 Evaluation + Plan note [facility]/13/23[facility] 11/13/23 [facility] Evaluation + Plan note No data available for this section [facility] Evaluation note Diagnosis 27 weeks gestation of Second trimester state, incidental Iron deficiency anemia, unspecified iron deficiency anemia type [facility] Diagnosis 29 weeks gestation of - Primary Third trimester state, incidental Excessive growth affecting management of , antepartum, single or unspecified fetus [facility] Diagnosis Third trimester state, incidental 31 weeks gestation of Iron deficiency anemia, unspecified iron deficiency anemia type documented in this encounter [facility]* Diagnosis Third trimester state, incidental 32 weeks gestation of documented in this encounter [facility]* Diagnosis 35 weeks gestation of Third trimester state, incidental [facility] No data available for this section [facility] No data available for this section [facility] Summary Purpose Family History No Family History [...] section and content) DATE CREATED AUTHOR 05/09/2018 [facility] DATE CREATED AUTHOR AUTHOR'S ORGANIZ ATION 12/13/2018 [facility] DATE CREATED AUTHOR AUTHOR'S ORGANIZ ATION 02/01/2022 [facility] DATE CREATED AUTHOR AUTHOR'S ORGANIZ ATION 08/16/2024 [facility] DATE CREATED AUTHOR AUTHOR'S ORGANIZ ATION 08/30/2024 [facility] DATE CREATED AUTHOR AUTHOR'S ORGANIZ ATION 10/24/2024 [facility] EPIC Patient Care team informatio n (unrecognized section and content) Director [employer] Relationship Specialty Start Date End Date Unallocated, Darleen Mcclelland MD [facility] [place] [address] PCP - General 09/12/23 Director [employer] Relationship Specialty Start Date End Date Unallocated, Darleen Mcclelland MD [facility] [place] [address] PCP - General 09/12/23 Director [employer] Relationship Specialty Start Date End Date Unallocated, Darleen Mcclelland MD [address] [place] [address] PCP - General 09/12/23 Director [employer] Relationship Specialty Start Date End Date Unallocated, Darleen Mcclelland MD [address] [place] [address] [address] [facility] [address] PCP - General 09/12/23 Director [employer] Relationship Specialty Start Date End Date Unallocated, Darleen Mcclelland MD [address] [place], [place] [address] [address] PCP - General 09/12/23 Director [employer] Relationship Specialty Start Date End Date Unallocated, Darleen Provider, [address] [place] [address] PCP - General 09/12/23 Director [employer] Relationship Specialty Start Date End Date Unallocated, Darleen Mcclelland MD [address] [place] [address] PCP - General 09/12/23 Reason for Visit [...] BE BASED ON THE PRIMARY CLINICAL RECORDS. [facility]. provides no warranty or guarantee of the accuracy or completeness of information in this document.
== END 2024-10-29 19:16 | disposition home or self-care (01) ==
LOC: LAB 19:15
PROVIDERS: Visit Provider Obstetrics & Gynecology
DX: Z34.93 Encounter for supervision of normal pregnancy, unspecified, third trimester (principal)
CPT/HCPCS: 36415; 87081; 87150

== ENCOUNTER 2024-11-04 17:15 | Observation (INO) | payer OTHER, SELFPAY ==
[2024-11-04 17:36] VITALS: BP 138/89; PULSE 88
[2024-11-04 17:49] LABS: Bilirubin Urine NEGATIVE (NEGATIVE); Blood Urine NEGATIVE (NEGATIVE); Clarity Urine CLEAR (CLEAR); Color Urine LT. YELLOW (YELLOW); Glucose Urine UA NEGATIVE (NEGATIVE); Ketones Urine TRACE mg/dL (NEGATIVE); Leukocyte Esterase Urine NEGATIVE (NEGATIVE); Nitrite Urine NEGATIVE (NEGATIVE); Protein Urine NEGATIVE (NEG/TRACE); Urine Microscopic Indicated NO; Urobilinogen Urine 0.2 EU/dL (0.2-1.0)
[2024-11-04 17:53] LABS: Amnisure NEGATIVE (NEGATIVE); Internal Control Within Normal Limits
== END 2024-11-04 20:27 | disposition home or self-care (01) ==
LOC: FBC 17:17
PROVIDERS: Admitting Provider Obstetrics & Gynecology; Visit Provider Obstetrics & Gynecology
DX: Z03.71 Encounter for suspected problem with amniotic cavity and membrane ruled out (principal)
CPT/HCPCS: 59025; 81003; 84112; G0378; G0379

== ENCOUNTER 2024-11-05 15:16 | Observation (INO) | payer OTHER, SELFPAY ==
--- OUTSIDE RECORDS SUMMARY | 2024-11-05 15:28 | XMS_ITS | CCD ---
Author Organization [facility] Care Team Providers Care [facility] Chief Name Role Phone VILLALOBOS, DINKAR Unavailable Unavailable VILLALOBOS, DINKAR Unavailable Unavailable PHYSICIAN, DEFAULT Admitting Unavailable PHYSICIAN, DEFAULT Attending Unavailable ROHITH, PA R Admitting Unavailable ROHITH, PA R Attending Unavailable SELF, REFERRED Referring Unavailable SELF, REFERRED Primary Care Unavailable FRANCE, DR LAZO Attending Unavailable FRANCE, DR LAZO Consulting Unavailable FRANCE, DR LAZO Admitting Unavailable Jesica Jamison Primary Care Physician FRANCE, Clifton R Admitting Unavailable FRANCE, Clifton R Attending Unavailable FRANCE, Clifton R Admitting Unavailable FRANCE, Clifton R Attending Unavailable FRANCE, Clifton R Admitting Unavailable FRANCE, Clifton R Attending Unavailable Nadir MEDRANO Attending Unavailable Spasic PA, Lance Attending Unavailabl e Spasic PA, Lance Admitting Unavailabl e Provider, None Primary Care Unavailable Unallocated MD, Noms Provider Primary Care Provi rosa m Unallocated , Noms Provider Primary Care Provi rosa m NHUNG RIVERO Attending Unavailable FRANCE, CLIFTON Attending Unavailable VIANEY PERALES Attending Unavailable FRANCE, CLIFTON Attending Unavailable FRANCE, CLIFTON Attending Unavailable VIANEY PERALES Attending Unavailable FRANCE, CLIFTON Attending Unavailable DIAZ VIANEY Attending Unavailable DIAZ VIANEY Attending Unavailable DIAZ VIANEY Attending Unavailable FRANCE, CLIFTON Attending Unavailable Allergies Allergy Classification Reported Allergen(s) Allergy Type Date of Onset Reaction(s) Facility (1 source) No Known Medication Allergies; Translations: [No Known Medication Allergies] Propensity to adverse reactions to drug (disorder) [facility] Repository Medications Current Medications Medication Drug Class(es) Dates Sig (Normalized) Sig (Original) polysaccharide iron complex 391 mg oral capsule (20 sources) Start: 08-27-2024 End: 04-22-2025 take 1 [...] 09-10-2024 Episodic Other and delivery including normal (12 sources) Second trimester ; Translations: [Encounter for [...] [35 weeks gestation of ] 10-22-2024 Episodic Residual codes; unclassified (2 sources) Gestation period, 36 weeks; Translations: [36 weeks gestation of ] 10-29-2024 Episodic Spontaneous (2 sources) Complete inevitable miscarriage without complication; Translations: [Complete or unspecified spontaneous without complication] Episodic Unclassified (1 source) Unknown / UNK(Unknown) Onset: 03-25-2018 Unclassified (2 sources) DX Onset: 12-10-2018 Unclassified (20 sources) OB Reminders Onset: 04-30-2024 04-30-2024 Past or Other Problems Problem Classification Problem Date Documented Da te Episodic/Chronic NEGATED: Highlighted row has been ruled out!Unclassified (20 sources) No known active problems 09-12-2023 Results Test Name Value Interpretation Reference Range Facility ALL MISCELLANEOUS TESTon MISCELLANEOUS TEST COMMENT . [facility] Comment on above: Test Ordered: [id number] Strep Gp B RAIN+Rflx Strep Gp B RAIN+Rflx Negative CB Reference Range: Negative Centers for Disease Control and Prevention (CDC) and [place] [employer]stetricians [employer] Gynecologists (ACOG) guidelines for prevention of group B streptococcal (GBS) disease specify co-collection of a vaginal and rectal swab specimen to maximize sensitivity of GBS detection. Per the CDC and ACOG, swabbing both the lower vagina and rectum substantially increases the yield of detection compared with sampling the vagina alone. Penicillin G, ampicillin, or cefazolin are indicated for intrapartum prophylaxis of GBS colonization. Reflex susceptibility testing should be performed prior to use of clindamycin only on GBS isolates from penicillin- allergic women who are considered a high risk for anaphylaxis. Treatment with vancomycin without additional testing is warranted if resistance to clindamycin is noted. Performed at: [facility] [id number] [place] Presser: Victorino Rouse PhD, Phone: [phone] VAG/REC [id number] Group B Streptococcus Colonization Detection, RAIN With Refle [facility] Urinalysis macro (dipstick) panel (U)on 10-29-2024 Bilirubin, UA Negative Negative - 4(70) +++ mg/dL [facility] Blood, UA Negative Negative - 50 Quinton/mcL [facility] Clarity, UA Clear [facility] Color, UA Yellow [facility] Glucose, UA Negative Negative - 2000(110) ++++ mg/dL [facility] Interpretation and review of laboratory results Normal [facility] Ketones, UA Negative Negative - 160(16) ++++ mg/dL [facility] Leukocytes, UA Negative Negative - 500+++ Raquel/mcL [facility] Nitrite, UA Negative Negative - Positive [facility] pH, UA 6 5 - 9 [facility] Protein, UA Negative Negative - 1999(20) ++++ mg/dL [facility] Spec Grav, UA 1.015 1 - 1.03 [facility] Urobilinogen, UA 0.2 0.2 - 12 mg/dL [facility] Urinalysis macro (dipstick) panel (U)on 10-22-2024 Bilirubin, UA Negative Negative - 4(70) +++ mg/dL [facility] Blood, UA Negative Negative - 50 Quinton/mcL [facility] Clarity, UA Clear [facility] Color, UA Yellow [facility] Glucose, UA Negative Negative - 1999(110) ++++ mg/dL [facility] Interpretation and review of laboratory results Abnormal [facility] Ketones, UA Negative Negative - 160(16) ++++ mg/dL [facility] Leukocytes, UA Negative Negative - 500+++ Raquel/mcL [facility] Nitrite, UA Negative Negative - Positive [facility] pH, UA 6.5 5 - 9 [facility] Protein, UA Negative Negative - 1999(20) ++++ mg/dL [facility] Spec Grav, UA 1.015 1 - 1.03 [facility] Urobilinogen, UA 0.2 0.2 - 12 mg/dL [facility] Urinalysis macro (dipstick) panel (U)on 09-24-2024 Bilirubin, UA Negative Negative - 4(70) +++ mg/dL [facility] Blood, UA Negative Negative - 50 Quinton/mcL [facility] Clarity, UA Clear [facility] Color, UA Yellow [facility] Glucose, UA Negative Negative - 1999(110) ++++ mg/dL [facility] Interpretation and review of laboratory results Normal [facility] Ketones, UA Negative Negative - 160(16) ++++ mg/dL [facility] Leukocytes, UA Negative Negative - 500+++ Raquel/mcL [facility] Nitrite, UA Negative Negative - Positive [facility] pH, UA 6 5 - 9 [facility] Protein, UA Negative Negative - 1999(20) ++++ mg/dL [facility] Spec Grav, UA 1.02 1 - 1.03 [facility] Urobilinogen, UA 0.2 0.2 - 12 mg/dL [facility] Urinalysis macro (dipstick) panel (U)on 09-10-2024 Bilirubin, UA Negative Negative - 4(70) +++ mg/dL [facility] Blood, UA Negative Negative - 50 Quinton/mcL [facility] Clarity, UA Clear [facility] Color, UA Yellow [facility] Glucose, UA Negative Negative - 1999(110) ++++ mg/dL [facility] Interpretation and review of laboratory results Abnormal [facility] Ketones, UA Negative Negative - 160(16) ++++ mg/dL [facility] Leukocytes, UA Trace Negative - 500+++ Raquel/mcL [facility] Nitrite, UA Negative Negative - Positive [facility] pH, UA 7 5 - 9 [facility] Protein, UA Negative Negative - 1999(20) ++++ mg/dL [facility] Spec Grav, UA 1.02 1 - 1.03 [facility] Urobilinogen, UA 0.2 0.2 - 12 mg/dL [facility] Urinalysis macro (dipstick) panel (U)on 08-27-2024 Bilirubin, UA Negative Negative - 4(70) +++ mg/dL [facility] Blood, UA Negative Negative - 50 Quinton/mcL [facility] Clarity, UA Clear [facility] Color, UA Yellow [facility] Glucose, UA Negative Negative - 1999(110) ++++ mg/dL [facility] Interpretation and review of laboratory results Abnormal [facility] Ketones, UA Negative Negative - 160(16) ++++ mg/dL [facility] Leukocytes, UA Trace Negative - 500+++ Raquel/mcL [facility] Nitrite, UA Negative Negative - Positive [facility] pH, UA 6.5 5 - 9 [facility] Protein, UA Negative Negative - 1999(20) ++++ mg/dL [facility] Spec Grav, UA 1.020 1 - 1.03 [facility] Urobilinogen, UA 0.2 0.2 - 12 mg/dL [facility] ALL CBC WITH AUTO DIFFon BASOPHILS ABSOLUTE AUTO 0.0 [facility] Basophils/100 WBC (Bld) 0.2 % 0.2 - 2.0 % [facility] Eosinophils/100 WBC (Bld) 0.6 % Low 0.9 - 7.0 % [facility] Erythrocyte distribution width (RBC) [Ratio] 13.3 % 11.0 - 15.0 % [facility] Hematocrit (Bld) [Volume fraction] 31.2 % Low 36.0 - 48.0 % [facility] Hemoglobin (Bld) [Mass/Vol] 10.5 g/dL Low 12.0 - 16.0 g/dL [facility] IMMATURE GRANULOCYTES ABS AUTO 0.03 [facility] Immature granulocytes/100 WBC (Bld) 0.2 % 0.0 - 0.5 % [facility] Interpretation and review of laboratory results Abnormal [facility] LYMPHOCYTES ABSOLUTE AUTO 1.4 [facility] Lymphocytes/100 WBC (Bld) 11.5 % Low 20.5 - 60.0 % [facility] MCH (RBC) [Entitic mass] 29.0 pg 26.7 - 34.0 pg [facility] MCHC (RBC) [Mass/Vol] 33.7 g/dL 29.9 - 35.2 g/dL [facility] MCV (RBC) [Entitic vol] 86.2 fL 81.0 - 99.0 fL [facility] MONOCYTES ABSOLUTE AUTO 0.9 High [facility] Monocytes/100 WBC (Bld) 7.1 % 1.7 - 12.0 % [facility] NEUTROPHILS ABSOLUTE AUTO 10.0 High [facility] Neutrophils/100 WBC (Bld) 80.4 % High 43.0 - 75.0 % [facility] Platelet mean volume (Bld) [Entitic vol] 10.4 fL 9.5 - 13.5 fL [facility] TBH EO # 0.1 [facility] TB PLT 221 [facility] RBC 3.62 Low [facility] TB WBC 12.4 High [facility] BhCG Quanton 03-19-2024 HCG.beta subunit Qn 488 m[IU]/mL High 1-3 [facility] Comment on above: Result Comment: 'F N ON < 1 - 3' ' 0.2 - 1 WEEK = 5 TO 50' ' 1 - 2 WEEKS = 50 - 500' ' 2 - 3 WEEKS = 100 - 5000' ' 3 - 4 WEEKS = 500 - 84260' ' 4 - 5 WEEKS = 1000 - 66286' ' 5 - 6 WEEKS = 70122 - 335490' ' 6 - 8 WEEKS = 08696 - 940009' ' 8 - 12 WEEKS = 23677 - 481565' Performed By: #### 2 [id number] #### [facility] [address] [place] [address] CHEMISTRYOrdered By: SYSTEM SYSTEM on 03-19-2024 HCG.beta [...] 3 - 4 WEEKS = 500 - 98567' ' 4 - 5 WEEKS = 1000 - 15525' ' 5 - 6 WEEKS = 89890 - 700391' ' 6 - 8 WEEKS = 90088 - 203978' ' 8 - 12 WEEKS = 06070 - 665960' Progesterone Lvl 69.95 ng/mL Invalid Interpretation Code [...] Lvl 69.95 ng/mL Invalid Interpretation Code [facility] Comment on above: Result Comment: 'F N ON FOLLICULAR = 0.10 - 0.60' 'LUTEAL = 3.00 - 17.5' 'MIDLUTEAL = 3.30 - 18.6' 'POST-MENOPAUSE = 0.10 - 0.40' '-FIRST TRIMESTER = 8.30 - 66.5' 'SECOND TRIMESTER = 18.9 - 66.1' 'THIRD TRIMESTER = 35.8 - 312.4' 'MALES = 0.14 - 2.06' Result Verified by Dilution Performed By: #### 2 [id number] #### [facility] [address] [place] [address] [facility] Quanton 03-17-2024 HCG.beta subunit Qn 185 m[IU]/mL High 1-[address] [facility] Comment on above: Result Comment: 'F N ON < 1 - 3' ' 0.2 - 1 WEEK = 5 TO 50' ' 1 - 2 WEEKS = 50 - 500' ' 2 - 3 WEEKS = 100 - 5000' ' 3 - 4 WEEKS = 500 - 02052' ' 4 - 5 WEEKS = 1000 - 08416' ' 5 - 6 WEEKS = 06801 - 598524' ' 6 - 8 WEEKS = 46354 - 681224' ' 8 - 12 WEEKS = 13694 - 828084' Performed By: #### 2 [id number] #### [facility] [address] [place] [address] CHEMISTRYOrdered By: SYSTEM SYSTEM on 03-17-2024 HCG.beta [...] 3 - 4 WEEKS = 500 - 77641' ' 4 - 5 WEEKS = 1000 - 51581' ' 5 - 6 WEEKS = 95469 - 015165' ' 6 - 8 WEEKS = 42467 - 915304' ' 8 - 12 WEEKS = 12796 - 001606' Progesterone Lvl 51.75 ng/mL Invalid Interpretation Code [...] Consent for Treatmenton 02-18 Consent for Treatment [id number]#1.00TIF F Normal [facility] Physician Orderon 03-17-2024 Physician Order [id number]#1.00TI FF Normal [facility] Progesteroneon 03-17-2024 Progesterone Lvl 51.75 ng/mL Invalid Interpretation Code [facility] Comment on above: Result Comment: 'F N ON FOLLICULAR = 0.10 - 0.60' 'LUTEAL = 3.00 - 17.5' 'MIDLUTEAL = 3.30 - 18.6' 'POST-MENOPAUSE = 0.10 - 0.40' '-FIRST TRIMESTER = 8.30 - 66.5' 'SECOND TRIMESTER = 18.9 - 66.1' 'THIRD TRIMESTER = 35.8 - 312.4' 'MALES = 0.14 - 2.06' Performed By: #### 2 [id number] #### [facility] [address] [place] [address] Physician Orderon 03-12-2024 Physician Order [id number]#1.00T IFF Normal [facility] CHEMISTRYOrdered By: SYSTEM SYSTEM on 03-07-2024 [...] Lvl 20.59 ng/mL Invalid Interpretation Code [facility] Comment on above: Result Comment: 'F N ON FOLLICULAR = 0.10 - 0.60' 'LUTEAL = 3.00 - 17.5' 'MIDLUTEAL = 3.30 - 18.6' 'POST-MENOPAUSE = 0.10 - 0.40' '-FIRST TRIMESTER = 8.30 - 66.5' 'SECOND TRIMESTER = 18.9 - 66.1' 'THIRD TRIMESTER = 35.8 - 312.4' 'MALES = 0.14 - 2.06' Performed By: #### 2 [id number] #### [facility] [address] [place] [address] Progesteroneon 02-05-2024 Progesterone Lvl 20.64 ng/mL Invalid Interpretation Code [facility] Comment on above: Result Comment: 'F N ON FOLLICULAR = 0.10 - 0.60' 'LUTEAL = 3.00 - 17.5' 'MIDLUTEAL = 3.30 - 18.6' 'POST-MENOPAUSE = 0.10 - 0.40' '-FIRST TRIMESTER = 8.30 - 66.5' 'SECOND TRIMESTER = 18.9 - 66.1' 'THIRD TRIMESTER = 35.8 - 312.4' 'MALES = 0.14 - 2.06' Performed By: #### 2 [id number] #### [facility] [address] [place] [address] Progesteroneon 01-08-2024 Progesterone Lvl 18.23 ng/mL Invalid Interpretation Code [facility] Comment on above: Result Comment: 'F N ON FOLLICULAR = 0.10 - 0.60' 'LUTEAL = 3.00 - 17.5' 'MIDLUTEAL = 3.30 - 18.6' 'POST-MENOPAUSE = 0.10 - 0.40' '-FIRST TRIMESTER = 8.30 - 66.5' 'SECOND TRIMESTER = 18.9 - 66.1' 'THIRD TRIMESTER = 35.8 - 312.4' 'MALES = 0.14 - 2.06' Performed By: #### 2 [id number] #### [facility] [address] [place] [address] Consent for Treatmenton 11-19 Consent for Treatment [id number] F Normal [facility] Physician Orderon 12-07-2023 Physician Order [id number]#1.00TI FF Normal [facility] Progesteroneon 12-07-2023 Progesterone Lvl 13.36 ng/mL Invalid Interpretation Code [facility] Comment on above: Result Comment: 'F N ON FOLLICULAR = 0.10 - 0.60' 'LUTEAL = 3.00 - 17.5' 'MIDLUTEAL = 3.30 - 18.6' 'POST-MENOPAUSE = 0.10 - 0.40' '-FIRST TRIMESTER = 8.30 - 66.5' 'SECOND TRIMESTER = 18.9 - 66.1' 'THIRD TRIMESTER = 35.8 - 312.4' 'MALES = 0.14 - 2.06' Performed By: #### 2 [id number] #### [facility] [address] [place] [address] DHEASon 11-14-2023 DHEA-S [Mass/Vol] 281.0 microgram/dL Invalid Interpretation Code 84.8-378.0 [facility] Comment on above: Result Comment: Perf ormed at: [facility] [address] [id number] PhD Padma Gleason Performed By: #### 2 [id number] #### [facility] [address] [place] [address] FSH and LHon 11-14-2023 Follitropin Qn 2.8 m[IU]/mL Invalid Interpretation Code [facility] Comment on above: Result Comment: Adul t Female Range Follicular phase 3.5 - 12.5 Ovulation phase 4.7 - 21.5 Luteal phase 1.7 - 7.7 Postmenopausal 25.8 - 134.8 Performed at: [facility] [address] [id number] PhD Padma Gleason Performed By: #### 2 [id number] #### [facility] [address] [place] [address] Lutropin Qn 2.9 m[IU]/mL Invalid Interpretation Code [facility] Comment on above: Result Comment: Adul t Female Range Follicular phase 2.4 - 12.6 Ovulation phase 14.0 - 95.6 Luteal phase 1.0 - 11.4 Postmenopausal 7.7 - 58.5 Performed By: #### 2 [id number] #### [facility] [address] [place] [address] Auto Diffon 11-13-2023 Basophils/100 WBC (Bld) 0.2 % Normal 0.0-2.0 [facility] Comment on above: Order Comment: Order Added by Discern Expert. Performed By: #### 7 [id number], [id number], 8667796, 7016794, 00086599, 1709454, 9683556 #### [facility] [address] [place] [address] Basophils/Leukocytes Auto (Bld) [Pure # fraction] 0.0 E9/L Normal 0.0-0.2 [facility] Comment on above: Order Comment: Order Added by Discern Expert. Performed By: #### 7 [id number], [id number], 3667883, 6312783, 56427864, 3762923, 8618235 #### [facility] [address] [place] [address] Eosinophils/100 WBC (Bld) 1.0 % Normal 0.0-8.0 [facility] Comment on above: Order Comment: Order Added by Discern Expert. Performed By: #### 7 [id number], 75861925, 5881382, 8166090, 03170987, 7512400, 7364164 #### [facility] [address] [place] [address] Eosinophils/Leukocyt es Auto (Bld) [Pure # fraction] 0.1 E9/L Normal 0.0-0.5 [facility] Comment on above: Order Comment: Order Added by Discern Expert. Performed By: #### 7 [id number], 06207840, 0045469, 3146768, 92862899, 4688272, 2743065 #### [facility] [address] [place] [address]246 Lymphocytes/100 WBC (Bld) 24.1 % Normal 14.0-50.0 [facility] Comment on above: Order Comment: Order Added by Discern Expert. Performed By: #### 7 [id number], 86748784, 5167073, 3909651, 54724775, 9112106, 1529909 #### [facility] [address] [place] [address] Lymphocytes/Leukocyt es Auto (Bld) [Pure # fraction] 1.7 E9/L Normal 1.0-4.0 [facility] Comment on above: Order Comment: Order Added by Discern Expert. Performed By: #### 7 [id number], 17662854, 7881882, 5806107, 82315246, 5348335, 0876402 #### [facility] [address] [place] [address]08 Monocytes/100 WBC (Bld) 8.6 % Normal 4.0-14.0 [facility] Comment on above: Order Comment: Order Added by Discern Expert. Performed By: #### 7 [id number], 24963974, 3862719, 4514728, 57681954, 7404387, 1646451 #### [facility] [address] [place] [address] Monocytes/Leukocytes Auto (Bld) [Pure # fraction] 0.6 E9/L Normal 0.2-1.0 [facility] Comment on above: Order Comment: Order Added by Discern Expert. Performed By: #### 7 [id number], 99271073, 0558709, 8148764, 37071861, 3932648, 9071038 #### [facility] [address] [place] [address]36 Neutrophils/100 WBC (Bld) 66.1 % Normal 36.0-75.0 [facility] Comment on above: Order Comment: Order Added by Farhan Expert. Performed By: #### 7 [id number], 51454509, 3016422, 8736491, 38492307, 9567675, 8397977 #### [facility] [address] [place] [address]9923 Neutrophils/Leukocyt es Auto (Bld) [Pure # fraction] 4.5 E9/L Normal 2.0-7.5 [facility] Comment on above: Order Comment: Order Added by Discern Expert. Performed By: #### 7 [id number], 98405360, 2064058, 5311110, 17215052, 6673568, 1435948 #### [facility] [address] [place] [address] BhCG Quanton 11-13-2023 Beta hCG Qnt <1 Normal 1-3 [facility] Comment on above: Result Comment: 'F N ON < 1 - 3' ' 0.2 - 1 WEEK = 5 TO 50' ' 1 - 2 WEEKS = 50 - 500' ' 2 - 3 WEEKS = 100 - 5000' ' 3 - 4 WEEKS = 500 - 08084' ' 4 - 5 WEEKS = 1000 - 92162' ' 5 - 6 WEEKS = 31850 - 779524' ' 6 - 8 WEEKS = 09125 - 733868' ' 8 - 12 WEEKS = 83965 - 054909' Performed By: #### 2 067296 #### [facility] [address] [place] [address] CBC w/ Auto Diffon Erythrocyte distribution width (RBC) [Ratio] 13.8 % Normal 10.9-14.2 [facility] Comment on above: Performed By: #### 7 [id number], 03572857, 2723892, 2350839, 10605136, 3565688, 0420365 #### [facility] [address] [place] [address] Hematocrit (Bld) [Volume fraction] 39.9 % Normal 34.0-46.0 [facility] Comment on above: Performed By: #### 7 [id number], 51230729, 3582334, 2984326, 95892626, 2617477, 5626442 #### [facility] [address] [place] [address] Hemoglobin (Bld) [Mass/Vol] 13.1 g/dL Normal 12.0-16.0 [facility] Comment on above: Performed By: #### 7 [id number], 89017603, 7223472, 3840029, 92376440, 9965923, 2893461 #### [facility] [address] [place] [address] MCH (RBC) [Entitic mass] 27.5 pg Normal 27.0-34.0 [facility] Comment on above: Performed By: #### 7 [id number], 96826056, 7769742, 7219662, 14633996, 8931209, 4857153 #### [facility] [address] [place] [address] MCHC (RBC) [Mass/Vol] 32.9 g/dL Normal 31.4-36.0 [facility] Comment on above: Performed By: #### 7 [id number], 68795767, 8612326, 9049138, 93081453, 5732809, 6506972 #### [facility] [address] [place] [address]270 MCV (RBC) [Entitic vol] 83.5 fL Normal 80.0-100.0 [facility] Comment on above: Performed By: #### 7 09789027, 11254629, 3535557, 6404534, 60504415, 7665000, 4580989 #### [facility] [address] [place] [address]491 Platelet mean volume (Bld) [Entitic vol] 9.3 fL Normal 6.4-10.8 [facility] Comment on above: Performed By: #### 7 24861280, 99236323, 3537045, 1054612, 90781325, 6689983, 3994033 #### [facility] [address] [place] [address] Platelets (Bld) [#/Vol] 249.0 E9/L Normal 150.0-500.0 [facility] Comment on above: Performed By: #### 7 [id number], 29159125, 9171860, 5321520, 17532407, 5551997, 2209336 #### [facility] [address] [place] [address] RBC (Bld) [#/Vol] 4.8 E12/L Normal 4.3-5.9 [facility] Comment on above: Performed By: #### 7 57650102, 73178320, 6130482, 2185356, 22717308, 5316838, 8594722 #### [facility] [address] [place] [address] WBC corrected for nucl RBC Auto (Bld) [#/Vol] 6.8 E9/L Normal 4.0-11.0 [facility] Comment on above: Performed By: #### 7 15287931, 00838034, 0566198, 7574063, 77866912, 7315840, 8811813 #### [facility] Laboratory [address] [place] [address] CHEMISTRYOrdered By: SYSTEM SYSTEM on 11-13-2023 Beta [...] 3 - 4 WEEKS = 500 - 11908' ' 4 - 5 WEEKS = 1000 - 78127' ' 5 - 6 WEEKS = 37338 - 109366' ' 6 - 8 WEEKS = 41868 - 548423' ' 8 - 12 WEEKS = 40954 - 862900' Free T4 [Mass/Vol] 0.96 ng/dL Normal 0.58 - 1. 64 ng/dL Remisol Chem TSH Qn 1.38 m[IU]/L Normal 0.34 - 5.60 mcIU/mL Remisol Chem CHEMISTRYOrdered By: Adolph Mcnair on 11-13-2023 HbA1c (Bld) [Mass fraction] 5.0 % Normal <=5.9% [facility] ChemAutoSS Consent for Treatmenton 10-20 Consent for Treatment [id number] F Normal [facility] Free T4on 11-13-2023 Free T4 [Mass/Vol] 0.96 ng/dL Normal 0.58-1.64 [facility] Comment on above: Performed By: #### 7 [id number], [id number], [id number], [id number] #### [facility] Laboratory [address] [place] [address] HEMATOLOGYOrdered By: SYSTEM SYSTEM on 11-13-2023 Basophils/100 [...] Normal 4.0 - 11.0 E9/L [facility] HemeAutoSS [id number] 11-13-2023 HbA1c (Bld) [Mass fraction] 5.0 % Normal <=5.9 [facility] Comment on above: Performed By: #### 7 [id number], [id number], [id number], [id number], [id number], [id number], [id number] #### [facility] Laboratory [address] [place] [address] TSHon 11-13-2023 TSH Qn 1.38 m[IU]/L Normal 0.34-5.60 [facility] Comment on above: Performed By: #### 7 [id number], [id number], [id number], [id number], [id number], [id number] #### [facility] Laboratory [address] [place] [address] Laboratory - Chemistry and C hemistry - [...] 21 to 29on 01-31-2022 . . Normal [facility] Comment on above: Performed By: #### 4 [id number] #### [facility] [address] [place] [address] Dr. Tobi Phelps Age Gdln ACOG Testing 21-29 [facility] Comment on above: Performed By: #### 4 [id number] #### [facility] [address] [place] [address] Dr. Tobi Phelps DIAGNOSIS: Comment [facility] Comment on above: Result Comment: NEGA TIVE FOR INTRAEPITHELIAL LESION OR MALIGNANCY. Performed By: #### 4 [id number] #### [facility] [address] [place] [address] Dr. Tobi Phelps Methodology: Comment [facility] Comment on above: Result Comment: This liquid based ThinPrep(R) pap test was screened with the use of an image guided system. Performed By: #### 4 [id number] #### [facility] [address] [place] [address] Dr. Tobi Phelps Note: Comment Normal [facility] Comment on above: Result Comment: The Pap smear is a screening test designed to aid in the detection of premalignant and malignant conditions of the uterine cervix. It is not a diagnostic procedure and should not be used as the sole means of detecting cervical cancer. Both false-positive and false-negative reports do occur. . Performed By: #### 4 [id number] #### [facility] [address] [address] [address] Tobi Phelps Performed by: Comment Normal [facility] Comment on above: Result Comment: Elvis Gutierrez, Quick Service Technician (ASCP) Performed By: #### 4 [id number] #### [facility] [address] [address] [address] Tobi Phelps Reflex Criteria: Comment Normal [facility] Comment on above: Result Comment: The HPV DNA reflex criteria were not met with this specimen result therefore, no HPV testing was performed. . Performed By: #### 4 [id number] #### [facility] [address] [address] [address] Tobi Phelps Specimen adequacy: Comment Normal [facility] Comment on above: Result Comment: Sati sfactory for evaluation. Endocervical and/or squamous metaplastic cells (endocervical component) are present. Performed By: #### 4 [id number] #### [facility] [address] [address] [address] Tobi Phelps [employer] LTon 03-25 [employer] * * *Final Report* * *DATE OF EXAM: Mar 25 2018 2:21PM HCW 0593 - [employer] BREAST ADAPTIX LT / REASON: Benign breast lumps * * * * Physician Interpretation * * * *RESULT: #[id number] - [employer] LTULTRASOUND OF LEFT BREAST: 03/25/2018HISTORY: Benign Breast [...] made to exam dated: 10/29/2013 ultrasound - [facility].Real-time ultrasound of the left breast was performed.There [...] guidelines.Kj Winkler/crispin:03/25/2018 14:31:28Imaging Technologist: Mirta MERAZ (R)), [facility]: 2 Benign findingTranscribed Using Voice RecognitionTranscribe Date/Time: Mar 25 2018 2:21PDictated by: KJ LANCASTER MDThis examination was interpreted and the report reviewed and electronically signed by: KJ LANCASTER MD on Mar 25 2018 2:31PM [id number] Normal [facility] US BREAST LTD RTon 03-25 [facility] US BREAST LTD RT * * *Final Report* * *DATE OF EXAM: Mar 25 2018 2:21PM HCW 0594 - [facility] US BREAST LTD RT / REASON: Benign breast lumps * * * * Physician Interpretation * * * *RESULT: #[id number] - [facility] US BREAST LTD RTULTRASOUND OF RIGHT BREAST: [...] with normal fibroglandular tissue.Follow-up with ACR/NCCN guidelines.SUMMARY:Opal nt also had a left ultrasound today. Please see that report for full detail.Kj Winkler/crispin:03/25/2018 14:34:44Imaging Technologist: Mirta MERAZ (R)), [facility]: 1 NegativeTranscribed Using Voice RecognitionTranscribe Date/Time: Mar 25 2018 2:21PDictated by: KJ LANCASTER MDThis examination was interpreted and the report reviewed and electronically signed by: KJ LANCASTER MD on Mar 25 2018 2:34PM [id number] Normal [facility] Vital Signs Date Time Vital Sign Value Performing Clinician Go plasencia 10-29-2024 12:22-0500 Body mass index (BMI) [Ratio] 29.29 kg/m2 [employer] Work Phone: [facility] 10-29-2024 12:22-0500 Body weight 84.82 kg Clifton France DO Work Phone: [facility] 10-29-2024 12:22-0500 Diastolic blood pressure 70 mm[Hg] Clifton France DO Work Phone: [facility] 10-29-2024 12:22-0500 Systolic blood pressure 116 mm[Hg] Clifton France DO Work Phone: [facility] 10-22-2024 08:56-0500 Body mass index (BMI) [Ratio] 29.04 kg/m2 Vianey Diaz PA Work Phone: [facility] 10-22-2024 08:56-0500 Body weight 84.1 kg Vianey Gardendale PA Work Phone: [facility] 10-22-2024 08:56-0500 Diastolic blood pressure 70 mm[Hg] Vianey Gardendale PA Work Phone: [facility] 10-22-2024 08:56-0500 Systolic blood pressure 120 mm[Hg] Vianey Gardendale PA Work Phone: [facility] 10-08-2024 08:52-0500 Body mass index (BMI) [Ratio] 28.04 kg/m2 Vianey Gardendale PA Work Phone: [facility] 10-08-2024 08:52-0500 Body weight 81.19 kg Vianey Diaz PA Work Phone: [facility] 10-08-2024 08:52-0500 Diastolic blood pressure 70 mm[Hg] Vianey Gardendale PA Work Phone: [facility] 10-08-2024 08:52-0500 Systolic blood pressure 116 mm[Hg] Vianey Gardendale PA Work Phone: [facility] 09-24-2024 09:36-0500 Body mass index (BMI) [Ratio] 27.72 kg/m2 Vianey Diaz PA Work Phone: [facility] 09-24-2024 09:36-0500 Body weight 80.29 kg Vianey Gardendale PA Work Phone: [facility] 09-24-2024 09:36-0500 Diastolic blood pressure 64 mm[Hg] Vianey Diaz PA Work Phone: [facility] 09-24-2024 09:36-0500 Systolic blood pressure 114 mm[Hg] Vianey Diaz PA Work Phone: [facility] 09-10-2024 12:59-0400 Body mass index (BMI) [Ratio] 27.57 kg/m2 Clifton France DO Work Phone: [facility] 09-10-2024 12:59-0400 Body weight 79.83 kg Clifton France DO Work Phone: [facility] 09-10-2024 12:59-0400 Diastolic blood pressure 70 mm[Hg] Clifton France DO Work Phone: [facility] 09-10-2024 12:59-0400 Systolic blood pressure 120 mm[Hg] Clifton France DO Work Phone: [facility] 08-27-2024 08:44-0400 Body mass index (BMI) [Ratio] 27.13 kg/m2 Vianey SHIRLEY Work Phone: [facility] 08-27-2024 08:44-0400 Body weight 78.59 kg Vianey SHIRLEY Work Phone: [facility] 08-27-2024 08:44-0400 Diastolic blood pressure 78 mm[Hg] Vianey SHIRLEY Work Phone: [facility] 08-27-2024 08:44-0400 Systolic blood pressure 118 mm[Hg] Vianey SHIRLEY Work Phone: [facility] Healthcare Encounters Encounter Date Encounter Type Care Provider Facility Start: 10-29-2024 End: 10-29-2024 Bamboo flowsheet Clifton France DO Work Phone: [facility] Start: 10-29-2024 End: 11-01-2024 Bamboo flowsheet Clifton France DO Work Phone: [facility] Start: 10-29-2024 End: 11-01-2024 Clinisync Result Encounter Clifton France DO Work Phone: [facility] External Department Unsolicited Start: 10-29-2024 End: 10-29-2024 flow sheet Clifton France DO Work Phone: [facility] Comment on above: 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; 36 weeks gestation of Start: 10-29-2024 End: 10-29-2024 ambulatory CLIFTON FRANCE Not Available Start: 10-22-2024 End: 10-22-2024 Bamboo flowsheet Vianey Gardendale PA Work Phone: [facility] Start: 10-22-2024 End: 10-22-2024 Bamboo flowsheet Vianey Perales PA Work Phone: [facility] Start: 10-22-2024 End: 10-22-2024 flow sheet Vianey Perales PA Work Phone: [facility] Comment on above: 35 weeks gestation o f ; Third trimester Start: 10-22-2024 End: 10-22-2024 ambulatory VIANEY PERALES Not Available Start: 10-08-2024 End: 10-08-2024 Bamboo flowsheet Vianey Perales PA Work Phone: [facility] Start: 10-08-2024 End: 10-08-2024 Bamboo flowsheet Vianey Perales PA Work Phone: [facility] Start: 10-08-2024 End: 10-08-2024 flow sheet Vianey Perales PA Work Phone: [facility] Comment on above: 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; 32 weeks gestation of Start: 10-08-2024 End: 10-08-2024 ambulatory VIANEY PERALES Not Available Start: 09-24-2024 End: 09-24-2024 Bamboo flowsheet Vianey Perales PA Work Phone: [facility] Start: 09-24-2024 End: 09-24-2024 Bamboo flowsheet Vianey Perales PA Work Phone: [facility] Start: 09-24-2024 End: 09-24-2024 flow sheet Vianey Perales PA Work Phone: [facility] Comment on above: 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; 31 weeks gestation of ; Iron deficiency anemia, unspecified iron deficiency anemia type Start: 09-24-2024 End: 09-24-2024 ambulatory VIANEY PERALES Not Available Start: 09-10-2024 End: 09-10-2024 Bamboo flowsheet Clifton Hough DO Work Phone: [facility] Start: 09-10-2024 End: 09-10-2024 Bamboo flowsheet Clifton Franec DO Work Phone: [facility] Start: [...] Not Available Start: 08-15-2024 ambulatory Nadir Zhou [facility] Start: 08-06-2024 End: 08-06-2024 Clinisync Result Encounter Clifton France DO Work Phone: [facility] External Department Unsolicited Start: 08-06-2024 End: 08-06-2024 Clinisync Result Encounter Clifton France DO Work Phone: [facility] Unsolicited Start: 07-30-2024 End: 07-30-2024 ambulatory CLIFTON FRANCE Not Available Start: 07-02-2024 End: 07-02-2024 ambulatory CLIFTON FRANCE Not Available Start: 06-18-2024 End: 06-18-2024 ambulatory VIANEY PERALES Not Available Start: 05-21-2024 End: 05-21-2024 ambulatory CLIFTON FRANCE Not Available Start: 04-18-2024 End: 04-18-2024 ambulatory NHUNG RIVERO Not Available Start: 03-17-2024 End: 03-17-2024 ambulatory Clifton MALINO [place] Start: 03-17-2024 End: 03-17-2024 Patient encounter procedure Clifton MAYORGAZIO [facility] Start: 12-19-2023 End: 12-19-2023 ambulatory NHUNG Marizol MAT Not Available Start: 12-07-2023 End: 06-17-2024 ambulatory Clifton HOUGH Facility[place] Start: 12-07-2023 End: 06-17-2024 Recurring Clifton HOUGH [facility] Start: 11-13-2023 End: 11-13-2023 ambulatory Clifton HOUGH Facility[place] Start: 11-13-2023 End: 11-13-2023 Patient encounter procedure Clifton R FRANCE [facility] Start: 04-11-2023 End: 06-17-2024 Recurring Clifton R FRANCE [facility] Start: 01-25-2022 End: 01-25-[address] CLIFTON HOUGH Facility: Start: 08-02-2021 End: 08-02-2021 ambulatory Lance SHIRLEY Facility:[facility] Start: 12-10-2018 End: 12-11-2018 Patient encounter procedure PA NEWBERRY Facility:[facility] Start: 12-05-2018 End: 12-06-2018 Patient encounter procedure DEFAULT PHYSICIAN Facility:[facility] Start: 03-25-2018 Ambulatory [facility] Procedures Date Procedure Procedure Detail Performing Clinician Start: 10-29-2024 Urnls dip stick/tabl et rgnt non-auto w/o micrscp Clifton France DO Work Phone: Start: 10-29-2024 ALL MISCELLANEOUS TEST Clifton France DO Work Phone: Start: 10-22-2024 Urnls dip stick/tabl et rgnt non-auto w/o micrscp Vianey SHIRLEY Work Phone: Start: 09-24-2024 Urnls dip stick/tabl et rgnt non-auto w/o micrscp Vianey SHIRLEY Work Phone: Start: 09-10-2024 Urnls dip stick/tabl et rgnt non-auto w/o micrscp Clifton France DO Work Phone: Start: 08-27-2024 Urnls dip stick/tabl et rgnt non-auto w/o micrscp Vianey SHIRLEY Work Phone: Start: 08-06-2024 ALL CBC WITH AUTO DIFF Clifton France DO Work Phone: Start: 07-11-2023 Microscopic observat ion [Identifier] in Cervix by Cyto stain Vianey SHIRLEY Work Phone: Plan of Treatment Date Care Activity Detail Author Start: 07-11-2028 Screening for malign ant neoplasm of cervix HPV/Cotest [facility] Healthcare Start: 07-11-2026 Screening for malign ant neoplasm of cervix [facility] Healthcare Start: 11-05-2024 End: 11-05-2024 Patient encounter procedure 11/05/2024 2:20 PM EST Routine [facility] [address] [place] [id number] Vianey Perales PA [address] [place] [address] [facility] Start: 10-29-2024 End: 10-29-2025 CULTURE, GROUP B STREP WITH SUSCEPTIBLITY CULTURE, GROUP B STREP WITH SUSCEPTIBLITY Lab Routine Third trimester Expected: 10/29/2024 (Approximate), Expires: 10/29/2025 [facility] Healthcare Work Phone: Comment on above: Expected: 10/29/2024 (Approximate), Expires: 10/29/2025 Start: 10-29-2024 End: 10-29-2024 Patient encounter procedure [facility] Comment on above: Arrived Start: 10-22-2024 End: 10-22-2024 Patient encounter procedure [facility] Comment on above: Arrived Start: 10-22-2024 End: 10-22-2024 Professional / ancillary services management 10/22/2024 8:00 AM EST Ancillary Procedure [facility] [address] [place] [id number] [facility] Start: 10-08-2024 End: 10-08-2024 Patient encounter procedure [facility] Comment on above: Arrived Start: 09-24-2024 End: 09-24-2024 Patient encounter procedure [facility] Comment on above: Arrived Start: 09-24-2024 End: 09-24-2024 Professional / ancillary services management 09/24/2024 9:00 AM EST Ancillary Procedure [facility] [address] [place] [id number] [facility] Start: 09-10-2024 End: 09-10-2025 US for US OB SCAN FOR GROWTH Imaging Routine Excessive growth affecting management of , antepartum, single or unspecified fetus Expected: 09/10/2024 (Approximate), Expires: 09/10/20[address] [facility] Work Phone: Comment on above: Expected: 09/10/2024 (Approximate), Expires: 09/10/2025 Start: 09-10-2024 End: 09-10-2024 Patient encounter procedure [facility] Comment on above: Arrived Start: 08-27-2024 End: 08-27-2024 Patient encounter procedure [facility] Comment on above: Arrived Start: 07-20-2024 Influenza vaccination Influ[facility] Immunizations Immunization Date Immunization Notes Care Provider [facility] 09-02-2024 influenza virus vaccine, unspecified formulation Clifton Hough DO Work Phone: [facility] 09-06-2023 influenza virus vaccine, unspecified formulation Clifton FRANCE [facility] Comment on above: Reason for Medicatio n: Prophylaxis 09-12-2022 influenza virus vaccine, unspecified formulation Clifton FRANCE [facility] Comment on above: Reason for Medicatio n: Prophylaxis 09-12-2022 influenza, injectabl e, quadrivalent, preservative free Clifton FRANCE [facility] 04-28-2021 COVID-19, mRNA, LNP- S, PF, 30 mcg/0.3 mL dose Clifton FRANCE [facility] Comment on above: Reason for Medicatio n: Prophylaxis 04-06-2021 COVID-19, mRNA, LNP- S, PF, 30 mcg/0.3 mL dose Clifton FRANCE [facility] Comment on above: Reason for Medicatio n: Prophylaxis Payers Date Payer Category Payer [facility] [id number] 2023 Unknown [id number] 2022 Unknown [id number] 2021 Unknown 1994 Unknown [id number] 2..840.1.202103.3.579.2. 647 1994 Unknown [id number] 2..840.1.039815.3.579.2. 647 1994 Unknown [id number] 2.16.840.1.223146.3.579.2. 593 1994 Unknown [id number] 2.16.840.1.591626.3.579.2. 727 1994 Unknown [id number] 2.16.840.1.253713.3.579.2. 727 1994 Unknown [id number] 2.16.840.1.399648.3.579.2. 727 1994 Unknown [id number] 2.16.840.1.052070.3.579.2. 727 1994 Unknown [id number] 2.16.840.1.138013.3.579.2. 718 1994 Unknown [id number] 2.16.840.1.490172.3.579.2. 1258 1994 Unknown [id number] 2.16.840.1.686008.3.579.2. 1258 1994 Unknown [id number] 2.16.840.1.477258.3.579.2. 1258 1994 Unknown [id number] 2.16.840.1.104124.3.579.2. 1258 1994 Unknown [id number] 2.16.840.1.634010.3.579.2. 1258 1994 Unknown [id number] 2.16.840.1.927858.3.579.2. 1258 1994 Unknown [id number] 2.16.840.1.495499.3.579.2. 125 1994 Unknown [id number] 2.16.840.1.066324.3.579.2. 1258 1994 Unknown [id number] 2.16.840.1.835145.3.579.2. 1258 1994 Unknown [id number] 2.16.840.1.893213.3.579.2. 1258 1994 Unknown [id number] 2.16.840.1.796143.3.579.2. 1259 1994 Unknown [id number] 2.16.840.1.122775.3.579.2. 1259 1959 Unknown [id number] Unknown [id number] Social History Date Type Detail Facility Start: 07-21-2021 End: 04-11-2023 Tobacco smoking status Never smoked tobacco (finding) [facility] Tobacco smoking status Never [facility] Start: 09-12-2023 End: 04-11-2024 Sex Assigned At Female [facility] Start: 04-11-2023 Tobacco use and exposure Smokeless tobacco non-user [facility] Start: 07-30-2024 End: 10-22-2024 Alcoholic beverage intake Ex-drinker (finding) [facility] Start: 04-11-2024 End: 07-30-2024 Alcoholic beverage intake [facility] Start: 03-03-2024 [facility] Start: 1995 Sex assigned at Female [facility] Start: 04-10-2023 Gender identity Identifies as female gender (finding) [facility] Goals Date Patient Goal Desired Activity /State Personal health goal Clinical Notes 11-13-2023 to 10-29-2024 Karina Wise LPN - 10/29/2024 11:30 AM CASPER Gil - 10/22/2024 8:50 AM CASPER Gil - 10/08/2024 8:30 AM CASPER Gil - 09/24/2024 9:30 AM Ant Wise LPN - 09/10/2024 1:00 PM EDT Note Date & Type Note Facility 10-29-2024 History of Present illness Narrative gbs Reason for Appointment: Patient ID: Mary Salas [...] Constitutional: Appearance: Normal appearance. She is well-developed. Genitourinary: Vulva normal. Cardiovascular: Rate and Rhythm: Normal rate and [...] nursing note reviewed. Exam conducted with a shovel operator present. Vitals: Estimated body mass index is 29.04 kg/m as calculated from the following: Height as of 06/06/23: 5' 7 . Weight as of 10/22/24: 185 lb 6.4 oz. BP: Patient's last menstrual period was 02/18/2024. ASSESSMENT & PLAN ICD-10-CM 1. Third trimester Z34.93 POCT urinalysis dipstick manually resulted Strep B DNA probe, amplification Strep B DNA probe, amplification 2. 36 weeks gestation of Z3A.36 Patient is doing well but has complaints of being tired and having maternal discomfort due to . Patient verbalized frequent movement and was instructed to perform kick counts three times per day. labor precautions were given, LARC consent was signed/declined, and GBS was obtained. Cervical check was performed and patient is 1cm dilated. Orders Placed This Encounter Procedures Strep B DNA probe, amplification POCT urinalysis dipstick manually resulted Follow Up: Patient is to return to office in 1 week for routine OB appointment Documented by Karina Wise LPN on behalf of: Clifton Hough DO documented in this encounter [facility] 10-22-2024 History of Present illness Narrative Reason [...] of: CASPER Weiss documented in this encounter [facility] 10-08-2024 History of Present illness Narrative Reason [...] of: CASPER Weiss documented in this encounter [facility] 09-24-2024 History of Present illness Narrative Reason [...] of: CASPER Weiss documented in this encounter [facility] 09-10-2024 History of Present illness Narrative Reason [...] nursing note reviewed. Exam conducted with a shovel operator present. Vitals: Estimated body mass index [...] Clifton Hough DO documented in this encounter [facility] 08-27-2024 History of Present illness Narrative Reason [...] of: CASPER Weiss documented in this encounter [facility] 11-13-2023 Evaluation + Plan note Diagnostic Tests PendingFS and LH 11/13/23DHEAS 11/13/23 [facility] Evaluation + Plan note No data available for this section [facility] Evaluation note Diagnosis 27 weeks gestation of Second trimester state, incidental Iron deficiency anemia, unspecified iron deficiency anemia type documented in this encounter [facility] HealthcareEvaluation note* Diagnosis 29 weeks gestation of - Primary Third trimester state, incidental Excessive growth affecting management of , antepartum, single or unspecified fetus documented in this encounter [facility] HealthcareEvaluation note* Diagnosis Third trimester state, incidental 31 weeks gestation of Iron deficiency anemia, unspecified iron deficiency anemia type documented in this encounter [facility] HealthcareEvaluation note* Diagnosis Third trimester state, incidental 32 weeks gestation of documented in this encounter [facility] HealthcareEvaluation note* Diagnosis 35 weeks gestation of Third trimester state, incidental documented in this encounter [facility] HealthcareEvaluation note* Diagnosis Third trimester state, incidental 36 weeks gestation of documented in this encounter [facility] Healthcare[facility]ospital Discharge instructions No data available for this section [facility] No data available for this section [facility] Summary Purpose Family History No Family History [...] section and content) DATE CREATED AUTHOR 05/09/2018 [facility] DATE CREATED AUTHOR AUTHOR'S ORGANIZ ATION 12/13/2018 [facility] DATE CREATED AUTHOR AUTHOR'S ORGANIZ ATION 02/01/2022 [facility] DATE CREATED AUTHOR AUTHOR'S ORGANIZ ATION 08/16/2024 [facility] DATE CREATED AUTHOR AUTHOR'S ORGANIZ ATION 08/30/2024 [facility] DATE CREATED AUTHOR AUTHOR'S ORGANIZ ATION 11/01/2024 [facility] dical Specialists EPIC Patient Care team informatio n (unrecognized section and content) Chemical Laboratory Chief Relationship Specialty Start Date End Date Unallocated, Darleen Mcclelland MD [facility] [place] [address] PCP - General 09/12/23 Chemical Laboratory Chief Relationship Specialty Start Date End Date Unallocated, Darleen Mcclelladn MD [facility] [place] [address] PCP - General 09/12/23 Chemical Laboratory Chief Relationship Specialty Start Date End Date Unallocated, Darleen Mcclelland MD [facility] [place] [address] [facility] [place] [address] PCP - General 09/12/23 Chemical Laboratory Chief Relationship Specialty Start Date End Date Unallocated, Darleen Mcclelland MD [facility] [place] [address] PCP - General 09/12/23 Chemical Laboratory Chief Relationship Specialty Start Date End Date Unallocated, Darleen Mcclelland MD [facility] [place] RAM[place]Z [facility] [place] [address] PCP - General 09/12/23 Chemical Laboratory Chief Relationship Specialty Start Date End Date Unallocated, Darleen Mcclelland MD [facility] [place] RAMIREZ [facility] [place] [address] PCP - General 09/12/23 Chemical Laboratory Chief Relationship Specialty Start Date End Date Unallocated, Darleen Mcclelland MD [facility] [place] [address] [facility] [place] [address] PCP - General 09/12/23 Chemical Laboratory Chief Relationship Specialty Start Date End Date Unallocated, Darleen Mcclelland MD [facility] [place] [address]Z [facility] [place] [address] PCP - General 09/12/23 Reason for Visit [...] BE BASED ON THE PRIMARY CLINICAL RECORDS. [facility] [employer] [facility] provides no warranty or guarantee of the accuracy or completeness of information in this document.
[2024-11-05 16:03] LABS: Amnisure NEGATIVE (NEGATIVE); Internal Control Within Normal Limits
--- NOTE | 2024-11-05 16:05 | US_ITS ---
[address] [address] Patient Name: SELENE SHERMAN MRN: [id number] date: 1995 Sex: F Assigned Patient Location: [facility] Current Patient Location: Accession/Order Number: [id number] Exam Date: 11/05/2024 16:08 Report Date: 11/06/2024 04:28 At the request of: CLIFTON CHOE Procedure: US OB amniotic fluid vol EXAMINATION: US OB amniotic fluid vol HISTORY: positive nitrazine in office, negative amnisure COMPARISON: Ultrasound OB growth 10/22/2024 TECHNIQUE: Limited sonographic examination for amniotic fluid volume FINDINGS: Presentation: Cephalic Amniotic fluid: 16.2 cm; largest pocket 6.7 cm. Heart rate: 141 bpm GA: 37 weeks 2 days EDGAR: 11/24/2024 US/US OB amniotic fluid vol IMPRESSION: 1. Single live intrauterine . 2. Normal amniotic fluid volume. Electronically authenticated by: VERENICE AYOUB Date: 11/06/2024 04:28
[2024-11-05 17:52] VITALS: BP 140/85; PULSE 81; TEMP 35.7
--- NOTE | 2024-11-05 18:09 | PC.NURSE ---
1800: Cervical check, unchanged from arrival. Reviewed s/s labor, and when to return for evaluation. Questions answered. Discharged home undelivered with .
--- OUTSIDE RECORDS SUMMARY | 2024-11-05 18:13 | XMS_ITS | CCD ---
Author Organization [facility] CliniSyn[facility] Care Team Providers Care Medical Equipment Repair Technician Name Role Phone VILLALOBOS, DINKAR Unavailable Unavailable [...] Propensity to adverse reactions to drug (disorder) [facility] Repository Medications Current Medications Medication Drug Class(es) [...] ALL MISCELLANEOUS TESTon MISCELLANEOUS TEST COMMENT . [facility] Comment on above: Test Ordered: [id number] Strep Gp B RAIN+Rflx Strep Gp B RAIN+Rflx Negative CB Reference Range: Negative Centers for Disease Control and Prevention (CDC) and [place] Congress of Obstetricians and Gynecologists (ACOG) guidelines [...] resistance to clindamycin is noted. Performed at: [facility] [id number] [employer] Operator: Victorino Rouse PhD, Phone: [phone] VAG/REC [id number] Group B Streptococcus Colonization Detection, RAIN With Refle [facility] Urinalysis macro (dipstick) panel (U)on 10-29-2024 Bilirubin, UA Negative Negative - 4(70) +++ mg/dL [facility] Blood, UA Negative Negative - 50 Quinton/mcL [facility] Clarity, UA Clear [facility] Color, UA Yellow [facility] Glucose, UA Negative Negative - 2000(110) ++++ mg/dL [facility] Interpretation and review of laboratory results Normal [facility] Ketones, UA Negative Negative - 160(16) ++++ mg/dL [facility] Leukocytes, UA Negative Negative - 500+++ Raquel/mcL [facility] Nitrite, UA Negative Negative - Positive [facility] pH, UA 6 5 - 9 [facility] Protein, UA Negative Negative - 1999(20) ++++ mg/dL [facility] Spec Grav, UA 1.015 1 - 1.03 [facility] Urobilinogen, UA 0.2 0.2 - 12 mg/dL [facility] Urinalysis macro (dipstick) panel (U)on 10-22-2024 Bilirubin, UA Negative Negative - 4(70) +++ mg/dL [facility] Blood, UA Negative Negative - 50 Quinton/mcL [facility] Clarity, UA Clear [facility] Color, UA Yellow [facility] Glucose, UA Negative Negative - 1999(110) ++++ mg/dL [facility] Interpretation and review of laboratory results Abnormal [facility] Ketones, UA Negative Negative - 160(16) ++++ mg/dL [facility] Leukocytes, UA Negative Negative - 500+++ Raquel/mcL [facility] Nitrite, UA Negative Negative - Positive [facility] pH, UA 6.5 5 - 9 [facility] Protein, UA Negative Negative - 1999(20) ++++ mg/dL [facility] Spec Grav, UA 1.015 1 - 1.03 [facility] Urobilinogen, UA 0.2 0.2 - 12 mg/dL [facility] Urinalysis macro (dipstick) panel (U)on 09-24-2024 Bilirubin, UA Negative Negative - 4(70) +++ mg/dL [facility] Blood, UA Negative Negative - 50 Quinton/mcL [facility] Clarity, UA Clear [facility] Color, UA Yellow [facility] Glucose, UA Negative Negative - 1999(110) ++++ mg/dL [facility] Interpretation and review of laboratory results Normal [facility] Ketones, UA Negative Negative - 160(16) ++++ mg/dL [facility] Leukocytes, UA Negative Negative - 500+++ Raquel/mcL [facility] Nitrite, UA Negative Negative - Positive [facility] pH, UA 6 5 - 9 [facility] Protein, UA Negative Negative - 1999(20) ++++ mg/dL [facility] Spec Grav, UA 1.02 1 - 1.03 [facility] Urobilinogen, UA 0.2 0.2 - 12 mg/dL [facility] Urinalysis macro (dipstick) panel (U)on 09-10-2024 Bilirubin, UA Negative Negative - 4(70) +++ mg/dL [facility] Blood, UA Negative Negative - 50 Quinton/mcL [facility] Clarity, UA Clear [facility] Color, UA Yellow [facility] Glucose, UA Negative Negative - 1999(110) ++++ mg/dL [facility] Interpretation and review of laboratory results Abnormal [facility] Ketones, UA Negative Negative - 160(16) ++++ mg/dL [facility] Leukocytes, UA Trace Negative - 500+++ Raquel/mcL [facility] Nitrite, UA Negative Negative - Positive [facility] pH, UA 7 5 - 9 [facility] Protein, UA Negative Negative - 1999(20) ++++ mg/dL [facility] Spec Grav, UA 1.02 1 - 1.03 [facility] Urobilinogen, UA 0.2 0.2 - 12 mg/dL [facility] Urinalysis macro (dipstick) panel (U)on 08-27-2024 Bilirubin, UA Negative Negative - 4(70) +++ mg/dL [facility] Blood, UA Negative Negative - 50 Quinton/mcL [facility] Clarity, UA Clear [facility] Color, UA Yellow [facility] Glucose, UA Negative Negative - 1999(110) ++++ mg/dL [facility] Interpretation and review of laboratory results Abnormal [facility] Ketones, UA Negative Negative - 160(16) ++++ mg/dL [facility] Leukocytes, UA Trace Negative - 500+++ Raquel/mcL [facility] Nitrite, UA Negative Negative - Positive [facility] pH, UA 6.5 5 - 9 [facility] Protein, UA Negative Negative - 1999(20) ++++ mg/dL [facility] Spec Grav, UA 1.020 1 - 1.03 [facility] Urobilinogen, UA 0.2 0.2 - 12 mg/dL [facility] ALL CBC WITH AUTO DIFFon BASOPHILS ABSOLUTE AUTO 0.0 [facility] Basophils/100 WBC (Bld) 0.2 % 0.2 - 2.0 % [facility] Eosinophils/100 WBC (Bld) 0.6 % Low 0.9 - 7.0 % [facility] Erythrocyte distribution width (RBC) [Ratio] 13.3 % 11.0 - 15.0 % [facility] Hematocrit (Bld) [Volume fraction] 31.2 % Low 36.0 - 48.0 % [facility] Hemoglobin (Bld) [Mass/Vol] 10.5 g/dL Low 12.0 - 16.0 g/dL [facility] IMMATURE GRANULOCYTES ABS AUTO 0.03 [facility] Immature granulocytes/100 WBC (Bld) 0.2 % 0.0 - 0.5 % [facility] Interpretation and review of laboratory results Abnormal [facility] LYMPHOCYTES ABSOLUTE AUTO 1.4 [facility] Lymphocytes/100 WBC (Bld) 11.5 % Low 20.5 - 60.0 % [facility] MCH (RBC) [Entitic mass] 29.0 pg 26.7 - 34.0 pg [facility] MCHC (RBC) [Mass/Vol] 33.7 g/dL 29.9 - 35.2 g/dL [facility] MCV (RBC) [Entitic vol] 86.2 fL 81.0 - 99.0 fL [facility] MONOCYTES ABSOLUTE AUTO 0.9 High [facility] Monocytes/100 WBC (Bld) 7.1 % 1.7 - 12.0 % [facility] NEUTROPHILS ABSOLUTE AUTO 10.0 High [facility] Neutrophils/100 WBC (Bld) 80.4 % High 43.0 - 75.0 % [facility] Platelet mean volume (Bld) [Entitic vol] 10.4 fL 9.5 - 13.5 fL [facility] TBH EO # 0.1 [facility] TB PLT 221 [facility] RBC 3.62 Low [facility] TB WBC 12.4 High [facility] BhCG Quanton 03-19-2024 HCG.beta subunit Qn 488 m[IU]/mL High 1-3 [facility] Comment on above: Result Comment: 'F N ON < 1 - 3' ' 0.2 - 1 WEEK = 5 TO 50' ' 1 - 2 WEEKS = 50 - 500' ' 2 - 3 WEEKS = 100 - 5000' ' 3 - 4 WEEKS = 500 - 51478' ' 4 - 5 WEEKS = 1000 - 35913' ' 5 - 6 WEEKS = 66787 - 302073' ' 6 - 8 WEEKS = 18695 - 304148' ' 8 - 12 WEEKS = 70778 - 762771' Performed By: #### 2 [id number] #### [facility] [address] [place] [address] CHEMISTRYOrdered By: SYSTEM SYSTEM on 03-19-2024 HCG.beta [...] 3 - 4 WEEKS = 500 - 98136' ' 4 - 5 WEEKS = 1000 - 69644' ' 5 - 6 WEEKS = 99179 - 769825' ' 6 - 8 WEEKS = 51289 - 459933' ' 8 - 12 WEEKS = 98854 - 296586' Progesterone Lvl 69.95 ng/mL Invalid Interpretation Code [...] Progesterone Lvl 69.95 ng/mL Invalid Interpretation Code [facility] Comment on above: Result Comment: 'F N ON FOLLICULAR = 0.10 - 0.60' 'LUTEAL = 3.00 - 17.5' 'MIDLUTEAL = 3.30 - 18.6' 'POST-MENOPAUSE = 0.10 - 0.40' '-FIRST TRIMESTER = 8.30 - 66.5' 'SECOND TRIMESTER = 18.9 - 66.1' 'THIRD TRIMESTER = 35.8 - 312.4' 'MALES = 0.14 - 2.06' Result Verified by Dilution Performed By: #### 2 [id number] #### [facility] [address] [place] [address] [facility] Quanton 03-17-2024 HCG.beta subunit Qn 185 m[IU]/mL High 1-3 [facility] Comment on above: Result Comment: 'F N ON < 1 - 3' ' 0.2 - 1 WEEK = 5 TO 50' ' 1 - 2 WEEKS = 50 - 500' ' 2 - 3 WEEKS = 100 - 5000' ' 3 - 4 WEEKS = 500 - 72072' ' 4 - 5 WEEKS = 1000 - 48112' ' 5 - 6 WEEKS = 05954 - 366300' ' 6 - 8 WEEKS = 18199 - 688145' ' 8 - 12 WEEKS = 23689 - 321652' Performed By: #### 2 [id number] #### [facility] [address] [place] [address] CHEMISTRYOrdered By: SYSTEM SYSTEM on 03-17-2024 HCG.beta [...] 3 - 4 WEEKS = 500 - 62970' ' 4 - 5 WEEKS = 1000 - 36912' ' 5 - 6 WEEKS = 15051 - 236806' ' 6 - 8 WEEKS = 86670 - 739238' ' 8 - 12 WEEKS = 53693 - 418080' Progesterone Lvl 51.75 ng/mL Invalid Interpretation Code [...] Consent for Treatmenton 02-18 Consent for Treatment [id number] F Normal [facility] Physician Orderon 03-17-2024 Physician Order [id number]#[id number] FF Normal [facility] Progesteroneon 03-17-2024 Progesterone Lvl 51.75 ng/mL Invalid Interpretation Code [facility] Comment on above: Result Comment: 'F N ON FOLLICULAR = 0.10 - 0.60' 'LUTEAL = 3.00 - 17.5' 'MIDLUTEAL = 3.30 - 18.6' 'POST-MENOPAUSE = 0.10 - 0.40' '-FIRST TRIMESTER = 8.30 - 66.5' 'SECOND TRIMESTER = 18.9 - 66.1' 'THIRD TRIMESTER = 35.8 - 312.4' 'MALES = 0.14 - 2.06' Performed By: #### 2 [id number] #### [facility] [address] [place] [address] Physician Orderon 03-12-2024 Physician Order [id number]#1.00T IFF Normal [facility] CHEMISTRYOrdered By: SYSTEM SYSTEM on [...] Progesterone Lvl 20.59 ng/mL Invalid Interpretation Code [facility] Comment on above: Result Comment: 'F N ON FOLLICULAR = 0.10 - 0.60' 'LUTEAL = 3.00 - 17.5' 'MIDLUTEAL = 3.30 - 18.6' 'POST-MENOPAUSE = 0.10 - 0.40' '-FIRST TRIMESTER = 8.30 - 66.5' 'SECOND TRIMESTER = 18.9 - 66.1' 'THIRD TRIMESTER = 35.8 - 312.4' 'MALES = 0.14 - 2.06' Performed By: #### 2 [id number] #### [facility] [address] [place] [address] Progesteroneon 02-05-2024 Progesterone Lvl 20.64 ng/mL Invalid Interpretation Code [facility] Comment on above: Result Comment: 'F N ON FOLLICULAR = 0.10 - 0.60' 'LUTEAL = 3.00 - 17.5' 'MIDLUTEAL = 3.30 - 18.6' 'POST-MENOPAUSE = 0.10 - 0.40' '-FIRST TRIMESTER = 8.30 - 66.5' 'SECOND TRIMESTER = 18.9 - 66.1' 'THIRD TRIMESTER = 35.8 - 312.4' 'MALES = 0.14 - 2.06' Performed By: #### 2 [id number] #### [facility] [address] [place] [address] Progesteroneon 01-08-2024 Progesterone Lvl 18.23 ng/mL Invalid Interpretation Code [facility] Comment on above: Result Comment: 'F N ON FOLLICULAR = 0.10 - 0.60' 'LUTEAL = 3.00 - 17.5' 'MIDLUTEAL = 3.30 - 18.6' 'POST-MENOPAUSE = 0.10 - 0.40' '-FIRST TRIMESTER = 8.30 - 66.5' 'SECOND TRIMESTER = 18.9 - 66.1' 'THIRD TRIMESTER = 35.8 - 312.4' 'MALES = 0.14 - 2.06' Performed By: #### 2 [id number] #### [facility] [address] [place] [address] Consent for Treatmenton 11-19 Consent for Treatment [id number] F Normal [facility] Physician Orderon 12-07-2023 Physician Order [id number]#1.00TI FF Normal [facility] Progesteroneon 12-07-2023 Progesterone Lvl 13.36 ng/mL Invalid Interpretation Code [facility] Comment on above: Result Comment: 'F N ON FOLLICULAR = 0.10 - 0.60' 'LUTEAL = 3.00 - 17.5' 'MIDLUTEAL = 3.30 - 18.6' 'POST-MENOPAUSE = 0.10 - 0.40' '-FIRST TRIMESTER = 8.30 - 66.5' 'SECOND TRIMESTER = 18.9 - 66.1' 'THIRD TRIMESTER = 35.8 - 312.4' 'MALES = 0.14 - 2.06' Performed By: #### 2 [id number] #### [facility] [address] [place] [address] DHEASon 11-14-2023 DHEA-S [Mass/Vol] 281.0 microgram/dL Invalid Interpretation Code 84.8-378.0 [facility] Comment on above: Result Comment: Perf ormed at: [facility] [address] [id number] PhD Padma Gleason Performed By: #### 2 [id number] #### [facility] [address] [place] [address] FSH and LHon 11-14-2023 Follitropin Qn 2.8 m[IU]/mL Invalid Interpretation Code [facility] Comment on above: Result Comment: Adul t Female Range Follicular phase 3.5 - 12.5 Ovulation phase 4.7 - 21.5 Luteal phase 1.7 - 7.7 Postmenopausal 25.8 - 134.8 Performed at: [facility] [address] [id number] PhD Padma Gleason Performed By: #### 2 048556 #### [facility] [address] [place] [address] Lutropin Qn 2.9 m[IU]/mL Invalid Interpretation Code [facility] Comment on above: Result Comment: Adul t Female Range Follicular phase 2.4 - 12.6 Ovulation phase 14.0 - 95.6 Luteal phase 1.0 - 11.4 Postmenopausal 7.7 - 58.5 Performed By: #### 2 [id number] #### [facility] [address] [place] [address] Auto Diffon 11-13-2023 Basophils/100 WBC (Bld) 0.2 % Normal 0.0-2.0 [facility] Comment on above: Order Comment: Order Added by Discern Expert. Performed By: #### 7 [id number], [id number], 2259818, 1761578, 55999039, 2651865, 8384550 #### [facility] [address] [place] [address] Basophils/Leukocytes Auto (Bld) [Pure # fraction] 0.0 E9/L Normal 0.0-0.2 [facility] Comment on above: Order Comment: Order Added by Discern Expert. Performed By: #### 7 [id number], 78190184, 5174475, 1467468, 00859410, 2002101, 9995040 #### [facility] [address] [place] [address] Eosinophils/100 WBC (Bld) 1.0 % Normal 0.0-8.0 [facility] Comment on above: Order Comment: Order Added by Discern Expert. Performed By: #### 7 [id number], 22412916, 2646964, 6537070, 92108608, 8693179, 8991730 #### [facility] [address] [place] [address] Eosinophils/Leukocyt es Auto (Bld) [Pure # fraction] 0.1 E9/L Normal 0.0-0.5 [facility] Comment on above: Order Comment: Order Added by Discern Expert. Performed By: #### 7 [id number], 59461286, 7461516, 2377428, 10130627, 8005700, 3437246 #### [facility] [address] [place] [address] 35746 Lymphocytes/100 WBC (Bld) 24.1 % Normal 14.0-50.0 [facility] Comment on above: Order Comment: Order Added by Discern Expert. Performed By: #### 7 [id number], 84244260, 1188374, 7894583, 59768716, 0471551, 8849020 #### [facility] [address] [place] [address] Lymphocytes/Leukocyt es Auto (Bld) [Pure # fraction] 1.7 E9/L Normal 1.0-4.0 [facility] Comment on above: Order Comment: Order Added by Discern Expert. Performed By: #### 7 [id number], 22948299, 8358321, 4127353, 36815558, 1425398, 2290859 #### [facility] [address] [place] [address]330 Monocytes/100 WBC (Bld) 8.6 % Normal 4.0-14.0 [facility] Comment on above: Order Comment: Order Added by Discern Expert. Performed By: #### 7 [id number], 26889934, 4478139, 5924813, 38155469, 4847199, 3533796 #### [facility] [address] [place] [address] Monocytes/Leukocytes Auto (Bld) [Pure # fraction] 0.6 E9/L Normal 0.2-1.0 [facility] Comment on above: Order Comment: Order Added by Discern Expert. Performed By: #### 7 [id number], 88803530, 6071184, 5831347, 90609651, 6194372, 7873304 #### [facility] [address] [place] [address] 81403 Neutrophils/100 WBC (Bld) 66.1 % Normal 36.0-75.0 [facility] Comment on above: Order Comment: Order Added by Farhan Expert. Performed By: #### 7 [id number], 67977532, 6449676, 8599676, 12098348, 1268047, 9623301 #### [facility] [address] [place] [address] 26538 Neutrophils/Leukocyt es Auto (Bld) [Pure # fraction] 4.5 E9/L Normal 2.0-7.5 [facility] Comment on above: Order Comment: Order Added by Discern Expert. Performed By: #### 7 [id number], 40666335, 0667433, 1071056, 61853893, 3187755, 0563217 #### [facility] [address] [place] [address] BhCG Quanton 11-13-2023 Beta hCG Qnt <1 Normal 1-3 [facility] Comment on above: Result Comment: 'F N ON < 1 - 3' ' 0.2 - 1 WEEK = 5 TO 50' ' 1 - 2 WEEKS = 50 - 500' ' 2 - 3 WEEKS = 100 - 5000' ' 3 - 4 WEEKS = 500 - 60005' ' 4 - 5 WEEKS = 1000 - 09761' ' 5 - 6 WEEKS = 79852 - 034772' ' 6 - 8 WEEKS = 55794 - 854569' ' 8 - 12 WEEKS = 72645 - 375329' Performed By: #### 2 198092 #### [facility] [address] [place] [address] CBC w/ Auto Diffon Erythrocyte distribution width (RBC) [Ratio] 13.8 % Normal 10.9-14.2 [facility] Comment on above: Performed By: #### 7 [id number], 47340127, 2497289, 4326789, 44507857, 5767752, 2895301 #### [facility] [address] [place] [address] Hematocrit (Bld) [Volume fraction] 39.9 % Normal 34.0-46.0 [facility] Comment on above: Performed By: #### 7 37661844, 46429652, 8326893, 9971687, 51004542, 7528092, 8575525 #### [facility] [address] [place] [address] Hemoglobin (Bld) [Mass/Vol] 13.1 g/dL Normal 12.0-16.0 [facility] Comment on above: Performed By: #### 7 96692905, 89534084, 4672569, 7941551, 31180311, 3985532, 4596172 #### [facility] [address] [place] [address] MCH (RBC) [Entitic mass] 27.5 pg Normal 27.0-34.0 [facility] Comment on above: Performed By: #### 7 28053123, 57707372, 3003948, 0439439, 43577958, 4773359, 8437678 #### [facility] [address] [place] [address] MCHC (RBC) [Mass/Vol] 32.9 g/dL Normal 31.4-36.0 [facility] Comment on above: Performed By: #### 7 55384716, 53061728, 8789839, 6565577, 00230898, 3762735, 7059465 #### [facility] [address] [place] [address] 51217 MCV (RBC) [Entitic vol] 83.5 fL Normal 80.0-100.0 [facility] Comment on above: Performed By: #### 7 26758081, 76304396, 0233207, 9054285, 46786786, 6810976, 3860610 #### [facility] [address] [place] [address] 63157 Platelet mean volume (Bld) [Entitic vol] 9.3 fL Normal 6.4-10.8 [facility] Comment on above: Performed By: #### 7 70689580, 57550201, 7629985, 7761421, 97242998, 0245414, 8342417 #### [facility] [address] [place] [address] Platelets (Bld) [#/Vol] 249.0 E9/L Normal 150.0-500.0 [facility] Comment on above: Performed By: #### 7 28497406, 23421367, 7866124, 0137651, 64807423, 7898561, 7147345 #### [facility] [address] [place] [address] RBC (Bld) [#/Vol] 4.8 E12/L Normal 4.3-5.9 [facility] Comment on above: Performed By: #### 7 28171758, 68374045, 6192138, 7641194, 69291178, 8997598, 8411701 #### [facility] [address] [place] [address] WBC corrected for nucl RBC Auto (Bld) [#/Vol] 6.8 E9/L Normal 4.0-11.0 [facility] Comment on above: Performed By: #### 7 10304295, 36866029, 0466756, 8862662, 31834639, 4180162, 2730693 #### [facility] [address] [place] [address] CHEMISTRYOrdered By: SYSTEM SYSTEM on 11-13-2023 Beta [...] 3 - 4 WEEKS = 500 - 18637' ' 4 - 5 WEEKS = 1000 - 67743' ' 5 - 6 WEEKS = 68988 - 589852' ' 6 - 8 WEEKS = 53551 - 664351' ' 8 - 12 WEEKS = 64337 - 573280' Free T4 [Mass/Vol] 0.96 ng/dL Normal 0.58 - 1. 64 ng/dL Remisol Chem TSH Qn 1.38 m[IU]/L Normal 0.34 - 5.60 mcIU/mL Rem[facility] CHEMISTRYOrdered By: Adolph Mcnair on 11-13-2023 HbA1c (Bld) [Mass fraction] 5.0 % Normal <=5.9% [facility] Chem[facility] Consent for Treatmenton 10-20 Consent for Treatment [id number] F Normal [facility] Free T4on 11-13-2023 Free T4 [Mass/Vol] 0.96 ng/dL Normal 0.58-1.64 [facility] Comment on above: Performed By: #### 7 [id number], 47552639, 5953274, 0678270, 98356052, 8646868, 8580153 #### [facility] [address] [place] [address] HEMATOLOGYOrdered By: SYSTEM SYSTEM on 11-13-2023 Basophils/100 [...] Normal 4.0 - 11.0 E9/L [facility] HemeAutoSS [id number] 11-13-2023 HbA1c (Bld) [Mass fraction] 5.0 % Normal <=5.9 [facility] Comment on above: Performed By: #### 7 53340146, 56410137, 3560073, 4754134, 00852239, 7807613, 8748261 #### [facility] [address] [place] [address] TSHon 11-13-2023 TSH Qn 1.38 m[IU]/L Normal 0.34-5.60 [facility] Comment on above: Performed By: #### 7 48937163, 77477758, 4655409, 9661455, 67973796, 5993013, 6370635 #### [facility] [address] [place] [address] Laboratory - Chemistry and C hemistry - [...] 21 to 28on 01-31-2022 . . Normal Comment on above: Performed By: #### 4 649992 #### [facility] [address] [place] [address] Dr. Tobi Phelps Age Gdln ACOG Testing 21-29 [facility] Comment on above: Performed By: #### 4 805258 #### [facility] [address] [place] [address] Dr. Tobi Phelps DIAGNOSIS: Comment [facility] Comment on above: Result Comment: NEGA TIVE FOR INTRAEPITHELIAL LESION OR MALIGNANCY. Performed By: #### 4 692746 #### [facility] [address] [place] [address] Dr. Tobi Phelps Methodology: Comment [facility] Comment on above: Result Comment: This liquid based ThinPrep(R) pap test was screened with the use of an image guided system. Performed By: #### 4 578527 #### [facility] [address] [place] [address] Dr. Tobi Phelps Note: Comment Normal Comment on above: Result Comment: The Pap smear is a screening test designed to aid in the detection of premalignant and malignant conditions of the uterine cervix. It is not a diagnostic procedure and should not be used as the sole means of detecting cervical cancer. Both false-positive and false-negative reports do occur. . Performed By: #### 4 084920 #### [facility] [address] [address] [address] Tobi Phelps Performed by: Comment Normal [facility] Comment on above: Result Comment: Elvis Gutierrez, Air Tucker (ASCP) Performed By: #### 4 [id number] #### [facility] [address] [address] [address] Tobi Phelps Reflex Criteria: Comment Normal [facility] Comment on above: Result Comment: The HPV DNA reflex criteria were not met with this specimen result therefore, no HPV testing was performed. . Performed By: #### 4 439954 #### [facility] [address] [address] [address] Tobi Phelps Specimen adequacy: Comment Normal [facility] Comment on above: Result Comment: Sati sfactory for evaluation. Endocervical and/or squamous metaplastic cells (endocervical component) are present. Performed By: #### 4 938071 #### [facility] [address] [address] [address] Tobi Phelps [employer] 03-25 COZero LT * * *Final Report* * *DATE OF EXAM: Mar 25 2018 2:21PM HCW 0593 - [facility] BREAST Mophie LT / REASON: Benign breast lumps * * * * Physician Interpretation * * * *RESULT: #[id number] - COZero LTULTRASOUND OF LEFT BREAST: 03/25/2018HISTORY: Benign Breast [...] made to exam dated: 10/29/2013 ultrasound - [facility].Real-time ultrasound of the left breast was performed.There [...] the patient to follow up with Dr. Villlaobos should she notice any change in the future.Patient also had a right ultrasound today which will be dictated separately.Follow-up with ACR/NCCN guidelines.Kj Winkler/crispin:03/25/2018 14:31:28Imaging Technologist: Mirta MERAZ (R)), [facility]: 2 Benign findingTranscribed Using Voice RecognitionTranscribe Date/Time: Mar 25 2018 2:21PDictated by: KJ LANCASTER MDThis examination was interpreted and the report reviewed and electronically signed by: KJ LANCASTER MD on Mar 25 2018 2:31PM [id number] Normal [employer] US BREAST LTD RTon 03-25 [facility] US BREAST LTD RT * * *Final Report* * *DATE OF EXAM: Mar 25 2018 2:21PM HCW 0594 - [facility] US BREAST LTD RT / REASON: Benign breast lumps * * * * Physician Interpretation * * * *RESULT: #[id number] - SALLY US BREAST LTD RTULTRASOUND OF [...] detail.Kj Winkler/crispin:03/25/2018 14:34:44Imaging Technologist: Mirta MERAZ (R)), [facility] BI-RADS: 1 NegativeTranscribed Using Voice RecognitionTranscribe Date/Time: Mar 25 2018 2:21PDictated by: KJ LANCASTER MDThis examination was interpreted and the report reviewed and electronically signed by: KJ LANCASTER MD on Mar 25 2018 2:34PM [id number] Normal [facility] Vital Signs Date Time Vital Sign Value Performing Clinician Go plasencia 10-29-2024 12:22-0500 Body mass index (BMI) [Ratio] 29.29 kg/m2 [employer] Work Phone: [facility] 10-29-2024 12:22-0500 Body weight 84.82 kg Clifton France DO Work Phone: [facility] 10-29-2024 12:22-0500 Diastolic blood pressure 70 mm[Hg] Clifton France DO Work Phone: [facility] 10-29-2024 12:22-0500 Systolic blood pressure 116 mm[Hg] Clifton France DO Work Phone: [facility] 10-22-2024 08:56-0500 Body mass index (BMI) [Ratio] 29.04 kg/m2 Vianey Diaz PA Work Phone: [facility] 10-22-2024 08:56-0500 Body weight 84.1 kg Vianey [place] PA Work Phone: [facility] 10-22-2024 08:56-0500 Diastolic blood pressure 70 mm[Hg] Vianey [place] PA Work Phone: [facility] 10-22-2024 08:56-0500 Systolic blood pressure 120 mm[Hg] Vianey [place] PA Work Phone: [facility] 10-08-2024 08:52-0500 Body mass index (BMI) [Ratio] 28.04 kg/m2 Vianey [place] PA Work Phone: [facility] 10-08-2024 08:52-0500 Body weight 81.19 kg Vianey Diaz PA Work Phone: [facility] 10-08-2024 08:52-0500 Diastolic blood pressure 70 mm[Hg] Vianey [place] PA Work Phone: [facility] 10-08-2024 08:52-0500 Systolic blood pressure 116 mm[Hg] Vianey [place] PA Work Phone: [facility] 09-24-2024 09:36-0500 Body mass index (BMI) [Ratio] 27.72 kg/m2 Vianey Diaz PA Work Phone: [facility] 09-24-2024 09:36-0500 Body weight 80.29 kg Vinaey [place] PA Work Phone: [facility] 09-24-2024 09:36-0500 Diastolic blood pressure 64 mm[Hg] Vianey Diaz PA Work Phone: [facility] 09-24-2024 09:36-0500 Systolic blood pressure 114 mm[Hg] Vianey Diaz PA Work Phone: [facility] 09-10-2024 12:59-0400 Body mass index (BMI) [Ratio] 27.57 kg/m2 Clifton France DO Work Phone: [facility] 09-10-2024 12:59-0400 Body weight 79.83 kg Clifton France DO Work Phone: [facility] 09-10-2024 12:59-0400 Diastolic blood pressure 70 mm[Hg] Clifton France DO Work Phone: [facility] 09-10-2024 12:59-0400 Systolic blood pressure 120 mm[Hg] Clifton France DO Work Phone: [facility] 08-27-2024 08:44-0400 Body mass index (BMI) [Ratio] 27.13 kg/m2 Vianey SHIRLEY Work Phone: [facility] 08-27-2024 08:44-0400 Body weight 78.59 kg Vianey SHIRLEY Work Phone: [facility] 08-27-2024 08:44-0400 Diastolic blood pressure 78 mm[Hg] Vianey SHIRLEY Work Phone: [facility] 08-27-2024 08:44-0400 Systolic blood pressure 118 mm[Hg] Vianey SHIRLEY Work Phone: [facility] Healthcare Encounters Encounter Date Encounter Type Care Provider Facility Start: 10-29-2024 End: 10-29-2024 Bamboo flowsheet Clifton France DO Work Phone: [facility] Start: 10-29-2024 End: 11-01-2024 Bamboo flowsheet Clifton France DO Work Phone: [facility] Start: 10-29-2024 End: 11-01-2024 Clinisync Result Encounter Clifton France DO Work Phone: [facility] External Department Unsolicited Start: 10-29-2024 End: 10-29-2024 flow sheet Clifton France DO Work Phone: [facility] Comment on above: 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; 36 weeks gestation of Start: 10-29-2024 End: 10-29-2024 ambulatory CLIFTON FRANCE Not Available Start: 10-22-2024 End: 10-22-2024 Bamboo flowsheet Vianey [place] PA Work Phone: [facility] Start: [...] OB Start: 08-27-2024 End: 08-27-2024 Bamboo flowsheet Vianye SHIRLEY Work Phone: [facility] Start: 08-27-2024 End: 08-27-2024 flow sheet Vianey SHIRLEY Work Phone: [facility] Comment on above: 27 weeks gestation o f ; Second trimester ; Iron deficiency anemia, unspecified iron deficiency anemia type Start: 08-27-2024 End: 08-27-2024 ambulatory VIANEY PERALES Not Available Start: 08-15-2024 ambulatory Nadir Zhou y:[facility] Start: 08-06-2024 End: 08-06-2024 Clinisync Result Encounter [...] End: 03-17-2024 ambulatory Clifton MALINO Facility:[facility] Start: 03-17-2024 End: 03-17-2024 Patient encounter procedure Clifton MAYORGAZIO [facility] Start: 12-19-2023 End: 12-19-2023 ambulatory NHUNG Marizol MAT Not Available Start: 12-07-2023 End: 06-17-2024 ambulatory Clifton HOUGH Facility:[facility] Start: 12-07-2023 End: 06-17-2024 Recurring Clifton HOUGH [facility] Start: 11-13-2023 End: 11-13-2023 ambulatory Clifton HOUGH Facility:[facility] Start: 11-13-2023 End: 11-13-2023 Patient encounter procedure Clifton R FRANCE [facility] Start: 04-11-2023 End: 06-17-2024 Recurring Clifton R FRANCE [facility] Start: 01-25-2022 End: 01-25-[address] CLIFTON HOUGH Facility: Start: 08-02-2021 End: 08-02-2021 ambulatory Lance SHIRLEY Facility:[facility] Start: 12-10-2018 End: 12-11-2018 Patient encounter procedure PA NEWBERRY Facility:[facility] Start: 12-05-2018 End: 12-06-2018 Patient encounter procedure DEFAULT PHYSICIAN Facility:[facility] Start: 03-25-2018 Ambulatory [facility] Procedures Date Procedure Procedure Detail Performing [...] 08-06-2024 ALL CBC WITH AUTO DIFF Clifton Frnace DO Work Phone: Start: 07-11-2023 Microscopic observat ion [Identifier] in Cervix by Cyto stain Vianey SHIRLEY Work Phone: Plan of Treatment Date Care Activity Detail Author Start: 07-11-2028 Screening for malign ant neoplasm of cervix HPV/Cotest [facility] Healthcare Start: 07-11-2026 Screening for malign ant neoplasm of cervix [facility] Start: 11-05-2024 End: 11-05-2024 Patient encounter procedure 11/05/2024 2:20 PM EST Routine [facility] [address] [place] [id number] Vianey Perales PA [address] [place] [address] [facility] Start: 10-29-2024 End: 10-29-2025 CULTURE, GROUP B STREP WITH SUSCEPTIBLITY CULTURE, GROUP B STREP WITH SUSCEPTIBLITY Lab Routine Third trimester Expected: 10/29/2024 (Approximate), Expires: 10/29/2025 [facility] Work Phone: Comment on above: Expected: 10/29/2024 (Approximate), Expires: 10/29/2025 Start: 10-29-2024 End: 10-29-2024 Patient encounter procedure [facility] Comment on above: Arrived Start: 10-22-2024 End: 10-22-2024 Patient encounter procedure [facility] Comment on above: Arrived Start: 10-22-2024 End: 10-22-2024 Professional / ancillary services management 10/22/2024 8:00 AM EST Ancillary Procedure [facility] [address] [place] [id number] [facility] Start: 10-08-2024 End: 10-08-2024 Patient encounter procedure [facility] Comment on above: Arrived Start: 09-24-2024 End: 09-24-2024 Patient encounter procedure [facility] Comment on above: Arrived Start: 09-24-2024 End: 09-24-2024 Professional / ancillary services management 09/24/2024 9:00 AM EST Ancillary Procedure [facility] [address] [place] [id number] [facility] Start: 09-10-2024 End: 09-10-2025 US for US OB SCAN FOR GROWTH Imaging Routine Excessive growth affecting management of , antepartum, single or unspecified fetus Expected: 09/10/2024 (Approximate), Expires: 09/10/2025 [facility] Work Phone: Comment on above: Expected: 09/10/2024 (Approximate), Expires: 09/10/2025 Start: 09-10-2024 End: 09-10-2024 Patient encounter procedure [facility] Comment on above: Arrived Start: 08-27-2024 End: 08-27-2024 Patient encounter procedure [facility] Comment on above: Arrived Start: 07-20-2024 Influenza vaccination [facility] Immunization Date Immunization Notes Care Provider [facility] 09-02-2024 influenza virus vaccine, unspecified formulation Clifton Hough DO Work Phone: [facility] 09-06-2023 influenza virus vaccine, unspecified formulation Clifton FRANCE [facility] Comment on above: Reason for Medicatio n: Prophylaxis 09-12-2022 influenza virus vaccine, unspecified formulation Clifton FRANCE [facility] Comment on above: Reason for Medicatio n: Prophylaxis 09-12-2022 influenza, injectabl e, quadrivalent, preservative free Clifton FRANCE [facility] 04-28-2021 COVID-19, mRNA, LNP- S, PF, 30 mcg/0.3 mL dose Clifton FRANCE [facility] Comment on above: Reason for Medicatio n: Prophylaxis 04-06-2021 COVID-19, mRNA, LNP- S, PF, 30 mcg/0.3 mL dose Clifton FRANCE [facility] Comment on above: Reason for Medicatio n: Prophylaxis Payers Date Payer Category Payer Private Health [facility] [id number] 2023 Unknown [id number] 2022 Unknown [id number] 2021 Unknown 1994 Unknown [id number] 2..840.1.117202.3.579.2. 647 1994 Unknown [id number] 2..840.1.361962.3.579.2. 647 1994 Unknown [id number] 2.16.840.1.018891.3.579.2. 593 1994 Unknown [id number] 2.16.840.1.301533.3.579.2. 727 1994 Unknown [id number] 2.16.840.1.689999.3.579.2. 727 1994 Unknown [id number] 2.16.840.1.221300.3.579.2. 727 1994 Unknown [id number] 2.16.840.1.183873.3.579.2. 727 1994 Unknown [id number] 2.16.840.1.205582.3.579.2. 718 1994 Unknown [id number] 2.16.840.1.547737.3.579.2. 1258 1994 Unknown [id number] 2.16.840.1.550459.3.579.2. 1258 1994 Unknown [id number] 2.16.840.1.449026.3.579.2. 1258 1994 Unknown [id number] 2.16.840.1.256078.3.579.2. 1258 1994 Unknown [id number] 2.16.840.1.448791.3.579.2. 1258 1994 Unknown [id number] 2.16.840.1.850824.3.579.2. 1258 1994 Unknown [id number] 2.16.840.1.504928.3.579.2. 125 1994 Unknown [id number] 2.16.840.1.096199.3.579.2. 1258 1994 Unknown [id number] 2.16.840.1.382018.3.579.2. 1258 1994 Unknown [id number] 2.16.840.1.963131.3.579.2. 1258 1994 Unknown [id number] 2.16.840.1.499215.3.579.2. 1259 1994 Unknown [id number] 2.16.840.1.995279.3.579.2. 1259 1959 Unknown 1914 Unknown [id number] Social History Date Type Detail Facility Start: 07-21-2021 End: 04-11-2023 Tobacco smoking status Never smoked tobacco (finding) [facility] Tobacco smoking status Never [facility] Start: 09-12-2023 End: 04-11-2024 Sex Assigned At Female [facility] Start: 04-11-2023 Tobacco use and exposure [...] nursing note reviewed. Exam conducted with a rectifying attendant present. Vitals: Estimated body mass index is [...] Hough DO documented in this encounter [facility] 10-22-2024 History of Present illness Narrative Reason [...] CASPER Weiss documented in this encounter [facility] 10-08-2024 History of Present illness Narrative Reason [...] CASPER Weiss documented in this encounter [facility] 09-24-2024 History of Present illness Narrative Reason [...] CASPER Weiss documented in this encounter [facility] 09-10-2024 History of Present illness Narrative Reason [...] nursing note reviewed. Exam conducted with a rectifying attendant present. Vitals: Estimated body mass index is [...] for routine OB appointment. Documented by Karina iWse LPN on behalf of: Clifton Hough DO documented in this encounter [facility] 08-27-2024 History of Present illness Narrative Reason [...] CASPER Weiss documented in this encounter [facility] 11-13-2023 Evaluation + Plan note Diagnostic Tests PendingFS and LH 11/13/23DHEAS 11/13/23 [facility] Evaluation + Plan note No data available for this section [facility] Evaluation note Diagnosis 27 weeks gestation of Second trimester state, incidental Iron deficiency anemia, unspecified iron deficiency anemia type documented in this encounter [facility] HealthcareEvaluation note* Diagnosis 29 weeks gestation of - Primary Third trimester state, incidental Excessive growth affecting management of , antepartum, single or unspecified fetus documented in this encounter [facility]* Diagnosis Third trimester state, incidental 31 weeks gestation of Iron deficiency anemia, unspecified iron deficiency anemia type documented in this encounter [facility]* Diagnosis Third trimester state, incidental 32 weeks gestation of documented in this encounter [facility]* Diagnosis 35 weeks gestation of Third trimester state, incidental documented in this encounter [facility] Healthcare[facility] note* Diagnosis Third trimester state, incidental 36 weeks gestation of documented in this encounter [facility] Discharge instructions No data available for this section [facility] data available for this section [facility] Summary Purpose Family History No Family [...] section and content) DATE CREATED AUTHOR 05/09/2018 [facility] DATE CREATED AUTHOR AUTHOR'S ORGANIZ ATION 12/13/2018 [facility] DATE CREATED AUTHOR AUTHOR'S ORGANIZ ATION 02/01/2022 [facility] DATE CREATED AUTHOR AUTHOR'S ORGANIZ ATION 08/16/2024 [facility] DATE CREATED AUTHOR AUTHOR'S ORGANIZ ATION 08/30/2024 [facility] DATE CREATED AUTHOR AUTHOR'S ORGANIZ ATION 11/01/2024 [facility] Specialists EPIC Patient Care team informatio n (unrecognized section and content) Medical Equipment Repair Technician Relationship Specialty Start Date End Date Unallocated, Darleen Mcclelland [place] [address] PCP - General 09/12/23 Medical Equipment Repair Technician Relationship Specialty Start Date End Date Unallocated, Darleen Mcclelland [place] [address] PCP - General 09/12/23 Medical Equipment Repair Technician Relationship Specialty Start Date End Date Unallocated, Darleen Mcclelland MD [facility] [place] [place] [address] PCP - General 09/12/23 Medical Equipment Repair Technician Relationship Specialty Start Date End Date Unallocated, Darleen Mcclelland MD [facility] [place] [address] PCP - General 09/12/23 Medical Equipment Repair Technician Relationship Specialty Start Date End Date Unallocated, Darleen Mcclelland MD [facility] [place] [facility] [place] [address] PCP - General 09/12/23 Medical Equipment Repair Technician Relationship Specialty Start Date End Date Unallocated, Darleen Mcclelland MD [facility] [place] [facility] [place] [address] PCP - General 09/12/23 Medical Equipment Repair Technician Relationship Specialty Start Date End Date Unallocated, Darleen Mcclelland MD [facility] [place] [facility] [place] [address] PCP - General 09/12/23 Medical Equipment Repair Technician Relationship Specialty Start Date End Date Unallocated, Darleen Mcclelland MD [facility] [place] [place] [address] PCP - General 09/12/23 Reason for Visit [...] BE BASED ON THE PRIMARY CLINICAL RECORDS. [facility]. provides no warranty or guarantee of the accuracy or completeness of information in this document.
== END 2024-11-05 18:00 | disposition home or self-care (01) ==
LOC: FBC 18:06
PROVIDERS: Admitting Provider Obstetrics & Gynecology; Visit Provider Obstetrics & Gynecology
DX: O26.893 Other specified pregnancy related conditions, third trimester (principal); R89.8 Other abnormal findings in specimens from other organs, systems and tissues; Z3A.37 37 weeks gestation of pregnancy
CPT/HCPCS: 59025; 76815; 84112; G0378; G0379

== ENCOUNTER 2024-11-20 05:03 | Inpatient (IN) | payer OTHER, SELFPAY ==
[2024-11-20] VITALS (85 sets, daily range): BP systolic 79–164; BP diastolic 59–98; PULSE 70–120; TEMP 36.4–37; O2SAT 94–997
--- OUTSIDE RECORDS SUMMARY | 2024-11-20 05:06 | XMS_ITS | CCD ---
Author Organization [facility] CliniSyct Care Team Providers Care Gun [employer] Manager Name Role Phone VILLALOBOS, DINKAR Unavailable Unavailable VILLALOBOS, DINKAR Unavailable Unavailable PHYSICIAN, DEFAULT Admitting Unavailable PHYSICIAN, DEFAULT Attending Unavailable ROHITH PA R Admitting Unavailable ROHITHPA Attending Unavailable SELF, REFERRED Referring Unavailable SELF, REFERRED Primary Care Unavailable FRANCE, DR LAZO Attending Unavailable FRANCE, DR LAZO Consulting Unavailable FRANCE, DR LAZO Admitting Unavailable Jesiac Jamison Primary Care Physician Spasilizzy PA, Lance Attending Unavailabl e Spanabila PA, Lance Admitting Unavailabl e Provider, None Primary Care Unavailable Unallocated MD, Noms Provider Primary Care Provi rosa m Unallocated MD, Noms Provider Primary Care Provi rosa m NHUNG RIVERO Attending Unavailable FRANCE, CLIFTON Attending Unavailable DIAZ, VIANEY Attending Unavailable FRANCE, CLIFTON Attending Unavailable FRANCE, CLIFTON Attending Unavailable DIAZ, VIANEY Attending Unavailable FRANCE, CLIFTON Attending Unavailable DIAZ, VIANEY Attending Unavailable DIAZ, VIANEY Attending Unavailable DIAZ, VIANEY Attending Unavailable FRANCE, CLIFTON Attending Unavailable DIAZ, VIANEY Attending Unavailable FRANCE, CLIFTON Attending Unavailable Nadir MEDRANO Attending Unavailable FRANCE, Clifton R Admitting Unavailable FRANCE, Clifton R Attending Unavailable FRANCE, Clifton R Attending Unavailable FRANCE, Clifton R Admitting Unavailable Allergies Allergy Classification Reported Allergen(s) Allergy Type Date of Onset Reaction(s) Facility (1 source) No Known Medication Allergies; Translations: [No Known Medication Allergies] Propensity to adverse reactions to drug (disorder) [facility] Repository Medications Current Medications Medication Drug [...] Daily 30 capsule 6 09/24/2024 04/22/2025 Active Completed/Discontinued Medications Medication Drug Class(es) Dates Sig (Normalized) Sig (Original) aluminum hydroxide 50.8 mg/ml / magnesium carbonate 47.5 mg/ml oral suspension (3 sources) End: 07-30-2024 Alum Hydroxide-Mag Carbonate 508-475 MG/10ML suspension Take by mouth 07/30/2024 Discontinued senna-docusate (Rosa Elena-Colace) 4.3-25 mg half tablet (3 sources) End: 07-30-2024 senna-docusate (Rosa Elena-Colace) 4.3-25 mg half tablet Take by mouth 07/30/2024 Discontinued senna-docusate ( Rosa Elena-Colace) 4.3-25 mg half tablet Take by mouth Active Problems Active Problems Problem Classification Problem [...] 09-10-2024 Episodic Other and delivery including normal (18 sources) Second trimester ; Translations: [Encounter for supervision of normal , unspecified, second trimester] 08-27-2024 Episodic Other screening for suspected conditions (not mental disorders or infectious disease) (6 sources) Encounter for screening for malignant neoplasm of cervix; Translations: [Patient encounter status] Onset: 01-25-2022 Episodic Residual codes; unclassified (2 [...] [36 weeks gestation of ] 10-29-2024 Episodic Residual codes; unclassified (2 sources) Gestation period, 37 weeks; Translations: [37 weeks gestation of ] 11-05-2024 Episodic Residual codes; unclassified (2 sources) Gestation period, 38 weeks; Translations: [38 weeks gestation of ] 11-13-2024 Episodic Spontaneous (2 sources) Complete inevitable miscarriage [...] Range Facility Urinalysis macro (dipstick) panel (U)on 11-13-2024 Bilirubin, UA Negative Negative - 4(70) +++ mg/dL [facility] Blood, UA Positive Negative - 50 Quinton/mcL [facility] Clarity, UA Clear [facility] Color, UA Light Yellow [facility] Glucose, UA Negative Negative - 2000(110) ++++ mg/dL [facility] Interpretation and review of laboratory results Abnormal [facility] Ketones, UA Negative Negative - 160(16) ++++ mg/dL [facility] Leukocytes, UA Trace Negative - 500+++ Raquel/mcL [facility] Nitrite, UA Negative Negative - Positive [facility] pH, UA 6 5 - 9 [facility] Protein, UA Negative Negative - 1999(20) ++++ mg/dL [facility] Spec Grav, UA 1.015 1 - 1.03 [facility] Urobilinogen, UA 1.0 0.2 - 12 mg/dL Critical access hospital AMNISUREon 11-05-2024 [facility] AMNISURE Negative NEGATIVE [facility] Urinalysis macro (dipstick) panel (U)on 11-05-2024 Bilirubin, UA Negative Negative - 4(70) +++ mg/dL [facility] Blood, UA Negative Negative - 50 Quinton/mcL [facility] Clarity, UA Clear [facility] Color, UA Yellow [facility] Glucose, UA Negative Negative - 1999(110) ++++ mg/dL [facility] Interpretation and review of laboratory results Abnormal [facility] Ketones, UA Positive Negative - 160(16) ++++ mg/dL [facility] Comment on above: 15 Leukocytes, UA Negative Negative - 500+++ Raquel/mcL [facility] Nitrite, UA Negative Negative - Positive [facility] pH, UA 7 5 - 9 [facility] Protein, UA Negative Negative - 1999(20) ++++ mg/dL [facility] Spec Grav, UA 1.015 1 - 1.03 [facility] Urobilinogen, UA 0.2 0.2 - 12 mg/dL Critical access hospital AMNISUREon 11-04-2024 [facility] AMNISURE Negative NEGATIVE [facility] UA (CLEAN/CATCH) 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 YELLOW YELLOW [facility] GLUCOSE URINE UA Negative NEGATIVE mg/dL [facility] Interpretation and review of laboratory results Abnormal [facility] Ketones Ql (U) TRACE Abnormal NEGATIVE mg/dL [facility] Leukocyte esterase Test strip Ql (U) Negative NEGATIVE [facility] NITRITE URINE Negative NEGATIVE [facility] pH (U) 7.0 [pH] 5.0 - 9.0 [facility] PROTEIN URINE Negative NEG/TRACE mg/dL [facility] SPECIFIC GRAVITY URINE 1.010 1.005 - 1.025 [facility] URINE MICROSCOPIC INDICATED NO [facility] UROBILINOGEN URINE 0.2 EU/dL 0.2 - 1.0 EU/dL [facility] ALL MISCELLANEOUS TESTon MISCELLANEOUS TEST COMMENT . [facility] Comment on above: Test Ordered: [id number] Strep Gp B RAIN+Rflx Strep Gp B RAIN+Rflx Negative CB Reference Range: Negative Centers for Disease Control and Prevention (CDC) and [place] [employer]stetricians and Gynecologists (ACOG) guidelines [...] resistance to clindamycin is noted. Performed at: [facility] [id number] Lumber Marker: Victorino Rouse PhD, Phone: [phone] VAG/REC [id number] Group B Streptococcus Colonization Detection, RAIN With Refle [facility] Urinalysis macro (dipstick) panel (U)on 10-29-2024 Bilirubin, UA Negative Negative - 4(70) +++ mg/dL [facility] Blood, UA Negative Negative - 50 Quinton/mcL [facility] Clarity, UA Clear [facility] Color, UA Yellow [facility] Glucose, UA Negative Negative - 1999(110) ++++ mg/dL [facility] Interpretation and review of laboratory results Normal [facility] Ketones, UA Negative Negative - 160(16) ++++ mg/dL [facility] Leukocytes, UA Negative Negative - 500+++ Raquel/mcL [facility] Nitrite, UA Negative Negative - Positive [facility] pH, UA 6 5 - 9 [facility] Protein, UA Negative Negative - 2000(20) ++++ mg/dL [facility] Spec Grav, UA 1.015 1 - 1.03 [facility] Urobilinogen, UA 0.2 0.2 - 12 mg/dL Critical access hospital Urinalysis macro (dipstick) panel (U)on 10-22-2024 Bilirubin, UA Negative Negative - 4(70) +++ mg/dL [facility] Blood, UA Negative Negative - 50 Quinton/mcL [facility] Clarity, UA Clear [facility] Color, UA Yellow [facility] Glucose, UA Negative Negative - 1999(110) ++++ mg/dL [facility] Interpretation and review of laboratory results Abnormal [facility] Ketones, UA Negative Negative - 160(16) ++++ mg/dL [facility] Leukocytes, UA Negative Negative - 500+++ Raquel/mcL [facility] Nitrite, UA Negative Negative - Positive [facility] pH, UA 6.5 5 - 9 [facility] Protein, UA Negative Negative - 1999(20) ++++ mg/dL [facility] Spec Grav, UA 1.015 1 - 1.03 [facility] Urobilinogen, UA 0.2 0.2 - 12 mg/dL [facility] hospital Urinalysis macro (dipstick) panel (U)on 09-24-2024 Bilirubin, UA Negative Negative - 4(70) +++ mg/dL [facility] Blood, UA Negative Negative - 50 Quinton/mcL [facility] Clarity, UA Clear [facility] Color, UA Yellow [facility] Glucose, UA Negative Negative - 1999(110) ++++ mg/dL [facility] Interpretation and review of laboratory results Normal [facility] Ketones, UA Negative Negative - 160(16) ++++ mg/dL [facility] Leukocytes, UA Negative Negative - 500+++ Raquel/mcL [facility] Nitrite, UA Negative Negative - Positive [facility] pH, UA 6 5 - 9 [facility] Protein, UA Negative Negative - 1999(20) ++++ mg/dL [facility] Spec Grav, UA 1.02 1 - 1.03 [facility] Urobilinogen, UA 0.2 0.2 - 12 mg/dL [facility] hospital Urinalysis macro (dipstick) panel (U)on 09-10-2024 Bilirubin, UA Negative Negative - 4(70) +++ mg/dL [facility] Blood, UA Negative Negative - 50 Quinton/mcL [facility] Clarity, UA Clear [facility] Color, UA Yellow [facility] Glucose, UA Negative Negative - 1999(110) ++++ mg/dL [facility] Interpretation and review of laboratory results Abnormal [facility] Ketones, UA Negative Negative - 160(16) ++++ mg/dL [facility] Leukocytes, UA Trace Negative - 500+++ Raquel/mcL [facility] Nitrite, UA Negative Negative - Positive [facility] pH, UA 7 5 - 9 [facility] Protein, UA Negative Negative - 1999(20) ++++ mg/dL [facility] Spec Grav, UA 1.02 1 - 1.03 [facility] Urobilinogen, UA 0.2 0.2 - 12 mg/dL [facility] hospital Urinalysis macro (dipstick) panel (U)on 08-27-2024 Bilirubin, UA Negative Negative - 4(70) +++ mg/dL [facility] Blood, UA Negative Negative - 50 Quinton/mcL [facility] Clarity, UA Clear [facility] Color, UA Yellow [facility] Glucose, UA Negative Negative - 1999(110) ++++ mg/dL [facility] Interpretation and review of laboratory results Abnormal [facility] Ketones, UA Negative Negative - 160(16) ++++ mg/dL [facility] Leukocytes, UA Trace Negative - 500+++ Raquel/mcL [facility] Nitrite, UA Negative Negative - Positive [facility] pH, UA 6.5 5 - 9 [facility] Protein, UA Negative Negative - 1999(20) ++++ mg/dL [facility] Spec Grav, UA 1.020 1 - 1.03 [facility] Urobilinogen, UA 0.2 0.2 - 12 mg/dL Critical access hospital ALL CBC WITH AUTO DIFFon BASOPHILS ABSOLUTE AUTO 0.0 [facility] Basophils/100 WBC (Bld) 0.2 % 0.2 - 2.0 % [facility] Eosinophils/100 WBC (Bld) 0.6 % Low 0.9 - 7.0 % [facility] Erythrocyte distribution width (RBC) [Ratio] 13.3 % 11.0 - 15.0 % [facility] Hematocrit (Bld) [Volume fraction] 31.2 % Low 36.0 - 48.0 % [facility] Hemoglobin (Bld) [Mass/Vol] 10.5 g/dL Low 12.0 - 16.0 g/dL [facility] IMMATURE GRANULOCYTES ABS AUTO 0.03 [facility] Immature granulocytes/100 WBC (Bld) 0.2 % 0.0 - 0.5 % [facility] Interpretation and review of laboratory results Abnormal [facility] LYMPHOCYTES ABSOLUTE AUTO 1.4 [facility] Lymphocytes/100 WBC (Bld) 11.5 % Low 20.5 - 60.0 % [facility] MCH (RBC) [Entitic mass] 29.0 pg 26.7 - 34.0 pg [facility] MCHC (RBC) [Mass/Vol] 33.7 g/dL 29.9 - 35.2 g/dL [facility] MCV (RBC) [Entitic vol] 86.2 fL 81.0 - 99.0 fL [facility] MONOCYTES ABSOLUTE AUTO 0.9 High [facility] Monocytes/100 WBC (Bld) 7.1 % 1.7 - 12.0 % [facility] NEUTROPHILS ABSOLUTE AUTO 10.0 High [facility] Neutrophils/100 WBC (Bld) 80.4 % High 43.0 - 75.0 % [facility] Platelet mean volume (Bld) [Entitic vol] 10.4 fL 9.5 - 13.5 fL [facility] TBH EO # 0.1 [facility] TBH PLT 221 [facility] RBC 3.62 Low [facility] TB WBC 12.4 High [facility] Urinalysis macro (dipstick) panel (U)on 07-30-2024 Bilirubin, UA Negative Negative - 4(70) +++ mg/dL [facility] Blood, UA Negative Negative - 50 Quinton/mcL [facility] Clarity, UA Clear [facility] Color, UA Yellow [facility] Glucose, UA Negative Negative - 1999(110) ++++ mg/dL [facility] Interpretation and review of laboratory results Normal [facility] Ketones, UA Negative Negative - 160(16) ++++ mg/dL [facility] Leukocytes, UA Negative Negative - 500+++ Raquel/mcL [facility] Nitrite, UA Negative Negative - Positive [facility] pH, UA 7.5 5 - 9 [facility] Protein, UA Negative Negative - 1999(20) ++++ mg/dL [facility] Spec Grav, UA 1.020 1 - 1.03 [facility] Urobilinogen, UA 0.2 0.2 - 12 [facility] HCG.beta subunit Qn 488 m[IU]/mL High 1-3 Fis her [facility] Comment on above: Result Comment: 'F N ON < 1 - 3' ' 0.2 - 1 WEEK = 5 TO 50' ' 1 - 2 WEEKS = 50 - 500' ' 2 - 3 WEEKS = 100 - 5000' ' 3 - 4 WEEKS = 500 - 78716' ' 4 - 5 WEEKS = 1000 - 28068' ' 5 - 6 WEEKS = 34982 - 337050' ' 6 - 8 WEEKS = 59708 - 784457' ' 8 - 12 WEEKS = 33450 - 503327' Performed By: #### [id number] #### Pete [facility] [address] [place] [address] CHEMISTRYOrdered By: SYSTEM SYSTEM on 03-19-2024 HCG.beta [...] 3 - 4 WEEKS = 500 - 79937' ' 4 - 5 WEEKS = 1000 - 77918' ' 5 - 6 WEEKS = 79441 - 571348' ' 6 - 8 WEEKS = 16396 - 122406' ' 8 - 12 WEEKS = 02245 - 935957' Progesterone Lvl 69.95 ng/mL Invalid Interpretation Code [...] Progesterone Lvl 69.95 ng/mL Invalid Interpretation Code [facility] Comment on above: Result Comment: 'F N ON FOLLICULAR = 0.10 - 0.60' 'LUTEAL = 3.00 - 17.5' 'MIDLUTEAL = 3.30 - 18.6' 'POST-MENOPAUSE = 0.10 - 0.40' '-FIRST TRIMESTER = 8.30 - 66.5' 'SECOND TRIMESTER = 18.9 - 66.1' 'THIRD TRIMESTER = 35.8 - 312.4' 'MALES = 0.14 - 2.06' Result Verified by Dilution Performed By: #### [id number] #### Pete [facility] [address] [place] [address] [facility] 03-17-2024 HCG.beta subunit Qn 185 m[IU]/mL High 1-3 Fis [facility] Comment on above: Result Comment: 'F N ON < 1 - 3' ' 0.2 - 1 WEEK = 5 TO 50' ' 1 - 2 WEEKS = 50 - 500' ' 2 - 3 WEEKS = 100 - 5000' ' 3 - 4 WEEKS = 500 - 45151' ' 4 - 5 WEEKS = 1000 - 41730' ' 5 - 6 WEEKS = 37998 - 633463' ' 6 - 8 WEEKS = 71361 - 826664' ' 8 - 12 WEEKS = 46323 - 858396' Performed By: #### 2 [id number] #### Pete [facility] [address] [place] [address] CHEMISTRYOrdered By: SYSTEM SYSTEM on 03-17-2024 HCG.beta [...] 3 - 4 WEEKS = 500 - 24188' ' 4 - 5 WEEKS = 1000 - 04163' ' 5 - 6 WEEKS = 29863 - 178497' ' 6 - 8 WEEKS = 26318 - 271361' ' 8 - 12 WEEKS = 49169 - 795244' Progesterone Lvl 51.75 ng/mL Invalid Interpretation Code [...] Consent for Treatmenton 02-18 Consent for Treatment [id number]#1.00TIF F Normal [facility] Physician Orderon 03-17-2024 Physician Order [id number]#1.00TI FF Normal [facility] Progesteroneon 03-17-2024 Progesterone Lvl 51.75 ng/mL Invalid Interpretation Code [facility] Comment on above: Result Comment: 'F N ON FOLLICULAR = 0.10 - 0.60' 'LUTEAL = 3.00 - 17.5' 'MIDLUTEAL = 3.30 - 18.6' 'POST-MENOPAUSE = 0.10 - 0.40' '-FIRST TRIMESTER = 8.30 - 66.5' 'SECOND TRIMESTER = 18.9 - 66.1' 'THIRD TRIMESTER = 35.8 - 312.4' 'MALES = 0.14 - 2.06' Performed By: #### 2 [id number] #### [facility] [address] [place] [address] CHEMISTRYOrdered By: SYSTEM SYSTEM on 03-07-2024 Progesterone [...] Progesterone Lvl 20.59 ng/mL Invalid Interpretation Code [facility] Comment on above: Result Comment: 'F N ON FOLLICULAR = 0.10 - 0.60' 'LUTEAL = 3.00 - 17.5' 'MIDLUTEAL = 3.30 - 18.6' 'POST-MENOPAUSE = 0.10 - 0.40' '-FIRST TRIMESTER = 8.30 - 66.5' 'SECOND TRIMESTER = 18.9 - 66.1' 'THIRD TRIMESTER = 35.8 - 312.4' 'MALES = 0.14 - 2.06' Performed By: #### 2 [id number] #### [facility] [address] [place] [address] Progesteroneon 02-05-2024 Progesterone Lvl 20.64 ng/mL Invalid Interpretation Code [facility] Comment on above: Result Comment: 'F N ON FOLLICULAR = 0.10 - 0.60' 'LUTEAL = 3.00 - 17.5' 'MIDLUTEAL = 3.30 - 18.6' 'POST-MENOPAUSE = 0.10 - 0.40' '-FIRST TRIMESTER = 8.30 - 66.5' 'SECOND TRIMESTER = 18.9 - 66.1' 'THIRD TRIMESTER = 35.8 - 312.4' 'MALES = 0.14 - 2.06' Performed By: #### 2 [id number] #### [facility] [address] [place] [address] Progesteroneon 01-08-2024 Progesterone Lvl 18.23 ng/mL Invalid Interpretation Code [facility] Comment on above: Result Comment: 'F N ON FOLLICULAR = 0.10 - 0.60' 'LUTEAL = 3.00 - 17.5' 'MIDLUTEAL = 3.30 - 18.6' 'POST-MENOPAUSE = 0.10 - 0.40' '-FIRST TRIMESTER = 8.30 - 66.5' 'SECOND TRIMESTER = 18.9 - 66.1' 'THIRD TRIMESTER = 35.8 - 312.4' 'MALES = 0.14 - 2.06' Performed By: #### 2 [id number] #### [facility] [address] [place] [address] Consent for Treatmenton 11-19 Consent for Treatment [id number] F Normal [facility] Physician Orderon 12-07-2023 Physician Order [id number]#1.00TI FF Normal [facility] Progesteroneon 12-07-2023 Progesterone Lvl 13.36 ng/mL Invalid Interpretation Code [facility] Comment on above: Result Comment: 'F N ON FOLLICULAR = 0.10 - 0.60' 'LUTEAL = 3.00 - 17.5' 'MIDLUTEAL = 3.30 - 18.6' 'POST-MENOPAUSE = 0.10 - 0.40' '-FIRST TRIMESTER = 8.30 - 66.5' 'SECOND TRIMESTER = 18.9 - 66.1' 'THIRD TRIMESTER = 35.8 - 312.4' 'MALES = 0.14 - 2.06' Performed By: #### 2 [id number] #### [facility] [address] [place] [address] CHEMISTRYOrdered By: SYSTEM SYSTEM on 11-13-2023 Beta [...] 3 - 4 WEEKS = 500 - 04801' ' 4 - 5 WEEKS = 1000 - 53892' ' 5 - 6 WEEKS = 20388 - 892315' ' 6 - 8 WEEKS = 51326 - 104651' ' 8 - 12 WEEKS = 55865 - 015994' Free T4 [Mass/Vol] 0.96 ng/dL Normal 0.58 - 1. 64 ng/dL Remisol Chem TSH Qn 1.38 m[IU]/L Normal 0.34 - 5.60 mcIU/mL Remisol Chem CHEMISTRYOrdered By: Adolph Mcnair on 11-13-2023 HbA1c (Bld) [Mass fraction] 5.0 % Normal <=5.9% [facility] HEMATOLOGYOrdered By: SYSTEM SYSTEM on 11-13-2023 Basophils/100 [...] 8.6 % Normal 4.0 - 14.0 % [facility] Monocytes/Leukocytes Auto (Bld) [Pure # fraction] 0.6 E9/L Normal 0.2 - 1.0 E9/L [facility] Neutrophils/100 WBC (Bld) 66.1 % Normal 36.0 - 75.0 % [facility] Neutrophils/Leukocyt es Auto (Bld) [Pure # fraction] 4.5 E9/L Normal 2.0 - 7.5 E9/L [facility] HEMATOLOGYOrdered By: Nena Amor on 11-13-2023 Erythrocyte distribution width (RBC) [Ratio] 13.8 % Normal 10.9 - 14.2 % [facility] Hematocrit (Bld) [Volume fraction] 39.9 % Normal 34.0 - 46.0 % [facility] Hemoglobin (Bld) [Mass/Vol] 13.1 g/dL Normal 12.0 - 16.0 gm/dL [facility] MCH (RBC) [Entitic mass] 27.5 pg Normal 27.0 - 34.0 pg [facility] MCHC (RBC) [Mass/Vol] 32.9 g/dL Normal [...] Normal 4.0 - 11.0 E9/L [facility] Laboratory - Chemistry and C hemistry - [...] 21 to 28on 01-31-2022 . . Normal [facility] Comment on above: Performed By: #### [id number] #### [facility] [address] [place] [address] Dr. Tobi Phelps Age Gdln ACOG Testing 21-29 [facility] Comment on above: Performed By: #### 4 [id number] #### [facility] [address] [place] [address] Dr. Tobi Phelps DIAGNOSIS: Comment [facility] Comment on above: Result Comment: NEGA TIVE FOR INTRAEPITHELIAL LESION OR MALIGNANCY. Performed By: #### 4 [id number] #### [facility] [address] [place] [address] Dr. Tobi Phelps Methodology: Comment [facility] Comment on above: Result Comment: This liquid based ThinPrep(R) pap test was screened with the use of an image guided system. Performed By: #### 4 [id number] #### [facility] [facility] [address] [place] [address] Dr. Tobi Phelps Note: Comment [facility] Comment on above: Result Comment: The Pap smear is a screening test designed to aid in the detection of premalignant and malignant conditions of the uterine cervix. It is not a diagnostic procedure and should not be used as the sole means of detecting cervical cancer. Both false-positive and false-negative reports do occur. . Performed By: #### [id number] #### [facility] [address] [place] [address] Dr. Tobi Phelps Performed by: Comment Normal [facility] Comment on above: Result Comment: Elvis Gutierrez, Window Glazier Helper (ASCP) Performed By: #### [id number] #### [facility] [address] [place] [address] Dr. Tobi Phelps Reflex Criteria: Comment [facility] Comment on above: Result Comment: The HPV DNA reflex criteria were not met with this specimen result therefore, no HPV testing was performed. . Performed By: #### [id number] #### [facility] [address] [place] [address] Dr. Tobi Phelps Specimen adequacy: Comment Normal [facility] Comment on above: Result Comment: Sati sfactory for evaluation. Endocervical and/or squamous metaplastic cells (endocervical component) are present. Performed By: #### [id number] #### [facility] [address] [address] [address] Tobi Phelps [facility] Global Experience BREAST LTD LTon 03-25 [facility] [employer] Experience BREAST LTD LT * * *Final Report* * *DATE OF EXAM: Mar 25 2018 2:21PM HCW 0593 - Bundle BREAST LTD LT / REASON: Benign breast lumps * * * * Physician Interpretation * * * *RESULT: #[id number] - Bundle BREAST myBestHelper LTULTRASOUND OF LEFT BREAST: 03/25/2018HISTORY: Benign Breast [...] made to exam dated: 10/29/2013 ultrasound - [facility].Real-time ultrasound of the left breast was performed.There [...] ACR/NCCN guidelines.Kj Lancaster M.D.ls/penrad:03/25/2018 14:31:28Imaging Technologist: Mirta SCHRADER)(M), [facility]: 2 Benign findingTranscribed Using Voice RecognitionTranscribe Date/Time: Mar 25 2018 2:21PDictated by: Live POSADA examination was interpreted and the report reviewed and electronically signed by: KJ LANCASTER MD on Mar 25 2018 2:31PM [id number] Normal [facility] [employer] Experience BREAST LTD RTon 03-25 [facility] Global Experience BREAST myBestHelper RT * * *Final Report* * *DATE OF EXAM: Mar 25 2018 2:21PM HCW 0594 - [facility] Global Experience BREAST myBestHelper RT / REASON: Benign breast lumps * * * * Physician Interpretation * * * *RESULT: #[id number] - [facility] Oriel Sea Salt RTULTRASOUND OF RIGHT BREAST: 03/25/2018HISTORY: Benign Breast [...] Lancaster M.D.ls/penrad:03/25/2018 14:34:44Imaging Technologist: Mirta MERAZ (R)), [facility] BI-RADS: 1 NegativeTranscribed Using Voice RecognitionTranscribe Date/Time: Mar 25 2018 2:21PDictated by: Live POSADA examination was interpreted and the report reviewed and electronically signed by: KJ LANCASTER MD on Mar 25 2018 2:34PM [id number] [facility] Vital Signs Date Time Vital Sign Value Performing Clinician Go laray 11-13-2024 09:48-0500 Body mass index (BMI) [Ratio] 29.88 kg/m2 Clifton France DO Work Phone: [facility] 11-13-2024 09:48-0500 Body weight 86.55 kg Clifton France DO Work Phone: [facility] 11-13-2024 09:48-0500 Diastolic blood pressure 74 mm[Hg] Clifton France DO Work Phone: [facility] 11-13-2024 09:48-0500 Systolic blood pressure 128 mm[Hg] Clifton France DO Work Phone: [facility] 11-05-2024 14:30-0500 Body mass index (BMI) [Ratio] 29.66 kg/m2 Vianey SHIRLEY Work Phone: [facility] 11-05-2024 14:30-0500 Body weight 85.91 kg Vianey SHIRLEY Work Phone: [facility] 11-05-2024 14:30-0500 Diastolic blood pressure 82 mm[Hg] Vianey SHIRLEY Work Phone: [facility] 11-05-2024 14:30-0500 Systolic blood pressure 130 mm[Hg] Vianey SHIRLEY Work Phone: [facility] 10-29-2024 12:22-0500 Body mass index (BMI) [Ratio] 29.29 kg/m2 Clifton France DO Work Phone: [facility] 10-29-2024 12:22-0500 Body weight 84.82 kg Clifton France DO Work Phone: [facility] 10-29-2024 12:22-0500 Diastolic blood pressure 70 mm[Hg] Clifton France DO Work Phone: [facility] 10-29-2024 12:22-0500 Systolic blood pressure 116 mm[Hg] Clifton France DO Work Phone: [facility] 10-22-2024 08:56-0500 Body mass index (BMI) [Ratio] 29.04 kg/m2 Vianey Diaz PA Work Phone: [facility] 10-22-2024 08:56-0500 Body weight 84.1 kg Vianey Diaz PA Work Phone: [facility] 10-22-2024 08:56-0500 Diastolic blood pressure 70 mm[Hg] Vianey Monson PA Work Phone: [facility] 10-22-2024 08:56-0500 Systolic blood pressure 120 mm[Hg] Vianey Diaz PA Work Phone: [facility] 10-08-2024 08:52-0500 Body mass index (BMI) [Ratio] 28.04 kg/m2 Vianey Monson PA Work Phone: [facility] 10-08-2024 08:52-0500 Body weight 81.19 kg Vianey Diaz PA Work Phone: [facility] 10-08-2024 08:52-0500 Diastolic blood pressure 70 mm[Hg] Vianey Diaz PA Work Phone: [facility] 10-08-2024 08:52-0500 Systolic blood pressure 116 mm[Hg] Vianey Diaz PA Work Phone: [facility] 09-24-2024 09:36-0500 Body mass index (BMI) [Ratio] 27.72 kg/m2 Vianey Diaz PA Work Phone: [facility] 09-24-2024 09:36-0500 Body weight 80.29 kg Vianey Diaz PA Work Phone: [facility] 09-24-2024 09:36-0500 Diastolic blood pressure 64 mm[Hg] Vianey Monson PA Work Phone: [facility] 09-24-2024 09:36-0500 Systolic blood pressure 114 mm[Hg] Vianey Diaz PA Work Phone: [facility] 09-10-2024 12:59-0400 Body mass index (BMI) [Ratio] 27.57 kg/m2 Clifton France DO Work Phone: [facility] 09-10-2024 12:59-0400 Body weight 79.83 kg Clifton France DO Work Phone: [facility] 09-10-2024 12:59-0400 Diastolic blood pressure 70 mm[Hg] Clifton France DO Work Phone: [facility] 09-10-2024 12:59-0400 Systolic blood pressure 120 mm[Hg] Clifton France DO Work Phone: [facility] 08-27-2024 08:44-0400 Body mass index (BMI) [Ratio] 27.13 kg/m2 Vianey SHIRLEY Work Phone: [facility] 08-27-2024 08:44-0400 Body weight 78.59 kg Vianey SHIRLEY Work Phone: [facility] 08-27-2024 08:44-0400 Diastolic blood pressure 78 mm[Hg] Vianey SHIRLEY Work Phone: [facility] 08-27-2024 08:44-0400 Systolic blood pressure 118 mm[Hg] Vianey SHIRLEY Work Phone: [facility] 07-30-2024 14:18-0400 Body mass index (BMI) [Ratio] 26.55 kg/m2 Clifton France DO Work Phone: [facility] 07-30-2024 14:18-0400 Body weight 76.89 kg Clifton France DO Work Phone: [facility] 07-30-2024 14:18-0400 Diastolic blood pressure 74 mm[Hg] Clifton France DO Work Phone: [facility] 07-30-2024 14:18-0400 Systolic blood pressure 110 mm[Hg] Clifton France DO Work Phone: [facility] Encounters Encounter Date Encounter Type Care Provider Facility Start: 11-13-2024 End: 11-13-2024 Bamboo flowsheet Clifton France DO Work Phone: [facility] Start: 11-13-2024 End: 11-13-2024 Bamboo flowsheet Clifton France DO Work Phone: [facility] Start: 11-13-2024 End: 11-13-2024 ambulatory CLIFTON FRANCE Not Available Start: 11-13-2024 End: 11-13-2024 flow sheet Clifton France DO Work Phone: [facility] Comment on above: 38 weeks gestation o f ; Third trimester Start: 11-05-2024 End: 11-05-2024 ambulatory VIANEY PERALES Not Available Start: 11-05-2024 End: 11-05-2024 flow sheet Vianey Perales PA Work Phone: [facility] Comment on above: 37 weeks gestation o f ; Third trimester Start: 11-05-2024 End: 11-05-2024 Bamboo flowsheet Vianey SHIRLEY Work Phone: [facility] Start: 11-05-2024 End: 11-05-2024 Bamboo flowsheet Vianey Perales PA Work Phone: [facility] Start: 11-05-2024 End: 11-05-2024 Clinisync Result Encounter Clifton France DO Work Phone: [facility] Unsolicited Start: 11-04-2024 End: 11-04-2024 Clinisync Result Encounter Clifton France DO Work Phone: [facility] Unsolicited Start: 11-04-2024 End: 11-04-2024 Clinisync Result Encounter Clifton France DO Work Phone: [facility] Unsolicited Start: 10-29-2024 End: 10-29-2024 Bamboo flowsheet Clifton France DO Work Phone: [facility] Start: 10-29-2024 End: 11-01-2024 Bamboo flowsheet Clifton France DO Work Phone: [facility] Start: 10-29-2024 End: 11-01-2024 Clinisync Result Encounter Clifton Mirandao DO Work Phone: [facility] Unsolicited Start: 10-29-2024 End: 10-29-2024 flow sheet Clifton France DO Work Phone: [facility] Comment on above: 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; 36 weeks gestation of Start: 10-29-2024 End: 10-29-2024 ambulatory CLIFTON FRANCE Not Available Start: 10-22-2024 End: 10-22-2024 Bamboo flowsheet Vianey SHIRLEY Work Phone: [facility] Start: 10-22-2024 End: 10-22-2024 Bamboo flowsheet Vianey SHIRLEY Work Phone: [facility] Start: 10-22-2024 End: 10-22-2024 flow sheet Vianey SHIRLEY Work Phone: [facility] Comment on above: 35 weeks gestation o f ; Third trimester Start: 10-22-2024 End: 10-22-2024 ambulatory VIANEY PERALES Not Available Start: 10-08-2024 End: 10-08-2024 Bamboo flowsheet Vianey SHIRLEY Work Phone: [facility] Start: 10-08-2024 [...] ambulatory VIANEY PERALES Not Available Start: 08-15-2024 End: 11-13-2024 ambulatory [facility] Facility:[facility] Start: 08-06-2024 End: 08-06-2024 Clinisync Result Encounter Clifton France DO Work Phone: [facility] Unsolicited Start: 08-06-2024 End: 08-06-2024 Clinisync Result Encounter Clifton France DO Work Phone: [facility] Unsolicited Start: 07-30-2024 End: 07-30-2024 flow sheet Clifton Frnace DO Work Phone: [facility] Comment on above: Diabetes mellitus sc reening; Second trimester Start: 07-30-2024 End: 07-30-2024 ambulatory CLIFTON FRANCE Not Available Start: 07-30-2024 End: 07-30-2024 Bamboo flowsheet Clifton France DO Work Phone: [facility] Start: 07-30-2024 End: 07-30-2024 Bamboo flowsheet Clifton France DO Work Phone: [facility] Start: 07-02-2024 End: 07-02-2024 ambulatory CLIFTON FRANCE Not Available Start: 06-18-2024 End: 06-18-2024 ambulatory VIANEY PERALES Not Available Start: 05-21-2024 End: 05-21-2024 ambulatory CLIFTON FRANCE Not Available Start: 04-18-2024 End: 04-18-2024 ambulatory NHUNG RIVERO Not Available Start: 03-17-2024 End: 03-17-2024 ambulatory Clifton R FRANCE Facility:[facility] Start: 03-17-2024 End: 03-17-2024 Patient encounter procedure Clifton R FRANCE [facility] Start: 12-19-2023 End: 12-19-2023 ambulatory NHUNG RIVERO Not Available Start: 12-07-2023 End: 06-17-2024 ambulatory Clifton R FRANCE Facility:[facility] Start: 12-07-2023 End: 06-17-2024 Recurring Clifton R FRANCE [facility] Start: 11-13-2023 End: 11-13-2023 Patient encounter procedure Clifton Jett FRANCE [facility] Start: 04-11-2023 End: 06-17-2024 Recurring Clifton HOUGH [facility] Start: 01-25-2022 End: 01-25-[address] CLIFTON HOUGH Facility: Start: 08-02-2021 End: 08-02-2021 ambulatory Lance SHIRLEY Facility:[facility] Start: 12-10-2018 End: 12-11-2018 Patient encounter procedure PA NEWBERRY Facility:[facility] Start: 12-05-2018 End: 12-06-2018 Patient encounter procedure DEFAULT PHYSICIAN Facility:[facility] Start: 03-25-2018 Ambulatory [facility] Procedures Date Procedure Procedure Detail Performing Clinician Start: 11-13-2024 Urnls dip stick/tabl et rgnt non-auto w/o micrscp Clifton France DO Work Phone: Start: 11-05-2024 AMNISURE Clifton Fazi o DO Work Phone: Start: 11-05-2024 Urnls dip stick/tabl et rgnt non-auto w/o micrscp Vianey SHIRLEY Work Phone: Start: 11-04-2024 AMNISURE Clifton Fazi o DO Work Phone: Start: 11-04-2024 [facility] UA (CLEAN/CATCH) REVENUE FIELD AUDITOR/MICRO IF IND. Clifton France DO Work Phone: Start: 10-29-2024 Urnls dip stick/tabl et rgnt [...] DIFF Clifton France DO Work Phone: Start: 07-30-2024 Urnls dip stick/tabl et rgnt non-auto w/o micrscp Clifton France DO Work Phone: Start: 07-11-2023 Microscopic observat ion [Identifier] in Cervix by Cyto stain Vianey SHIRLEY Work Phone: Plan of Treatment Date Care Activity Detail Author Start: 07-11-2028 Screening for malign ant neoplasm of cervix HPV/Cotest [facility] Start: 07-11-2026 Screening for malign ant neoplasm of cervix [facility] Start: 11-13-2024 End: 11-13-2024 Patient encounter procedure 11/13/2024 9:20 AM EST Routine [facility] [address] [facility] [place] [address] Clifton Hough, DO [address], [place] [id number] [facility] Start: 11-05-2024 End: 11-05-2024 Patient encounter procedure 11/05/2024 2:20 PM EST Routine [facility] [address] [facility] [place] [address] Vianey Perales PA [address] [place] [address] [facility] Start: 10-29-2024 End: 10-29-2025 CULTURE, GROUP B STREP WITH SUSCEPTIBLITY CULTURE, GROUP B STREP WITH SUSCEPTIBLITY Lab Routine Third trimester Expected: 10/29/2024 (Approximate), Expires: 10/29/2025 [facility] Work Phone: Comment on above: Expected: 10/29/2024 (Approximate), Expires: 10/29/2025 Start: 10-29-2024 End: 10-29-2024 Patient encounter procedure [facility] Comment on above: Arrived Start: 10-22-2024 End: 10-22-2024 Patient encounter procedure [facility] Comment on above: Arrived Start: 10-22-2024 End: 10-22-2024 Professional / ancillary services management 10/22/2024 8:00 AM EST Ancillary Procedure [facility] [address] [place] [id number] [facility] Start: 10-08-2024 End: 10-08-2024 Patient encounter procedure [facility] Comment on above: Arrived Start: 09-24-2024 End: 09-24-2024 Patient encounter procedure [facility] Comment on above: Arrived Start: 09-24-2024 End: 09-24-2024 Professional / ancillary services management 09/24/2024 9:00 AM EST Ancillary Procedure [facility] [address] [place] [id number] [facility] Start: 09-10-2024 End: 09-10-2025 US for US OB SCAN FOR GROWTH Imaging Routine Excessive growth affecting management of , antepartum, single or unspecified fetus Expected: 09/10/2024 (Approximate), Expires: 09/10/2025 [facility] Work Phone: Comment on above: Expected: 09/10/2024 (Approximate), Expires: 09/10/2025 Start: 09-10-2024 End: 09-10-2024 Patient encounter procedure [facility] Comment on above: Arrived Start: 08-27-2024 End: 08-27-2024 Patient encounter procedure [facility] Comment on above: Arrived Start: 07-30-2024 End: 07-30-2024 Patient encounter procedure 07/30/2024 2:10 PM EDT Routine [facility] [address] [place] [address] Clifton Hough, DO [address] [place] [address] Arrived [facility] Comment on above: Arrived Start: 07-30-2024 End: 07-30-2025 CBC panel - Blood by Automated count CBC Lab Routine Diabetes mellitus screening Expected: 07/30/2024 (Approximate), Expires: 07/30/2025 [facility] Work Phone: Comment on above: Expected: 07/30/2024 (Approximate), Expires: 07/30/2025 Start: 07-30-2024 End: 07-30-2025 Measurement of glucose 1 hour after glucose challenge for glucose tolerance test Glucose tolerance, 1 hour Lab Routine Diabetes mellitus screening Expected: 07/30/2024 (Approximate), Expires: 07/30/2025 [facility] Comment on above: Expected: 07/30/2024 (Approximate), Expires: 07/30/2025 Start: 07-20-2024 Influenza vaccination Influenza Vacc ine (#1) [facility] Immunizations Immunization Date Immunization Notes Care Provider Fa cility 09-02-2024 influenza virus vaccine, unspecified formulation Clifton France DO Work Phone: [facility] 09-06-2023 influenza virus vaccine, unspecified formulation Clifton FRANCE [facility] Comment on above: Reason for Medicatio n: Prophylaxis 09-12-2022 influenza virus vaccine, unspecified formulation Clifton FRANCE [facility] Comment on above: Reason for Medicatio n: Prophylaxis 09-12-2022 influenza, injectabl e, quadrivalent, preservative free Clifton FRANCE [facility] 04-28-2021 COVID-19, mRNA, LNP- S, PF, 30 mcg/0.3 mL dose Clifton FRANCE [facility] Comment on above: Reason for Medicatio n: Prophylaxis 04-06-2021 COVID-19, mRNA, LNP- S, PF, 30 mcg/0.3 mL dose Clifton FRANCE [facility] Comment on above: Reason for Medicatio n: Prophylaxis Payers Date Payer Category Payer [facility] [id number] 2023 Unknown [id number] 2022 Unknown [id number] 2021 Unknown 1994 Unknown [id number] 2.16.840.1.995664.3.579.2. 647 1994 Unknown [id number] 2.16.840.1.462121.3.579.2. 647 1994 Unknown [id number] 2.16.840.1.136606.3.579.2. 593 1994 Unknown [id number] 2.16.840.1.837532.3.579.2. 718 1994 Unknown [id number] 2.16.840.1.861309.3.579.2. 1259 1994 Unknown [id number] 2.16.840.1.447900.3.579.2. 1259 1994 Unknown [id number] 2.16.840.1.507058.3.579.2. 1258 1994 Unknown [id number] 2.16.840.1.969695.3.579.2. 1258 1994 Unknown [id number] 2.16.840.1.835818.3.579.2. 1258 1994 Unknown [id number] 2.16.840.1.159996.3.579.2. 1258 1994 Unknown [id number] 2.16.840.1.081423.3.579.2. 1258 1994 Unknown [id number] 2.16.840.1.722729.3.579.2. 1258 1994 Unknown [id number] 2.16.840.1.535405.3.579.2. 1258 1994 Unknown [id number] 2.16.840.1.155155.3.579.2. 1258 1994 Unknown [id number] 2.16.840.1.994856.3.579.2. 1258 1994 Unknown [id number] 2.16.840.1.733076.3.579.2. 1258 1994 Unknown [id number] 2.16.840.1.595774.3.579.2. 1258 1994 Unknown [id number] 2.16.840.1.473221.3.579.2. 1258 1994 Unknown [id number] 2.16.840.1.805018.3.579.2. 1994 Unknown [id number] 2.16.840.1.904794.3.579.2. 1994 Unknown [id number] 2.16.840.1.253728.3.579.2. 727 1959 Unknown [id number] Unknown [id number] Social History Date Type Detail Facility Start: 07-21-2021 End: 04-11-2023 Tobacco smoking status Never smoked tobacco (finding) [facility] Tobacco smoking status Never [facility]von[facility] Start: 09-12-2023 End: 04-11-2024 Sex Assigned At Female [facility] Start: 04-11-2023 Tobacco use and exposure Smokeless tobacco non-user [facility] Start: 07-30-2024 End: 11-13-2024 Alcoholic beverage intake Ex-drinker (finding) [facility] Start: 04-11-2024 End: 07-30-2024 Alcoholic beverage intake [facility] Start: 03-03-2024 [facility] Start: 1995 Sex assigned at Female [facility] Start: 04-10-2023 Gender identity Identifies as female gender (finding) [facility] Goals Date Patient Goal Desired Activity /State Personal health goal Clinical Notes 11-13-2023 to 11-13-2024 Karina Wise LPN 11/13/2024 9:20 AM CASPER Gil 11/05/2024 2:20 PM Ant Wise LPN - 10/29/2024 11:30 AM CASPER Gil 10/22/2024 8:50 AM CASPER iGl 10/08/2024 8:30 AM EST Note Date & Type Note Facility 11-13-2024 History of Present illness Narrative Reason for [...] nursing note reviewed. Exam conducted with a tool grinding machine operator present. Vitals: Estimated body mass index is 29.88 kg/m as calculated from the following: Height as of 06/06/23: 5' 7 . Weight as of this encounter: 190 lb 12.8 oz. BP: 128/74 Patient's last menstrual period was 02/18/2024. ASSESSMENT & PLAN ICD-10-CM 1. 38 weeks gestation of Z3A.38 POCT urinalysis dipstick manually resulted 2. Third trimester Z34.93 POCT urinalysis dipstick manually resulted Return OB: Patient presents today for a routine obstetrics appointment. Patient is currently 38w3d . Patient states she is doing well but has complaints of being tired due to current . Patient has verbalizes frequent movement. labor precautions was discussed/given and patient was instructed to perform kick counts three times a day. Pt to be induced on 11/20/24. Induction consents signed. Orders Placed This Encounter Procedures POCT urinalysis dipstick manually resulted Follow Up: Patient is to return to office in 1 week for routine OB appointment. Documented by Karina Wise LPN on behalf of: Clifton Hough DO documented in this encounter [facility] 11-05-2024 History of Present illness Narrative Reason for Appointment: Patient ID: Mary Salas is a 29 y.o. female who presents for No chief complaint on file. Patient presents today for Return OB appointment. [...] SYSTEMS Review of Systems: Review of Systems OBJECTIVE Objective: OBGyn Exam Vitals: Estimated body mass index is 29.66 kg/m as calculated from the following: Height as of 06/06/23: 5' 7 . Weight as of this encounter: 189 lb 6.4 oz. BP: 130/82 Patient's last menstrual period was 02/18/2024. ASSESSMENT & PLAN ICD-10-CM 1. 37 weeks gestation of Z3A.37 POCT urinalysis dipstick manually resulted 2. Third trimester Z34.93 POCT urinalysis dipstick manually resulted Return OB: Patient presents today for a routine obstetrics appointment. Patient is currently 37w2d . Patient states she is doing well but has complaints of being tired due to current . Patient has verbalizes frequent movement. labor precautions was discussed/given and patient was instructed to perform kick counts three times a day. Patient continues to have contractions today, 2-3 while being in the office, was seen at hospital last night and sent home. Nitrazine positive in office today. Patient will be sent to OB for further evaluation. Orders Placed This Encounter Procedures POCT urinalysis dipstick manually resulted Follow Up: Patient is to return to office in 1 week for routine OB appointment. Documented by CASPER Weiss on behalf of: CASPER Weiss documented in this encounter [facility] 10-29-2024 History of Present illness Narrative gbs [...] nursing note reviewed. Exam conducted with a tool grinding machine operator present. Vitals: Estimated body mass [...] Clifton Hough DO documented in this encounter [facility] 10-22-2024 History of Present illness Narrative Reason [...] of: CASPER Weiss documented in this encounter [facility] 10-08-2024 History of Present illness Narrative [...] of: CASPER Weiss documented in this encounter [facility] 09-24-2024 History of Present illness Narrative [...] of: CASPER Weiss documented in this encounter [facility] 09-10-2024 History of Present illness Narrative [...] nursing note reviewed. Exam conducted with a tool grinding machine operator present. Vitals: Estimated body mass [...] Clifton Hough DO documented in this encounter [facility] 08-27-2024 History of Present illness Narrative [...] of: CASPER Weiss documented in this encounter [facility] [facility] History of Present illness Narrative Reason for Appointment: Patient ID: Mary Salas is a 28 y.o. female who presents for Routine Visit [...] nursing note reviewed. Exam conducted with a tool grinding machine operator present. Vitals: Estimated body mass index is 26.55 kg/m as calculated from the following: Height as of 06/06/23: 5' 7 . Weight as of this encounter: 169 lb 8 oz. BP: 110/74 Patient's last menstrual period was 02/18/2024. ASSESSMENT & PLAN ICD-10-CM 1. Diabetes mellitus screening Z13.1 CBC Glucose tolerance, 1 hour CBC Glucose tolerance, 1 hour CANCELED: CBC CANCELED: Glucose tolerance, 1 hour 2. Second trimester Z34.92 POCT urinalysis dipstick manually resulted Patient presents today for a routine obstetrics appointment. Patient is currently 23w2d with a Estimated Date of Delivery: 11/24/24. Pt doing well with no complaints. Pt to return in 4 weeks for scheduled OB appt Pt given glucola order with instructions Documented by Karina Wise LPN on behalf of: Clifton Hough DO documented in this encounter [facility] 11-13-2023 Evaluation + Plan note [facility]/13[facility] 11/13/23 [facility] Evaluation + Plan note No data available for this section [facility] Evaluation note Diagnosis 27 weeks gestation of Second trimester state, incidental Iron deficiency anemia, unspecified iron deficiency anemia type [facility] Diagnosis 29 weeks gestation of [...] weeks gestation of [facility] Diagnosis 35 weeks gestation of Third trimester state, incidental [facility] Diagnosis Third trimester state, incidental 36 weeks gestation of [facility] Diagnosis 37 weeks gestation of Third trimester state, incidental [facility] Diagnosis Diabetes mellitus screening Screening for diabetes mellitus Second trimester state, incidental [facility] Diagnosis 38 weeks gestation of Third trimester state, incidental [facility] No data available for this section [facility] No data available for this section [facility] Summary Purpose Family History No Family History [...] section and content) DATE CREATED AUTHOR 05/09/2018 [facility] DATE CREATED AUTHOR AUTHOR'S ORGANIZ ATION 12/13/2018 [facility] DATE CREATED AUTHOR AUTHOR'S ORGANIZ ATION 02/01/2022 [facility] DATE CREATED AUTHOR AUTHOR'S ORGANIZ ATION 08/30/2024 [facility] DATE CREATED AUTHOR AUTHOR'S ORGANIZ ATION 11/14/[address] [facility] EPIC DATE CREATED AUTHOR AUTHOR'S ORGANIZ ATION 11/15/[address] 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 Manager Relationship Specialty Start Date End Date Unallocated, [place] MD Krystin [address] [place] [address] PCP - General 09/12/23 [employer] Manager Relationship Specialty Start Date End Date Unallocated, Darleen Mcclelland MD [facility] [place] [place] [address] PCP - General 09/12/23 Gun Club Manager Relationship Specialty Start Date End Date Unallocated, Darleen Mcclelland MD [facility] [place] [place] [address] PCP - General 09/12/23 Gun Club Manager Relationship Specialty Start Date End Date Unallocated, Darleen Mcclelland MD [facility] [place] [place] [address] PCP - General 09/12/23 Gun Club Manager Relationship Specialty Start Date End Date Unallocated, Darleen Mcclelland MD [facility] [place] [address] PCP - General 09/12/23 Gun Club Manager Relationship Specialty Start Date End Date Unallocated, Darleen Mcclelland MD [facility] [place] [place] [address] PCP - General 09/12/23 Gun Club Manager Relationship Specialty Start Date End Date Unallocated, Darleen Mcclelland MD [facility] [place] [place] [address] PCP - General 09/12/23 Gun Club Manager Relationship Specialty Start Date End Date Unallocated, Darleen Mcclelland MD [facility] [place] [place] [address] PCP - General 09/12/23 Gun Club Manager Relationship Specialty Start Date End Date Unallocated, Darleen Mcclelland MD [facility] [place] [place] [address] PCP - General 09/12/23 Gun Club Manager Relationship Specialty Start Date End Date Unallocated, Darleen Mcclelland MD [facility] [place] [address] PCP - General 09/12/23 Gun Club Manager Relationship Specialty Start Date End Date Unallocated, Darleen Mcclelland MD [place] [address] PCP - General 09/12/23 Gun Club Manager Relationship Specialty Start Date End Date Unallocated, Darleen Mcclelland MD Rogelio [place], [place] [id number] PCP - General 09/12/23 Reason for Visit [...] BE BASED ON THE PRIMARY CLINICAL RECORDS. [facility] [employer] [facility]. provides no warranty or guarantee of the accuracy or completeness of information in this document.
[2024-11-20] MEDS: 0.9 % SODIUM CHLORIDE 1,000 ML 125 ML IV ×3 (06:03→14:28)
[2024-11-20] MEDS: OXYTOCIN/0.9 % SODIUM CHLORIDE 10 UNITS/500 ML PLAST..BAG 6 UNIT IV (06:03)
[2024-11-20 06:29] LABS: Hemoglobin 11.3 g/dL (12.0-16.0); Mean Corpuscular HGB Conc 33.2 g/dL (29.9-35.2); Mean Corpuscular Hemoglobin 28.7 pg (26.7-34.0); Mean Corpuscular Volume 86.3 fL (81.0-99.0); Platelet Count 217 10^3/uL (150-450); Red Blood Count 3.94 10^6/uL (4.20-5.40); Red Cell Distribution Width 13.1 % (11.0-15.0); White Blood Count 13.4 10^3/uL (4.0-11.0)
[2024-11-20 07:52] LABS: Amphetamine Screen Urine NEGATIVE (NEGATIVE); Barbiturates Screen Urine NEGATIVE (NEGATIVE); Benzodiazepines Screen Urine NEGATIVE (NEGATIVE); Buprenorphine Screen Urine NEGATIVE (NEGATIVE); Cannabinoid Screen Urine NEGATIVE (NEGATIVE); Cocaine Screen Urine NEGATIVE (NEGATIVE); Methadone Screen Urine NEGATIVE (NEGATIVE); Methamphetamines Screen Urine NEGATIVE (NEGATIVE); Opiate Screen Urine NEGATIVE (NEGATIVE); Oxycodone Screen Urine NEGATIVE (NEGATIVE); Phencyclidine Screen Urine NEGATIVE (NEGATIVE); Tricyclic Antidepressant Urine NEGATIVE (NEGATIVE)
[2024-11-20] MEDS: NALBUPHINE HCL 10 MG/ML AMPULE IV (12:26)
[2024-11-20] MEDS: ROPIVACAINE HCL/PF 400 MG/200 ML PREMIX 10 MG EPIDURAL (13:12)
[2024-11-20] MEDS: METOCLOPRAMIDE HCL 10 MG/2 ML VIAL IVP (19:24)
[2024-11-20] MEDS: CEFAZOLIN SODIUM/DEXTROSE,ISO 2 GM/50 ML PIGGYBACK IV (19:24)
[2024-11-20] MEDS: FAMOTIDINE/PF 20 MG/2 ML VIAL IV (19:24)
[2024-11-20] MEDS: CITRIC ACID/SODIUM CITRATE 30 ML SOLUTION ORACIT SHOHL'S SOLN PO (19:24)
[2024-11-20] MEDS: LACTATED RINGER'S SOLUTION 1,000 ML 50 ML IV ×2 (19:31→19:55)
--- NOTE | 2024-11-20 20:12 | PM.ONB ---
Brief Operative Note Date of procedure: 11/20/24 Pre-op diagnosis general: iup at 39wks, failure to descend, tachycardia, cpd Post-op diagnosis: same as pre-op Procedure: NAME OF PROCEDURE: [ section ] PROCEDURE: Patient was taken back to the Operating Room where she was given a spinal anesthesia with Duramorph without difficulty. She was prepped and draped in the normal sterile fashion. A Pfannenstiel skin incision was then made 2 cm above the symphysis pubis and carried down to underlying rectus fascia using a Bovie. The fascia was incised in the midline and extended laterally using Hurd scissors. Two Eduin clamps were placed on the superior aspect of the fascia and dissected off the underlying rectus muscles. The same was performed on the inferior aspect as well. The muscles were then in the midline. Peritoneum was identified and entered bluntly. The peritoneum was then extended superiorly and inferiorly with good visualization of the bladder. The bladder blade was inserted. A low transverse incision was made on the patient's uterus and extended laterally digitally. The was then delivered atraumatically after the bladder blade was removed in the cephalic position. The cord was clamped and cut. Cord blood was obtained. The was handed off to awaiting team. The patient's placenta was spontaneously delivered. The uterus was then exteriorized. The uterus was cleared of all clots and debris. The bladder blade was reinserted. The patient's uterine incision was closed using #0 Vicryl in a running lock fashion. Excellent hemostasis was assured. The uterus was then returned to the patient's abdomen. The patient's abdomen was copiously irrigated using warm saline. Peritoneal gutters were cleared of all clots and debris. Again excellent hemostasis was assured. The patient's peritoneum was closed using 3-0 Vicryl in a running fashion. The patient's fascia was closed using #0 Vicryl in a running fashion. The patient's skin was closed using 4-0 Vicryl subcuticularly. The patient tolerated the procedure well. Sponge, lap, and needle counts were correct x2. The patient was taken to the Recovery Room in stable condition. Anesthesia: epidural Surgeon: Dg Hough [employer] Marketing Analyst: Jenny Montesinos Estimated blood loss (mL): 575 Pathology: other (placenta) Condition: stable Disposition: floor Urinary Catheter Management Urinary Catheter Management Urethral: Cath placed during this visit: yes Urethral indwelling: No Insertion date: 11/20/24 Insertion time: 19:15
--- NOTE | 2024-11-20 20:15 | P.OBPRC_ITS ---
Procedure Pre-op/Post-op diagnoses: Pre-Op/Post-Op Diagnoses Operation Date: 11/20/24 19:15 <No data on this case meets the specified criteria> Procedure: Procedures Operation Date: 11/20/24 19:15 Actual Procedure Side Surgeon p WITH DELIVERY OF VIABLE BABY GIRL Not Applicable Dg Hough DO [employer] Founder: Jenny Montesinos Estimated blood loss (mL): 575 Disposition: PACU Anesthesia type: Epidural
[2024-11-20] MEDS: OXYTOCIN/0.9 % SODIUM CHLORIDE 20 UNITS/1,000 ML PLAST..BAG 125 UNIT IV (21:50)
--- NOTE | 2024-11-20 23:39 | PC.NURSE ---
Rodriguez care/pericare completed. New pad/chux applied. Fresh water given
[2024-11-21 01:17] VITALS: BP 145/86; PULSE 69; TEMP 36.9; O2SAT 97
[2024-11-21] MEDS: CEFAZOLIN SODIUM/DEXTROSE,ISO 2 GM/50 ML PIGGYBACK IV (01:24)
[2024-11-21 01:25] VITALS: BP 125/65
[2024-11-21] MEDS: ACETAMINOPHEN 500 MG TABLET 1000 MG PO ×3 (03:32→21:54)
[2024-11-21] MEDS: KETOROLAC TROMETHAMINE 30 MG/ML VIAL IVP ×3 (03:33→15:52)
[2024-11-21 05:19] VITALS: BP 100/68; PULSE 75; PULSE 89; TEMP 36.8; O2SAT 97
--- NOTE | 2024-11-21 07:50 | PM.OBPN ---
OB - PN: Subj Subjective Patient comments: no complaints and pain well controlled [place] status: doing well Exam Constitutional Vital Signs, click to edit/add: Last Vital Signs Temp 98.2 F 11/21/24 05:19 Pulse 89 11/21/24 05:19 Resp 18 11/21/24 05:19 BP 100/68 11/21/24 05:19 Pulse Ox 97 11/21/24 05:19 O2 Del Method Room Air 11/21/24 05:19 Documenting provider has reviewed patient's vital signs: yes Common normals: no apparent distress Respiratory Common normals: clear to auscultation bilaterally Cardio Common normals: regular rate and regular rhythm GI Common normals: Normal to inspection, nondistended, normoactive bowel sounds present Extremity Common normals: no clubbing, cyanosis or edema and no calf tenderness Urinary Catheter Management Urinary Catheter Management Urethral: Cath placed during this visit: yes, but has since been removed by the nurse Urethral indwelling: No Insertion date: 11/20/24 Insertion time: 19:15 Removal date: 11/21/24 Removal time: 05:30 OB - PN: A/P Plan - day: 1 Plan: routine postop care Time Spent with Patient Time: Total time spent is greater than 50% in coordination of care (as documented) at patient's floor/unit and/or counseling patient: Total time spent with greater than 50% in coordination of care (as documented) at patient's floor/unit and/or counseling patient: less than 15 minutes
[2024-11-21 08:35] VITALS: BP 132/73; PULSE 84; TEMP 36.4
[2024-11-21] MEDS: DOCUSATE SODIUM 100 MG CAPSULE PO ×2 (08:51→21:54)
[2024-11-21] MEDS: ENOXAPARIN SODIUM 40 MG/0.4 ML SYRINGE SUBQ (11:13)
[2024-11-21 16:00] VITALS: BP 127/84; PULSE 80; TEMP 36.9
[2024-11-21] MEDS: IBUPROFEN 400 MG TABLET 800 MG PO (21:54)
[2024-11-22 00:20] VITALS: TEMP 36.9
[2024-11-22 00:21] VITALS: BP 129/60; PULSE 75
[2024-11-22] MEDS: IBUPROFEN 400 MG TABLET 800 MG PO ×2 (05:33→11:29)
[2024-11-22 06:36] LABS: Hematocrit 30.7 % (36.0-48.0); Mean Corpuscular HGB Conc 32.6 g/dL (29.9-35.2); Mean Corpuscular Hemoglobin 28.8 pg (26.7-34.0); Mean Corpuscular Volume 88.5 fL (81.0-99.0); Platelet Count 224 10^3/uL (150-450); Red Blood Count 3.47 10^6/uL (4.20-5.40); Red Cell Distribution Width 13.2 % (11.0-15.0); White Blood Count 19.8 10^3/uL (4.0-11.0)
[2024-11-22 07:09] LABS: Segmented Neut Absolute Manual 14.65 10^3/uL (1.4-6.5)
[2024-11-22 07:10] LABS: Eosinophils Absolute Manual 0.19 10^3/uL (0.00-0.70); Lymphocytes Absolute Manual 3.96 10^3/uL (1.20-3.80); Monocytes Absolute Manual 0.99 10^3/uL (0.30-0.80)
[2024-11-22 09:30] VITALS: BP 127/80; PULSE 76
[2024-11-22] MEDS: DOCUSATE SODIUM 100 MG CAPSULE PO (09:42)
[2024-11-22] MEDS: ACETAMINOPHEN 500 MG TABLET 1000 MG PO (09:42)
--- NOTE | 2024-11-22 11:03 | P.OBPN_ITS ---
OB - PN: Subj Subjective Patient comments: no complaints [place] status: doing well [place] feeding status: exclusively Exam Constitutional Vital Signs, click to edit/add: Last Vital Signs Temp 98.5 F 11/22/24 00:20 Pulse 76 11/22/24 09:30 Resp 16 11/22/24 09:37 BP 127/80 11/22/24 09:30 Pulse Ox 97 11/21/24 05:19 O2 Del Method Room Air 11/21/24 16:00 Documenting provider has reviewed patient's vital signs: yes Common normals: no apparent distress General appearance: cooperative and comfortable Orientation/consciousness: Yes awake, Yes oriented to person, Yes oriented to place and Yes oriented to time HENMT Common normals: normocephalic Eye Common normals: EOMs intact bilaterally General eye: normal appearance of both eyes Neck & C-Spine Common normals: full ROM General: normal visual inspection Lymph Lymphatic: no lymphadenopathy noted Chest Common normals: inspection of chest normal Respiratory Common normals: normal respiratory effort Effort & inspection: able to speak in complete sentences Auscultation: clear to auscultation bilaterally Cardio Common normals: regular rate and regular rhythm Rate: regular rate Rhythm: regular rhythm GI Common normals: Normal to inspection, nondistended, normoactive bowel sounds present and soft to palpation Inspection: normal to inspection Palpation: soft Back & Pelvis Thoracic spine/upper back: normal to inspection Lumbar spine/lower back: normal to inspection Extremity Common normals: normal to inspection General: normal exam except as noted Neuro Shonda Coma Scale: document GCS findings Common normals: oriented x3 Sensorium/orientation: awake, alert, oriented to person, oriented to place, oriented to time and orientation impaired Psych Common normals: mental status grossly normal, thought process normal, cooperative and affect normal Attitude: calm Thought process: normal thought process Thought content: normal thought content Results Labs Labs: Short CBC 11/22/24 Range/Units 06:18 WBC 19.8 H (4.0-11.0) 10^3/uL Hgb 10.0 L (12.0-16.0) g/dL Hct 30.7 L (36.0-48.0) % Plt Count 224 (150-450) 10^3/uL Urinary Catheter Management Urinary Catheter Management Urethral: Cath placed during this visit: yes, but has since been removed by the nurse Urethral indwelling: No Insertion date: 11/20/24 Insertion time: 19:15 Removal date: 11/21/24 Removal time: 05:30 OB - PN: A/P Plan - day: 2 Plan: discharge home Time Spent with Patient Time: Total time spent is greater than 50% in coordination of care (as documented) at patient's floor/unit and/or counseling patient: Total time spent with greater than 50% in coordination of care (as documented) at patient's floor/unit and/or counseling patient: less than 15 minutes
[2024-11-22] MEDS: ENOXAPARIN SODIUM 40 MG/0.4 ML SYRINGE SUBQ (11:29)
--- NOTE | 2024-11-22 12:14 | RESP.RT ---
done per nursing
== END 2024-11-22 15:55 | disposition home or self-care (01) | DRG 788 ==
PROVIDERS: Admitting Provider Obstetrics & Gynecology; Visit Provider Obstetrics & Gynecology
PROC: 10D00Z1 Extraction of Products of Conception, Low, Open Approach (ICD-10-PCS; CPT 59514; principal; 2024-11-20 19:15)
DX: O33.9 Maternal care for disproportion, unspecified (principal); O32.4XX0 Maternal care for high head at term, not applicable or unspecified; O76 Abnormality in fetal heart rate and rhythm complicating labor and delivery; Z3A.39 39 weeks gestation of pregnancy; Z37.0 Single live birth
CPT/HCPCS: 36415; 51702; 59050; 64488; 80307; 85007; 85027; 86850; 86900; 86901; 88307; 94667; J0131; J0665; J0690; J1100; J1650; J1885; J2274; J2300; J2405; J2590; J2765; J2795; J3010

== ENCOUNTER 2024-12-11 11:45 | Outpatient (OUT) | payer OTHER, SELFPAY ==
--- OUTSIDE RECORDS SUMMARY | 2024-12-11 12:00 | XMS_ITS | CCD ---
Author Organization [facility] CliniSyin Care Team Providers Care Grain Manager Name Role Phone VILLALOBOS, DINKAR Unavailable Unavailable VILLALOBOS, DINKAR Unavailable Unavailable PHYSICIAN, DEFAULT Admitting Unavailable PHYSICIAN, DEFAULT Attending Unavailable ROHITH, PA R Admitting Unavailable ROHITH, PA R Attending Unavailable SELF, REFERRED Referring Unavailable SELF, REFERRED Primary Care Unavailable FRANCE, DR LAZO Attending Unavailable FRANCE, DR LAZO Consulting Unavailable FRANCE, DR LAZO Admitting Unavailable Jseica Jamison Primary Care Physician SpaLance Medel Attending Unavailabl e SpaLance Medel Admitting Unavailabl e Provider, None Primary Care Unavailable Unallocated MD, Noms Provider Primary Care Provi rosa m Unallocated MD, Noms Provider Primary Care Provi rosa m Nadir MEDRANO Attending Unavailable FRANCE, Cliftno R Admitting Unavailable FRANCE, Clifton R Attending Unavailable FRANCE, Clifton R Attending Unavailable FRANCE, Clifton R Admitting Unavailable NHUNG RIVERO Attending Unavailable FRANCE, CLIFTON Attending Unavailable DIAZ, VIANEY Attending Unavailable FRANCE, CLIFTON Attending Unavailable FRANCE, CLIFTON Attending Unavailable DIAZ, VIANEY Attending Unavailable FRANCE, CLIFTON Attending Unavailable DIAZ, VIANEY Attending Unavailable DIAZ, VIANEY Attending Unavailable DIAZ, VIANEY Attending Unavailable FRANCE, CLIFTON Attending Unavailable DIAZ, VIANEY Attending Unavailable FRANCE, CLIFTON Attending Unavailable DIAZ, VIANEY Attending Unavailable Allergies Allergy Classification Reported Allergen(s) Allergy Type Date of Onset Reaction(s) Facility (1 source) No Known Medication Allergies; Translations: [No Known Medication Allergies] Propensity to adverse reactions to drug (disorder) [facility] Repository Medications Current Medications Medication Drug Class(es) Dates Sig (Normalized) Sig (Original) ibuprofen 400 mg oral tablet (2 sources) Nonsteroidal Anti-inflammatory Drug Start: 11-22-2024 ibuprofen 400 MG tablet 11/22/2024 Active polysaccharide iron complex 391 mg oral capsule [...] Documented Date Episodic/Chronic Deficiency and other anemia (6 sources) Iron deficiency anemia; Translations: [Iron deficiency anemia, unspecified] 08-27-2024 Episodic Female infertility (1 source) Female infertility; Translations: [Female infertility, unspecified] Chronic Immunizations and screening for infectious disease (1 source) Encounter for screening for human papillomavirus (HPV); Translations: [ENC SCREENING HUMAN PAPILLOMAVIRUS] Onset: 01-26-2022 Episodic Other aftercare (2 sources) Postoperative visit; Translations: [Encounter for other specified surgical aftercare] 11-27-2024 Episodic Other complications of ; puerperium affecting management of mother (1 source) Deliveries by ; Translations: [Encounter for delivery without indication] 11-22-2024 Episodic Other complications of (2 sources) Excessive [...] Name Value Interpretation Reference Range Facility ALL CBC WITH AUTO DIFFon Erythrocyte distribution width (RBC) [Ratio] 13.2 % 11.0 - 15.0 % [facility] Hematocrit (Bld) [Volume fraction] 30.7 % Low 36.0 - 48.0 % [facility] Hemoglobin (Bld) [Mass/Vol] 10 g/dL Low 12.0 - 16.0 g/dL [facility] Interpretation and review of laboratory results Abnormal [facility] MCH (RBC) [Entitic mass] 28.8 pg 26.7 - 34.0 pg [facility] MCHC (RBC) [Mass/Vol] 32.6 g/dL 29.9 - 35.2 g/dL [facility] MCV (RBC) [Entitic vol] 88.5 fL 81.0 - 99.0 fL [facility] Platelet mean volume (Bld) [Entitic vol] 11 fL 9.5 - 13.5 fL [facility] TBH PLT 224 [facility] TB RBC 3.47 Low [facility] WBC 19.8 High [facility] CBC WITH PLATELET NO DI FFERENTIALon 11-20-2024 Erythrocyte distribution width (RBC) [Ratio] 13.1 % 11.0 - 15.0 % [facility] Hematocrit (Bld) [Volume fraction] 34 % Low 36.0 - 48.0 % [facility] Hemoglobin (Bld) [Mass/Vol] 11.3 g/dL Low 12.0 - 16.0 g/dL [facility] Interpretation and review of laboratory results Abnormal [facility] MCH (RBC) [Entitic mass] 28.7 pg 26.7 - 34.0 pg [facility] MCHC (RBC) [Mass/Vol] 33.2 g/dL 29.9 - 35.2 g/dL [facility] MCV (RBC) [Entitic vol] 86.3 fL 81.0 - 99.0 fL [facility] Platelet mean volume (Bld) [Entitic vol] 12 fL 9.5 - 13.5 fL [facility] TB PLT 217 [facility] TB RBC 3.94 Low [facility] WBC 13.4 High [facility] Urinalysis macro (dipstick) panel (U)on 11-13-2024 Bilirubin, UA Negative Negative - 4(70) +++ mg/dL [facility] Blood, UA Positive Negative - 50 Quinton/mcL [facility] Clarity, UA Clear [facility] Color, UA Light Yellow [facility] Glucose, UA Negative Negative - 1999(110) ++++ mg/dL [facility] Interpretation and review of laboratory results Abnormal [facility] Ketones, UA Negative Negative - 160(16) ++++ mg/dL [facility] Leukocytes, UA Trace Negative - 500+++ Raquel/mcL [facility] Nitrite, UA Negative Negative - Positive [facility] pH, UA 6 5 - 9 [facility] Protein, UA Negative Negative - 1999(20) ++++ mg/dL [facility] Spec Grav, UA 1.015 1 - 1.03 [facility] Urobilinogen, UA 1.0 0.2 - 12 mg/dL [facility] AMNISUREon 11-05-2024 [facility] AMNISURE Negative NEGATIVE [facility] macro (dipstick) panel (U)on 11-05-2024 Bilirubin, UA Negative Negative - 4(70) +++ mg/dL [facility] Blood, UA Negative Negative - 50 Quinton/mcL [facility] Clarity, UA Clear [facility] Color, UA Yellow [facility] Glucose, UA Negative Negative - 1999(110) ++++ mg/dL [facility] Interpretation and review of laboratory results Abnormal [facility] Ketones, UA Positive Negative - 160(16) ++++ mg/dL [facility] Comment on above: 15 Leukocytes, UA Negative Negative - 500+++ Raquel/mcL [facility] Nitrite, UA Negative Negative - Positive [facility] pH, UA 7 5 - 9 [facility] Protein, UA Negative Negative - 1999(20) ++++ mg/dL [facility] Spec Grav, UA 1.015 1 - 1.03 [facility] Urobilinogen, UA 0.2 0.2 - 12 mg/dL [facility] AMNISUREon 11-04-2024 [facility] AMNISURE Negative NEGATIVE [facility] UA (CLEAN/CATCH) IN HOME BABY SITTER/JOSE RO IF IND.on 11-04-2024 BILIRUBIN URINE Negative NEGATIVE [facility] BLOOD URINE Negative NEGATIVE [facility] Clarity (U) CLEAR CLEAR [facility] Color (U) LT. YELLOW YELLOW [facility] GLUCOSE URINE UA Negative NEGATIVE mg/dL [facility] Interpretation and review of laboratory results Abnormal [facility] Ketones Ql (U) TRACE Abnormal NEGATIVE mg/dL [facility] Leukocyte esterase Test strip Ql (U) Negative NEGATIVE [facility] NITRITE URINE Negative NEGATIVE [facility] pH (U) 7.0 [pH] 5.0 - 9.0 [facility] PROTEIN URINE Negative NEG/TRACE mg/dL [facility] SPECIFIC GRAVITY URINE 1.010 1.005 - 1.025 [facility] URINE MICROSCOPIC INDICATED NO [facility] UROBILINOGEN URINE 0.2 EU/dL 0.2 - 1.0 EU/dL [facility] MISCELLANEOUS TESTon MISCELLANEOUS TEST COMMENT . [facility] Comment on above: Test Ordered: [id number] Strep Gp B RAIN+Rflx Strep Gp B RAIN+Rflx Negative CB Reference Range: Negative Centers for Disease Control and Prevention (CDC) and [place] (ACOG) guidelines [...] resistance to clindamycin is noted. Performed at: [address] [id number] Progressive Care Manager: Victorino Rouse PhD, Phone: [phone] VAG/REC [id number] Group B Streptococcus Colonization Detection, RAIN With [facility] macro (dipstick) panel (U)on 10-29-2024 Bilirubin, UA Negative Negative - 4(70) +++ mg/dL [facility] Blood, UA Negative Negative - 50 Quinton/mcL [facility] Clarity, UA Clear [facility] Color, UA Yellow [facility] Glucose, UA Negative Negative - 2000(110) ++++ mg/dL [facility] Interpretation and review of laboratory results Normal [facility] Ketones, UA Negative Negative - 160(16) ++++ mg/dL [facility] Leukocytes, UA Negative Negative - 500+++ Raquel/mcL [facility] Nitrite, UA Negative Negative - Positive [facility] pH, UA 6 5 - 9 [facility] Protein, UA Negative Negative - 1999(20) ++++ mg/dL [facility] Spec Grav, UA 1.015 1 - 1.03 [facility] Urobilinogen, UA 0.2 0.2 - 12 mg/dL [facility] Urinalysis macro (dipstick) panel (U)on 10-22-2024 Bilirubin, UA Negative Negative - 4(70) +++ mg/dL [facility] Blood, UA Negative Negative - 50 Quinton/mcL [facility] Clarity, UA Clear [facility] Color, UA Yellow [facility] Glucose, UA Negative Negative - 1999(110) ++++ mg/dL [facility] Interpretation and review of laboratory results Abnormal [facility] Ketones, UA Negative Negative - 160(16) ++++ mg/dL [facility] Leukocytes, UA Negative Negative - 500+++ Raquel/mcL [facility] Nitrite, UA Negative Negative - Positive [facility] pH, UA 6.5 5 - 9 [facility] Protein, UA Negative Negative - 1999(20) ++++ mg/dL [facility] Spec Grav, UA 1.015 1 - 1.03 [facility] Urobilinogen, UA 0.2 0.2 - 12 mg/dL [facility] Urinalysis macro (dipstick) panel (U)on 09-24-2024 Bilirubin, UA Negative Negative - 4(70) +++ mg/dL [facility] Blood, UA Negative Negative - 50 Quinton/mcL [facility] Clarity, UA Clear [facility] Color, UA Yellow [facility] Glucose, UA Negative Negative - 1999(110) ++++ mg/dL [facility] Interpretation and review of laboratory results Normal [facility] Ketones, UA Negative Negative - 160(16) ++++ mg/dL [facility] Leukocytes, UA Negative Negative - 500+++ Raquel/mcL [facility] Nitrite, UA Negative Negative - Positive [facility] pH, UA 6 5 - 9 [facility] Protein, UA Negative Negative - 1999(20) ++++ mg/dL [facility] Spec Grav, UA 1.02 1 - 1.03 [facility] Urobilinogen, UA 0.2 0.2 - 12 mg/dL [facility] Urinalysis macro (dipstick) panel (U)on 09-10-2024 Bilirubin, UA Negative Negative - 4(70) +++ mg/dL [facility] Blood, UA Negative Negative - 50 Quinton/mcL [facility] Clarity, UA Clear [facility] Color, UA Yellow [facility] Glucose, UA Negative Negative - 1999(110) ++++ mg/dL [facility] Interpretation and review of laboratory results Abnormal [facility] Ketones, UA Negative Negative - 160(16) ++++ mg/dL [facility] Leukocytes, UA Trace Negative - 500+++ Raquel/mcL [facility] Nitrite, UA Negative Negative - Positive [facility] pH, UA 7 5 - 9 [facility] Protein, UA Negative Negative - 1999(20) ++++ mg/dL [facility] Spec Grav, UA 1.02 1 - 1.03 [facility] Urobilinogen, UA 0.2 0.2 - 12 mg/dL [facility] Urinalysis macro (dipstick) panel (U)on 08-27-2024 Bilirubin, UA Negative Negative - 4(70) +++ mg/dL [facility] Blood, UA Negative Negative - 50 Quinton/mcL [facility] Clarity, UA Clear [facility] Color, UA Yellow [facility] Glucose, UA Negative Negative - 1999(110) ++++ mg/dL [facility] Interpretation and review of laboratory results Abnormal [facility] Ketones, UA Negative Negative - 160(16) ++++ mg/dL [facility] Leukocytes, UA Trace Negative - 500+++ Raquel/mcL [facility] Nitrite, UA Negative Negative - Positive [facility] pH, UA 6.5 5 - 9 [facility] Protein, UA Negative Negative - 1999(20) ++++ mg/dL [facility] Spec Grav, UA 1.020 1 - 1.03 [facility] Urobilinogen, UA 0.2 0.2 - 12 mg/dL [facility] ALL CBC WITH AUTO DIFFon BASOPHILS ABSOLUTE AUTO 0.0 [facility] Basophils/100 WBC (Bld) 0.2 % 0.2 - 2.0 % [facility] Eosinophils/100 WBC (Bld) 0.6 % Low 0.9 - 7.0 % [facility] Erythrocyte distribution width (RBC) [Ratio] 13.3 % 11.0 - 15.0 % [facility] Hematocrit (Bld) [Volume fraction] 31.2 % Low 36.0 - 48.0 % [facility] Hemoglobin (Bld) [Mass/Vol] 10.5 g/dL Low 12.0 - 16.0 g/dL [facility] IMMATURE GRANULOCYTES ABS AUTO 0.03 [facility] Immature granulocytes/100 WBC (Bld) 0.2 % 0.0 - 0.5 % [facility] Interpretation and review of laboratory results Abnormal [facility] LYMPHOCYTES ABSOLUTE AUTO 1.4 [facility] Lymphocytes/100 WBC (Bld) 11.5 % Low 20.5 - 60.0 % [facility] MCH (RBC) [Entitic mass] 29.0 pg 26.7 - 34.0 pg [facility] MCHC (RBC) [Mass/Vol] 33.7 g/dL 29.9 - 35.2 g/dL [facility] MCV (RBC) [Entitic vol] 86.2 fL 81.0 - 99.0 fL [facility] MONOCYTES ABSOLUTE AUTO 0.9 High [facility] Monocytes/100 WBC (Bld) 7.1 % 1.7 - 12.0 % [facility] NEUTROPHILS ABSOLUTE AUTO 10.0 High [facility] Neutrophils/100 WBC (Bld) 80.4 % High 43.0 - 75.0 % [facility] Platelet mean volume (Bld) [Entitic vol] 10.4 fL 9.5 - 13.5 fL [facility] TBH EO # 0.1 [facility] TBH PLT 221 [facility] RBC 3.62 Low [facility] WBC 12.4 High [facility] Urinalysis macro (dipstick) panel (U)on 07-30-2024 Bilirubin, UA Negative Negative - 4(70) +++ mg/dL [facility] Blood, UA Negative Negative - 50 Quinton/mcL [facility] Clarity, UA Clear [facility] Color, UA Yellow [facility] Glucose, UA Negative Negative - 2000(110) ++++ mg/dL [facility] Interpretation and review of laboratory results Normal [facility] Ketones, UA Negative Negative - 160(16) ++++ mg/dL [facility] Leukocytes, UA Negative Negative - 500+++ Raquel/mcL [facility] Nitrite, UA Negative Negative - Positive [facility] pH, UA 7.5 5 - 9 [facility] Protein, UA Negative Negative - 1999(20) ++++ mg/dL [facility] Spec Grav, UA 1.020 1 - 1.03 [facility] Urobilinogen, UA 0.2 0.2 - 12 mg/dL [facility] BhCG Quanton 03-19-2024 HCG.beta subunit Qn [...] 3 - 4 WEEKS = 500 - 54517' ' 4 - 5 WEEKS = 1000 - 58512' ' 5 - 6 WEEKS = 27593 - 827315' ' 6 - 8 WEEKS = 01704 - 295123' ' 8 - 12 WEEKS = 85827 - 408904' Performed By: #### 2 [id number] #### [facility] [address] [place] [address] CHEMISTRYOrdered By: SYSTEM SYSTEM on 03-19-2024 HCG.beta [...] 3 - 4 WEEKS = 500 - 85623' ' 4 - 5 WEEKS = 1000 - 14690' ' 5 - 6 WEEKS = 43038 - 441001' ' 6 - 8 WEEKS = 64316 - 687012' ' 8 - 12 WEEKS = 83680 - 081857' Progesterone Lvl 69.95 ng/mL Invalid Interpretation Code [...] Progesterone Lvl 69.95 ng/mL Invalid Interpretation Code [facility] Comment on above: Result Comment: 'F N ON FOLLICULAR = 0.10 - 0.60' 'LUTEAL = 3.00 - 17.5' 'MIDLUTEAL = 3.30 - 18.6' 'POST-MENOPAUSE = 0.10 - 0.40' '-FIRST TRIMESTER = 8.30 - 66.5' 'SECOND TRIMESTER = 18.9 - 66.1' 'THIRD TRIMESTER = 35.8 - 312.4' 'MALES = 0.14 - 2.06' Result Verified by Dilution Performed By: #### [id number] #### [facility] [address] [place] [address] [facility] Quanton 03-17-2024 HCG.beta subunit Qn 185 m[IU]/mL High 1-3 [facility] Comment on above: Result Comment: 'F N ON < 1 - 3' ' 0.2 - 1 WEEK = 5 TO 50' ' 1 - 2 WEEKS = 50 - 500' ' 2 - 3 WEEKS = 100 - 5000' ' 3 - 4 WEEKS = 500 - 11382' ' 4 - 5 WEEKS = 1000 - 72908' ' 5 - 6 WEEKS = 65209 - 921256' ' 6 - 8 WEEKS = 08551 - 338035' ' 8 - 12 WEEKS = 43524 - 127180' Performed By: #### 2 [id number] #### [facility] [address] [place] [address] CHEMISTRYOrdered By: SYSTEM SYSTEM on 03-17-2024 HCG.beta [...] 3 - 4 WEEKS = 500 - 98484' ' 4 - 5 WEEKS = 1000 - 05438' ' 5 - 6 WEEKS = 26457 - 223970' ' 6 - 8 WEEKS = 66641 - 031747' ' 8 - 12 WEEKS = 68873 - 978037' Progesterone Lvl 51.75 ng/mL Invalid Interpretation Code [...] Consent for Treatmenton 02-18 Consent for Treatment [id number]#1.00TIF F Normal [facility] Physician Orderon 03-17-2024 Physician Order [id number]#1.00TI FF Normal [facility] Progesteroneon 03-17-2024 Progesterone Lvl 51.75 ng/mL Invalid Interpretation Code [facility] Comment on above: Result Comment: 'F N ON FOLLICULAR = 0.10 - 0.60' 'LUTEAL = 3.00 - 17.5' 'MIDLUTEAL = 3.30 - 18.6' 'POST-MENOPAUSE = 0.10 - 0.40' '-FIRST TRIMESTER = 8.30 - 66.5' 'SECOND TRIMESTER = 18.9 - 66.1' 'THIRD TRIMESTER = 35.8 - 312.4' 'MALES = 0.14 - 2.06' Performed By: #### 2 [id number] #### [facility] [address] [place] [id number] CHEMISTRYOrdered By: SYSTEM SYSTEM on 03-07-2024 Progesterone [...] Progesterone Lvl 20.59 ng/mL Invalid Interpretation Code [facility] Comment on above: Result Comment: 'F N ON FOLLICULAR = 0.10 - 0.60' 'LUTEAL = 3.00 - 17.5' 'MIDLUTEAL = 3.30 - 18.6' 'POST-MENOPAUSE = 0.10 - 0.40' '-FIRST TRIMESTER = 8.30 - 66.5' 'SECOND TRIMESTER = 18.9 - 66.1' 'THIRD TRIMESTER = 35.8 - 312.4' 'MALES = 0.14 - 2.06' Performed By: #### 2 [id number] #### [facility] [address] [place] [address] Progesteroneon 02-05-2024 Progesterone Lvl 20.64 ng/mL Invalid Interpretation Code [facility] Comment on above: Result Comment: 'F N ON FOLLICULAR = 0.10 - 0.60' 'LUTEAL = 3.00 - 17.5' 'MIDLUTEAL = 3.30 - 18.6' 'POST-MENOPAUSE = 0.10 - 0.40' '-FIRST TRIMESTER = 8.30 - 66.5' 'SECOND TRIMESTER = 18.9 - 66.1' 'THIRD TRIMESTER = 35.8 - 312.4' 'MALES = 0.14 - 2.06' Performed By: #### 2 [id number] #### [facility] [address] [place] [address] Progesteroneon 01-08-2024 Progesterone Lvl 18.23 ng/mL Invalid Interpretation Code [facility] Comment on above: Result Comment: 'F N ON FOLLICULAR = 0.10 - 0.60' 'LUTEAL = 3.00 - 17.5' 'MIDLUTEAL = 3.30 - 18.6' 'POST-MENOPAUSE = 0.10 - 0.40' '-FIRST TRIMESTER = 8.30 - 66.5' 'SECOND TRIMESTER = 18.9 - 66.1' 'THIRD TRIMESTER = 35.8 - 312.4' 'MALES = 0.14 - 2.06' Performed By: #### 2 [id number] #### [facility] [address] [place] [address] Consent for Treatmenton 11-19 Consent for Treatment [id number] F Normal [facility] Physician Orderon 12-07-2023 Physician Order [id number]#1.00TI FF Normal [facility] Progesteroneon 12-07-2023 Progesterone Lvl 13.36 ng/mL Invalid Interpretation Code [facility] Comment on above: Result Comment: 'F N ON FOLLICULAR = 0.10 - 0.60' 'LUTEAL = 3.00 - 17.5' 'MIDLUTEAL = 3.30 - 18.6' 'POST-MENOPAUSE = 0.10 - 0.40' '-FIRST TRIMESTER = 8.30 - 66.5' 'SECOND TRIMESTER = 18.9 - 66.1' 'THIRD TRIMESTER = 35.8 - 312.4' 'MALES = 0.14 - 2.06' Performed By: #### 2 [id number] #### [facility] [address] [place] [address] CHEMISTRYOrdered By: SYSTEM SYSTEM on 11-13-2023 Beta hCG Qnt mIU/mL Normal 1 - 3 mIU/mL [facility] Comment on above: Result Comment: 'F N ON < 1 - 3' ' 0.2 - 1 WEEK = 5 TO 50' ' 1 - 2 WEEKS = 50 - 500' ' 2 - 3 WEEKS = 100 - 5000' ' 3 - 4 WEEKS = 500 - 70340' ' 4 - 5 WEEKS = 1000 - 35760' ' 5 - 6 WEEKS = 02284 - 539535' ' 6 - 8 WEEKS = 60751 - 996142' ' 8 - 12 WEEKS = 51528 - 290313' Free T4 [Mass/Vol] 0.96 ng/dL Normal 0.58 - 1. 64 ng/dL [facility] TSH Qn 1.38 m[IU]/L Normal 0.34 - 5.60 mcIU/mL [facility] CHEMISTRYOrdered By: Adolph Mcnair on 11-13-2023 HbA1c (Bld) [Mass fraction] 5.0 % Normal <=5.9% [facility] HEMATOLOGYOrdered By: SYSTEM SYSTEM on 11-13-2023 [...] 2: 21 to 29on 01-31-2022 . . [facility] Comment on above: Performed By: #### [id number] #### [facility] [address] [place] [address] Dr. Tobi Phelps Age Gdln ACOG Testing - [facility] Comment on above: Performed By: #### 4 [id number] #### [facility] [address] [place] [address] Dr. Tobi Phelps DIAGNOSIS: Comment [facility] Comment on above: Result Comment: NEGA TIVE FOR INTRAEPITHELIAL LESION OR MALIGNANCY. Performed By: #### 4 [id number] #### [facility] [address] [place] [address] Dr. Tobi Phelps Methodology: Comment [facility] Comment on above: Result Comment: This liquid based ThinPrep(R) pap test was screened with the use of an image guided system. Performed By: #### 4 [id number] #### [facility] [address] [place] [address] Dr. Tobi Phelps Note: Comment [facility] Comment on above: Result Comment: The Pap smear is a screening test designed to aid in the detection of premalignant and malignant conditions of the uterine cervix. It is not a diagnostic procedure and should not be used as the sole means of detecting cervical cancer. Both false-positive and false-negative reports do occur. . Performed By: #### 4 [id number] #### [facility] [address] [place] [address] Dr. Tobi Phelps Performed by: Comment Normal [facility] Comment on above: Result Comment: Elvis Gutierrez, Emission Specialist (ASCP) Performed By: #### 4 [id number] #### [facility] [address] [place] [address] Dr. Tobi Phelps Reflex Criteria: Comment Normal [facility] Comment on above: Result Comment: The HPV DNA reflex criteria were not met with this specimen result therefore, no HPV testing was performed. . Performed By: [id number] #### [facility] [address] [address] [address] Tobi Phelps Specimen adequacy: Comment Normal [facility] Comment on above: Result Comment: Sati sfactory for evaluation. Endocervical and/or squamous metaplastic cells (endocervical component) are present. Performed By: [id number] #### [facility] [address], [place] [address] Dr. Tobi Phelps [employer] BRE[employer] Retarget[employer] LTon 03-25 [employer] LT * * *Final Report* * *DATE OF EXAM: Mar 25 2018 2:21PM HCW 0593 - [employer] LT / REASON: Benign breast lumps * * * * Physician Interpretation * * * *RESULT: #[id number] - [employer] LTULTRASOUND OF LEFT BREAST: 03/25/2018HISTORY: Benign Breast [...] made to exam dated: 10/29/2013 ultrasound - [facility].Real-time ultrasound of the left breast was [...] ACR/NCCN guidelines.Kj Lancaster M.D.ls/penrad:03/25/2018 14:31:28Imaging Technologist: Mirta SILVA(Johnie)(Cris), [facility] BI-RADS: 2 Benign findingTranscribed Using Voice RecognitionTranscribe Date/Time: Mar 25 2018 2:21PDictated by: KJ LANCASTER MDThis examination was interpreted and the report reviewed and electronically signed by: KJ LANCASTER MD on Mar 25 2018 2:31PM [id number] Normal [facility] [employer] BREAST LTD RTon 03-25 [facility] [employer] BREAST Retarget[employer] RT * * *Final Report* * *DATE OF EXAM: Mar 25 2018 2:21PM HCW 0594 - [facility] [employer] BRE[employer] RT / REASON: Benign breast lumps * * * * Physician Interpretation * * * *RESULT: #[id number] - [facility] [employer] RTULTRASOUND OF RIGHT BREAST: 03/25/2018HISTORY: Benign Breast [...] full detail.Kj Lancaster M.D.ls/penrad:03/25/2018 14:34:44Imaging Technologist: Mirta SILVA(Johnie)(M), [facility] [place] BI-RADS: 1 NegativeTranscribed Using Voice RecognitionTranscribe Date/Time: Mar 25 2018 2:21PDictated by: KJ LANCASTER MDThis examination was interpreted and the report reviewed and electronically signed by: KJ LANCASTER MD on Mar 25 2018 2:34PM [id number] Normal [facility] Vital Signs Date Time Vital Sign Value Performing Clinician Faci lity 11-27-2024 14:44-0500 Body mass index (BMI) [Ratio] 28.04 kg/m2 Vianey Perales PA Work Phone: [facility] 11-27-2024 14:44-0500 Body weight 81.19 kg Vianey Perales PA Work Phone: [facility] 11-27-2024 14:44-0500 Diastolic blood pressure 72 mm[Hg] Vianey Perales PA Work Phone: [facility] 11-27-2024 14:44-0500 Systolic blood pressure 120 mm[Hg] Vianey Perales PA Work Phone: [facility] 11-13-2024 09:48-0500 Body mass index (BMI) [Ratio] 29.88 kg/m2 Clifton France DO Work Phone: [facility] 11-13-2024 09:48-0500 Body weight 86.55 kg Clifton France DO Work Phone: [facility] 11-13-2024 09:48-0500 Diastolic blood pressure 74 mm[Hg] Clifton France DO Work Phone: [facility] 11-13-2024 09:48-0500 Systolic blood pressure 128 mm[Hg] Clifton France DO Work Phone: [facility] 11-05-2024 14:30-0500 Body mass index (BMI) [Ratio] 29.66 kg/m2 Vianey Perales PA Work Phone: [facility] 11-05-2024 14:30-0500 Body weight 85.91 kg Vianey Perales PA Work Phone: [facility] 11-05-2024 14:30-0500 Diastolic blood pressure 82 mm[Hg] Vianey Diaz PA Work Phone: [facility] 11-05-2024 14:30-0500 Systolic blood pressure 130 mm[Hg] Vianey Altamont PA Work Phone: [facility] 10-29-2024 12:22-0500 Body mass index (BMI) [Ratio] 29.29 kg/m2 Clifton France DO Work Phone: [facility] 10-29-2024 12:22-0500 Body weight 84.82 kg Clifton France DO Work Phone: [facility] 10-29-2024 12:22-0500 Diastolic blood pressure 70 mm[Hg] Clifton France DO Work Phone: [facility] 10-29-2024 12:22-0500 Systolic blood pressure 116 mm[Hg] Clifton France DO Work Phone: [facility] 10-22-2024 08:56-0500 Body mass index (BMI) [Ratio] 29.04 kg/m2 Vianey Diaz PA Work Phone: [facility] 10-22-2024 08:56-0500 Body weight 84.1 kg Vianey Altamont PA Work Phone: [facility] 10-22-2024 08:56-0500 Diastolic blood pressure 70 mm[Hg] Vianey Diaz PA Work Phone: [facility] 10-22-2024 08:56-0500 Systolic blood pressure 120 mm[Hg] Vianey Altamont PA Work Phone: [facility] 10-08-2024 08:52-0500 Body mass index (BMI) [Ratio] 28.04 kg/m2 Vianey Diaz PA Work Phone: [facility] 10-08-2024 08:52-0500 Body weight 81.19 kg Vianey Diaz PA Work Phone: [facility] 10-08-2024 08:52-0500 Diastolic blood pressure 70 mm[Hg] Vianey Diaz PA Work Phone: [facility] 10-08-2024 08:52-0500 Systolic blood pressure 116 mm[Hg] Vianey Diaz PA Work Phone: [facility] 09-24-2024 09:36-0500 Body mass index (BMI) [Ratio] 27.72 kg/m2 Vianey Diaz PA Work Phone: [facility] 09-24-2024 09:36-0500 Body weight 80.29 kg Vianey Diaz PA Work Phone: [facility] 09-24-2024 09:36-0500 Diastolic blood pressure 64 mm[Hg] Vianey Altamont PA Work Phone: [facility] 09-24-2024 09:36-0500 Systolic blood pressure 114 mm[Hg] Vianey Diaz PA Work Phone: [facility] 09-10-2024 12:59-0400 Body mass index (BMI) [Ratio] 27.57 kg/m2 Clifton France DO Work Phone: [facility] 09-10-2024 12:59-0400 Body weight 79.83 kg Clifton France DO Work Phone: [facility] 09-10-2024 12:59-0400 Diastolic blood pressure 70 mm[Hg] Clifton France DO Work Phone: [facility] 09-10-2024 12:59-0400 Systolic blood pressure 120 mm[Hg] Clifton France DO Work Phone: [facility] 08-27-2024 08:44-0400 Body mass index (BMI) [Ratio] 27.13 kg/m2 Vianey Diaz PA Work Phone: [facility] 08-27-2024 08:44-0400 Body weight 78.59 kg Vianey Diaz PA Work Phone: [facility] 08-27-2024 08:44-0400 Diastolic blood pressure 78 mm[Hg] Vianey Diaz PA Work Phone: [facility] 08-27-2024 08:44-0400 Systolic blood pressure 118 mm[Hg] Vianey SHIRLEY Work Phone: [facility] 07-30-2024 14:18-0400 Body mass index (BMI) [Ratio] 26.55 kg/m2 Clifton France DO Work Phone: [facility] 07-30-2024 14:18-0400 Body weight 76.89 kg Clifton France DO Work Phone: [facility] 07-30-2024 14:18-0400 Diastolic blood pressure 74 mm[Hg] Clifton France DO Work Phone: [facility] 07-30-2024 14:18-0400 Systolic blood pressure 110 mm[Hg] Clifton France DO Work Phone: [facility] Healthcare Encounters Encounter Date Encounter Type Care Provider Facility Start: 11-27-2024 End: 11-27-2024 ambulatory VIANEY PERALES Not Available Start: 11-27-2024 End: 11-27-2024 Postop follow up visit related to original px Vianey SHIRLEY Work Phone: [facility] Comment on above: Postoperative visit; S/P section; Iron deficiency anemia, unspecified iron deficiency anemia type Start: 11-27-2024 End: 11-27-2024 Bamboo flowsheet Vianey SHIRLEY Work Phone: [facility] Start: 11-27-2024 End: 11-27-2024 Bamboo flowsheet Vianey SHIRLEY Work Phone: [facility] Start: 11-22-2024 End: 11-22-2024 Clinisync Result Encounter Clifton France DO Work Phone: [facility] External Department Unsolicited Start: 11-22-2024 End: 11-22-2024 Clinisync Result Encounter Clifton France DO Work Phone: [facility] External Department Unsolicited Start: 11-22-2024 End: 11-22-2024 Orders Only Jess Wren CNM Work Phone: [facility] Comment on above: Delivery of pregnanc y by section (Primary Dx) Start: 11-20-2024 End: 11-20-2024 Clinisync Result Encounter Clifton France DO Work Phone: [facility] Unsolicited Start: 11-20-2024 End: 11-20-2024 Clinisync Result Encounter Clifton France DO Work Phone: [facility] Unsolicited Start: 11-13-2024 End: 11-13-2024 Bamboo flowsheet Clifton [...] Start: 11-05-2024 End: 11-05-2024 flow sheet Vianey SHIRLEY Work Phone: [facility] [...] 10-22-2024 flow sheet Vianey SHIRLEY Work Phone: [facility] [...] 10-08-2024 flow sheet Vianey SHIRLEY Work Phone: [facility] [...] Not Available Start: 08-15-2024 End: 11-13-2024 ambulatory Nadir MEDRANO Facility:[facility] [place] Start: 08-06-2024 End: 08-06-2024 Clinisync Result Encounter Clifton France DO Work Phone: [facility] Unsolicited Start: 08-06-2024 End: 08-06-2024 Clinisync Result Encounter Clifton France DO Work Phone: [facility] Unsolicited Start: 07-30-2024 End: 07-30-2024 flow sheet Clifton France DO Work Phone: [...] 03-17-2024 End: 03-17-2024 ambulatory Clifton R FRANCE Facility:[facility] [place] Start: 03-17-2024 End: 03-17-2024 Patient encounter procedure Clifton MALINO [facility] Start: 12-19-2023 End: 12-19-2023 ambulatory NHUNG RIVERO Not Available Start: 12-07-2023 End: 06-17-2024 ambulatory Clifton HOUGH Facility:[facility] [place] Start: 12-07-2023 End: 06-17-2024 Recurring Clifton MALINO [facility] Start: 11-13-2023 End: 11-13-2023 Patient encounter procedure Clifton R FRANCE [facility] Start: 04-11-2023 End: 06-17-2024 Recurring Clifton MALINO [facility] Start: 01-25-2022 End: 01-25-[address] CLIFTON HOUGH Facility: Start: 08-02-2021 End: 08-02-2021 ambulatory Lance SHIRLEY Facility:[facility] Start: 12-10-2018 End: 12-11-2018 Patient encounter procedure PA NEWBERRY [facility] Start: 12-05-2018 End: 12-06-2018 Patient encounter procedure DEFAULT PHYSICIAN [facility] Start: 03-25-2018 Ambulatory [facility] Procedures Date Procedure Procedure Detail Performing Clinician Start: 11-22-2024 ALL CBC WITH AUTO DIFF Clifton France DO Work Phone: Start: 11-20-2024 [facility] CBC WITH PLATEL ET NO DIFFERENTIAL Clifton France DO Work Phone: Start: 11-13-2024 Urnls dip stick/tabl et rgnt non-auto w/o micrscp Clifton France DO Work Phone: Start: 11-05-2024 AMNISURE Clifton Fazi o DO Work Phone: Start: 11-05-2024 Urnls dip stick/tabl et rgnt non-auto w/o micrscp Vianey SHIRLEY Work Phone: Start: 11-04-2024 AMNISURE Clifton Fazi o DO Work Phone: Start: 11-04-2024 [facility] UA (CLEAN/CATCH) IN HOME BABY SITTER/MICRO IF IND. Clifton France DO Work Phone: [...] by Cyto stain Vianey SHIRLEY Work Phone: H/O: section S/P sectio n Vianey SHIRLEY Work Phone: Plan of Treatment Date Care Activity Detail Author Start: 07-11-2028 Screening for malign ant neoplasm of cervix HPV/Cotest [facility] Start: 07-11-2026 Screening for malign ant neoplasm of cervix [facility] Start: 12-31-2024 End: 12-31-2024 ambulatory 12/31/2024 1:30 PM EST Visit [facility] [address] [place] [address] [place] [address] Vianey Perales PA [address] [place] [address] [place] [address] [facility] Start: 11-27-2024 End: 11-27-2025 CBC W Auto Differential panel - Blood CBC and differential Lab Routine Iron deficiency anemia, unspecified iron deficiency anemia type Expected: 11/27/2024 (Approximate), Expires: 11/27/2025 [facility] Work Phone: Comment on above: Expected: 11/27/2024 (Approximate), Expires: 11/27/2025 Start: 11-13-2024 End: 11-13-2024 Patient encounter procedure 11/13/2024 9:20 AM EST Routine [facility] [address] [place] [address] [place] [id number] Clifton Hough DO [address] [place], [place] [id number] [facility] Start: 11-05-2024 End: 11-05-2024 Patient encounter procedure 11/05/2024 2:20 PM EST Routine [facility] [address] [place] [address] [place] [address] Vianey Perales PA [address] [place] [address] [place], [place] [id number] [facility] Start: 10-29-2024 End: 10-29-2025 CULTURE, [...] [address] [place] [id number] [facility] Start: 10-08-2024 End: 10-08-2024 Patient encounter procedure [facility] Comment on above: Arrived Start: 09-24-2024 End: 09-24-2024 Patient encounter procedure [facility] Comment on above: Arrived Start: 09-24-2024 End: 09-24-2024 Professional / ancillary services management 09/24/2024 9:00 AM EST Ancillary Procedure [facility] [address] [place] [id number] [facility] Start: 09-10-2024 End: 09-10-2025 [...] PM EDT Routine [facility] [address] [place] [address] Clifton Hough, DO [address] [place] [address] Arrived [facility] Comment on above: Arrived Start: 07-30-2024 End: 07-30-2025 CBC panel - Blood by Automated count CBC Lab Routine Diabetes mellitus screening Expected: 07/30/2024 (Approximate), Expires: 07/30/2025 [facility] Work Phone: Comment on above: Expected: 07/30/2024 (Approximate), Expires: 07/30/2025 Start: 07-30-2024 End: 07-30-2025 Measurement of glucose 1 hour after glucose challenge for glucose tolerance test Glucose tolerance, 1 hour Lab Routine Diabetes mellitus screening Expected: 07/30/2024 (Approximate), Expires: 07/30/2025 [facility] Comment on above: Expected: 07/30/2024 (Approximate), Expires: 07/30/2025 Start: 07-20-2024 Influenza vaccination Influenza Vacc ine (#1) [facility] Immunizations Immunization Date Immunization Notes Care Provider Fa [facility] 09-02-2024 influenza virus vaccine, unspecified formulation Clifton France DO Work Phone: [facility] 09-06-2023 influenza virus vaccine, unspecified formulation Clifton FRANCE [facility] Comment on above: Reason for Medicatio n: Prophylaxis 09-12-2022 influenza virus vaccine, unspecified formulation Clifton FRANCE [facility] Comment on above: Reason for Medicatio n: Prophylaxis 09-12-2022 influenza, injectabl e, quadrivalent, preservative free Clifton FRANCE [facility] 04-28-2021 COVID-19, mRNA, LNP- S, PF, 30 mcg/0.3 mL dose Clifton FRANCE [facility] Comment on above: Reason for Medicatio n: Prophylaxis 04-06-2021 COVID-19, mRNA, LNP- S, PF, 30 mcg/0.3 mL dose Cliftonerika MALINO [facility] Comment on above: Reason for Medicatio n: Prophylaxis Payers Date Payer Category Payer [facility] [id number] 2023 Unknown [id number] 2022 Unknown [id number] 2021 Unknown 1994 Unknown [id number] 2.16.840.1.309055.3.579.2. 647 1994 Unknown [id number] 2.16.840.1.607485.3.579.2. 647 1994 Unknown [id number] 2.16.840.1.617889.3.579.2. 593 1994 Unknown [id number] 2.16.840.1.821691.3.579.2. 718 1994 Unknown [id number] 2.16.840.1.133714.3.579.2. 727 1994 Unknown [id number] 2.16.840.1.255254.3.579.2. 727 1994 Unknown [id number] 2.16.840.1.708018.3.579.2. 727 1994 Unknown [id number] 2.16.840.1.385035.3.579.2. 1258 1994 Unknown [id number] 2.16.840.1.658731.3.579.2. 1258 1994 Unknown [id number] 2.16.840.1.054551.3.579.2. 1258 1994 Unknown [id number] 2.16.840.1.693279.3.579.2. 1258 1994 Unknown [id number] 2.16.840.1.379198.3.579.2. 1258 1994 Unknown [id number] 2.16.840.1.306896.3.579.2. 1258 1994 Unknown [id number] 2.16.840.1.632659.3.579.2. 1258 1994 Unknown [id number] 2.16.840.1.965722.3.579.2. 1258 1994 Unknown [id number] 2.16.840.1.717597.3.579.2. 1258 1994 Unknown [id number] 2.16.840.1.138043.3.579.2. 1258 1994 Unknown [id number] 2.16.840.1.254879.3.579.2. 1258 1994 Unknown [id number] 2.16.840.1.406837.3.579.2. 1258 1994 Unknown [id number] 2.16.840.1.269508.3.579.2. 1258 1994 Unknown [id number] 2.16.840.1.504100.3.579.2. 1258 1994 Unknown [id number] 2.16.840.1.423428.3.579.2. 9 1959 Unknown [id number] Unknown [id number] Social History Date Type Detail Facility Start: 07-21-2021 End: 04-11-2023 Tobacco smoking status Never smoked tobacco (finding) [facility] Tobacco smoking status Never [facility] Start: 09-12-2023 End: 11-27-2024 Sex Assigned At Female [facility] Start: 04-11-2023 Tobacco use and exposure Smokeless tobacco non-user [facility] Start: 07-30-2024 End: 11-27-2024 Alcoholic beverage intake Ex-drinker (finding) [facility] Start: 07-30-2024 End: 11-27-2024 Alcoholic beverage intake [facility] Start: 03-03-2024 [facility] Start: 1995 Sex assigned at Female [facility] Start: 04-10-2023 Gender identity Identifies as female gender (finding) [facility] Goals Date Patient Goal Desired Activity /State Personal health goal Clinical Notes 11-13-2023 to 11-27-2024 CASPER Weiss - 11/27/2024 2:20 PM Jai Wren CNM - 11/22/2024 4:17 PM Ant Wise LPN - 11/13/2024 9:20 AM CASPER Gil - 11/05/2024 2:20 PM CASPER Gil - 10/22/2024 8:50 AM EST Note Date & Type Note Facility 11-27-2024 History of Present illness Narrative Reason for Appointment: Patient ID: Mary Salas is a 29 y.o. female who presents for Post-op Visit (PT present today for a 1 week c/s visit. Pt delivered on 11/20/2024.) Patient presents today for 1 Week Post Op Follow Up appointment. MEDICATIONS Current Outpatient Medications Medication Instructions ibuprofen 400 MG tablet iron polysaccharides (PROFE) 391.3 mg, Oral, Daily [...] HISTORY Past Surgical History: Procedure Laterality Date SECTION, LOW TRANSVERSE 11/20/2024 PAP SMEAR 12/15/2020 WISDOM TOOTH EXTRACTION REVIEW [...] breath sounds. Abdominal: Palpations: Abdomen is soft. Comments: Pfannenstiel incision healing well, steri strips in tact Musculoskeletal: General: Normal range of motion. Neurological: General: No focal deficit present. Mental Status: She is alert and oriented to person, place, and time. Psychiatric: Mood and Affect: Mood normal. Behavior: Behavior normal. Thought Content: Thought content normal. Judgment: Judgment normal. Vitals and nursing note reviewed. Vitals: Estimated body mass index is 29.88 kg/m as calculated from the following: Height as of 06/06/23: 5' 7 . Weight as of 11/13/24: 190 lb 12.8 oz. BP: No LMP recorded. ASSESSMENT & PLAN ICD-10-CM 1. Postoperative visit Z48.89 2. S/P section Z98.891 Patient presents today for a one week postop section check. Patient is doing well with minor complaints of pain. Incision has been noted as healing well with no signs and symptoms of infection. Follow Up: Patient is to return in 5 weeks for 6 week evaluation. Documented by Danielle Henderson MA on behalf of: CASPER Weiss documented in this encounter [facility] 11-22-2024 History of Present illness Narrative I discharged patient from the hospital earlier today. She got to leave the hospital around 4:00 pm and needed to drive to [place] to the pharmacy. They are open until 5:00 pm She was worried they wouldn't get there in time to fill her prescriptions. I called the pharmacy and verbally gave RX for Motrin 800 mg 1 po q 8 hrs prn pain, and Colace 100 mg 1 po BID prn constipation. I then electronically sent the RX for percocet to [facility]. Patient will call me if there was a problem getting meds. If so, they will go to [facility] as it's open until 6P documented in this encounter [facility] 11-13-2024 History of Present illness Narrative Reason [...] nursing note reviewed. Exam conducted with a commodities clerk present. Vitals: Estimated body mass index is [...] Clifton Hough DO documented in this encounter [facility] 11-05-2024 History of Present illness [...] of: CASPER Weiss documented in this encounter [facility] 10-29-2024 History of Present illness [...] nursing note reviewed. Exam conducted with a commodities clerk present. Vitals: Estimated body mass index is [...] Clifton Hough DO documented in this encounter [facility] 10-22-2024 History of Present illness [...] of: CASPER Weiss documented in this encounter [facility] 10-08-2024 History of Present illness [...] of: CASPER Weiss documented in this encounter [facility] 09-24-2024 History of Present illness [...] of: CASPER Weiss documented in this encounter [facility] 09-10-2024 History of Present illness [...] nursing note reviewed. Exam conducted with a commodities clerk present. Vitals: Estimated body mass index is [...] Clifton Hough DO documented in this encounter [facility] 08-27-2024 History of Present illness [...] of: CASPER Weiss documented in this encounter [facility] 07-30-2024 History of Present illness [...] nursing note reviewed. Exam conducted with a commodities clerk present. Vitals: Estimated body mass index is [...] Clifton Hough DO documented in this encounter [facility] 11-13-2023 Evaluation + [facility] 11/13/23 [facility] Evaluation + Plan note No data available for this section [facility] Evaluation note Diagnosis 27 weeks gestation of Second trimester state, incidental Iron deficiency anemia, unspecified iron deficiency anemia type documented in this encounter [facility] Healthcare[facility] note* Diagnosis 29 weeks gestation of - Primary Third trimester state, incidental Excessive growth affecting management of , antepartum, single or unspecified fetus documented in this encounter [facility] note* Diagnosis Third trimester state, incidental 31 weeks gestation of Iron deficiency anemia, unspecified iron deficiency anemia type documented in this encounter [facility] note* Diagnosis Third trimester state, incidental 32 weeks gestation of documented in this encounter [facility] note* Diagnosis 35 weeks gestation of Third trimester state, incidental documented in this encounter [facility] Healthcare[facility] note* Diagnosis Third trimester state, incidental 36 weeks gestation of documented in this encounter [facility] Healthcare[facility]* Diagnosis 37 weeks gestation of Third trimester state, incidental documented in this encounter [facility] Healthcare[facility] note* Diagnosis Diabetes mellitus screening Screening for diabetes mellitus Second trimester state, incidental [facility] Diagnosis 38 weeks gestation of Third trimester state, incidental [facility]* Diagnosis Delivery of by section- Primary documented in this [facility]* Diagnosis Postoperative visit S/P section Other postprocedural status Iron deficiency anemia, unspecified iron deficiency anemia type [facility] No data available for this section [facility] No data available for this section [facility] Summary Purpose Family History No Family [...] section and content) DATE CREATED AUTHOR 05/09/2018 [facility] DATE CREATED AUTHOR AUTHOR'S ORGANIZ ATION 12/13/2018 [facility] DATE CREATED AUTHOR AUTHOR'S ORGANIZ ATION 02/01/2022 [facility] DATE CREATED AUTHOR AUTHOR'S ORGANIZ ATION 08/30/2024 [facility] [facility] DATE CREATED AUTHOR AUTHOR'S ORGANIZ ATION 11/15/2024 [facility] DATE CREATED AUTHOR AUTHOR'S ORGANIZ ATION 12/02/2024 [facility] d[facility] Specialists EPIC Patient Care team informatio n (unrecognized section and content) Grain Manager Relationship Specialty Start Date End Date Unallocated, Darleen Mcclelland MD [address] [place] [address] PCP - General 09/12/23 Grain Manager Relationship Specialty Start Date End Date Unallocated, MD Rogelio Kincaid [facility] [place] [address] PCP - General 09/12/23 Grain Manager Relationship Specialty Start Date End Date Unallocated, Darleen Mcclelland MD [address] [place] [address] PCP - General 09/12/23 Grain Manager Relationship Specialty Start Date End Date Unallocated, Darleen Mcclelland MD [address] [place] [address] PCP - General 09/12/23 Grain Manager Relationship Specialty Start Date End Date Unallocated, Darleen Mcclelland MD [facility] [place] [address] PCP - General 09/12/23 Grain Manager Relationship Specialty Start Date End Date Unallocated, Darleen Mcclelland MD [facility] [place] [address] PCP - General 09/12/23 Grain Manager Relationship Specialty Start Date End Date Unallocated, Darleen Mcclelland MD [facility] [place] [address] PCP - General 09/12/23 Grain Manager Relationship Specialty Start Date End Date Unallocated, Darleen Mcclelland MD [facility] [place] [address] PCP - General 09/12/23 Grain Manager Relationship Specialty Start Date End Date Unallocated, Darleen Mcclelland MD [facility] [place] [address] PCP - General 09/12/23 Grain Manager Relationship Specialty Start Date End Date Unallocated, Darleen Mcclelland MD [facility] [address] [place] [address] PCP - General 09/12/23 Grain Manager Relationship Specialty Start Date End Date Unallocated, MD [place] [address] PCP - General 09/12/23 Grain Manager Relationship Specialty Start Date End Date Unallocated, MD [place] [address] PCP - General 09/12/23 Reason for Visit (unrecogniz ed section and content) Reason Comments Routine Visit Reason Comments Post-op Visit PT present today for a 1 week c/s visit. Pt delivered on 11/20/2024. FOR RECORDS PERTAINING TO PATIENTS WHO ARE [...] BE BASED ON THE PRIMARY CLINICAL RECORDS. [employer] [facility]. provides no warranty or guarantee of the accuracy or completeness of information in this document.
[2024-12-11 12:23] LABS: Basophils Percent Auto 0.4 % (0.2-2.0); Eosinophils Absolute Auto 0.2 10^3/uL (0.0-0.7); Eosinophils Percent Auto 1.9 % (0.9-7.0); Hematocrit 34.8 % (36.0-48.0); Hemoglobin 11.4 g/dL (12.0-16.0); Immature Granulocytes Abs Auto 0.03 10^3/uL (0.00-0.03); Immature Granulocytes Pct Auto 0.3 % (0.0-0.5); Lymphocytes Absolute Auto 1.6 10^3/uL (1.2-3.8); Lymphocytes Percent Auto 15.3 % (20.5-60.0); Mean Corpuscular HGB Conc 32.8 g/dL (29.9-35.2); Mean Corpuscular Hemoglobin 28.4 pg (26.7-34.0); Mean Corpuscular Volume 86.6 fL (81.0-99.0); Mean Platelet Volume 9.8 fL (9.5-13.5); Monocytes Absolute Auto 0.6 10^3/uL (0.3-0.8); Neutrophils Absolute Auto 7.9 10^3/uL (1.4-6.5); Neutrophils Percent Auto 76.1 % (43.0-75.0); Platelet Count 332 10^3/uL (150-450); Red Blood Count 4.02 10^6/uL (4.20-5.40); Red Cell Distribution Width 12.8 % (11.0-15.0); White Blood Count 10.4 10^3/uL (4.0-11.0)
== END 2024-12-11 11:46 | disposition home or self-care (01) ==
PROVIDERS: Visit Provider Physician Assistant
DX: D50.9 Iron deficiency anemia, unspecified (principal)
CPT/HCPCS: 36415; 85025

== ENCOUNTER 2025-07-01 18:33 | Outpatient (REF) | payer OTHER, SELFPAY ==
--- OUTSIDE RECORDS SUMMARY | 2025-07-01 14:00 | XMS_ITS | Encounter Summary ---
Author Organization [facility] Address [address] [facility] [place] [address] Care Team Providers Care Food And Nutrition Supervisor Name Role Phone Ruth Aaron MD, IBCLC Primary Care Provid er Reason for Visit * Reason Comments Well Women Visit Encounter Details Date Type Department Care Team (Late st Contact Info) Description 07/01/2025 2:00 PM EDT Office Visit [facility] [address] [place] [phone] Dg Hough DO [address] [facility] [address] [place] [address] Well woman exam with routine gynecological exam Social History Tobacco Use Types Packs/Day Years Used Date Smoking Tobacco: Never Smokeless Tobacco: Never Alcohol Use Standard Drinks/Week Comments Not Currently 1 (1 standard drink = 0.6 oz pur e alcohol) Comments Unknown Sex and Gender Information Value Date Recorded Sex Assigned at Female 04/10/2023 6:39 PM EDT Legal Sex Female 11:47 PM EDT Gender Identity Female 04/10/2023 6:39 PM EDT Sexual Orientation Not on file documented as of this encounter Last Filed Vital Signs Vital Sign Reading Time Taken Comments Blood Pressure 136/84 07/01/2025 2:06 PM EDT Pulse - - Temperature - - Respiratory Rate - - Oxygen Saturation - - Inhaled Oxygen Concentration - - Weight 69.9 kg (154 lb) 07/01/2025 2:06 PM EDT Height - - Body Mass Index 24.12 01/26/2025 11:06 AM EDT documented in this encounter Progress Notes * Karina Wise LPN - 07/01/2025 2:00 PM EDT Reason for Appointment: Patient ID: Mary Salas is a 29 y.o. female who presents for Well Women Visit Patient presents today for Annual Exam. MEDICATIONS No current outpatient medications ALLERGIES No [...] nursing note reviewed. Exam conducted with a pet sitter present. Vitals: Estimated body mass index is 24.12 kg/m?? as calculated from the following: Height as of 01/26/25: 5' 7 . Weight as of this encounter: 154 lb. BP: 136/84 Patient's last menstrual period was 06/15/2025 (approximate). ASSESSMENT & PLAN ICD-10-CM 1. Well woman exam with routine gynecological exam Z01.419 Pap Smear HPV DNA probe, amplified Orders Placed This Encounter Procedures HPV DNA probe, amplified Annual Wellness Exam: Patient presents today for routine annual exam. Patient states she has no current complaints. Patients vitals were reviewed and within normal limits. Growth and development is noted to be appropriate for age. Menstrual history is noted to be regular with no concerns reported. No mental health concerns was expressed. Pap Smear: Speculum was inserted into the vagina and pap was obtained without difficulty. HPV testing was performed per age guideline. Patient was advised that pap results could take anywhere from 7 to 10 days to receive and our office will reach out to the patient with those once we have them. Patient can also view results via Project Manager. I reinforced importance of condom use for STI prevention. Patient declined cultures to be performed with today's visit. Breast Exam: Upon examination, clinical breast exam was noted to be normal. Patient was counseled on breast self-awareness, including the importance of knowing what is normal for her own breasts and promptly reporting any changes such as new lumps, skin dimpling, nipple discharge, or pain. Screening mammogram recommended annually beginning at age 40 or earlier if risk factors are present. Discussed signs and symptoms of breast cancer and when to seek medical attention. Answered all patient questions. Contraceptive Counseling (if applicable): Patient is currently using no control at this time as a form of contraceptive. Patient does not desire control at this time. Follow Up: Patient is to return to our office in one year for annual exam unless needed otherwise. Documented by Karina Wise LPN on behalf of: Dg Hough DO documented in this encounter Plan of Treatment Upcoming Encounters Date Type Department Care Team (Late st Contact Info) Description 03/04/2026 10:10 AM EDT Office Visit [facility] [address] [place] [address] Sweetie Yousif, ELECTRONICS DESIGN ENGINEER-TRAVEL JOURNALIST [address] [place] [address] Scheduled Orders Name Type Priority Associated Diagnoses Orde r Schedule Pap Smear Pathology and Cytology Routine Well woman exam with routine gynecological exam Ordered: 07/01/2025 HPV DNA probe, amplified Microbiology Routine Well woman exam with routine gynecological exam Ordered: 07/01/2025 documented as of this encounter Goals Goal Patient Goal Type Associated Problems Recent Progress Patient-Stated? Author Reminders Care Plan OB Reminders No Open Scheduling, Background documented as of this encounter Visit Diagnoses Diagnosis Well woman exam with routine gynecological exam Routine gynecological examination documented in this encounter Additional Health Concerns Active Problems Noted Date Diagnosed Date OB Reminders 04/30/2024 documented as of this encounter Care Teams Food And Nutrition Supervisor Relationship Specialty Start Date End Date Ruth Aaron MD, IBCLC [address] [place] [address] PCP - General Family Medicine 01/26/25 documented as of this encounter
--- OUTSIDE RECORDS SUMMARY | 2025-07-01 18:36 | XMS_ITS | Encounter Summary ---
Author Organization [facility] Address [address] [facility] [place] [address] Care Team Providers Care Sewer Line Photo Inspector Name Role Phone Unallocated, Noms Provider MD Primary Care Provi rosa m Ruth Aaron MD, IBCLC Primary Care Provid er Encounter Details Date Type Department Care Team (Late st Contact Info) Description 08/04/2024 Abstract [facility] [address] [place] [phone] Dg Hough DO [address] [address] Social History Tobacco Use Types Packs/Day Years Used Date Smoking Tobacco: Never Smokeless Tobacco: Never Alcohol Use Standard Drinks/Week Comments Not Currently 1 (1 standard drink = 0.6 oz pur e alcohol) Comments Yes Sex and Gender Information Value Date Recorded Sex Assigned at Female 04/10/2023 6:39 PM EDT Legal Sex Female 11:47 PM EDT Gender Identity Female 04/10/2023 6:39 PM EDT Sexual Orientation Not on file documented as of this encounter Plan of Treatment Upcoming Encounters Date Type Department Care Team (Late st Contact Info) Description 03/04/2026 10:10 AM EDT Office Visit [facility] [address] [place] [address] Sweetie Yousif, EM PHYSICIAN-SPEECH LANGUAGE PATHOLOGIST [address] [place] [address] documented as of this encounter Goals Goal Patient Goal Type Associated Problems Recent Progress Patient-Stated? Author Reminders Care Plan OB Reminders No Open Scheduling, Background documented as of this encounter Visit Diagnoses Not on filedocumented in this encounter Additional Health Concerns Active Problems Noted Date Diagnosed Date OB Reminders 04/30/2024 documented as of this encounter Care Teams Sewer Line Photo Inspector Relationship Specialty Start Date End Date Unallocated, Noms Provider, [address] [place] [address] PCP - General 09/12/23 01/25/25 Ruth Aaron MD, IBCLC [address] [place] [address] PCP - General Family Medicine 01/26/25 documented as of this encounter
--- OUTSIDE RECORDS SUMMARY | 2025-07-01 18:36 | XMS_ITS | Encounter Summary ---
Author Organization [facility] Address [address] [place] [address] Care Team Providers Care Olive Grower Name Role Phone Unallocated, Noms Provider MD Primary Care Provi rosa m Ruth Aaron MD, IBCLC Primary Care Provid er Encounter Details Date Type Department Care Team (Late st Contact Info) Description 07/10/2024 Clinisync Result Encounter [facility] External Department Unsolicited Clifton Hough, DO [address] [place] [id number] Social History Tobacco Use Types Packs/Day Years [...] on file documented as of this encounter Miscellaneous Notes * Result Encounter Note - Alicia Akins LPN - 07/10/2024 5:35 AM EDT Pt aware and order has been put on FS documented in this encounter Plan of Treatment Upcoming Encounters Date Type Department Care Team (Late st Contact Info) Description 03/04/2026 10:10 AM EDT Office Visit [facility] [address] [place] [address] Sweetie Yousif, TIRE BUFFER-COMPUTER TECHNOLOGY INSTRUCTOR [address] [place] [address] documented as of this encounter Goals Goal Patient Goal Type Associated Problems Recent Progress Patient-Stated? Author Reminders Care Plan OB Reminders No Open Scheduling, Background documented as of this encounter Procedures Procedure Name Priority Date/Time Associated Diagnosis Comments US OB ANATOMY 07/10/2024 5:28 AM EDT documented in this encounter Results * US OB ANATOMY (07/10/2024 5:28 AM EDT) Anatomical Region Laterality Modality Other 07/10/2024 5:28 AM EDT Narrative 07/10/2024 5:31 AM EDT The [address] [address] Ultrasound Report Signed Patient: AZRA SHERMAN MR#: [id number] : 1995 Acct:[id number] Age/Sex: 28 / F ADM Date: 07/09/24 Loc: [facility] Attending Dr: Clifton Hough D.O. Ordering Physician: Clifton Hough D.O. Date of Service: 07/09/24 Procedure(s): US OB anatomy Accession Number(s): [id number] cc: Clifton Hough D.O.; Physician,Non-Staff M.D. The [address] [address] Patient Name: AZRA SHERMAN MRN: [id number] date: 1995 Sex: F Assigned Patient Location: [facility] Current Patient Location: Accession/Order Number: [id number] Exam Date: 07/09/2024 14:44 Report Date: 07/10/2024 05:28 At the request of: CLIFTON HOUGH Procedure: US OB anatomy EXAMINATION: US OB anatomy, US OB cervical length HISTORY: ANATOMY COMPARISON: Ultrasound OB transvaginal 06/18/2024 TECHNIQUE: Transabdominal sonographic examination was performed for obstetrical and evaluation. FINDINGS: Number: 1 Heart Rate: 147 bpm H.B. /min Amniotic Fluid Volume: Subjectively normal Placental Location: ANTERIOR with lower margin 2.4 cm from os. Cervix Length: 3.89 cm , closed. ANATOMY: Normal Structures -cerebellum, choroid plexus, cisterna magna, lateral cerebral ventricles, orbits, midline falx, hard palate, four-chamber heart, RVOT, LVOT, stomach, kidneys, bladder, umbilical cord insertion into abdomen, three-vessel cord, cervical spine, thoracic spine, lumbar spine, sacral spine, right upper extremity, left upper extremity, right lower extremity, left lower extremity. SUBOPTIMALLY SEEN: None ABNORMALITIES: None BIOMETRY: BPD: 4.91 cm; 20 weeks 6 days; 72.80 % HC: 18.01 cm; 20 weeks 3 days; 48.90 % AC: 15.78 cm; 20 weeks 6 days 65.30 % FL: 3.63 cm; 21 weeks 4 days; 82.20 % EFW:386.13 g; 87.10 % FL/AC: 23 FL/BPD: 73.93 HC/AC: 1.14 GESTATIONAL AGE: Age by EDC: 20 weeks 2 days Age by current US: 21 weeks 0 days EDGAR by current US: 2024-11-19 EDGAR by EDC: 2024-11-24 US/US OB anatomy IMPRESSION: 1. Single live intrauterine with growth detailed above. 2. Low-lying anterior placenta. Electronically authenticated by: CHRISTO PEPE Date: 07/10/2024 05:28 Dictated By: Christo Pepe M.D. Signed By: 07/10/24 0531 DD/ 0528 TD/TT: Manager Utility: Procedure Note Radiology, Radiologist, MD - 07/10/2024 [place] [address] Ultrasound Report Signed Patient: AZRA SHERMAN RMR#: [id number] : 1995Acct:[id number] Age/Sex: 28 / FADM Date: 07/09/24 Loc: [facility] Attending Dr: Clifton Hough D.O. Ordering Physician: Clifton Hough D.O. Date of Service: 07/09/24 Procedure(s): US OB anatomy Accession Number(s): [id number] cc: Clifton Hough D.O.; Physician,Non-Staff [place] [id number] Patient Name: AZRA SHERMAN MRN: [id number] date: 1995 Sex: F Assigned Patient Location: [facility] Current Patient Location: Accession/Order Number: [id number] Exam Date: 07/09/2024 14:44 Report Date: 07/10/2024 05:28 At the request of: CLIFTON HOUGH Procedure: US OB anatomy EXAMINATION: US OB anatomy, US OB cervical length HISTORY: ANATOMY COMPARISON: Ultrasound OB transvaginal 06/18/2024 TECHNIQUE: Transabdominal sonographic examination was performed for obstetrical and evaluation. FINDINGS: Number: 1 Heart Rate: 147 bpm H.B. /min Amniotic Fluid Volume: Subjectively normal Placental Location: ANTERIOR with lower margin 2.4 cm from os. Cervix Length: 3.89 cm , closed. ANATOMY: Normal Structures -cerebellum, choroid plexus, cisterna magna, lateral cerebral ventricles, orbits, midline falx, hard palate, four-chamberheart, RVOT, LVOT, stomach, kidneys, bladder, umbilical cord insertion intoabdomen, three-vessel cord, cervical spine, thoracic spine, lumbar spine, sacralspine, right upper extremity, left upper extremity, right lower extremity, leftlower extremity. SUBOPTIMALLY SEEN: None ABNORMALITIES: None BIOMETRY: BPD: 4.91 cm; 20 weeks 6 days; 72.80 % HC: 18.01 cm; 20 weeks 3 days; 48.90 % AC: 15.78 cm; 20 weeks 6 days 65.30 % FL: 3.63 cm; 21 weeks 4 days; 82.20 % EFW:386.13 g; 87.10 % FL/AC: 23 FL/BPD: 73.93 HC/AC: 1.14 GESTATIONAL AGE: Age by EDC: 20 weeks 2 days Age by current US: 21 weeks 0 days EDGAR by current US: 2024-11-19 EDGAR by EDC: 2024-11-24 US/US OB anatomy IMPRESSION: 1. Single live intrauterine with growth detailed above. 2. Low-lying anterior placenta. Electronically authenticated by: CHRISTO PEPE Date: 07/10/2024 05:28 Dictated By: Christo Pepe M.D. Signed By:07/10/2431 DD/ 7 TD/TT: Manager Utility: us Clifton France DO [facility] Final Result documented in this encounter Visit Diagnoses Not on filedocumented in this encounter Additional Health Concerns Active Problems Noted Date Diagnosed Date OB Reminders 04/30/2024 documented as of this encounter Care Teams Olive Grower Relationship Specialty Start Date End Date Unallocated, Noms Provider, [address] [place] [address] PCP - General 09/12/23 01/25/25 Ruth Aaron MD, IBCLC [address] [place] [address] PCP - General Family Medicine 01/26/25 documented as of this encounter
--- OUTSIDE RECORDS SUMMARY | 2025-07-01 18:36 | XMS_ITS | Encounter Summary ---
Author Organization [facility] Address [address] [facility] [place] [address] Care Team Providers Care Sustainability Specialist Name Role Phone Unallocated, Noms Provider MD Primary Care Provi rosa m Ruth Aaron MD, IBCLC Primary Care Provid er Encounter Details Date Type Department Care Team (Late st Contact Info) Description 05/12/2024 Abstract [facility] [address] [place] [phone] Darlyn Briones LPN [email or web address] [address] Social History Tobacco Use Types Packs/Day Years [...] Dermatology [address] [place] [address] Sweetie Yousif, SMALL BUSINESS SALES REPRESENTATIVE-VICE PRESIDENT CONSULTING SERVICES [address] [place] [address] documented as of this encounter Goals Goal Patient Goal Type Associated Problems Recent Progress Patient-Stated? Author Reminders Care Plan OB Reminders No Open Scheduling, Background documented as of this encounter Visit Diagnoses Not on filedocumented in this encounter Additional Health Concerns Active Problems Noted Date Diagnosed Date OB Reminders 04/30/2024 documented as of this encounter Care Teams Sustainability Specialist Relationship Specialty Start Date End Date Unallocated, Noms Provider, [address] [place] [address] PCP - General 09/12/23 01/25/25 Ruth Aaron MD, IBCLC [address] [place] [address] PCP - General Family Medicine 01/26/25 documented as of this encounter
--- OUTSIDE RECORDS SUMMARY | 2025-07-01 18:36 | XMS_ITS | Encounter Summary ---
Author Organization [facility] Address [address] [facility] [place] [address] Care Team Providers Care Vault Keeper Name Role Phone Unallocated, Noms Provider Primary Care Provi rosa m Ruth Aaron MD, IBCLC Primary Care Provid er Encounter Details Date Type Department Care Team (Late st Contact Info) Description 06/19/2024 Abstract [facility] [address] [facility] [address] Vianey Carroll PA [address] [place], [facility] Social History Tobacco Use Types Packs/Day Years [...] Dermatology [address] [place] [phone] Sweetie Yousif, MACHINE STRIPER-EVP AND CHIEF OPERATING OFFICER [address] [place] [address] documented as of this encounter Goals Goal Patient Goal Type Associated Problems Recent Progress Patient-Stated? Author Reminders Care Plan OB Reminders No Open Scheduling, Background documented as of this encounter Visit Diagnoses Not on filedocumented in this encounter Additional Health Concerns Active Problems Noted Date Diagnosed Date OB Reminders 04/30/2024 documented as of this encounter Care Teams Vault Keeper Relationship Specialty Start Date End Date Unallocated, Noms Provider, [address] [place] [address] PCP - General 09/12/23 01/25/25 Ruth Aaron MD, IBCLC [address] [place] [address] PCP - General Family Medicine 01/26/25 documented as of this encounter
--- OUTSIDE RECORDS SUMMARY | 2025-07-01 18:36 | XMS_ITS | Encounter Summary ---
Author Organization [facility] Address [address] [place] [address] Care Team Providers Care Tile Layer Drainage Name Role Phone Unallocated, Noms Provider MD Primary Care Provi rosa m Ruth Aaron MD, IBCLC Primary Care Provid er Encounter Details Date Type Department Care Team (Late st Contact Info) Description 07/10/2024 Clinisync Result Encounter [facility] External Department Unsolicited Clifton Hough, DO [address] [facility] [address] [place] [id number] Social History Tobacco Use Types Packs/Day Years [...] Office Visit [facility] [address] [facility] [place] [address] Sweetie Yousif, SENAIT-INSURANCE LAW SPECIALIST [address] [place], [place] [phone] documented as of this encounter Goals Goal Patient Goal Type Associated Problems Recent Progress Patient-Stated? Author Reminders Care Plan OB Reminders No Open Scheduling, Background documented as of this encounter Procedures Procedure Name Priority Date/Time Associated Diagnosis Comments US OB CERVICAL LENGTH 07/10/2024 5:28 AM EDT documented in this encounter Results * US OB CERVICAL LENGTH (07/10/2024 5:28 AM EDT) Anatomical Region Laterality Modality Other 07/10/2024 5:28 AM EDT Narrative 07/10/2024 5:31 [place] [address] Ultrasound Report Signed Patient: AZRA SHERMAN MR#: [id number] : 1995 Acct:[id number] Age/Sex: 28 / F ADM Date: 07/09/24 Loc: [facility] Attending Dr: Clifton Hough D.O. Ordering Physician: Clifton Hough D.O. Date of Service: 07/09/24 Procedure(s): US OB cervical length Accession Number(s): [id number] cc: Clifton Hough D.O.; Physician,Non-Staff M.[place] [id number] Patient Name: AZRA SHERMAN MRN: [id number] date: 1995 Sex: F Assigned Patient [facility] Current Patient Location: Accession/Order Number: [id number] Exam Date: 07/09/2024 14:44 Report Date: 07/10/2024 05:28 At the request of: CLIFTON HOUGH Procedure: US OB cervical length EXAMINATION: US OB anatomy, US OB cervical [...] 2024-11-19 EDGAR by EDC: 2024-11-24 US/US OB cervical length IMPRESSION: 1. Single live intrauterine with growth detailed above. 2. Low-lying anterior placenta. Electronically authenticated by: CHRISTO PEPE Date: 07/10/2024 05:28 Dictated By: Christo Pepe M.D. Signed By: 07/10/2431 DD/ 7 TD/TT: Chart Changer: Procedure Note Radiology, Radiologist, - 07/10/2024 [place] [address] Ultrasound Report Signed Patient: AZRA SHERMAN RMR#: [id number] : 1995Acct:[id number] Age/Sex: 28 FADM Date: 07/09/24 Loc: [facility] Attending Dr: Clifton Hough D.O. Ordering Physician: Clifton Hough D.O. Date of Service: 07/09/24 Procedure(s): US OB cervical length Accession Number(s): [id number] cc: Clifton Hough D.O.; Physician,Non-Staff Jennifer The [place] [phone] Patient Name: AZRA SHERMAN MRN: [id number] date: 1995 Sex: F Assigned Patient Location: [facility] Current Patient Location: Accession/Order Number: [id number] Exam Date: 07/09/2024 14:44 Report Date: 07/10/2024 05:28 At the request of: CLIFTON HOUGH Procedure: US OB cervical length EXAMINATION: US OB anatomy, US OB cervical [...] 2024-11-19 EDGAR by EDC: 2024-11-24 US/US OB cervical length IMPRESSION: 1. Single live intrauterine with growth detailed above. 2. Low-lying anterior placenta. Electronically authenticated by: CHRISTO PEPE Date: 07/10/2024 05:28 Dictated By: Christo Pepe M.D. Signed By:07/10/24 0531 DD/ TD/TT: Chart Changer: us Clifton France DO [facility] Final Result documented in this encounter Visit Diagnoses Not on filedocumented in this encounter Additional Health Concerns Active Problems Noted Date Diagnosed Date OB Reminders 04/30/2024 documented as of this encounter Care Teams Tile Layer Drainage Relationship Specialty Start Date End Date Unallocated, Noms Provider, [address] [place] [address] PCP - General 09/12/23 01/25/25 Ruth Aaron MD, IBCLC [address] [place] [address] PCP - General Family Medicine 01/26/25 documented as of this encounter
--- OUTSIDE RECORDS SUMMARY | 2025-07-01 18:36 | XMS_ITS | Encounter Summary ---
Author Organization [facility] Address [address] [facility] [place] [address] Care Team Providers Care Grill Chef Name Role Phone Unallocated, Noms Provider MD Primary Care Provi rosa m Ruth Aaron MD, IBCLC Primary Care Provid er Encounter Details Date Type Department Care Team (Late st Contact Info) Description 08/06/2024 Clinisync Result Encounter [facility] External Department Unsolicited Clifton Hough, DO [address] [place]ra [place] [phone] Social History Tobacco Use Types Packs/Day Years [...] Office Visit [facility] [address] [place] [address] Sweetie Yousif, SENAIT-BARREL BRANDER [address] [place], [place] [phone] documented as of this encounter Goals Goal Patient Goal Type Associated Problems Recent Progress Patient-Stated? Author Reminders Care Plan OB Reminders No Open Scheduling, Background documented as of this encounter Procedures Procedure Name Priority Date/Time Associated Diagnosis Comments US OB CERVICAL LENGTH 08/06/2024 10:32 AM EDT documented in this encounter Results * US OB CERVICAL LENGTH (08/06/2024 10:32 AM EDT) Anatomical Region Laterality Modality Other 08/06/2024 10:3 2 AM EDT Narrative 08/06/2024 10:35 [place] [address] Ultrasound Report Signed Patient: AZRA SHERMAN MR#: [id number] : 1995 Acct:[id number] Age/Sex: 28 / F ADM Date: 08/06/24 Loc: [facility] Attending Dr: Clifton Hough D.O. Ordering Physician: Clifton Hough D.O. Date of Service: 08/06/24 Procedure(s): US OB cervical length Accession Number(s): [id number] cc: Clifton Hough D.O.; Physician,Non-Staff MMikhail [address] [address] Patient Name: AZRA SHERMAN MRN: [id number] date: 1995 Sex: F Assigned Patient Location: [facility] Current Patient Location: [facility] Accession/Order Number: [id number] Exam Date: 08/06/2024 08:32 Report Date: 08/06/2024 10:32 At the request of: CLIFTON HOUGH Procedure: US OB cervical length EXAM: US OB placenta, US OB cervical length HISTORY: LOW LYING PLACENTA COMPARISON: None. TECHNIQUE: Transabdominal and transvaginal images FINDINGS: The cervix measures 4.2 cm in length. Small amount of fluid identified within the endocervical canal up to 1.3 mm. Cephalic presentation, longitudinal lie Placenta: Anterior. The placental edge is 6.2 cm from the internal cervical os. No intraplacental or retroplacental echogenic abnormality. Heart rate: 161 bpm US/US OB cervical length IMPRESSION: The placental edge is 6.2 cm from the internal os Cervix measures 4.2 cm in length with a small amount of fluid in the endocervical canal Electronically authenticated by: ISRAEL HERNANDEZ Date: 08/06/2024 10:32 Dictated By: Israel Hernandez M.D. Signed By: 08/06/24 1035 DD/ 1032 TD/TT: Regulatory Scientist: Procedure Note Radiology, Radiologist, MD - 08/06/2024 [place] [address] Ultrasound Report Signed Patient: AZRA SHERMAN RMR#: [id number] : 1995Acct:[id number] Age/Sex: 28 / FADM Date: 08/06/24 Loc: [facility] Attending Dr: Clifton Hough D.O. Ordering Physician: Clifton Hough D.O. Date of Service: 08/06/24 Procedure(s): US OB cervical length Accession Number(s): [id number] cc: Clifton Hough D.O.; Physician,Non-Staff Jennifer The [place] [address] Patient Name: AZRA SHERMAN MRN: [id number] date: 1995 Sex: F Assigned Patient Location: [facility] Current Patient Location: [facility] Accession/Order Number: [id number] Exam Date: 08/06/2024 08:32 Report Date: 08/06/2024 10:32 At the request of: CLIFTON HOUGH Procedure: US OB cervical length EXAM: US OB placenta, US OB cervical length HISTORY: LOW LYING PLACENTA COMPARISON: None. TECHNIQUE: Transabdominal and transvaginal images FINDINGS: The cervix measures 4.2 cm in length. Small amount of fluid identifiedwithin the endocervical canal up to 1.3 mm. Cephalic presentation, longitudinal lie Placenta: Anterior. The placental edge is 6.2 cm from the internalcervical os. No intraplacental or retroplacental echogenic abnormality. Heart rate: 161 bpm US/US OB cervical length IMPRESSION: The placental edge is 6.2 cm from the internal os Cervix measures 4.2 cm in length with a small amount of fluid in the endocervical canal Electronically authenticated by: ISRAEL HERNANDEZ Date: 08/06/2024 10:32 Dictated By: Israel Hernandez M.D. Signed By:08/06/24 1035 DD/ 1032 TD/TT: Regulatory Scientist: us Clifton France DO [facility] Final Result documented in this encounter Visit Diagnoses Not on filedocumented in this encounter Additional Health Concerns Active Problems Noted Date Diagnosed Date OB Reminders 04/30/2024 documented as of this encounter Care Teams Grill Chef Relationship Specialty Start Date End Date Unallocated, Noms Provider, [address] [place] [address] PCP - General 09/12/23 01/25/25 Ruth Aaron MD, IBCLC [address] [place] [address] PCP - General Family Medicine 01/26/25 documented as of this encounter
--- OUTSIDE RECORDS SUMMARY | 2025-07-01 18:36 | XMS_ITS | Encounter Summary ---
Author Organization [facility] Address [address] [place] [address] Care Team Providers Care Furniture Reproducer Name Role Phone Unallocated, Noms Provider MD Primary Care Provi rosa m Ruth Aaron MD, IBCLC Primary Care Provid er Encounter Details Date Type Department Care Team (Late st Contact Info) Description 07/04/2024 Abstract [facility] [address] [place] [phone] Dg Hough DO [address] [address] [place] [address] Social History Tobacco Use Types Packs/Day Years [...] Dermatology [address] [place] [address] Sweetie Yousif, CREATIVE PERFUMER-CYLINDER CHECKER [address] [place] [address] documented as of this encounter Goals Goal Patient Goal Type Associated Problems Recent Progress Patient-Stated? Author Reminders Care Plan OB Reminders No Open Scheduling, Background documented as of this encounter Visit Diagnoses Not on filedocumented in this encounter Additional Health Concerns Active Problems Noted Date Diagnosed Date OB Reminders 04/30/2024 documented as of this encounter Care Teams Furniture Reproducer Relationship Specialty Start Date End Date Unallocated, Noms Provider, [address] [place] [address] PCP - General 09/12/23 01/25/25 Ruth Aaron MD, IBCLC [address] [place] [address] PCP - General Family Medicine 01/26/25 documented as of this encounter
--- OUTSIDE RECORDS SUMMARY | 2025-07-01 18:37 | XMS_ITS | Clinical Summary ---
Author Organization [facility] Address [facility] [place] [address] Care Team Providers Care Trial Examiner Name Role Phone Unavailable Primary Care Provider Unavailabl e Allergies No known active allergies Medications Aluminum Hydrox-Magnesiu m Carb (GAVISCON EXTRA STRENGTH) 254-237.5 mg/5 mL susp Take by mouth. Activ e DOCUSATE SODIUM (COLACE ORAL) Take by mouth. A ctive clindamycin (CLEOCIN) 1 % external solutionIndicat ions:Acne vulgaris Apply twice daily to shoulder 60 mL 5 8 Active estradiol (ESTRACE) 1 mg tablet Take 1 tablet by mouth once daily. 30 tablet 9 Active sulfacetamide sodium-sulfur (SULFACLEANSE 8-4) 8-4 % suspIndications :Acne vulgaris Apply 1 application to affected area twice daily. 1 Bottle 5 0 Active Active Problems Problem Noted Date Diagnosed Date Nexplanon in place 10/08/2018 Overview (10/08/2018): Placed 10/08/18 in Left arm Fibrocystic breast changes 11/20/2013 Otitis externa; acute 08/25/2011 Scoliosis (and kyphoscoliosis), idiopathic 06/21 Closed fracture of unspecified phalanx or phalan ges of hand 08/23/2007 folliculitis 05/02/2007 Dermatophytosis of the body 05/02/2007 Immunizations Immunization Administration Dates Next Due Haemophilus influenzae b (Hb OC) vaccine, 4-dose series (HIBTITER) 11/05/1995,02/08/1995,1994,10/05 chicken pox (disease) 11/19/1995 diphtheria tetanus pertussis (DTaP) vaccine, pediatric (INFANRIX) 07/22/1999,02/08/1996,02/08/1995,12/12,1994 hepatitis B (HepB) vaccine, 3-dose series, age 0 yr - 19 yr (ENGERIX B-PEDS, RECOMBIVAX HB-PEDS) 05/08/1995,1994,1994 human papillomavirus (HPV4) vaccine, quadrivalent (GARDASIL) 06/21/2009,08/22/2008,06/19/2008 influenza (IIV4) vaccine, ag e 6 mo - 64 yr, quadrivalent (AFLURIA, FLULAVAL, FLUZONE) 10/07/2017 influenza (IIV4) vaccine, ag e 6 mo - 64 yr, quadrivalent, PF (AFLURIA, FLUARIX, FLULAVAL, FLUZONE) 10/16/2014 measles mumps rubella (MMR) vaccine (M-M-R II, PRIORIX) 10/16/2014,07/22/1999,11/05/1995 meningococcal (MenACYW) vacc ine, quadrivalent, unspecified formulation 07/31/2012,03/08/2006 poliovirus (OPV) vaccine, tr ivalent, live, oral (ORIMUNE) 07/22/1999,02/08/1996,1994,10/05 tetanus diphtheria pertussis (Tdap) vaccine, age 7+ yr (ADACEL, BOOSTRIX) 11/23/2016,03/08/2006 tuberculin skin test (TST-PP D), purified protein derivative, intradermal 02/04/2013 Family History Medical History Relation Comments Cancer Maternal Grandfather Relation Status Comments Maternal Grandfather Social History Tobacco Use Types Packs/Day Years Used Date Smoking Tobacco: Never Smokeless Tobacco: Never Alcohol Use Standard Drinks/Week Comments No 0 (1 standard drink = 0.6 oz pur e alcohol) Area Deprivation Index Answer Date Alonso rded National Score (1-100), lower number is lower ri sk Not on file 10/26/2020 State Score (1-10), lower number is lower risk N ot on file 10/26/2020 Data from: https://www.neighborhoodatlas.medicine.[facility].edu/. Last address used for calculation Not on file 10/26/2020 Comments No Sex and Gender Information Value Date Recorded Sex Assigned at Not on file Legal Sex Female 9:17 AM EST Gender Identity Not on file Sexual Orientation Not on file Last Filed Vital Signs Vital Sign Reading Time Taken Comments Blood Pressure 155/81 05/17/2020 3:09 PM EDT Pulse 92 05/17/2020 3:09 PM EDT Temperature 37 C (98.6 F) 01/20/2016 9:42 AM EST Respiratory Rate 14 03/22/2013 11:42 AM EDT Oxygen Saturation 98% 03/22/2013 11:42 AM EDT Inhaled Oxygen Concentration - - Weight 67.1 kg (148 lb) 05/17/2020 3:09 PM EDT Height 170.2 cm (5' 7 ) 02/04/2018 11:50 AM EDT Body Mass Index 23.18 02/04/2018 11:50 AM EDT Plan of Treatment Health Maintenance Due Date Last Done Comments Anxiety Screening 2012 Depression Screening 2012 HIV Screening 2012 Hepatitis C Screening 2012 Cervical Cancer Screening 06/04/20212017, 02/06/2018, 11/24/2016, Additional history exists Influenza Vaccine (#1) 2025 8, 10/07/2017, 11/23/2016 (Patient/Parent/Guardian Counseled and Declines), Additional history exists DTaP,Tdap,Td Vaccine (8 - Td or Tdap) 11/23/2026 11/23/2016, 03/08/2006, 07/22/1999, Additional history exists HPV Vaccine Completed 06/21/2009, 02/2008, 06/19/2008 Hepatitis B Vaccine Completed 01/29/2018, 09/06/2017, 08/03/2017, Additional history exists Procedures Procedure Name Priority Date/Time Associated Diagnosis Comments THINPREP(R) PAP TEST W/RFX HPV MRNA E6/E7 ([facility]) 06/04/2018 12:34 PM EDT from Last 3 Months or Most Recently Relevant to Health Maintenance Results * THINPREP(R) PAP TEST W/RFX HPV MRNA E6/E7 (Multichannel) (06/04/2018 12:34 PM EDT) Results [facility] Comment: GYNECOLOGICAL CYTOLOGY REPORT Thinprep PAP w/rfx HPV RNA HR E6/E7 REPORT STATUS: FINAL CLINICAL INFORMATION: ABNORMAL PAP LMP: 01-17-2018 SLIDES / SOURCE: 1 / Cervix STATEMENT OF ADEQUACY: Satisfactory for evaluation. Endocervical/transformation zone component present. INTERPRETATION/RESULT: Negative for intraepithelial lesion or malignancy. LOOM SETTER: YOSELYN BUCHANAN(ASCP) For informational Purposes: All cytology specimens are processed and screened at [facility]. [address] [place] [address], YOSELYN CRUZ(ASCP) For informational Purposes: All cytology specimens are processed and screened at [facility]. [address] [place] [address] The Pap is a screening test for cervical cancer. It is not a diagnostic test and is subject to false negative and false positive results. It is most reliable when a satisfactory sample, regularly obtained, is submitted with relevant clinical findings and history, and when the Pap result is evaluated along with historic and current clinical information. No collection date was received. We have used the date the specimen was received by [facility] as the collection date. If this is incorrect, please contact us at . Test Performed at: [facility];[address] [place] [address] JALEESA NATARAJAN MD us Michelle Musa MD LABORATORY Final Result [facility] [address] [place] [address] from Last 3 Months or Most Recently Relevant to Health Maintenance Insurance [facility] PPO
--- OUTSIDE RECORDS SUMMARY | 2025-07-01 18:37 | XMS_ITS | Encounter Summary ---
Author Organization [facility] Address [address] [place] [address] Care Team Providers Care Wood Heel Cementer Name Role Phone Tye Mejia MD Primary Care Provider Unavailabl e Source Comments In the event this information is protected by the Federal Confidentiality of Alcohol and Drug AbusePatient Records regulations: The Federal rules restrict any use of the information to criminally investigate or prosecute any alcohol or drug abuse patient.[facility] Encounter Details Date Type Department Care Team (Late st Contact Info) Description 11/11/2020 Patient Msg [facility] [place] [address] [place] [address] Sameer Blancolanda, DANE Reminder to update PCP Social History Tobacco Use Types Packs/Day Years [...] N ot on file 10/26/2020 Data from: https://www.neighborhoodatlas.[facility]/. Last address used for calculation Not on file 10/26/2020 Comments No Sex and Gender Information Value Date Recorded Sex Assigned at Not on file Legal Sex Female 9:17 AM EST Gender Identity Not on file Sexual Orientation Not on file documented as of this encounter Functional Status * Are you deaf or do you have serious difficulty hearing? Answer Date of Assessment Author No 05/04/2014 4:38 PM Jackie Holloway MA * Are you blind or do you have serious difficulty seeing, even when wearing glasses? Answer Date of Assessment Author No 05/04/2014 4:38 PM Jackie Holloway MA * Do you have serious difficulty walking or climbing stairs? Answer Date of Assessment Author No 05/04/2014 4:38 PM Jackie Holloway MA * Do you have difficulty dressing or bathing? Answer Date of Assessment Author No 05/04/2014 4:38 PM Jackie Holloway MA * Because of a physical, mental, or emotional condition, do you have difficulty doing errands alone such as visiting a doctor's office or shopping? Answer Date of Assessment Author No 05/04/2014 4:38 PM Jackie Holloway MA documented as of this encounter Mental Status * Because of a physical, mental, or emotional condition, do you have serious difficulty concentrating, remembering, or making decisions? Answer Entry Date Author No 05/04/2014 4:38 PM Jackie Holloway MA documented in this encounter Plan of Treatment Not on file documented as of this encounter Visit Diagnoses Not on filedocumented in this encounter Care Teams Wood Heel Cementer Relationship Specialty Start Date End Date Tye Mejia MD PCP - General Internal Medicine 07/30/17 11/15/20 documented as of this encounter
--- OUTSIDE RECORDS SUMMARY | 2025-07-01 18:37 | XMS_ITS | Encounter Summary ---
Author Organization [facility] Address [address] [facility] [place] [address] Care Team Providers Care Secondary School Principal Name Role Phone Unallocated, Noms Provider MD Primary Care Provi rosa m Ruth Aaron MD, IBCLC Primary Care Provid er Encounter Details Date Type Department Care Team (Late st Contact Info) Description 04/18/2024 Clinisync Result Encounter N[facility] External Department Unsolicited Clifton Hough, DO [address] [place] [phone] Social History Tobacco Use Types Packs/Day Years [...] Office Visit [facility] [address] [place] [address] Sweetie Yousif, MUSIC THEORY TEACHER-CHILD LIFE THERAPIST [address] [place], [place] [phone] documented as of this encounter Procedures Procedure Name Priority Date/Time Associated Diagnosis Comments US OB TRANSVAGINAL 04/18/2024 12 :03 PM EDT documented in this encounter Results * US OB TRANSVAGINAL (04/18/2024 12:03 PM EDT) Anatomical Region Laterality Modality Other 04/18/2024 12:0 3 PM EDT Narrative 04/18/2024 12:05 [place] [address] Ultrasound Report Signed Patient: AZRA SHERMAN MR#: [id number] : 1995 Acct:[id number] Age/Sex: 28 / F ADM Date: 04/18/24 Loc: [facility] Attending Dr: Clifton Hough D.O. Ordering Physician: Clifton Hough D.O. Date of Service: 04/18/24 Procedure(s): US OB transvaginal Accession Number(s): [id number] cc: Clifton Hough D.O.; Physician,Non-Staff M.DSylvia The [place] [id number] Patient Name: AZRA SHERMAN MRN: [id number] date: 1995 Sex: F Assigned Patient Location: [facility] Current Patient Location: [facility] Accession/Order Number: [id number] Exam Date: 04/18/2024 10:11 Report Date: 04/18/2024 12:03 At the request of: CLIFTON HOUGH Procedure: US OB transvaginal EXAMINATION: US OB transvaginal HISTORY: MISSED MENSES COMPARISON: No relevant comparison available. FINDINGS: GESTATIONAL SAC: Present and normal appearing. YOLK SAC: Present and normal appearing. POLE: Present and normal appearing. CARDIAC: Present. UTERUS: Normal size and appearance. OVARIES: Right: Complex 3.5 cm cyst versus corpus lutein cyst. Left: Normal. CERVIX: 3.6 cm in length and closed. CUL-DE-SAC: Normal. OTHER: None. AGE BY LMP: 8 weeks 4 days EDGAR BY LMP: 11/24/2024 AGE BY US CRL: 8 weeks 5 days EDGAR BY US CRL: 11/23/2024 US/US OB transvaginal IMPRESSION: 1. Single live intrauterine . 2. Large septated cyst within right ovary; complex cyst versus corpus lutein cyst. Electronically authenticated by: CHRISTO PEPE Date: 04/18/2024 12:03 Dictated By: Christo Pepe M.D. Signed By: 04/18/24 1205 DD/ 1203 TD/TT: Prep Cook: Procedure Note Radiology, Radiologist, MD - 04/18/2024 [place] [address] Ultrasound Report Signed Patient: AZRA SHERMAN RMR#: [id number] : 1995Acct:[id number] Age/Sex: 28 / FADM Date: 04/18/24 Loc: [facility] Attending Dr: Clifton Hough D.O. Ordering Physician: Clifton Hough D.O. Date of Service: 04/18/24 Procedure(s): US OB transvaginal Accession Number(s): [id number] cc: Clifton Hough D.O.; Physician,Non-Staff Jennifer The [place] [id number] Patient Name: AZRA SHERMAN MRN: [id number] date: 1995 Sex: F Assigned Patient Location: [facility] Current Patient Location: [facility] Accession/Order Number: [id number] Exam Date: 04/18/2024 10:11 Report Date: 04/18/2024 12:03 At the request of: CLIFTON HOUGH Procedure: US OB transvaginal EXAMINATION: US OB transvaginal HISTORY: MISSED MENSES COMPARISON: No relevant comparison available. FINDINGS: GESTATIONAL SAC: Present and normal appearing. YOLK SAC: Present and normal appearing. POLE: Present and normal appearing. CARDIAC: Present. UTERUS: Normal size and appearance. OVARIES: Right: Complex 3.5 cm cyst versus corpus lutein cyst. Left:Normal. CERVIX: 3.6 cm in length and closed. CUL-DE-SAC: Normal. OTHER: None. AGE BY LMP: 8 weeks 4 days EDGAR BY LMP: 11/24/2024 AGE BY US CRL: 8 weeks 5 days EDGAR BY US CRL: 11/23/2024 US/US OB transvaginal IMPRESSION: 1. Single live intrauterine . 2. Large septated cyst within right ovary; complex cyst versus corpuslutein cyst. Electronically authenticated by: CHRISTO PEPE Date: 04/18/2024 12:03 Dictated By: Christo Pepe M.D. Signed By:04/18/24 120 DD/ 02 TD/TT: Prep Cook: us Clifton France DO [facility] Final Result documented in this encounter Visit Diagnoses Not on filedocumented in this encounter Care Teams Secondary School Principal Relationship Specialty Start Date End Date Unallocated, Noms Provider, [address] [place] [address] PCP - General 09/12/23 01/25/25 Ruth Aaron MD, IBCLC [address] [place] [address] PCP - General Family Medicine 01/26/25 documented as of this encounter
--- OUTSIDE RECORDS SUMMARY | 2025-07-01 18:37 | XMS_ITS | Encounter Summary ---
Author Organization [facility] Address [address] [place] [address] Care Team Providers Care Decorating Instructor Name Role Phone Unallocated, Noms Provider MD Primary Care Provi rosa m Ruth Aaron MD, IBCLC Primary Care Provid er Encounter Details Date Type Department Care Team (Late Contact Info) Description 05/04/2023 Abstract [facility] [address] [place] [address] Dg Hough DO [address] [facility] [address] [place]ra [place], [facility] Social History Tobacco Use Types Packs/Day Years Used Date Smoking Tobacco: Never Smokeless Tobacco: Never Alcohol Use Standard Drinks/Week Comments Yes 1 (1 standard drink = 0.6 oz pur e alcohol) Comments Unknown Sex and Gender Information Value Date Recorded Sex Assigned at Female 04/10/2023 6:39 PM EDT Legal Sex Female 11:47 PM EDT Gender Identity Female 04/10/2023 6:39 PM EDT Sexual Orientation Not on file COVID-19 Exposure Response Date Recorded In the last 10 days, have yo u been in contact with someone who was confirmed or suspected to have Coronavirus/COVID-19? No / Unsure 04/10/2023 6:49 PM EDT documented as of this encounter Plan of Treatment Upcoming Encounters Date Type Department Care Team (Late Contact Info) Description 03/04/2026 10:10 AM EDT Office Visit [facility] [address] [place] [phone] Sweetie Yousif, TOPPIECE CUTTER-ROLL UP GUIDER OPERATOR [address] [place] [address] documented as of this encounter Visit Diagnoses Not on filedocumented in this encounter Care Teams Decorating Instructor Relationship Specialty Start Date End Date Unallocated, Noms Provider, [address] [place] [address] PCP - General 09/12/23 01/25/25 Ruth Aaron MD, IBCLC [address] [place] [address] PCP - General Family Medicine 01/26/25 documented as of this encounter
--- OUTSIDE RECORDS SUMMARY | 2025-07-01 18:37 | XMS_ITS | Encounter Summary ---
Author Organization [facility] Address [address] [facility] [place] [address] Care Team Providers Care Bicycle Inspector Name Role Phone Ruth Aaron MD, IBCLC Primary Care Provid er Encounter Details Date Type Department Care Team (Late st Contact Info) Description 07/01/2025 Bamboo flowsheet [facility] [address] [facility] [facility] [place] [phone] Dg Hough DO [address] Indra [place], [facility] Social History Tobacco Use Types Packs/Day Years [...] Dermatology [address] [place] [phone] Sweetie Yousif APRN-TOUR COORDINATOR [address] [place], [place] [phone] documented as of this encounter Goals Goal Patient Goal Type Associated Problems Recent Progress Patient-Stated? Author Reminders Care Plan OB Reminders No Open Scheduling, Background documented as of this encounter Visit Diagnoses Not on filedocumented in this encounter Additional Health Concerns Active Problems Noted Date Diagnosed Date OB Reminders 04/30/2024 documented as of this encounter Care Teams Bicycle Inspector Relationship Specialty Start Date End Date Ruth Aaron MD, IBCLC [address] [place] [address] PCP - General Family Medicine 01/26/25 documented as of this encounter
--- OUTSIDE RECORDS SUMMARY | 2025-07-01 18:37 | XMS_ITS | Encounter Summary ---
Author Organization [facility] Address [address] [place] [address] Care Team Providers Care Consulting Services Manager Name Role Phone Unallocated, Noms Provider MD Primary Care Provi rosa m Ruth Aaron MD, IBCLC Primary Care Provid er Encounter Details Date Type Department Care Team (Late Contact Info) Description 04/24/2023 Abstract NOMLucius Feldman OBGYN [address] [facility] [place] [address] Dg Hough DO [address] [facility] [address] Indra Feldman, [facility]11 Social History Tobacco Use Types Packs/Day Years [...] [address] [place] [phone] Sweetie Yousif, VIDEO GAME TESTER-DIRECTOR SOCIAL SERVICE [address] [place] [address] documented as of this encounter Visit Diagnoses Not on filedocumented in this encounter Care Teams Consulting Services Manager Relationship Specialty Start Date End Date Unallocated, Noms Provider, [address] [place] [address] PCP - General 09/12/23 01/25/25 Ruth Aaron MD, IBCLC [address] [place] [address] PCP - General Family Medicine 01/26/25 documented as of this encounter
--- OUTSIDE RECORDS SUMMARY | 2025-07-01 18:37 | XMS_ITS | Encounter Summary ---
Author Organization [facility] Address [address] [place] [address] Care Team Providers Care Pluck Separator Name Role Phone Unallocated, Noms Provider MD Primary Care Provi rosa m Ruth Aaron MD, IBCLC Primary Care Provid er Encounter Details Date Type Department Care Team (Late Contact Info) Description 04/17/2023 Abstract NOMLucius Feldman OBGYN [address] [facility] [place] [address] Dg Hough DO [address] [facility] [address] Indra Feldman, [facility]11 Social History Tobacco Use Types Packs/Day [...] [address] [place] [phone] Sweetie Yousif, COMPLIANCE CLERK-HOT PLATE PLYWOOD PRESS FEEDER [address] [place] [address] documented as of this encounter Visit Diagnoses Not on filedocumented in this encounter Care Teams Pluck Separator Relationship Specialty Start Date End Date Unallocated, Noms Provider, [address] [place] [address] PCP - General 09/12/23 01/25/25 Ruth Aaron MD, IBCLC [address] [place] [address] PCP - General Family Medicine 01/26/25 documented as of this encounter
--- OUTSIDE RECORDS SUMMARY | 2025-07-01 18:37 | XMS_ITS | Encounter Summary ---
Author Organization [facility] Address [address] [facility] [place] [address] Care Team Providers Care Magneto Electrician Name Role Phone Unallocated, Noms Provider MD Primary Care Provi rosa m Ruth Aaron MD, IBCLC Primary Care Provid er Encounter Details Date Type Department Care Team (Late st Contact Info) Description 09/24/2024 Clinisync Result Encounter [facility] External Department Unsolicited Clifton Hough, DO [address] [facility] [address] [place] [id number] Social History Tobacco Use Types Packs/Day Years [...] Office Visit [facility] [address] [facility] [address] [place] [address] Sweetie Yousif, SENAIT-BLOW MACHINE TENDER STARCH SPRAYING [address] [place], [place] [phone] documented as of this encounter Goals Goal Patient Goal Type Associated Problems Recent Progress Patient-Stated? Author Reminders Care Plan OB Reminders No Open Scheduling, Background documented as of this encounter Procedures Procedure Name Priority Date/Time Associated Diagnosis Comments US OB GROWTH 09/24/2024 9:28 AM EST documented in this encounter Results * US OB GROWTH (09/24/2024 9:28 AM EST) Anatomical Region Laterality Modality Other 09/24/2024 9:28 AM EST Narrative 09/24/2024 9:30 [place] [address] Ultrasound Report Signed Patient: AZRA SHERMAN MR#: [id number] : 1995 Acct:[id number] Age/Sex: 29 / F ADM Date: 09/24/24 Loc: [facility] Attending Dr: Clifton Hough D.O. Ordering Physician: Clifton Hough D.O. Date of Service: 09/24/24 Procedure(s): US OB growth Accession Number(s): [id number] cc: Clifton Hough D.O.; Physician,Non-Staff M.DSylvia The [place] [id number] Patient Name: AZRA SHERMAN MRN: [facility]:[id number] date: 1995 Sex: F Assigned Patient Location: [facility] Current Patient Location: [facility] Accession/Order Number: [id number] Exam Date: 09/24/2024 08:56 Report Date: 09/24/2024 09:28 At the request of: CLIFTON HOUGH Procedure: US OB growth EXAMINATION: US OB growth HISTORY: LGA COMPARISON: No relevant comparison available. FINDINGS: Heart Rate: 157 bpm Amniotic Fluid Volume: 12.0 cm. Largest fluid pocket 4.1 cm Number: 1 Position: Cephalic presentation, longitudinal lie BIOMETRY: BPD: 7.93 cm; 31 weeks 6 days; 56.70 % HC: 29.22 cm; 32 weeks 2 days; 38.10 % AC: 29.32 cm; 33 weeks 2 days; 93.40 % FL: 6.43 cm; 33 weeks 1 day; 84.80 % EFW: 2204.25 g; 90 %, 4 lbs. 10 oz. FL/AC: 21.93 FL/BPD: 81.08 HC/AC: 1 GESTATIONAL AGE: Age by EDC: 31 weeks 2 days EDGAR by EDC: 2024-11-24 Age by US: 32 weeks 5 days EDGAR by US: 2024-11-14 US/US OB growth IMPRESSION: Normal interval growth Electronically authenticated by: ISRAEL HERNANDEZ Date: 09/24/2024 09:28 Dictated By: Israel Hernandez M.D. Signed By: 09/24/24929 DD/ 7 TD/TT: Vp Strategic Partnerships: Procedure Note Radiology, Radiologist, MD - 09/24/2024 [place] [address] Ultrasound Report Signed Patient: AZRA SHERMAN RMR#: [id number] : 1995Acct:[id number] Age/Sex: 29 / FADM Date: 09/24/24 Loc: [facility] Attending Dr: Clifton Hough D.O. Ordering Physician: Clifton Hough D.O. Date of Service: 09/24/24 Procedure(s): US OB growth Accession Number(s): [id number] cc: Clifton Hough D.O.; Physician,Non-Staff Jennifer The [place] [address] Patient Name: AZRA SHERMAN MRN: [facility]:[id number] date: 1995 Sex: F Assigned Patient Location: [facility] Current Patient Location: [facility] Accession/Order Number: [id number] Exam Date: 09/24/2024 08:56 Report Date: 09/24/2024 09:28 At the request of: CLIFTON HOUGH Procedure: US OB growth EXAMINATION: US OB growth HISTORY: LGA COMPARISON: No relevant comparison available. FINDINGS: Heart Rate: 157 bpm Amniotic Fluid Volume: 12.0 cm. Largest fluid pocket 4.1 cm Number: 1 Position: Cephalic presentation, longitudinal lie BIOMETRY: BPD: 7.93 cm; 31 weeks 6 days; 56.70 % HC: 29.22 cm; 32 weeks 2 days; 38.10 % AC: 29.32 cm; 33 weeks 2 days; 93.40 % FL: 6.43 cm; 33 weeks 1 day; 84.80 % EFW: 2204.25 g; 90 %, 4 lbs. 10 oz. FL/AC: 21.93 FL/BPD: 81.08 HC/AC: 1 GESTATIONAL AGE: Age by EDC: 31 weeks 2 days EDGAR by EDC: 2024-11-24 Age by US: 32 weeks 5 days EDGAR by US: 2024-11-14 US/US OB growth IMPRESSION: Normal interval growth Electronically authenticated by: ISRAEL HERNANDEZ Date: 09/24/2024 09:28 Dictated By: Israel Hernandez M.D. Signed By:09/24/24929 DD/ 7 TD/TT: Vp Strategic Partnerships: us Clifton France DO [facility] Final Result documented in this encounter Visit Diagnoses Not on filedocumented in this encounter Additional Health Concerns Active Problems Noted Date Diagnosed Date OB Reminders 04/30/2024 documented as of this encounter Care Teams Magneto Electrician Relationship Specialty Start Date End Date Unallocated, Noms Provider, [facility] [place] [address] PCP - General 09/12/23 01/25/25 Ruth Aaron MD, IBCLC [address] [place] [address] PCP - General Family Medicine 01/26/25 documented as of this encounter
--- OUTSIDE RECORDS SUMMARY | 2025-07-01 18:37 | XMS_ITS | Encounter Summary ---
Author Organization [facility] Address [address] [facility] [place] [address] Care Team Providers Care Venue Attendant Name Role Phone Unallocated, Noms Provider MD Primary Care Provi rosa m Ruth Aaron MD, IBCLC Primary Care Provid er Encounter Details Date Type Department Care Team (Late st Contact Info) Description 10/22/2024 Clinisync Result Encounter [facility] External Department Unsolicited Clifton Hough, DO [address] [facility] [address] [place] [id number] Social History Tobacco Use Types Packs/Day Years [...] Office Visit [facility] [address] [facility] [address] [place] [address] Sweetie Yousif, SENAIT-DIRECTOR TELEVISION [address] [place], [place] [address] documented as of this encounter Goals Goal Patient Goal Type Associated Problems Recent Progress Patient-Stated? Author Reminders Care Plan OB Reminders No Open Scheduling, Background documented as of this encounter Procedures Procedure Name Priority Date/Time Associated Diagnosis Comments US OB GROWTH 10/22/2024 10:28 AM EST documented in this encounter Results * US OB GROWTH (10/22/2024 10:28 AM EST) Anatomical Region Laterality Modality Other 10/22/2024 10:2 8 AM EST Narrative 10/22/2024 10:31 [place] [address] Ultrasound Report Signed Patient: AZRA SHERMAN MR#: [id number] : 1995 Acct:[id number] Age/Sex: 29 / F ADM Date: 10/22/24 Loc: [facility] Attending Dr: Clifton Hough D.O. Ordering Physician: Clifton Hough D.O. Date of Service: 10/22/24 Procedure(s): US OB growth Accession Number(s): [id number] cc: Clifton Hough D.O.; Physician,Non-Staff M.DSylvia The [place] [id number] Patient Name: AZRA SHERMAN MRN: [facility]:[id number] date: 1995 Sex: F Assigned Patient Location: [facility] Current Patient Location: [facility] Accession/Order Number: [id number] Exam Date: 10/22/2024 08:06 Report Date: 10/22/2024 10:28 At the request of: CLIFTON HOUGH Procedure: US OB growth EXAMINATION: US OB growth HISTORY: LARGE FOR GESTATIONAL AGE COMPARISON: No relevant comparison available. FINDINGS: Heart Rate: 168 bpm Amniotic Fluid Volume: 19.6 cm, largest fluid pocket 6.7 cm position: Cephalic presentation, longitudinal lie Number: 1 BIOMETRY: BPD: 8.63 cm; 34 weeks 6 days; 39.80 % HC: 31.71 cm; 35 weeks 5 days; 25.40 % AC: 31.54 cm; 35 weeks 3 days; 63.30 % FL: 7.06 cm; 36 weeks 1 day; 67.50 % EFW: 2594.21 g; 57.50 % FL/AC: 22.38 FL/BPD: 81.81 HC/AC: 1.01 GESTATIONAL AGE: Age by EDC: 35 weeks 2 days EDGAR by EDC: 2024-11-24 Age by US: 35 weeks 4 days EDGAR by US: 2024-11-22 US/US OB growth IMPRESSION: Normal interval growth Electronically authenticated by: ISRAEL HERNANDEZ Date: 10/22/2024 10:28 Dictated By: Israel Hernandez M.D. Signed By: 10/22/24 1031 DD/ 1028 TD/TT: Senior Svp: Procedure Note Radiology, Radiologist, MD - 10/22/2024 [place] [address] Ultrasound Report Signed Patient: AZRA SHERMAN RMR#: [id number] : 1995Acct:[id number] Age/Sex: 29 / FADM Date: 10/22/24 Loc: [facility] Attending Dr: Clifton Hough D.O. Ordering Physician: Clifton Hough D.O. Date of Service: 10/22/24 Procedure(s): US OB growth Accession Number(s): [id number] cc: Clifton Hough D.O.; Physician,Non-Staff Jennifer The [place] [id number] Patient Name: AZRA SHERMAN MRN: [facility]:[id number] date: 1995 Sex: F Assigned Patient Location: [facility] Current Patient Location: [facility] Accession/Order Number: [id number] Exam Date: 10/22/2024 08:06 Report Date: 10/22/2024 10:28 At the request of: CLIFTON HOUGH Procedure: US OB growth EXAMINATION: US OB growth HISTORY: LARGE FOR GESTATIONAL AGE COMPARISON: No relevant comparison available. FINDINGS: Heart Rate: 168 bpm Amniotic Fluid Volume: 19.6 cm, largest fluid pocket 6.7 cm position: Cephalic presentation, longitudinal lie Number: 1 BIOMETRY: BPD: 8.63 cm; 34 weeks 6 days; 39.80 % HC: 31.71 cm; 35 weeks 5 days; 25.40 % AC: 31.54 cm; 35 weeks 3 days; 63.30 % FL: 7.06 cm; 36 weeks 1 day; 67.50 % EFW: 2594.21 g; 57.50 % FL/AC: 22.38 FL/BPD: 81.81 HC/AC: 1.01 GESTATIONAL AGE: Age by EDC: 35 weeks 2 days EDGAR by EDC: 2024-11-24 Age by US: 35 weeks 4 days EDGAR by US: 2024-11-22 US/US OB growth IMPRESSION: Normal interval growth Electronically authenticated by: ISRAEL HERNANDEZ Date: 10/22/2024 10:28 Dictated By: Israel Hernandez M.D. Signed By:10/22/24 1031 DD/ 1028 TD/TT: Senior Svp: us Clifton France DO [facility] Final Result documented in this encounter Visit Diagnoses Not on filedocumented in this encounter Additional Health Concerns Active Problems Noted Date Diagnosed Date OB Reminders 04/30/2024 documented as of this encounter Care Teams Venue Attendant Relationship Specialty Start Date End Date Unallocated, Noms Provider, [facility] [place] [address] PCP - General 09/12/23 01/25/25 Ruth Aaron MD, IBCLC [address] [place] [address] PCP - General Family Medicine 01/26/25 documented as of this encounter
--- OUTSIDE RECORDS SUMMARY | 2025-07-01 18:37 | XMS_ITS | Encounter Summary ---
Author Organization [facility] Address [address] [place] [address] Care Team Providers Care Combining Machine Operator Name Role Phone Unallocated, Noms Provider MD Primary Care Provi rosa m Ruth Aaron MD, IBCLC Primary Care Provid er Encounter Details Date Type Department Care Team (Late st Contact Info) Description 10/29/2024 Abstract NOMLucius Feldman OBGYN [address] [facility] [place] [phone] Dg Hough DO [address] [facility] [place] [address] Social History Tobacco Use Types Packs/Day Years [...] Dermatology [address] [place] [address] Sweetie Yousif, CHEMICAL ENGINEERING TECHNICIAN-OUTBOUND SALES EXECUTIVE [address] [place] [address] documented as of this encounter Goals Goal Patient Goal Type Associated Problems Recent Progress Patient-Stated? Author Reminders Care Plan OB Reminders No Open Scheduling, Background documented as of this encounter Visit Diagnoses Not on filedocumented in this encounter Additional Health Concerns Active Problems Noted Date Diagnosed Date OB Reminders 04/30/2024 documented as of this encounter Care Teams Combining Machine Operator Relationship Specialty Start Date End Date Unallocated, Noms Provider, [address] [place] [address] PCP - General 09/12/23 01/25/25 Ruth Aaron MD, IBCLC [address] [place] [address] PCP - General Family Medicine 01/26/25 documented as of this encounter
--- OUTSIDE RECORDS SUMMARY | 2025-07-01 18:37 | XMS_ITS | Encounter Summary ---
Author Organization [facility] Address [address] [place] [address] Care Team Providers Care Marble Mechanic Helper Name Role Phone Unallocated, Noms Provider MD Primary Care Provi rosa m Ruth Aaron MD, IBCLC Primary Care Provid er Encounter Details Date Type Department Care Team (Late st Contact Info) Description 11/20/2024 Abstract NOMLucius Feldman OBGYN [address] [facility] [phone] Dg Hough DO [address] [facility] [place] [address] Social History Tobacco Use Types Packs/Day Years [...] Dermatology [address] [place] [address] Sweetie Yousif, AIRCRAFT STRUCTURAL DESIGN ENGINEER-LOSS PREVENTION OPERATIONS MANAGER [address] [place] [address] documented as of this encounter Goals Goal Patient Goal Type Associated Problems Recent Progress Patient-Stated? Author Reminders Care Plan OB Reminders No Open Scheduling, Background documented as of this encounter Visit Diagnoses Not on filedocumented in this encounter Additional Health Concerns Active Problems Noted Date Diagnosed Date OB Reminders 04/30/2024 documented as of this encounter Care Teams Marble Mechanic Helper Relationship Specialty Start Date End Date Unallocated, Noms Provider, [address] [place] [address] PCP - General 09/12/23 01/25/25 Ruth Aaron MD, IBCLC [address] [place] [address] PCP - General Family Medicine 01/26/25 documented as of this encounter
--- OUTSIDE RECORDS SUMMARY | 2025-07-01 18:37 | XMS_ITS | Encounter Summary ---
Author Organization [facility] Address [address] [place] [address] Care Team Providers Care Transit Mixer Operator Name Role Phone Unallocated, Noms Provider MD Primary Care Provi rosa m Ruth Aaron MD, IBCLC Primary Care Provid er Encounter Details Date Type Department Care Team (Late st Contact Info) Description 11/22/2024 Abstract [facility]A GUEVARA [address] [place] [address] Jess Wren CNM [address] [place], [place] [phone] Social History Tobacco Use Types Packs/Day Years [...] Dermatology [address] [place] [phone] Sweetie Yousif, DEVELOPMENT EXPERT-PREPARATORY TECHNICIAN [address] [place] [address] documented as of this encounter Goals Goal Patient Goal Type Associated Problems Recent Progress Patient-Stated? Author Reminders Care Plan OB Reminders No Open Scheduling, Background documented as of this encounter Visit Diagnoses Not on filedocumented in this encounter Additional Health Concerns Active Problems Noted Date Diagnosed Date OB Reminders 04/30/2024 documented as of this encounter Care Teams Transit Mixer Operator Relationship Specialty Start Date End Date Unallocated, Noms Provider, [address] [place] [address] PCP - General 09/12/23 01/25/25 Ruth Aaron MD, IBCLC [address] [place] [address] PCP - General Family Medicine 01/26/25 documented as of this encounter
--- OUTSIDE RECORDS SUMMARY | 2025-07-01 18:37 | XMS_ITS | Encounter Summary ---
Author Organization [facility] Address [address] [facility] [place] [address] Care Team Providers Care Supply Teacher Name Role Phone Unallocated, Noms Provider MD Primary Care Provi rosa m Ruth Aaron MD, IBCLC Primary Care Provid er Encounter Details Date Type Department Care Team (Late st Contact Info) Description 11/27/2023 Clinisync Result Encounter [facility] External Department Unsolicited Clifton Hough, DO [address] [facility] [address] [place] [phone] Social History Tobacco Use Types Packs/Day Years [...] Office Visit [facility] [address] [place] [address] Sweetie Yousif, AGRONOMY ADVISOR-BEAN ROASTER [address] [place], [place] [address] documented as of this encounter Procedures Procedure Name Priority Date/Time Associated Diagnosis Comments US PELVIS W/ TRANSVAGINAL 11/27/2023 8:25 AM EST documented in this encounter Results * US PELVIS W/ TRANSVAGINAL (11/27/2023 8:25 AM EST) Anatomical Region Laterality Modality Other 11/27/2023 8:25 AM EST Narrative 11/27/2023 8:27 [place] [address] Ultrasound Report Signed Patient: AZRA SHERMAN MR#: [id number] : 1995 Acct:[id number] Age/Sex: 28 / F ADM Date: 11/27/23 Loc: US Attending Dr: Clifton Hough D.O. Ordering Physician: Clifton Hough D.O. Date of Service: 11/27/23 Procedure(s): US pelvis w/ transvaginal Accession Number(s): [id number] cc: Clifton Hough D.O.; Physician,Non-Staff M.Robert The [place] [id number] Patient Name: AZRA SHERMAN MRN: [facility]:[id number] date: 1995 Sex: F Assigned Patient Location: Current Patient Location: US Accession/Order Number: [id number] Exam Date: 11/27/2023 07:48 Report Date: 11/27/2023 08:25 At the request of: CLIFTON HOUGH Procedure: US pelvis w/ transvaginal EXAM: Pelvic ultrasound HISTORY: . 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 COMPARISON: None. TECHNIQUE: Transabdominal and transvaginal scanning was performed FINDINGS: Scanning of the pelvis demonstrates an anteverted uterus measuring 8 x 4.9 x 3.8 cm. Endometrial complex measures 8 mm. Right ovary measures 4.6 x 2.1 x 3.1 cm. Color-flow is noted. There is a 1.9 x 1.5 cm simple cyst in the right ovary. Left ovary measures 2.7 x 2.8 x 2.9 cm. Color-flow is noted. There is a 1.9 x 1.4 cm simple cyst within the left ovary. No fluid is noted within the cul-de-sac. US/US pelvis w/ transvaginal IMPRESSION: 1. Normal-appearing uterus and endometrial complex. 2. 2 cm simple cyst in the right ovary. 3. 1.9 cm simple cyst in the left ovary. Electronically authenticated by: ISRAEL CHRISTINE Date: 11/27/2023 08:25 Dictated By: Israel Christine M.D. Signed By: 11/27/23826 DD/ 4 TD/TT: Farm Equipment Maintenance Supervisor: Procedure Note Radiology, Radiologist, MD - 11/27/2023 [place] [address] Ultrasound Report Signed Patient: AZRA SHERMAN RMR#: [id number] : 1995Acct:[id number] Age/Sex: 28 / FADM Date: 11/27/23 Loc: US Attending Dr: Clifton Hough D.O. Ordering Physician: Clifton Hough D.O. Date of Service: 11/27/23 Procedure(s): US pelvis w/ transvaginal Accession Number(s): [id number] cc: Clifton Hough D.O.; Physician,Non-Staff Jennifer The [place] [id number] Patient Name: AZRA SHERMAN MRN: [facility]:[id number] date: 1995 Sex: F Assigned Patient Location: US Current Patient Location: US Accession/Order Number: [id number] Exam Date: 11/27/2023 07:48 Report Date: 11/27/2023 08:25 At the request of: CLIFTON HOUGH Procedure: US pelvis w/ transvaginal EXAM: Pelvic ultrasound HISTORY: . 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 COMPARISON: None. TECHNIQUE: Transabdominal and transvaginal scanning was performed FINDINGS: Scanning of the pelvis demonstrates an anteverted uterusmeasuring 8 x 4.9 x 3.8 cm. Endometrial complex measures 8 mm. Right ovary measures 4.6 x 2.1 x 3.1 cm. Color-flow is noted. There is a1.9 x 1.5 cm simple cyst in the right ovary. Left ovary measures 2.7 x 2.8 x 2.9 cm. Color-flow is noted. There is a1.9 x 1.4 cm simple cyst within the left ovary. No fluid is noted within the cul-de-sac. US/US pelvis w/ transvaginal IMPRESSION: 1. Normal-appearing uterus and endometrial complex. 2. 2 cm simple cyst in the right ovary. 3. 1.9 cm simple cyst in the left ovary. Electronically authenticated by: ISRAEL CHRISTINE Date: 11/27/2023 08:25 Dictated By: Israel Christine M.D. Signed By:11/27/23826 DD/ 4 TD/TT: Farm Equipment Maintenance Supervisor: us Clifton France DO [facility] Final Result documented in this encounter Visit Diagnoses Not on filedocumented in this encounter Care Teams Supply Teacher Relationship Specialty Start Date End Date Unallocated, Noms MD [facility] [place] [address] PCP - General 09/12/23 01/25/25 Ruth Aaron MD, IBCLC [address] [place] [address] PCP - General Family Medicine 01/26/25 documented as of this encounter
--- OUTSIDE RECORDS SUMMARY | 2025-07-01 18:37 | XMS_ITS | Encounter Summary ---
Author Organization [facility] Address [address] [facility] [place] [address] Care Team Providers Care Academic Advising Director Name Role Phone Unallocated, Noms Provider MD Primary Care Provi rosa m Ruth Aaron MD, IBCLC Primary Care Provid er Encounter Details Date Type Department Care Team (Late st Contact Info) Description 05/12/2024 Abstract NOMLucius GUEVARA [address] [place] [phone] Darlyn Briones LPN [address] [employer] [place] [address] Social History Tobacco Use Types Packs/Day Years [...] Dermatology [address] [place] [address] Sweetie Yousif, SALES AND MERCHANDISING REPRESENTATIVE-RESCUE WORKER [address] [place] [address] documented as of this encounter Goals Goal Patient Goal Type Associated Problems Recent Progress Patient-Stated? Author Reminders Care Plan OB Reminders No Open Scheduling, Background documented as of this encounter Visit Diagnoses Not on filedocumented in this encounter Additional Health Concerns Active Problems Noted Date Diagnosed Date OB Reminders 04/30/2024 documented as of this encounter Care Teams Academic Advising Director Relationship Specialty Start Date End Date Unallocated, Noms Provider, [address] [place] [address] PCP - General 09/12/23 01/25/25 Ruth Aaron MD, IBCLC [address] [place] [address] PCP - General Family Medicine 01/26/25 documented as of this encounter
--- OUTSIDE RECORDS SUMMARY | 2025-07-01 18:37 | XMS_ITS | Encounter Summary ---
Author Organization [facility] Address [address] [place] [address] Care Team Providers Care Baker Name Role Phone Unallocated, Noms Provider MD Primary Care Provi rosa m Ruth Aaron MD, IBCLC Primary Care Provid er Encounter Details Date Type Department Care Team (Late st Contact Info) Description 04/24/2024 Abstract [facility] [address] [place] [phone] Darlyn Briones LPN [address] [facility] [address] [place] [address] Social History Tobacco Use Types Packs/Day Years [...] Dermatology [address] [place] [address] Sweetie Yousif, LOW ALTITUDE AIR DEFENSE OFFICER-PREMIUM REPRESENTATIVE [address] [place] [address] documented as of this encounter Visit Diagnoses Not on filedocumented in this encounter Care Teams Baker Relationship Specialty Start Date End Date Unallocated, Noms Krystin, [facility] [place] [address] PCP - General 09/12/23 01/25/25 Ruth Aaron MD, IBCLC [address] [place] [address] PCP - General Family Medicine 01/26/25 documented as of this encounter
--- OUTSIDE RECORDS SUMMARY | 2025-07-01 18:37 | XMS_ITS | Encounter Summary ---
Author Organization [facility] Address [address] [place] [address] Care Team Providers Care Prospecting Driller Name Role Phone Unavailable Primary Care Provider Unavailabl e Source Comments In the event this information is protected by the Federal Confidentiality of Alcohol and Drug AbusePatient Records regulations: The Federal rules restrict any use of the information to criminally investigate or prosecute any alcohol or drug abuse patient.[facility] Encounter Details Date Type Department Care Team (Late st Contact Info) Description 02/04/2021 Patient Msg Dermatology [address] [place] [address] Vianey Vaz MD [address] [place] [address] RE: Request an Appointment Social History Tobacco Use Types Packs/Day Years [...] N ot on file 10/26/2020 Data from: [email or web address] Last address used for calculation Not on [...]
--- OUTSIDE RECORDS SUMMARY | 2025-07-01 18:37 | XMS_ITS | Clinical Summary ---
Author Organization [facility] Address [address] [place] [address] Care Team Providers Care Cooker Cleaner Name Role Phone Ruth Aaron MD, IBCLC Primary Care Provid er Allergies No known active allergies Medications ibuprofen 400 MG tablet 11/22/19 25 025 Discontinued Efinaconazole (Jublia) 10 % solutionIndica tions:Onychomy cosis Apply 1 application topically Daily 10 mL 3 03/31/20 25 025 Discontinued Active Problems No known active problems Encounters Date Type Department Care Team Description 07/01/2025 2:00 PM EDT Office Visit [facility] [address] [place] [phone] Dg Hough, Well woman exam with routine gynecological exam 07/01/2025 Bamboo flowsheet [facility] [address] [place] [phone] Dg Hough DO 03/31/2025 Telephone [facility] [place] [facility] [address] [place] [phone] Margareth Rios DPM from Last 3 Months Family History Medical History Relation Name Comments Hyperlipidemia Father Con Hyperlipidemia Mother Karina Hyperlipidemia Sister 2 Payal Relation Name Status Comments Brother Alive Father Con Alive Mother Karina Alive Sister 1 Alive Sister 2 Payal Social History Tobacco Use Types Packs/Day Years Used Date Smoking Tobacco: Never Smokeless Tobacco: Never Tobacco Cessation:Counseling Given: Not Answered Alcohol Use Standard Drinks/Week Comments Not Currently 1 (1 standard drink = 0.6 oz pur e alcohol) Comments Unknown Sex and Gender Information Value Date Recorded Sex Assigned at Female 04/10/2023 6:39 PM EDT Legal Sex Female 11:47 PM EDT Gender Identity Female 04/10/2023 6:39 PM EDT Sexual Orientation Not on file Last Filed Vital Signs Vital Sign Reading Time Taken Comments Blood Pressure 136/84 07/01/2025 2:06 PM EDT Pulse 83 01/26/2025 11:06 AM EDT Temperature 35.8 C (96.5 F) 01/26/2025 11:06 AM EDT Respiratory Rate - - Oxygen Saturation 97% 01/26/2025 11:06 AM EDT Inhaled Oxygen Concentration - - Weight 69.9 kg (154 lb) 07/01/2025 2:06 PM EDT Height 170.2 cm (5' 7 ) 01/26/2025 11:06 AM EDT Body Mass Index 24.12 01/26/2025 11:06 AM EDT Plan of Treatment Upcoming Encounters Date Type Department Care Team (Late st Contact Info) Description 03/04/2026 10:10 AM EDT Office Visit [facility] [address] [place] [address] Sweetie Yousif APRN-HORSE RACING MANAGER [address] [place] [address] Health Maintenance Due Date Last Done Comments Influenza Vaccine (#1) 2025 4, 09/06/2023, 09/12/2022, Additional history exists Cervical Cancer Screening 07/11/2026 Pap Smear 07/11/2026 07/11/2023 HPV/Cotest 07/11/2028 07/11/2023 Goals Goal Patient Goal Type Associated Problems Recent Progress Patient-Stated? Author Reminders Care Plan OB Reminders No Open Scheduling, Background Procedures Procedure Name Priority Date/Time Associated Diagnosis Comments THINPREP PAP AND HPV MRNA E6/E7 W/RFL HPV 16,18/45 Routine 07/11/2023 11:35 AM EDT Well woman exam with routine gynecological exam PAP SMEAR Routine 07/11/2023 12:00 AM EDT from Last 3 Months or Most Recently Relevant to Health Maintenance Results * THINPREP PAP AND HPV MRNA E6/E7 W/RFL HPV 16,18/45 (07/11/2023 11:35 AM EDT) us Dg [place] DO LAB BLOOD ORDERABLES Final Resul t EXTERNAL LAB * Pap Smear (07/11/2023 12:00 AM EDT) Swab Cervical swab / Unknown us Dg [place] DO LAB CYTOLOGY ORDERABLES Final Re sult EXTERNAL LAB from Last 3 Months or Most Recently Relevant to Health Maintenance Additional Health Concerns Active Problems Noted Date Diagnosed Date OB Reminders 04/30/2024 Insurance [facility] Care Teams Cooker Cleaner Relationship Specialty Start Date End Date Ruth Aaron MD, IBCLC [address] [facility], [place] [phone] PCP - General Family Medicine 01/26/25
--- OUTSIDE RECORDS SUMMARY | 2025-07-01 18:37 | XMS_ITS | Encounter Summary ---
Author Organization [facility] Address [address] [place] [address] Care Team Providers Care Sports Instructor Name Role Phone Unallocated, Noms Provider MD Primary Care Provi rosa m Ruth Aaron MD, IBCLC Primary Care Provid er Encounter Details Date Type Department Care Team (Late st Contact Info) Description 11/13/2024 Abstract [facility] [address] [place] [phone] Dg Hough DO [address] [facility] [place] [address] Social History Tobacco Use Types Packs/Day Years [...] Dermatology [address] [place] [phone] Sweetie Yousif, DIRECTOR TRIAL-PRIMING MACHINE OPERATOR [address] [place] [address] documented as of this encounter Goals Goal Patient Goal Type Associated Problems Recent Progress Patient-Stated? Author Reminders Care Plan OB Reminders No Open Scheduling, Background documented as of this encounter Visit Diagnoses Not on filedocumented in this encounter Additional Health Concerns Active Problems Noted Date Diagnosed Date OB Reminders 04/30/2024 documented as of this encounter Care Teams Sports Instructor Relationship Specialty Start Date End Date Unallocated, Noms Provider, [address] [place] [address] PCP - General 09/12/23 01/25/25 Ruth Aaron MD, IBCLC [address] [place] [address] PCP - General Family Medicine 01/26/25 documented as of this encounter
--- OUTSIDE RECORDS SUMMARY | 2025-07-01 18:37 | XMS_ITS | Encounter Summary ---
Author Organization [facility] Address [address] [facility] [place] [address] Care Team Providers Care Store Mgr Name Role Phone Unallocated, Noms Provider MD Primary Care Provi rosa m Ruth Aaron MD, IBCLC Primary Care Provid er Encounter Details Date Type Department Care Team (Late st Contact Info) Description 05/05/2024 Abstract [facility] [address] [place] [phone] Dg Hough DO [address] [facility] [place] [address] Social History Tobacco Use Types Packs/Day Years [...] Dermatology [address] [place] [address] Sweetie Yousif, COMPLIANCE MONITOR-PIPE CAULKER [address] [place] [address] documented as of this encounter Goals Goal Patient Goal Type Associated Problems Recent Progress Patient-Stated? Author Reminders Care Plan OB Reminders No Open Scheduling, Background documented as of this encounter Visit Diagnoses Not on filedocumented in this encounter Additional Health Concerns Active Problems Noted Date Diagnosed Date OB Reminders 04/30/2024 documented as of this encounter Care Teams Store Mgr Relationship Specialty Start Date End Date Unallocated, Noms Provider, [address] [place] [address] PCP - General 09/12/23 01/25/25 Ruth Aaron MD, IBCLC [address] [place] [address] PCP - General Family Medicine 01/26/25 documented as of this encounter
--- OUTSIDE RECORDS SUMMARY | 2025-07-01 18:37 | XMS_ITS | Encounter Summary ---
Author Organization [facility] Address [address] [facility] [place] [address] Care Team Providers Care Supervisor Dry Cleaning Name Role Phone Unallocated, Noms Provider MD Primary Care Provi rosa m Ruth Aaron MD, IBCLC Primary Care Provid er Encounter Details Date Type Department Care Team (Late st Contact Info) Description 11/06/2024 Clinisync Result Encounter NOM[facility] External Department Unsolicited Clifton Hough, DO [address] [facility] [address] [place] [id number] Social History Tobacco Use Types Packs/Day Years [...] Office Visit [facility] [address] [place] [address] Sweetie Yousif, SENAIT-ORACLE WMS CONSULTANT [address] [place], [place] [phone] documented as of this encounter Goals Goal Patient Goal Type Associated Problems Recent Progress Patient-Stated? Author Reminders Care Plan OB Reminders No Open Scheduling, Background documented as of this encounter Procedures Procedure Name Priority Date/Time Associated Diagnosis Comments US AMNIOTIC FLUID VOLUME 11/06/2024 4:28 AM EST documented in this encounter Results * US AMNIOTIC FLUID VOLUME (11/06/2024 4:28 AM EST) Anatomical Region Laterality Modality Radiographic Geri ging 11/06/2024 4:28 AM EST Narrative 11/06/2024 4:30 [place] [address] Ultrasound Report Signed Patient: AZRA SHERMAN MR#: [id number] : 1995 Acct:[id number] Age/Sex: 29 / F ADM Date: Loc: [facility] 253-[address]: Clifton Hough D.O. Ordering Physician: Clifton Hough D.O. Date of Service: 11/05/24 Procedure(s): US OB amniotic fluid vol Accession Number(s): [id number] cc: Clifton Hough D.O.; Physician,Non-Staff M.[facility] [place] [id number] Patient Name: AZRA SHERMAN MRN: [id number] date: 1995 Sex: F Assigned Patient Location: [facility] Current Patient Location: Accession/Order Number: [id number] Exam Date: 11/05/2024 16:08 Report Date: 11/06/2024 04:28 At the request of: CLIFTON HOUGH Procedure: US OB amniotic fluid vol EXAMINATION: US OB amniotic fluid vol HISTORY: positive nitrazine in office, negative amnisure COMPARISON: Ultrasound OB growth 10/22/2024 TECHNIQUE: Limited sonographic examination for amniotic fluid volume FINDINGS: Presentation: Cephalic Amniotic fluid: 16.2 cm; largest pocket 6.7 cm. Heart rate: 141 bpm GA: 37 weeks 2 days EDGAR: 11/24/2024 US/US OB amniotic fluid vol IMPRESSION: 1. Single live intrauterine . 2. Normal amniotic fluid volume. Electronically authenticated by: CHRISTO PEPE Date: 11/06/2024 04:28 Dictated By: Christo Pepe M.D. Signed By: 11/06/24429 DD/ 7 TD/TT: Financial Services Officer: Procedure Note Radiology, Radiologist, - 11/06/2024 [place] [address] Ultrasound Report Signed Patient: AZRA SHERMAN RMR#: [id number] : 1995Acct:[id number] Age/Sex: 29 FADM Date: Loc: [facility] 253-[address]: Clifton Hough D.O. Ordering Physician: Clifton Hough D.O. Date of Service: 11/05/24 Procedure(s): US OB amniotic fluid vol Accession Number(s): [id number] cc: Clfiton Hough D.O.; Physician,Non-Staff Jennifer [facility] [place] [id number] Patient Name: AZRA SHERMAN MRN: [id number] date: 1995 Sex: F Assigned Patient Location: [facility] Current Patient Location: Accession/Order Number: [id number] Exam Date: 11/05/2024 16:08 Report Date: 11/06/2024 04:28 At the request of: CLIFTON HOUGH Procedure: US OB amniotic fluid vol EXAMINATION: US OB amniotic fluid vol HISTORY: positive nitrazine in office, negative amnisure COMPARISON: Ultrasound OB growth 10/22/2024 TECHNIQUE: Limited sonographic examination for amniotic fluid volume FINDINGS: Presentation: Cephalic Amniotic fluid: 16.2 cm; largest pocket 6.7 cm. Heart rate: 141 bpm GA: 37 weeks 2 days EDGAR: 11/24/2024 US/US OB amniotic fluid vol IMPRESSION: 1. Single live intrauterine . 2. Normal amniotic fluid volume. Electronically authenticated by: CHRISTO PEPE Date: 11/06/2024 04:28 Dictated By: Christo Pepe M.D. Signed By:11/06/24429 DD/ TD/TT: Financial Services Officer: us Clifton Mirandao DO IMG XR PROCEDURES Final Result documented in this encounter Visit Diagnoses Not on filedocumented in this encounter Additional Health Concerns Active Problems Noted Date Diagnosed Date OB Reminders 04/30/2024 documented as of this encounter Care Teams Supervisor Dry Cleaning Relationship Specialty Start Date End Date Unallocated, Noms Provider, [address] [place] [address] PCP - General 09/12/23 01/25/25 Ruth Aaron MD, IBCLC [address] [place] [address] PCP - General Family Medicine 01/26/25 documented as of this encounter
--- OUTSIDE RECORDS SUMMARY | 2025-07-01 18:37 | XMS_ITS | Encounter Summary ---
Author Organization [facility] Address [address] [facility] [place] [address] Care Team Providers Care Event Manager Name Role Phone Unallocated, Noms Provider MD Primary Care Provi rosa m Ruth Aaron MD, IBCLC Primary Care Provid er Encounter Details Date Type Department Care Team (Late st Contact Info) Description 11/20/2024 Abstract [facility] [address] [phone] Dg Hough DO [address] [facility] [place] [address] Social History Tobacco Use Types Packs/Day Years [...] Dermatology [address] [place] [address] Sweetie Yousif, ACUTE CARE NURSE-ESTIMATE CLERK [address] [place] [address] documented as of this encounter Goals Goal Patient Goal Type Associated Problems Recent Progress Patient-Stated? Author Reminders Care Plan OB Reminders No Open Scheduling, Background documented as of this encounter Visit Diagnoses Not on filedocumented in this encounter Additional Health Concerns Active Problems Noted Date Diagnosed Date OB Reminders 04/30/2024 documented as of this encounter Care Teams Event Manager Relationship Specialty Start Date End Date Unallocated, Noms Provider, [address] [place] [address] PCP - General 09/12/23 01/25/25 Ruth Aaron MD, IBCLC [address] [place] [address] PCP - General Family Medicine 01/26/25 documented as of this encounter
--- OUTSIDE RECORDS SUMMARY | 2025-07-01 18:37 | XMS_ITS | Encounter Summary ---
Author Organization [facility] Address [address] [facility] [place] [address] Care Team Providers Care Senior Mechanical Engineer Name Role Phone Unallocated, Noms Provider MD Primary Care Provi rosa m Ruth Aaron MD, IBCLC Primary Care Provid er Encounter Details Date Type Department Care Team (Late st Contact Info) Description 11/20/2024 Abstract [facility] [address] [place] [place] [phone] Dg Hough DO [address] [facility] [place] [address] Social History Tobacco Use Types Packs/Day Years [...] Dermatology [address] [place] [address] Sweetie Yousif, ABRASIVE COATING MACHINE OPERATOR-PROCESS MAINTENANCE TECHNICIAN [address] [place] [address] documented as of this encounter Goals Goal Patient Goal Type Associated Problems Recent Progress Patient-Stated? Author Reminders Care Plan OB Reminders No Open Scheduling, Background documented as of this encounter Visit Diagnoses Not on filedocumented in this encounter Additional Health Concerns Active Problems Noted Date Diagnosed Date OB Reminders 04/30/2024 documented as of this encounter Care Teams Senior Mechanical Engineer Relationship Specialty Start Date End Date Unallocated, Noms Provider, [address] [place] [address] PCP - General 09/12/23 01/25/25 Ruth Aaron MD, IBCLC [address] [place] [address] PCP - General Family Medicine 01/26/25 documented as of this encounter
--- OUTSIDE RECORDS SUMMARY | 2025-07-01 18:37 | XMS_ITS | Encounter Summary ---
Author Organization [facility] Address [address] [place] [place] [address] Care Team Providers Care Insurance Biller Name Role Phone Unallocated, Noms Provider Primary Care Provi rosa m Ruth Aaron MD, IBCLC Primary Care Provid er Encounter Details Date Type Department Care Team (Late st Contact Info) Description 03/10/2024 Abstract NOM[facility]ius GUEVARA [address] [place] [phone] Darlyn Briones LPN [address] [facility] [place] [address] Social History Tobacco Use Types Packs/Day Years [...] [address] [place] [address] Sweetie Yousif, LAB CLERK-RUBBER BELT SPLICER [address] [place] [address] documented as of this encounter Visit Diagnoses Not on filedocumented in this encounter Care Teams Insurance Biller Relationship Specialty Start Date End Date Unallocated, Noms Provider, [facility] [place] [address] PCP - General 09/12/23 01/25/25 Ruth Aaron MD, IBCLC [address] [place] [address] PCP - General Family Medicine 01/26/25 documented as of this encounter
[2025-07-06 10:08] LABS: Age Gdln ACOG Testing Note (.); IGP, Aptima HPV, rfx 16/18,45 Note (.)
== END 2025-07-01 18:34 | disposition home or self-care (01) ==
LOC: LAB 18:33
PROVIDERS: Visit Provider Obstetrics & Gynecology
DX: Z01.419 Encounter for gynecological examination (general) (routine) without abnormal findings (principal)
CPT/HCPCS: 87624; 88175